=== PATIENT | male | born 1950 | race Caucasian/White ===

== ENCOUNTER → 2020-05-09 15:04 | Outpatient (BNVA) | payer MEDICARE, SELFPAY | PROVIDERS: Visit Provider Nurse Practitioner Family | DX: Z00.00 Encounter for general adult medical examination without abnormal findings (principal); E11.9 Type 2 diabetes mellitus without complications | CPT/HCPCS: 81000 ==

== ENCOUNTER 2021-04-03 12:36 | Outpatient (CLI) | payer MEDICARE, OTHER, SELFPAY ==
--- NOTE | 2021-04-03 12:42 | XR_ITS ---
WS: [id number] Right hip, 2 views, 04/03/2021 Clinical Data: M25.551 - Pain in right hip Comparison: None. Findings: No fractures or dislocations are seen. The hip joint is intact. The soft tissues are not remarkable. The adjacent acetabulum shows a vertical line which is posterior to the femoral head, probably a technology solutions architect robson finding. There are calcifications adjacent to the greater tuberosity. There is a prominent right acetabular lip. The right SI joint and pubic symphysis are unremarkable. XR/XR hip RT 2-3V wo/w pel* [id number] Impression: 1. Prominent acetabular lip. 2. Synovial calcifications adjacent to greater tuberosity Tonnis classification: grade 1: sclerosis of femoral head and acetabulum or sli ght joint space narrowing or slight lipping at joint margins
== END 2021-04-03 12:37 | disposition home or self-care (01) ==
LOC: RAD 12:41
PROVIDERS: PCP Nurse Practitioner Family; Visit Provider Nurse Practitioner Family
DX: M25.551 Pain in right hip (principal); E11.9 Type 2 diabetes mellitus without complications; M25.50 Pain in unspecified joint; I10 Essential (primary) hypertension
CPT/HCPCS: 73502; 80053; 80061; 83036; 83721; 86038; 86140; 86431

== ENCOUNTER → 2021-05-12 13:26 | Outpatient (BNVA) | payer MEDICARE, OTHER, SELFPAY | PROVIDERS: PCP Nurse Practitioner Family; Visit Provider Nurse Practitioner Family | DX: M79.606 Pain in leg, unspecified (principal); E78.5 Hyperlipidemia, unspecified | CPT/HCPCS: 80076; 82550 ==

== ENCOUNTER → 2021-06-26 10:24 | Outpatient (BNVA) | payer MEDICARE, OTHER, SELFPAY | PROVIDERS: PCP Nurse Practitioner Family; Visit Provider Internal Medicine | DX: R76.8 Other specified abnormal immunological findings in serum (principal); M25.50 Pain in unspecified joint; Z79.899 Other long term (current) drug therapy; M16.11 Unilateral primary osteoarthritis, right hip; Z11.59 Encounter for screening for other viral diseases; Z11.1 Encounter for screening for respiratory tuberculosis; E11.65 Type 2 diabetes mellitus with hyperglycemia; Z79.84 Long term (current) use of oral hypoglycemic drugs | CPT/HCPCS: 36415; 80053; 85025; 85651; 86200; 86480; 86704; 86803; 87340; 99204 ==

== ENCOUNTER 2021-06-27 10:42 | Outpatient (CLI) | payer MEDICARE, OTHER, SELFPAY ==
--- NOTE | 2021-06-27 10:50 | XR_ITS ---
WS: [id number] XR hand RT 2V [id number] REASON FOR EXAM: R76.8 - Other specified abnormal immunological findings i... FINDINGS: IP joint arthropathy in the fingers and thumb. Characterized by joint space narrowing, subchondral sc lerosis and cystic change, small marginal osteophytes. There are some soft tissue calcifications most notably near the PIP joints of the second and third and fifth fingers. Possibly these are ligamentou s. Arthropathy with the same characterization is seen in the MP joint and carpal metacarpal joint of the thumb. XR/XR hand RT 2V [id number] IMPRESSION: Arthropathy in the right hand most likely osteoarthritis. With the findings in the left hand and the soft tissue calcifications again calcium pyrophosphate de position disease could be considered.
--- NOTE | 2021-06-27 10:50 | XR_ITS ---
WS: [id number] XR foot LT 2V [id number] REASON FOR EXAM: M25.50 - Pain in unspecified joint FINDINGS: The DIP arthropathy characterized by joint space narrowing, subchondral sclerosis and cystic change, and small marginal osteophytes. No focal bone abnormality within the left forefoot. Vascular calcification usually associated with ch ronic renal disease or diabetes. The bony and joint structures of the mid and hindfoot demonstrate no significant abnormality. Small e nthesophytes at the insertion of the Achilles tendon and plantar ligament on the calcaneus. Vascular calcification in the mid and hindfoot. XR/XR foot LT 2V [id number] IMPRESSION: Mild to moderate osteoarthritis in the left forefoot. Vascular calcifications as above.
--- NOTE | 2021-06-27 10:50 | XR_ITS ---
WS: [id number] XR hand LT 2V [id number] REASON FOR EXAM: R76.8 - Other specified abnormal immunological findings i... FINDINGS: IP joint arthropathy in the thumb and fingers. Characterized by moderate joint space narrowing, subch ondral sclerosis and cystic change, and small marginal osteophytes. Similar arthropathy in the MP and carpal metacarpal joint of the thumb. Similar arthropathy is seen in the MP joints of the second and third fingers. No focal bone lesion. No soft tissue calcification. XR/XR hand LT 2V [id number] IMPRESSION: The findings are compatible with an osteoarthritis. Due to the involvement of t he second and third MP joints, calcium pyrophosphate deposition disease would b e a consideration.
--- NOTE | 2021-06-27 10:50 | XR_ITS ---
WS: [id number] XR foot RT 2V [id number] REASON FOR EXAM: M25.50 - Pain in unspecified joint FINDINGS: DIP arthropathy characterized by joint space narrowing, subchondral sclerosis and cystic change, and small marginal osteophytes. Arthropathy of similar character involving the tarsal metatarsal joint of the great toe. No focal bone abnormality within the forefoot. Bony and joint structures of the right midfoot and hindfoot demonstrate no significant abnormality. E nthesophyte at the Achilles tendon insertion on the calcaneus. XR/XR foot RT 2V [id number] IMPRESSION: Osteoarthritis in the right forefoot as above.
== END 2021-06-27 10:43 | disposition home or self-care (01) ==
PROVIDERS: PCP Nurse Practitioner Family; Visit Provider Internal Medicine
DX: R76.8 Other specified abnormal immunological findings in serum (principal); M25.50 Pain in unspecified joint
CPT/HCPCS: 73120; 73620

== ENCOUNTER → 2021-07-17 11:51 | Outpatient (BNVA) | payer MEDICARE, OTHER, SELFPAY | PROVIDERS: PCP Nurse Practitioner Family; Visit Provider Nurse Practitioner Family | DX: E11.65 Type 2 diabetes mellitus with hyperglycemia (principal) | CPT/HCPCS: 36416; 82962 ==

== ENCOUNTER → 2021-08-18 09:00 | Outpatient (BNVA) | payer MEDICARE, OTHER, SELFPAY | PROVIDERS: PCP Nurse Practitioner Family; Visit Provider Nurse Practitioner Family | DX: E11.65 Type 2 diabetes mellitus with hyperglycemia (principal); I10 Essential (primary) hypertension | CPT/HCPCS: 80053; 80061; 82043; 83036; 83721 ==

== ENCOUNTER → 2021-09-03 09:50 | Outpatient (BNVA) | payer MEDICARE, OTHER, SELFPAY | PROVIDERS: PCP Nurse Practitioner Family; Visit Provider Internal Medicine | DX: E11.40 Type 2 diabetes mellitus with diabetic neuropathy, unspecified (principal); E11.65 Type 2 diabetes mellitus with hyperglycemia; E78.5 Hyperlipidemia, unspecified; Z79.84 Long term (current) use of oral hypoglycemic drugs | CPT/HCPCS: 99204 ==

== ENCOUNTER → 2021-10-27 09:43 | Outpatient (BNVA) | payer MEDICARE, OTHER, SELFPAY | PROVIDERS: PCP Nurse Practitioner Family; Visit Provider Internal Medicine | DX: R76.8 Other specified abnormal immunological findings in serum (principal); Z79.899 Other long term (current) drug therapy; E11.40 Type 2 diabetes mellitus with diabetic neuropathy, unspecified; E11.65 Type 2 diabetes mellitus with hyperglycemia; I10 Essential (primary) hypertension | CPT/HCPCS: 80053; 85025; 85651; 86140 ==

== ENCOUNTER → 2021-10-29 10:18 | Outpatient (BNVA) | payer MEDICARE, OTHER, SELFPAY | PROVIDERS: PCP Nurse Practitioner Family; Visit Provider Internal Medicine | DX: R76.8 Other specified abnormal immunological findings in serum (principal); M25.559 Pain in unspecified hip | CPT/HCPCS: 99214 ==

== ENCOUNTER 2021-11-11 20:43 | Inpatient (IN) | payer MEDICARE, OTHER, SELFPAY ==
[2021-11-11] VITALS (8 sets, daily range): BP systolic 129–178; BP diastolic 81–113; PULSE 109–126; RESP 13–18; TEMP 34.3; O2SAT 97–100; BMI 34.8
--- NOTE | 2021-11-11 20:45 | ECG_ITS ---
[facility] Test Date: 2021-11-11 Pat Name: Adam Garnica Department: Room: Gender: Male Clinical Aide: : 1950 Requested By: Sarah Adams Order Number: [id number] Evette MD: Audrey Salgado M.D. Measurements Intervals [place] Rate: 116 P: 14 MT: 155 QRS: 67 QRSD: 129 T: -5 QT: 352 QTc: 490 Interpretive Statements SINUS TACHYCARDIA WITH FREQUENT VENTRICULAR PREMATURE COMPLEXES SEPTAL MYOCARDIAL INFARCTION , OF INDETERMINATE AGE [40+ ms Q WAVE IN V1/V2] MODERATE T-WAVE ABNORMALITY, CONSIDER INFERIOR ISCHEMIA [-0.1+ mV T-WAVE IN II/aVF] No previous ECG available for comparison Electronically Signed On 11-12-2021 7:18:20 CONVEYOR LINE BATTERY CHARGER by Audrey Salgado M.D. [id number]
--- NOTE | 2021-11-11 20:45 | XRR_ITS ---
PROCEDURE INFORMATION: Exam: XR Chest Exam date and time: 11/11/2021 8:45 PM Age: 70 years old Clinical indication: Device placement; Ett placement (vent status); Additional info: Arrest TECHNIQUE: Imaging protocol: XR of the chest. Views: 1 view. COMPARISON: No relevant prior studies available. FINDINGS: Tubes, catheters and devices: There is an endotracheal tube which is 5.5 cm above the jacinda. Lungs: Unremarkable. No consolidation. Pleural spaces: Unremarkable. No pleural effusion. No pneumothorax. Heart/Mediastinum: Unremarkable. No cardiomegaly. Bones/joints: Unremarkable. XR/XR chest 1V portable [id number] IMPRESSION: 1. Unremarkable endotracheal tube position. 2. No focal acute pulmonary disease.
[2021-11-11 20:53] LABS: Basophils # 0.1 10^3/uL (0.0-0.1); Basophils % 0.3 %; Eosinophils # 0.2 10^3/uL (0.0-0.8); Eosinophils % 1.1 %; Hematocrit 40.9 % (42.0-52.0); Hemoglobin 12.8 g/dL (11.7-16.6); Lymphocytes # 6.3 10^3/uL (0.8-4.8); Lymphocytes % 37.2 %; Mean Corpuscular HGB Conc 31.3 g/dL (30.0-36.0); Mean Corpuscular Hemoglobin 28.4 pg (28.0-34.0); Mean Corpuscular Volume 90.7 fl (80-94); Neutrophils % 54.8 %; Nucleated Red Blood Cells % 0 %; Platelet Count 183 10^3/cmm (130-400); Red Blood Count 4.51 10^6/uL (4.1-5.3); Red Cell Distribution Width 13.7 % (12.1-15.1)
[2021-11-11 21:10] LABS: INR 1.11 (0.8-1.2)
[2021-11-11 21:13] LABS: Troponin(5th) Baseline 106 ng/L (0-15)
--- NOTE | 2021-11-11 21:13 | W.ED.GENADLT ---
HPI - General Adult General: Chief complaint: Cardiac Arrest/CPR Stated complaint: unresponsive Time Seen by Provider: 11/11/21 20:45 Source: patient and EMS Mode of arrival: EMS Limitations: no limitations History of Present Illness: 70-year-old male who is here with EMS post arrest. Roughly 8:00 family witnessed seem to go down and started CPR immediately. Family states that he did not have any complaints today had been having chest pain but at 8:00 just slumped over and started CPR immediately EMS states that he did have V. fib and V. tach they shocked him 4 separate times give him amiodarone and epinephrine he is currently has ROSC. They did RSI him given vecuronium so he is paralyzed currently blood pressures in the 160s heart rate 117 Review of Systems General: Reports: ROS unobtainable due to mental status PFSH ED PFSH: Medical History Cataract fragments in both eyes following surgery Diabetes mellitus Hypertension Surgical History H/O hernia repair Family History Mother Diabetes Rheumatoid arthritis Father CAD (coronary artery disease) Diabetes Social History Smoking and tobacco status: never smoked Alcohol intake: never History of recent travel: No Physical Exam Const: COMMON NORMALS: negative for patient oriented x3 and negative for alert GENERAL APPEARANCE: ill appearing ORIENTATION/CONSCIOUSNESS: not oriented to person, not oriented to place and not oriented to time OTHER: unresponsive, intubated HENMT: COMMON NORMALS: normocephalic HEAD & SCALP: normocephalic Eye: GENERAL EYE: appearance normal, both eyes and all related structures Neck/C-Spine: COMMON NORMALS: supple Lymph: LYMPHATIC: no lymphadenopathy noted Chest: COMMONS NORMALS: normal inspection of the chest and normal palpation of entire chest wall Resp: OTHER: Good breath sounds bilaterally ET tube in place Cardio: COMMON NORMALS: regular rate, regular rhythm, S1 normal heart sound present and S2 normal heart sound present RATE: regular rate RHYTHM: regular rhythm HEART SOUNDS: S1 normal heart sound present and S2 normal heart sound present GI: COMMON NORMALS: Normal to inspection, nondistended, normoactive bowel sounds present Back/Pelvis: COMMON NORMALS: thoracic and lumbar spine normal to inspection Extremity: COMMON NORMALS: normal to inspection Neuro: COMMON NORMALS: negative for patient oriented x3 SENSORIUM/ORIENTATION: No alert, No oriented to person, No oriented to place and No oriented to time Psych: COMMON NORMALS: negative for mental status grossly normal Skin: COMMON NORMALS: no rashes or lesions noted GENERAL SKIN EXAM: no rashes or lesions noted Procedures Central Line Placement Right IJ: Time Out Performed: Yes Patient Placed on Monitor/Pulse Ox: Yes MD Prep: mask, gown and gloves Central Line Prep: Chlorhexidine scrub Ultrasound Used for Placement: Yes Central Line Lumen Inserted: triple Post Procedure: sutured in place, good blood return, all ports aspirated, flushed, capped and sterile dressing applied Post Procedure X-Ray: tip of catheter in good position Patient Tolerated Procedure: well Course Vital Signs: Vital signs: Vital Signs Temperature 93.8 F L 11/11/21 21:12 Pulse Rate 116 H 11/11/21 21:12 Respiratory Rate 15 11/11/21 21:27 Blood Pressure 171/96 11/11/21 21:12 Pulse Oximetry 97 11/11/21 21:12 [facility] - General Adult Medical Decision Making Patient presents here with a cardiac arrest. Patient here started to move and he had to be placed on propofol. His blood pressures here have been stable central line was placed for access. Initial EKG showed no STEMI I have speaking to grapple yarder operator Dr. Granados who is aware of patient being post V. fib V. tach arrest and is going to see him in the morning will admit to ICU at this time. Lab Data : 11/11/21 20:45 11/11/21 20:45 Radiology Impressions Chest X-Ray 11/11/21 20:45 IMPRESSION: 1. Unremarkable endotracheal tube position. 2. No focal acute pulmonary disease. Head CT 11/11/21 21:23 IMPRESSION: Negative for acute intracranial abnormality. Laboratory Results WBC 17.0 10^3/uL (4.0-10.0) H 11/11/21 20:45 RBC 4.51 10^6/uL (4.1-5.3) 11/11/21 20:45 Hgb 12.8 g/dL (11.7-16.6) 11/11/21 20:45 Hct 40.9 % (42.0-52.0) L 11/11/21 20:45 MCV 90.7 fl (80-94) 11/11/21 20:45 MCH 28.4 pg (28.0-34.0) 11/11/21 20:45 MCHC 31.3 g/dL (30.0-36.0) 11/11/21 20:45 RDW 13.7 % (12.1-15.1) 11/11/21 20:45 Plt Count 183 10^3/cmm (130-400) 11/11/21 20:45 MPV 10.0 fL (7.4-10.4) 11/11/21 20:45 Neut % (Auto) 54.8 % 11/11/21 20:45 Lymph % (Auto) 37.2 % 11/11/21 20:45 [place] % (Auto) 6.0 % 11/11/21 20:45 Eos % (Auto) 1.1 % 11/11/21 20:45 Baso % (Auto) 0.3 % 11/11/21 20:45 Neut # (Auto) 9.30 10^3/uL (1.8-7.7) H 11/11/21 20:45 Lymph # (Auto) 6.3 10^3/uL (0.8-4.8) H 11/11/21 20:45 [place] # (Auto) 1.0 10^3/uL (0.2-0.9) H 11/11/21 20:45 Eos # (Auto) 0.2 10^3/uL (0.0-0.8) 11/11/21 20:45 Baso # (Auto) 0.1 10^3/uL (0.0-0.1) 11/11/21 20:45 Nucleated RBC % (auto) 0 % 11/11/21: Nucleated RBCs # 0.0 /100WBC 11/11/21 20:45 PT 14.70 SECONDS (12.1-14.9) 11/11/21 20:45 INR 1.11 (0.8-1.2) 11/11/21 20:45 Specimen Type Arterial 11/11/21 21:09 Sample Site Radial, right 11/11/21 21:09 ABG pH 7.20 (7.35-7.45) L 11/11/21 21:09 ABG pCO2 55.8 mmHg (35-45) H 11/11/21 21:09 ABG pO2 322.0 mmHg (80.0-100.0) H 11/11/21 21:09 ABG HCO3 21.9 mmol/L (22-26) L 11/11/21 21:09 ABG Base Excess -6.7 mmol/L (-2.0-2.0) L 11/11/21 21:09 Boo Test Pos 11/11/21 21:09 Hematocrit 41.8 % (42-52) L 11/11/21 21:09 O2 Delivery Device Vent 11/11/21 21:09 FiO2 80.0 % 11/11/21 21:09 PEEP 8.0 cmH20 11/11/21 21:09 Outside Solar Sales Consultant ID Hensa 11/11/21 21:09 Sodium 142 mmol/L (136-145) 11/11/21 20:45 Potassium 3.0 mmol/L (3.5-5.1) L 11/11/21 20:45 Chloride 98 mmol/L (98-107) 11/11/21 20:45 Carbon Dioxide 20 mmol/L (22-29) L 11/11/21 20:45 Anion Gap 27.0 (5-19) H 11/11/21 20:45 BUN 23 mg/dL (8-23) 11/11/21 20:45 Creatinine 1.2 mg/dL (0.7-1.2) 11/11/21 20:45 GFR Calculation 60.0 mL/min (90-130) L 11/11/21 20:45 Glucose 382 mg/dL (65-115) H 11/11/21 20:45 Calculated Osmolality 313 mOsm/kg (285-295) H 11/11/21 20:45 Lactate 8.0 mmol/L (0.5-2.2) H* 11/11/21 20:45 Calcium 8.8 mg/dL (8.5-10.5) 11/11/21 20:45 Magnesium 2.7 mg/dL (1.7-2.3) H 11/11/21 20:45 Total Bilirubin 0.4 mg/dL (0.15-1.2) 11/11/21 20:45 AST 156 U/L (0-40) H 11/11/21 20:45 ALT 123 U/L (0-41) H 11/11/21 20:45 Alkaline Phosphatase 77 IU/L (40-130) 11/11/21 20:45 Troponin T Baseline 106 ng/L (0-15) H* 11/11/21 20:45 NT-Pro-B Natriuret Pep 486 pg/mL (0-125) H 11/11/21 20:45 Total Protein 6.1 g/dL (6.6-8.7) L 11/11/21 20:45 Albumin 4.0 g/dL (3.5-5.2) 11/11/21 20:45 Globulin 2.1 g/dL (1.3-4.6) 11/11/21 20:45 EKG Data EKG 1: I personally reviewed and interpreted this EKG as follows: EKG interpretation date: 11/11/21 EKG interpretation time: 20:46 Interpretation: sinus tach hr [address] or t wave abnormalities qrs 126 qtc 423 Computer generated interpretation: Chest X-Ray 11/11/21 20:45 IMPRESSION: 1. Unremarkable endotracheal tube position. 2. No focal acute pulmonary disease. Head CT 11/11/21 21:23 IMPRESSION: Negative for acute intracranial abnormality. Critical Care Time Critical Care Time: Critical Care Time: Yes Total Critical Care Time: 45 Attestation: The high probability of a clinically significant, sudden or life threatening deterioration of the patient's cv system(s) required my full and direct attention, intervention and personal management. The critical care time is as shown. This time is in addition to time spent performing any reported procedures but includes the following: [x] Data and vital sign review and interpretation [x] Patient assessment, examination and intervention [x] Documentation [x] Medication orders and management Discharge Plan Discharge Patient Disposition: Admitted As Inpatient Admit Provider: Priyanka Landa Clinical Impression: Cardiac arrest Condition: Stable Coding Level of Care Code ED Golf Course Patroller for Chg Fwd Exam Comprehensive
[2021-11-11 21:17] LABS: ABG PCO2 55.8 mmHg (35-45); Arterial Blood Gas Hematocrit 41.8 % (42-52); Base Excess ABG -6.7 mmol/L (-2.0-2.0); Blood Gas Allen Test Pos; Blood Gas Sample Site Radial, right; Blood Gas Sample Type Arterial; HCO3 ABG 21.9 mmol/L (22-26); Oxygen Device VENT
[2021-11-11 21:20] LABS: Alanine Aminotransferase 123 U/L (0-41); Alkaline Phosphatase 77 IU/L (40-130); Blood Urea Nitrogen 23 mg/dL (8-23); Calcium 8.8 mg/dL (8.5-10.5); Carbon Dioxide 20 mmol/L (22-29); Chloride 98 mmol/L (98-107); Globulin 2.1 g/dL (1.3-4.6); Glucose 382 mg/dL (65-115); NT Pro B Type Natriuretic Pept 486 pg/mL (0-125); Osmolality Calculated 313 mOsm/kg (285-295); Sodium 142 mmol/L (136-145); Total Bilirubin 0.4 mg/dL (0.15-1.2); Total Protein 6.1 g/dL (6.6-8.7)
[2021-11-11 21:21] LABS: Aspartate Amino Transferase 156 U/L (0-40)
--- NOTE | 2021-11-11 21:23 | CTR_ITS ---
PROCEDURE INFORMATION: Exam: CT Head Without Contrast Exam date and time: 11/11/2021 9:23 PM Age: 70 years old Clinical indication: Altered mental status/memory loss; Patient HX: Patient cpr in progress upon er arrival. Intubated. Unresponsive. Patient not fully sedated. Fighting et tube. Multiple attempts made. Best scan submitted. ; Additional info: AMS TECHNIQUE: Imaging protocol: Computed tomography of the head without contrast. Radiation optimization: All CT scans at this facility use at least one of these dose optimization techniques: automated exposure control; mA and/or kV adjustment per patient size (includes targeted exams where dose is matched to clinical indication); or iterative reconstruction. COMPARISON: No relevant prior studies available. RADIATION DOSE METRICS: Total DLP (mGy-cm): 2721.6 FINDINGS: Tubes, catheters and devices: Partial visualization of endotracheal tube and orogastric tube. Brain: Unremarkable. No hemorrhage. Unremarkable white matter. No mass effect. Cerebral ventricles: No ventriculomegaly. Paranasal sinuses: Visualized sinuses are unremarkable. No fluid levels. Mastoid air cells: Visualized mastoid air cells are well aerated. Bones/joints: Unremarkable. No acute fracture. Soft tissues: Unremarkable. CT/CT head wo con* [id number] IMPRESSION: Negative for acute intracranial abnormality.
[2021-11-11] MEDS: propofol 1,000 MG/100 ML INJ 7 MG (21:30)
[2021-11-11 21:34] LABS: Magnesium 2.7 mg/dL (1.7-2.3)
--- NOTE | 2021-11-11 22:00 | PC.NURSE ---
2035 - Arrived to ER 11 via [facility] with ROSC Report - Witnessed arrest, daughter states pt slumped back in chair. CPR initiated immediately by family. EMS arrived and pt was in asystole x3 rounds of ACLS, PEA x 1 round, and VFib x 3 rounds. En rounte pt received Epi x 5, Bicarb x 2, 150 mg & 300 mg Ami. Pt RSI with iGel, 25 mg Etom and 80 mg Jaime. 18 g OG placed in field. 14 g R & 18 L AC IV access with IO to left leg. 2040 - HR 95 SR B/P 171/96 Propofol started at 15 mcg 2045 - HR 115 ST c PVC B/P 156/103 Spo2 97% Mayes Cath inserted 2047 - Rectal temp 93.8 - reported to physician 2049 - XRay to confirm tube placements 2056 - B/P 133/106 2099 - HR 119 ST c PVC B/P 166/103 Spo2 100%
[2021-11-11] MEDS: vecuronium 10 mg SDV IVP (22:28)
--- NOTE | 2021-11-11 22:45 | ECG_ITS ---
[facility] Test Date: 2021-11-12 Pat Name: Adam Garnica Department: Room: ICU08 Gender: Male Patient Financial Coordinator: : 1950 Requested By: Sarah Adams Order Number: [id number] Reading MD: Shelly Ford M.D. Measurements Intervals [place] Rate: 110 P: [place]: QRS: 57 QRSD: 136 T: 29 QT: 359 QTc: 486 Interpretive Statements Sinus tachycardia INTRAVENTRICULAR CONDUCTION DELAY [130+ ms QRS DURATION] SEPTAL MYOCARDIAL INFARCTION , OF INDETERMINATE AGE [40+ ms Q WAVE IN V1/V2] Nonspecific T wave changes Compared to ECG 11/11/2021 20:54:17 Intraventricular conduction delay now present Sinus tachycardia no longer present Ventricular premature complex(es) no longer present Possible ischemia no longer present Myocardial infarct finding still present Electronically Signed On 11-12-2021 20:09:50 HEAD OPERATOR by Shelly Ford M.D. [id number]
[2021-11-11] MEDS: dexmedetomidine 400 MCG in sodium chloride 0.9% (100 ml) 100 ML IV (22:59)
--- NOTE | 2021-11-11 23:01 | XRR_ITS ---
PROCEDURE INFORMATION: Exam: XR Chest Exam date and time: 11/11/2021 11:01 PM Age: 70 years old Clinical indication: Device placement; Other: Central line TECHNIQUE: Imaging protocol: XR of the chest. Views: 1 view. COMPARISON: CR (CHEST, ) 11/11/2021 8:49 PM FINDINGS: Tubes, catheters and devices: Right neck approach central venous catheter terminates in the mid SVC. Endotracheal tube is present 6.2 cm above jacinda. Lungs: Unremarkable. No consolidation. Pleural spaces: Unremarkable. No pleural effusion. No pneumothorax. Heart/Mediastinum: Unremarkable. No cardiomegaly. Bones/joints: Unremarkable. XR/XR chest 1V portable [id number] IMPRESSION: Satisfactory central venous catheter placement.
[2021-11-11 23:53] LABS: Troponin 5 2HR 229.3 ng/L (0-15); Troponin 5 2HR Delta 123.3 ABS# (0-10)
--- NOTE | 2021-11-11 23:56 | PC.NURSE ---
Pt. medication was changed from Propofol to Presodex due to hypotension. The patient's blood pressure quickly went to hypertension. The patient was changed back to propofol. Pt. had central line started if blood pressure medication is needed.
[2021-11-12] VITALS (64 sets, daily range): BP systolic 84–142; BP diastolic 50–90; PULSE 80–113; RESP 8–27; TEMP 34.8–37.1; O2SAT 91–100
[2021-11-12] MEDS: propofol 1,000 MG/100 ML INJ 27.22 MG IV ×2 (00:18→03:56)
[2021-11-12] MEDS: enoxaparin 100 mg/mL Syringe SUBCUT ×2 (00:30→12:35)
--- NOTE | 2021-11-12 01:08 | USCV_ITS ---
Adam Garnica Age: 70 Gender: M : 1950 Exam Date: 11/12/2021 01:39 Ordering Phys: Priyanka Landa MD Technologist: BRIAN Exam Location: [facility] [place] Indication: Post Cardiac Arrest BP: 89 / 61 HR: 98 Rhythm: Sinus Technical Quality: Adequate MEASUREMENTS (Male / Female) Normal Values 2D ECHO LV Diastolic Diameter PLAX 4.7 cm 4.2 - 5.9 / 3.9 - 5.3 cm LV Systolic Diameter PLAX 3.8 cm IVS Diastolic Thickness 1.3 cm 0.6 - 1.0 / 0.6 - 0.9 cm IVS Systolic Thickness 1.6 cm LVPW Diastolic Thickness 1.4 cm 0.6 - 1.0 / 0.6 - 0.9 cm LVPW Systolic Thickness 1.6 cm LVOT Diameter 2.6 cm LV Ejection Fraction 2D Teich 38.1 % LV Ejection Fraction MOD 2C 44.7 % LV Ejection Fraction 2C AL 43.9 % LA Diameter 2.8 cm LA Width 3.2 cm LA Height 4.1 cm RA Width 2.7 cm RA Height 5.0 cm Aorta at Sinotubular Diameter 2.9 cm M-MODE Aortic Annulus Diameter 3.0 cm LA Ao Ratio MM 1.0 DOPPLER AV Peak Velocity 99.0 cm/s LVOT Peak Velocity 85.0 cm/s AV Area Cont Eq vti 4.2 cm squared AV Area Cont Eq pk 4.7 cm squared MV E' Velocity 6.0 cm/s TR Peak Velocity 168.3 cm/s TR Peak Gradient 11.3 mmHg TR Mean Velocity 119.6 cm/s TR Mean Gradient 6.2 mmHg TR Velocity Time Integral 37.9 cm TV Peak E Velocity 59.0 cm/s Right Atrial Pressure 8.0 mmHg Pulmonary Artery Systolic Pressu 19.3 mmHg PV Peak Velocity 58.0 cm/s RV Acceleration Time 0.1 s RV Ejection Time 0.3 s RV AcT/ET 0.4 FINDINGS Left Ventricle Normal left ventricular size and systolic function, EF 55 %. Mild left ventricular hypertrophy. Regional wall motion abnormalities (see diagram). Right Ventricle Possibly of normal size and ejection fraction Right Atrium Possibly of normal size Left Atrium Normal left atrial size. Mitral Valve Thickened mitral valve. Aortic Valve Thickened aortic valve. Tricuspid Valve No gross abnormalities noted Pulmonic Valve Pulmonic valve not well visualized. Pericardium No pericardial effusion. Aorta Normal aortic annulus size. CONCLUSIONS Normal left ventricular size and systolic function, EF 55 %. Mild left ventricular hypertrophy. Regional wall motion abnormalities (see diagram). Minimally thickened aortic and mitral valves. There is no pericardial effusion. There are no intracardiac masses. Technically difficult study because of the poor ultrasonic window. No previous study is available for comparison. Dr Shelly Ford MD FACC (Electronically Signed) Final Date: 12 November 2021 17:05 S
--- NOTE | 2021-11-12 01:08 | XR_ITS ---
WS: [id number] Exam: XR chest 1V portable [id number] Date/Time of Exam: 11/12/2021 3:55 AM Reason For Exam: tube position, CXR on vent Comparison 11/11/2021. The lungs are fully expanded and clear. An endotracheal tube is in place ending about 4 cm above the jacinda in good position. Right IJ catheter ends at the cavoatrial junction. An enteric tube enters th e stomach but the tip is not visible. Normal cardiomediastinal silhouette for technique. No pleural e ffusion. XR/XR chest 1V portable [id number] IMPRESSION: 1. No acute cardiopulmonary process identified. 2. ET tube and right IJ central line both in good position. Enteric tube enters the stomach but the tip is not included in the [id number].
--- NOTE | 2021-11-12 01:24 | PM.HP ---
Providers/Chief Complaint Admitting Physician: Priyanka Landa MD Primary Care Provider: CAMI Connolly Chief Complaint: unresponsive History of Present Illness Adam Garnica is a 70 year old male brought from home by EMS after having a cardiac arrest at home at ~8Pm. Patient reportedly became unresponsive, CPR was started by family immediately and then taken over by EMS. V fib and V tach was detected by EMS- he was defibrillated 4 times, given amiodarone and epinephrine which resulted in ROSC. He was intubated thereafter, started on fentanyl and precedex thereafter, patient was reportedly awake in the ER thereafter and moving all extremities. Currently sedated with fenatnyl and propofol, comfortable on ventilator. Epinephrine drip was turned off after BP was 211/107, currently BP 140/67mmhg, HR 100/min. EKG shows sinus tachycardia with frequent VPCs. Ct head negative for acute intracranial abnormality. Review of Systems General: Reports: ROS unobtainable due to endotracheal tube and ROS unobtainable due to medical condition Medications/Allergies Home Medications Medication Instructions Recorded Confirmed Last Taken Type metformin 850 mg tablet 850 mg PO TID 05/09/20 10/29/21 Unknown History [place] Cinnamon PO 06/26/21 10/29/21 Unknown History Elderberry complex PO 06/26/21 10/29/21 Unknown History cholecalciferol (vitamin D3) 50 50 mcg PO DAILY 06/26/21 10/29/21 Unknown History mcg (2,000 unit) capsule diclofenac sodium 1 % topical gel 4 g TOPICAL QID #100 g 06/26/21 10/29/21 Unknown Rx (Voltaren Arthritis Pain) digestive enzymes 1 cap PO DAILY 06/26/21 10/29/21 Unknown History ibuprofen 200 mg tablet (Advil) 200 mg PO Q6H PRN 06/26/21 10/29/21 Unknown History joint support PO 06/26/21 10/29/21 Unknown History magnesium 250 mg tablet 250 mg PO DAILY 06/26/21 10/29/21 Unknown History mupirocin calcium 2 % topical cream 1 applic TOPICAL BID PRN 06/26/21 10/29/21 Unknown History omega-3 fatty acids-fish oil 360 1 cap PO DAILY 06/26/21 10/29/21 Unknown History mg-1,200 mg capsule (Fish Oil) oxymetazoline 0.05 % nasal spray 2 spray INTRANASAL Q12H PRN 06/26/21 10/29/21 Unknown History (Afrin (oxymetazoline)) pseudoephedrine HCl 30 mg tablet 30 mg PO Q6H PRN 06/26/21 10/29/21 Unknown History (Sudafed) sertraline 50 mg tablet (Zoloft) 50 mg PO DAILY PRN 06/26/21 10/29/21 Unknown History blood-glucose meter,continuous #1 ea 07/21/21 10/29/21 Unknown Rx empagliflozin 25 mg tablet 25 mg PO DAILY #90 tab 09/03/21 10/29/21 Unknown Rx (Jardiance) pioglitazone 30 mg tablet (Actos) 30 mg PO DAILY #90 tab 09/03/21 10/29/21 Unknown Rx fluorouracil 5 % topical cream 1 applic TOPICAL BID 14 Days #40 g 09/22/21 10/29/21 Unknown Rx (Efudex) blood sugar diagnostic #50 ea 09/29/21 10/29/21 Unknown Rx blood sugar diagnostic (Blood #50 ea 09/29/21 10/29/21 Unknown Rx Glucose Test) blood sugar diagnostic (OneTouch #100 ea 10/10/21 10/29/21 Unknown Rx Ultra Test) dulaglutide 4.5 mg/0.5 mL See Rx Instructions .ROUTE 10/10/21 10/29/21 Unknown Rx subcutaneous pen injector .COMPLEX #2 ml (Trulicity) hydroxychloroquine 200 mg tablet 200 mg PO BID #60 tab 10/16/21 10/29/21 Unknown Rx amlodipine 10 mg tablet See Rx Instructions .ROUTE 10/23/21 10/29/21 Unknown Rx .COMPLEX #90 tablet gemfibrozil 600 mg tablet See Rx Instructions .ROUTE 11/04/21 Unknown Rx .COMPLEX #60 tab losartan 100 mg tablet 100 mg PO DAILY #90 tab 11/07/21 Unknown Rx Allergies Allergy/AdvReac Type Severity Reaction Status Date / Time No Known Allergies Allergy Verified 10/29/21 10:55 PFSH Acute PFSH: Medical History Cataract fragments in both eyes following surgery Diabetes mellitus Hypertension Surgical History H/O hernia repair Family History Mother Diabetes Rheumatoid arthritis Father CAD (coronary artery disease) Diabetes Social History Smoking and tobacco status: never smoked Alcohol intake: never History of recent travel: No Vitals/I&O/Wt Last Vital Signs Temp 93.8 F L 11/11/21 21:12 Pulse 122 H 11/11/21 23:23 Resp 18 11/11/21 23:54 BP 178/103 11/11/21 23:23 Pulse Ox 99 11/11/21 23:54 11/11/21 11/11/21 11/12/21 14:59 22:59 06:59 Intake Total 10.383 / 10.383 13.397 / 23.780 Balance 10.383 / 10.383 13.397 / 23.780 Weight last 48 hrs Weight 113.398 kg Physical Exam Narrative: GEN: intubated, sedated CVS: S1S2 N, tachycardia RS: CTA B/L all areas Abd: Soft, nt/nd , bs+ 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 Chest X-Ray 11/11/21 23:01 IMPRESSION: Satisfactory central venous catheter placement. Laboratory Results WBC 17.0 10^3/uL (4.0-10.0) H 11/11/21 20:45 RBC 4.51 10^6/uL (4.1-5.3) 11/11/21 20:45 Hgb 12.8 g/dL (11.7-16.6) 11/11/21 20:45 Hct 40.9 % (42.0-52.0) L 11/11/21 20:45 MCV 90.7 fl (80-94) 11/11/21 20:45 MCH 28.4 pg (28.0-34.0) 11/11/21 20:45 MCHC 31.3 g/dL (30.0-36.0) 11/11/21 20:45 RDW 13.7 % (12.1-15.1) 11/11/21 20:45 Plt Count 183 10^3/cmm (130-400) 11/11/21 20:45 MPV 10.0 fL (7.4-10.4) 11/11/21 20:45 Neut % (Auto) 54.8 % 11/11/21 20:45 Lymph % (Auto) 37.2 % 11/11/21 20:45 [place] % (Auto) 6.0 % 11/11/21 20:45 Eos % (Auto) 1.1 % 11/11/21 20:45 Baso % (Auto) 0.3 % 11/11/21 20:45 Neut # (Auto) 9.30 10^3/uL (1.8-7.7) H 11/11/21 20:45 Lymph # (Auto) 6.3 10^3/uL (0.8-4.8) H 11/11/21 20:45 [place] # (Auto) 1.0 10^3/uL (0.2-0.9) H 11/11/21 20:45 Eos # (Auto) 0.2 10^3/uL (0.0-0.8) 11/11/21 20:45 Baso # (Auto) 0.1 10^3/uL (0.0-0.1) 11/11/21 20:45 Nucleated RBC % (auto) 0 % 11/11/21:45 Nucleated RBCs # 0.0 /100WBC 11/11/21 20:45 PT 14.70 SECONDS (12.1-14.9) 11/11/21 20:45 INR 1.11 (0.8-1.2) 11/11/21 20:45 Specimen Type Arterial 11/11/21 21:09 Sample Site Radial, right 11/11/21 21:09 ABG pH 7.20 (7.35-7.45) L 11/11/21 21:09 ABG pCO2 55.8 mmHg (35-45) H 11/11/21 21:09 ABG pO2 322.0 mmHg (80.0-100.0) H 11/11/21 21:09 ABG HCO3 21.9 mmol/L (22-26) L 11/11/21 21:09 ABG Base Excess -6.7 mmol/L (-2.0-2.0) L 11/11/21 21:09 Boo Test Pos 11/11/21 21:09 Hematocrit 41.8 % (42-52) L 11/11/21 21:09 O2 Delivery Device Vent 11/11/21 21:09 FiO2 80.0 % 11/11/21 21:09 PEEP 8.0 cmH20 11/11/21 21:09 Economic Specialist ID Hensa 11/11/21 21:09 Sodium 142 mmol/L (136-145) 11/11/21 20:45 Potassium 3.0 mmol/L (3.5-5.1) L 11/11/21 20:45 Chloride 98 mmol/L (98-107) 11/11/21 20:45 Carbon Dioxide 20 mmol/L (22-29) L 11/11/21 20:45 Anion Gap 27.0 (5-19) H 11/11/21 20:45 BUN 23 mg/dL (8-23) 11/11/21 20:45 Creatinine 1.2 mg/dL (0.7-1.2) 11/11/21 20:45 GFR Calculation 60.0 mL/min (90-130) L 11/11/21 20:45 Glucose 382 mg/dL (65-115) H 11/11/21 20:45 Calculated Osmolality 313 mOsm/kg (285-295) H 11/11/21 20:45 Lactate 8.0 mmol/L (0.5-2.2) H* 11/11/21 20:45 Calcium 8.8 mg/dL (8.5-10.5) 11/11/21 20:45 Magnesium 2.7 mg/dL (1.7-2.3) H 11/11/21 20:45 Total Bilirubin 0.4 mg/dL (0.15-1.2) 11/11/21 20:45 AST 156 U/L (0-40) H 11/11/21 20:45 ALT 123 U/L (0-41) H 11/11/21 20:45 Alkaline Phosphatase 77 IU/L (40-130) 11/11/21 20:45 Troponin T Baseline 106 ng/L (0-15) H* 11/11/21 20:45 Troponin T 120 Minute 229.3 ng/L (0-15) H 11/11/21 23:22 Delta Troponin T 123.3 ABS# (0-10) H* 11/11/21 23:22 NT-Pro-B Natriuret Pep 486 pg/mL (0-125) H 11/11/21 20:45 Total Protein 6.1 g/dL (6.6-8.7) L 11/11/21 20:45 Albumin 4.0 g/dL (3.5-5.2) 11/11/21 20:45 Globulin 2.1 g/dL (1.3-4.6) 11/11/21 20:45 Micro: Microbiology 11/11/21 21:22 Blood Culture - Preliminary Blood SPECIMEN COLLECTED 11/11/21 21:00 Blood Culture - Preliminary Blood SPECIMEN COLLECTED ABG Interpretation 1: 11/11/21 21:09 ABG pH 7.20 L ABG pCO2 55.8 H ABG pO2 322.0 H ABG HCO3 21.9 L ABG Base Excess -6.7 L A&P Assessment and plan (1) Cardiac arrest: s/p cardiac arrest with CPR en route V fib/Vtach reported to be rhythm at arrest Currently in sinus rhythm with frequent VPCs Troponins elevated with significant 2 and 6 hr deltas, may be related to primary cardiac event/AMI vs CPR. Hypokalemia on labs with K 3.0, repleted with po and iv supplementation started on lovenox 1mg/kg q12h Given ASA 325, start 81mg po daily, start atorvastatin 40mg po daily Continue losartan at home dosing Start metoprolol 25mg po BID Echocardiogram Cardiology consulted from ER CT head negative for acute intracranial abnormalities Currently intubated, earlier patient noted to be moving all extremities in ER, opening eyes when sedation was weaned down ABG, CXR in am Status: Acute (2) Hyperlipemia: Status: Acute (3) Diabetes mellitus: Hold OHAs, start insulin sliding scale Status: Acute Qualifiers: Diabetes mellitus type: type 2 Diabetes mellitus retirement insulin use: without retirement use Diabetes mellitus complication status: with hyperglycemia Qualified Code(s): E11.65 - Type 2 diabetes mellitus with hyperglycemia (4) Hypertension: continue home dose of losartan Added metoprolol Status: Acute Attestations Medical Necessity Statement*: >2midnight admission for management of cardiac arrest, post code care Critical Care Time: The high probability of a clinically significant, sudden or life threatening deterioration of the patient's [cardiovascular, respiratory] system(s) required my full and direct attention, intervention and personal management. The critical care time is as shown. 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
[2021-11-12] MEDS: lidocaine 1% 5 ML in potassium chloride premix 100 ML 25 ML IV (01:55)
[2021-11-12] MEDS: potassium chloride oral liq 20 mEq/15 mL UDC 40 MEQ NG-TUBE (01:56)
--- NOTE | 2021-11-12 02:45 | ECG_ITS ---
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 Measurements Intervals [place] Rate: 101 P: 40 MI: 199 QRS: 59 QRSD: 125 T: 55 QT: 365 QTc: 474 Interpretive Statements SINUS TACHYCARDIA SEPTAL MYOCARDIAL INFARCTION , PROBABLY OLD [40+ ms Q WAVE IN V1/V2] Compared to ECG 11/12/2021 00:10:01 Atrial flutter no longer present Intraventricular conduction delay no longer present Myocardial infarct finding still present Electronically Signed On 11-12-2021 20:11:41 DISTRICT OPERATIONS MANAGER by Shelly Ford M.D. [id number]
[2021-11-12 03:02] LABS: Basophils % 0.1 %; Hematocrit 36.8 % (42.0-52.0); Hemoglobin 12.1 g/dL (11.7-16.6); Lymphocytes # 0.6 10^3/uL (0.8-4.8); Lymphocytes % 4.2 %; Mean Corpuscular HGB Conc 32.9 g/dL (30.0-36.0); Mean Corpuscular Hemoglobin 28.5 pg (28.0-34.0); Mean Corpuscular Volume 86.6 fl (80-94); Mean Platelet Volume 9.9 fL (7.4-10.4); Monocytes % 7.2 %; Neutrophils # 12.29 10^3/uL (1.8-7.7); Neutrophils % 88.1 %; Nucleated Red Blood Cells % 0 %; Platelet Count 237 10^3/cmm (130-400); Red Blood Count 4.25 10^6/uL (4.1-5.3); Red Cell Distribution Width 13.5 % (12.1-15.1)
[2021-11-12 03:16] LABS: Estmated Average Glucose 220; Hemoglobin A1C 9.3 % (4.0-6.0)
[2021-11-12 03:24] LABS: Alanine Aminotransferase 133 U/L (0-41); Albumin Level 3.8 g/dL (3.5-5.2); Alkaline Phosphatase 62 IU/L (40-130); Anion Gap 18.5 (5-19); Aspartate Amino Transferase 151 U/L (0-40); Blood Urea Nitrogen 33 mg/dL (8-23); Calcium 8.5 mg/dL (8.5-10.5); Carbon Dioxide 23 mmol/L (22-29); Chloride 103 mmol/L (98-107); Globulin 2.5 g/dL (1.3-4.6); Glomerular Filtration Rate 66.4 mL/min (90-130); Glucose 339 mg/dL (65-115); Lactic Sepsis W/Reflex 1.1 mmol/L (0.5-2.2); Magnesium 2.3 mg/dL (1.7-2.3); Osmolality Calculated 311 mOsm/kg (285-295); Potassium 4.5 mmol/L (3.5-5.1); Sodium 140 mmol/L (136-145); Total Bilirubin 0.3 mg/dL (0.15-1.2); Total Protein 6.3 g/dL (6.6-8.7)
[2021-11-12 03:26] LABS: Chol HDL Ratio 5.82 mg/dL (1.0-5.00); Cholesterol 192 mg/dL (0-200); HDL Cholesterol 33 mg/dL (60-100); Triglycerides 482 mg/dL (0-150)
[2021-11-12 03:39] LABS: Troponin 5 6HR 399.1 ng/L (0-15); Troponin 5 6HR Delta 293.1 ng/L (0-12)
[2021-11-12 04:06] LABS: LDL Cholesterol Direct 99 mg/dL (0-100)
[2021-11-12 04:47] LABS: ABG PH Result 7.31 (7.35-7.45); Arterial Blood Gas Hematocrit 38.6 % (42-52); Base Excess ABG -3.1 mmol/L (-2.0-2.0); Blood Gas Allen Test Pos; Blood Gas Operator Identificat JB; Blood Gas Sample Site Brachial, right; Blood Gas Sample Type Arterial; HCO3 ABG 23.4 mmol/L (22-26); Oxygen Device VENT
--- NOTE | 2021-11-12 06:26 | PC.NURSE ---
Patient brought to ICU 8 by SACK LIFTER. Patient currently has fentanyl and propofol gtt's running (please see mar for details). Patient is on the ventilator at 40% and is tolerating well. Patient placed on VS monitoring and tele. Patient is tachycardic in the 100's and all other vital signs are within normal limits.
[2021-11-12 07:19] LABS: Glucose Point of Care 254 mg/dL (70-110)
[2021-11-12] MEDS: insulin lispro 100 unit/1 mL SUBCUT ×2 (07:22→12:34)
--- NOTE | 2021-11-12 07:39 | P.CONIM_ITS ---
Providers/Reason For Consult Consulting Physician/Specialty*: Cardiovascular medicine Reason for Consult*: Out of hospital cardiac arrest Requesting Physician: Hospitalist Attending Physician: Priyanka Landa MD Primary Care Provider: CAMI Connolly History of Present Illness History of Present Illness Adam Garnica is a 70 year old male without a specific history of heart disease who apparently had an [id number] cardiac arrest last evening around 8:00. He was at home and suddenly collapsed. There was no warning. His family did bystander CPR immediately. EMS was called and according to the notes the initial rhythm was ventricular tachycardia and ventricular fibrillation. He was shocked 4 times and achieved return of spontaneous circulation. During the resuscitation he was given amiodarone and epinephrine. His blood pressure increased after the epinephrine to 211/117. After he was resuscitated he was g iven vecuronium and was intubated. He was brought to the emergency room where his EKG revealed sinus tachycardia with PVCs. This has evolved to reveal sinus tachycardia with nonspecific ST and T wave changes and poor R wave progression from leads V1 through V3. There is no ST segment elevation. In the emergency room his head CT was normal. Overnight in the ICU he has awakened. He is still sedated however on propofol and fentanyl so his mental status is not such that he can be communicated with. He is also still intubated. He remains on an amiodarone drip. He is also on a beta-lupe, full dose Lovenox, propofol, fentanyl, aspirin, and ARB, Norvasc and a statin. As mentioned, he has no history of heart disease. He does have a history of diabetes, hypertension and dyslipidemia. He has not been a smoker. His vital signs are stable at this time. Review of Systems Narrative: Review of systems cannot be determined due to his mental status and intubated status. No family around at this time. Medications/Allergies Home Medications Medication Instructions Recorded Confirmed Last Taken Type metformin 850 mg tablet 850 mg PO TID 05/09/20 10/29/21 Unknown History Elderberry complex PO 06/26/21 10/29/21 Unknown History cholecalciferol (vitamin D3) 50 50 mcg PO DAILY 06/26/21 10/29/21 Unknown History mcg (2,000 unit) capsule diclofenac sodium 1 % topical gel 4 g TOPICAL QID #100 g 06/26/21 10/29/21 Unknown Rx (Voltaren Arthritis Pain) digestive enzymes 1 cap PO DAILY 06/26/21 10/29/21 Unknown History ibuprofen 200 mg tablet (Advil) 200 mg PO Q6H PRN 06/26/21 10/29/21 Unknown Hist ory magnesium 250 mg tablet 250 mg PO DAILY 06/26/21 10/29/21 Unknown History mupirocin calcium 2 % topical cream 1 applic TOPICAL BID PRN 06/26/21 10/29/21 Unknown History omega-3 fatty acids-fish oil 360 1 cap PO DAILY 06/26/21 10/29/21 Unknown History mg-1,200 mg capsule (Fish Oil) oxymetazoline 0.05 % nasal spray 2 spray INTRANASAL Q12H PRN 06/26/21 10/29/21 Unknown History (Afrin (oxymetazoline)) pseudoephedrine HCl 30 mg tablet 30 mg PO Q6H PRN 06/26/21 10/29/21 Unknown History (Sudafed) sertraline 50 mg tablet (Zoloft) 50 mg PO DAILY PRN 06/26/21 10/29/21 Unknown History blood-glucose meter,continuous #1 ea 07/21/21 10/29/21 Unknown Rx empagliflozin 25 mg tablet 25 mg PO DAILY #90 tab 09/03/21 10/29/21 Unknown Rx (Jardiance) pioglitazone 30 mg tablet (Actos) 30 mg PO DAILY #90 tab 09/03/21 10/29/21 Unknown Rx fluorouracil 5 % topical cream 1 applic TOPICAL BID 14 Days #40 g 09/22/21 10/29/21 Unknown Rx (Efudex) blood sugar diagnostic #50 ea 09/29/21 10/29/21 Unknown Rx blood sugar diagnostic (Blood #50 ea 09/29/21 10/29/21 Unknown Rx Glucose Test) blood sugar diagnostic (OneTouch #100 ea 10/10/21 10/29/21 Unknown Rx Ultra Test) dulaglutide 4.5 mg/0.5 mL See Rx Instructions .ROUTE 10/10/21 10/29/21 Unknown Rx subcutaneous pen injector .COMPLEX #2 ml (Trulicity) hydroxychloroquine 200 mg tablet 200 mg PO BID #60 tab 10/16/21 10/29/21 Unknown Rx losartan 100 mg tablet 100 mg PO DAILY #90 tab 11/07/21 Unknown Rx amlodipine 10 mg tablet 10 mg PO DAILY 11/12/21 11/12/21 Unknown History bromfenac 0.07 % eye drops 1 drp OPHTHALMIC (EYE) BEDTIME 11/12/21 11/12/21 Unknown History (Prolensa) cinnamon bark 500 mg capsule 500 mg PO DAILY 11/12/21 11/12/21 Unknown History (Cinnamon) gemfibrozil 600 mg tablet 600 mg PO BID 11/12/21 11/12/21 Unknown History glucosamin 375 mg-chond 300 1 cap PO DAILY 11/12/21 11/12/21 Unknown History mg-collagen 50 mg-hyaluronic acid 2 mg cap Allergies Allergy/AdvReac Type Severity Reaction Status Date / Time No Known Allergies Allergy Verified 11/12/21 07:41 Current Medications Generic Name Dose Route Start Last Admin Trade Name Freq PRN Reason Stop Dose Admin Amlodipine Besylate 10 mg 11/12/21 01:15 11/12/21 01:52 Amlodipine 10 Mg Tablet NG-TUBE Not Given DAILY JC Fentanyl 2,500 mcg/ Sodium 250 mls @ 0 mls/hr 11/11/21 21:00 11/11/21 23:45 Chloride IV 100 mcg/hr .Q0M JC 10 mls/hr Titration Protocol Per Protocol Propofol 1,000 mg in 100 mls @ 0 mls/hr 11/11/21 21:00 11/12/21 05:00 Diprivan IV 30 mcg/kg/min .Q0M JC 20.41 mls/hr Titration Protocol Per Protocol Lidocaine HCl 5 ml/ Potassium 105 mls @ 25 mls/hr 11/12/21 01:30 11/12/21 06:31 Chloride IV 11/12/21 09:29 Infused Q4H JC Infusion Amiodarone HCl 900 mg/ 518 mls @ 0 mls/hr 11/12/21 03:30 11/12/21 03:52 Dextrose/ IV Miscellaneous IV 1 mg/min Supplies .Q0M JC 34.53 mls/hr Administration Protocol Per Protocol Insulin Human Lispro 0 unit 11/12/21 08:00 11/12/21 07:22 Insulin Lispro 100 Unit/1 Ml SUBCUT 10 unit WM&BEDTIME JC Administration Protocol PFSH Acute PFSH: Medical History Cataract fragments in both eyes following surgery Diabetes mellitus Hypertension Surgical History H/O hernia repair Family History Mother Diabetes Rheumatoid arthritis Father CAD (coronary artery disease) Diabetes Social History Smoking and tobacco status: never smoked Alcohol intake: never History of recent travel: No Vitals/I&O/Wt Last Vital Signs Temp 94.6 F L 11/12/21 07:16 Pulse 93 11/12/21 07:16 Resp 14 11/12/21 07:16 BP 104/67 11/12/21 07:16 Pulse Ox 96 11/12/21 07:16 11/11/21 11/12/21 11/12/21 22:59 06:59 14:59 Intake Total 10.383 / 10.383 246.331 / 256.714 Output Total 1700 / 1700 Balance 10.383 / 10.383 -1453.669 / -1443.286 Weight last 48 hrs Weight 235 lb 8 oz Weight 250 lb Physical Exam Narrative: GENERAL: In general he is intubated and sedated. He is moving all 4 extremities HEENT: Exam within normal limits. NECK: Supple without jugular vein distention. The carotid upstroke is normal without bruits. BACK: Exam normal. LUNGS: Clear. HEART: Regular rate and rhythm. ABDOMEN: Benign without organomegaly or tenderness. EXTREMITIES: No edema. NEUROLOGIC: Exam not done SKIN: Unremarkable. Urinary Catheter Management: Mayes: Cath Placed During This Visit: yes Urinary Catheter Date of Insertion: 11/11/21 Urinary Catheter Time of Insertion: 21:05 Data : 11/12/21 02:45 11/12/21 02:45 Micro: Microbiology 11/11/21 21:22 Blood Culture - Preliminary Blood SPECIMEN COLLECTED 11/11/21 21:00 Blood Culture - Preliminary Blood SPECIMEN COLLECTED Other data: CBC is unremarkable. EKG reveals lack of R waves from V1 through V3. No ST segment elevation. Head CT is normal. Glucoses have been above 200. The glomerular filtration rate is 66. AST 151, ALT 133. The delta troponin is 123. The baseline troponin was not done. A&P Assessment and plan (1) Cardiac arrest: Status: Acute (2) Type 2 diabetes, uncontrolled, with neuropathy: Status: Acute (3) Hyperlipemia: Status: Acute (4) Hypertension: Status: Acute (5) Diabetes mellitus: Status: Acute Qualifiers: Diabetes mellitus type: type 2 Diabetes mellitus fdc insulin use: without intermodal owner operator truck driver use Diabetes mellitus complication status: with hyperglycemia Qualified Code(s): E11.65 - Type 2 diabetes mellitus with hyperglycemia (6) Acute non-ST segment elevation myocardial infarction: Status: Acute (7) Elevated transaminase level: Status: Acute Plan Fortunately, CPR was done early as was counter shocking and so his central nervous system appears to have been preserved. He is awakening. He has had a myocardial infarction. Transaminase level elevation is probably related to the LA. Once he is extubated and awake he will need cardiac catheterization. We will do this on elective basis after we have a chance to speak with him. In the meantime supportive care, eventual extubation and continue medications as currently prescribed. 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
--- NOTE | 2021-11-12 07:54 | PC.PHAR ---
Addendum entered by Ashley Edge 11/12/21 07:57: PTS STATES THE PT GLIPIZIDE 10MG BID WAS DCED LAST FILLED 09/23/21 90D/S Original Note: PT UNABLE TO VERIFY MEDICATIONS-PTS STATES THE PT NORMALLY TAKES CARE OF HIS OWN MEDICATIONS BUT STATES SHE KNOWS WHAT HE TAKES PTS VERIFIED PTS MEDICATIONS
[2021-11-12] MEDS: FUROsemide 10 mg/mL SDV 4mL 40 MG IVP (08:36)
[2021-11-12] MEDS: amlodipine 10 mg Tablet NG-TUBE (08:36)
[2021-11-12] MEDS: metoprolol tartrate 25 mg Tablet PO ×2 (08:36→21:52)
[2021-11-12] MEDS: aspirin 81 mg EC Tablet PO (08:36)
[2021-11-12] MEDS: losartan 50 mg Tablet 100 MG PO (08:37)
[2021-11-12] MEDS: propofol 1,000 MG/100 ML INJ 20.41 MG IV (09:05)
--- NOTE | 2021-11-12 10:39 | PC.CHAP ---
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 number of family present.. Relational/Emotional Strength [] Patient feels connected with others/family/visitors/staff [] Distress [] Loneliness/isolation [] Abandonment Spirituality of Patient [] Person of Colleen [] Attends Jewish of their Colleen [] Believes in Prayer [] Reads Bible or Judaism materials [] There are Spiritual issues to be addressed [place] Pen Cartridge Tester Interventions [x] Prayer [] Active listening [] Non-anxious presence [] Spiritual/emotional support [] Crisis/trauma care [] Spiritual counseling [] Bereavement support [] Provided bereavement packet [] Provided Bible/devotional materials [] Provided toy/stuffed animal, coloring book to patient or family member [] Provided Communion [] Anointing/Trout [] Salvation [x] Completed spiritual assessment [] Other: Impact on Illness or Injury [] Angry [] Fearful [] Anxious [] Often cries [] Exhaustion [] Unable to work [] Unable to attend episcopalian [] Unable to walk/stand [] Unable to read [] Unable to drive [] Unable to eat/drink [] Unable to sleep [] Unable to be with family [] Patient intubated [] Other: Summary Time spent with patient
[2021-11-12 11:27] LABS: Glucose Point of Care 211 mg/dL (70-110)
--- NOTE | 2021-11-12 13:42 | PC.NURSE ---
Sedation vacation and extubation Pt weaned off sedation and was completely off at 1300. With the help of nursing and RT pt was extubated and placed on 2L/NC.
[2021-11-12] MEDS: piperacillin-tazobactam 3.375 GM in sodium chloride 0.9% (plus) 50 ML IV ×2 (14:59→21:52)
--- NOTE | 2021-11-12 16:36 | P.PN_ITS ---
Subjective Subjective: Patient was seen this morning currently intubated, mechanical ventilation, family is at bedside, afebrile overnight, normotensive, not on pressors, pupils equal round reactive light, does withdraw from pain, on 30% FiO2, family denies any CAD history, no history of strokes, at bedside tells me that he was sitting on his couch when suddenly he became nonresponsive Patient was reexamined in the afternoon, was taken off sedation, following all responses, following all commands, patient was successfully extubated, on room air, saturating the high 90s, following commands, placed on 2 L, patient will be moved to cardiac stepdown unit Vitals/I&O/Wt Last Vital Signs Temp 94.6 F L 11/12/21 07:16 Pulse 80 11/12/21 14:00 Resp 12 11/12/21 14:00 BP 104/67 11/12/21 14:00 Pulse Ox 98 11/12/21 13:10 11/12/21 11/12/21 11/12/21 06:59 14:59 22:59 Intake Total 246.331 / 256.714 237.076 / 237.076 Output Total 1700 / 1700 Balance -1453.669 / -1443.286 237.076 / 237.076 Weight last 48 hrs Weight 106.821 kg Weight 113.398 kg Physical Exam Const: COMMON NORMALS: no acute distress ORIENTATION/CONSCIOUSNESS: Yes awake, Yes oriented to person and Yes oriented to place Eye: COMMON NORMALS: Equal, round and reactive pupils present PUPIL: Yes Equal, round and reactive pupils present Resp: COMMON NORMALS: normal respiratory effort and clear to auscultation bilaterally AUSCULTATION: clear to auscultation bilaterally Cardio: COMMON NORMALS: regular rate, regular rhythm, S1 normal heart sound present and S2 normal heart sound present RATE: regular rate RHYTHM: regular rhythm HEART SOUNDS: S1 normal heart sound present and S2 normal heart sound present GI: COMMON NORMALS: Normal to inspection, nondistended, normoactive bowel sounds present, Soft to palpation and non-tender PALPATION: Yes Soft to palpation Extremity: COMMON NORMALS: no pedal edema Neuro: SENSORIUM/ORIENTATION: Yes oriented to person and Yes oriented to place Urinary Catheter Management: Mayes: Cath Placed During This Visit: yes Urinary Catheter Date of Insertion: 11/11/21 Urinary Catheter Time of Insertion: 21:05 Data : 11/12/21 02:45 11/12/21 02:45 Micro: Microbiology 11/11/21 21:22 Blood Culture - Preliminary Blood SPECIMEN COLLECTED 11/11/21 21:00 Blood Culture - Preliminary Blood SPECIMEN COLLECTED A&P Assessment and plan (1) Cardiac arrest: s/p cardiac arrest with CPR en route V fib/Vtach reported to be rhythm at arrest Currently in sinus rhythm with frequent VPCs Was placed on amiodarone drip, currently turned off, transition to amiodarone 200 twice daily Troponins elevated with significant 2 and 6 hr deltas, may be related to primary cardiac event/AMI vs CPR. Hypokalemia on labs with K 3.0, repleted with po and iv supplementation started on lovenox 1mg/kg q12h Given ASA 325, start 81mg po daily, start atorvastatin 40mg po daily Continue losartan at home dosing Start metoprolol 25mg po BID Echocardiogram pending Start Zosyn for aspiration coverage Cardiology consulted from ER, plans on cardiac catheterizations in the near future, n.p.o. midnight CT head negative for acute intracranial abnormalities Acute hypoxic respiratory failure secondary to cardiac arrest -Successfully extubated, currently on 2 L -Speech therapy eval -PT OT -Daily dose Lasix Shock liver, continue to monitor liver function Status: Acute (2) Hyperlipemia: Status: Acute (3) Diabetes mellitus: Hold OHAs, start insulin sliding scale Status: Acute Qualifiers: Diabetes mellitus type: type 2 Diabetes mellitus intermediate card tender insulin use: without intermediate card tender use Diabetes mellitus complication status: with hyperglycemia Qualified Code(s): E11.65 - Type 2 diabetes mellitus with hyperglycemia (4) Hypertension: continue home dose of losartan Added metoprolol Status: Acute Attestations Medical Necessity Statement*: Patient requires hospitalization status post cardiac arrest, NSTEMI, shock liver Coding Level of Care Code Acute Soil Conservation Aide for [facility] Diagnoses Cardiac arrest I46.9 Hyperlipemia E78.5 Diabetes mellitus E11.65 Diabetes mellitus type: type 2 Diabetes mellitus intermediate card tender insulin use: without intermediate card tender use Diabetes mellitus complication status: with hyperglycemia Hypertension I10
[2021-11-12 17:20] LABS: Glucose Point of Care 153 mg/dL (70-110)
[2021-11-12] MEDS: amiodarone 200 mg Tablet PO (17:39)
--- NOTE | 2021-11-12 18:13 | PC.NURSE ---
Shift Note Frequent safety and comfort rounds continue. Orders and/or nursing care completed as indicated. Patient monitored for response to intervention and treatment(s). Education provided includes oxygen and amiodorone. Patient and/or outside sales account representative verbalize understanding. Pt is on 2l nc and doing well. Switched from IV to PO amio. Still slightly confused but is becoming more oriented with present situation and answers questions appropriately. Will continue to monitor.
[2021-11-12 21:50] LABS: Glucose Point of Care 159 mg/dL (70-110)
[2021-11-12] MEDS: atorvastatin 40 mg Tablet PO (21:52)
[2021-11-12] MEDS: acetaminophen 325 mg Tablet 650 MG PO (21:53)
[2021-11-13] VITALS (59 sets, daily range): BP systolic 103–152; BP diastolic 47–116; PULSE 80–121; RESP 6–18; TEMP 36.4–37.2; O2SAT 90–97
[2021-11-13] MEDS: enoxaparin 100 mg/mL Syringe SUBCUT (00:43)
[2021-11-13] MEDS: piperacillin-tazobactam 3.375 GM in sodium chloride 0.9% (plus) 50 ML IV ×3 (05:25→22:34)
[2021-11-13] MEDS: acetaminophen 325 mg Tablet 650 MG PO (05:25)
--- NOTE | 2021-11-13 06:21 | P.PN_ITS ---
Subjective Subjective: Adam was extubated yesterday. He is awake and alert this morning. He has no recollection of the event which occurred. His only complaint is soreness of the chest. I explained CPR and defibrillation to him. Vitals/I&O/Wt Last Vital Signs Temp 97.6 F 11/13/21 05:17 Pulse 80 11/13/21 05:17 Resp 12 11/12/21 18:00 BP 111/60 11/13/21 02:00 Pulse Ox 94 11/13/21 02:00 11/12/21 11/12/21 11/13/21 14:59 22:59 06:59 Intake Total 237.076 / 237.076 170 / 407.076 50 / 457.076 Output Total 1800 / 1800 600 / 2400 Balance 237.076 / 237.076 -1630 / -1392.924 -550 / -1942.924 Weight last 48 hrs Weight 221 lb Weight 235 lb 8 oz Weight 250 lb Physical Exam Narrative: GENERAL: HEENT: Exam within normal limits. NECK: Supple without jugular vein distention. The carotid upstroke is normal without bruits. BACK: Exam normal. LUNGS: Clear. HEART: Regular rate and rhythm. ABDOMEN: Benign without organomegaly or tenderness. EXTREMITIES: No edema. NEUROLOGIC: Exam normal. SKIN: Unremarkable. Urinary Catheter Management: Mayes: Cath Placed During This Visit: yes Urinary Catheter Date of Insertion: 11/11/21 Urinary Catheter Time of Insertion: 21:05 Data : 11/12/21 02:45 11/12/21 02:45 Micro: Microbiology 11/11/21 21:22 Blood Culture - Preliminary Blood NEGATIVE TO DATE 11/11/21 21:00 Blood Culture - Preliminary Blood NEGATIVE TO DATE A&P Assessment and plan (1) Elevated transaminase level: Status: Acute (2) Acute non-ST segment elevation myocardial infarction: Status: Acute (3) Cardiac arrest: Status: Acute (4) Type 2 diabetes, uncontrolled, with neuropathy: Status: Acute (5) Hyperlipemia: Status: Acute (6) Hypertension: Status: Acute (7) Diabetes mellitus: Status: Acute Qualifiers: Diabetes mellitus type: type 2 Diabetes mellitus skilled nursing insulin use: without skilled nursing use Diabetes mellitus complication status: with hyperglycemia Qualified Code(s): E11.65 - Type 2 diabetes mellitus with hyperglycemia Plan Patient needs coronary angiography. We will try to schedule this for later this morning. He is not on any anticoagulants at this point. We will hold the Metformin. Attestations Medical Necessity Statement*: Patient is status post an out of hospital cardiac arrest with CPR and defibrillation and intubation. Now extubated. Needs continued hospitalization for further cardiac evaluation. Coding Level of Care Code Established Pt Acute Part Maker for [facility] Patient Type Established History Detailed Exam Detailed Medical Decision Making Moderate Complexity Diagnoses Elevated transaminase level R74.01 Acute non-ST segment elevation myocardial infarction I21.4 Cardiac arrest I46.9 Type 2 diabetes, uncontrolled, with neuropathy E11.40; E11.65 Hyperlipemia E78.5 Hypertension I10 Diabetes mellitus E11.65 Diabetes mellitus type: type 2 Diabetes mellitus intermediate accountant insulin use: without intermediate accountant use Diabetes mellitus complication status: with hyperglycemia Time Spent (min) 30
[2021-11-13 07:17] LABS: Glucose Point of Care 149 mg/dL (70-110)
--- NOTE | 2021-11-13 07:20 | XACV_ITS ---
Exam Room: [facility] Ht: 180 cm Wt: 100 kg BSA: 2.27 m2 Gender: Male : 1950 Any Known Allergies: No known allergies Exam Priority: Routine Procedure(s): Procedure Description: Diagnostic procedure Procedure Description: PCI procedure Procedure Description: Left Heart Catheterization Procedure Description: Left ventriculography Procedure Description: Drug Eluting Coronary Stent Procedure Description: PTCA Procedure Description: Coronary Angiography Diagnostic Cath Status: Elective Diagnostic Findings * Adam is 70 and 3 nights ago had an out of hospital cardiac arrest. Family member, who is a nurse, did bystander CPR. Paramedics were called and the initial rhythm was apparently V. tach and V. fib. He was counter shocked 4 times and achieved return of spontaneous circulation. He was intubated in the field. He was brought to the emergency room, admitted and the following day awakened and was extubated. He is brought for coronary angiography to assess his coronary arteries. He did have a troponin elevation. * Coronary angiography reveals right coronary artery dominance. The left main is normal and bifurcates into the circumflex and LAD. Circumflex is a large vessel, is moderately calcified and gives off a large marginal branch which contains a 50% ostial stenosis. The LAD is heavily calcified proximally and contains a 50% stenosis in the midportion at the takeoff of a large diagonal branch which has a 40% ostial stenosis. Otherwise the LAD is free of disease. The right coronary artery is the dominant vessel and is occluded with a significant thrombus formation distally beyond the acute margin but prior to the bifurcation of the posterior descending artery and posterior left ventricular branches.. PCI Status: Elective PCI LVEF Assessed: Yes PCI Indication: STEMI - Stable (> 12 hrs Sx) Interventional Findings * A wire was placed through the occlusion in the distal vessel with some difficulty. I could not pass a balloon. A guide liner was used to place down the vessel near the lesion. I was then able to place a 2.5 mm balloon followed by a 4.0 mm balloon. This opened the vessel. At the point of occlusion a 4mm stent was placed. Distal to this the 4.0 mm balloon was used to angioplasty a more distal lesion. The end result was excellent with good NENA-3 flow. Decision for PCI with Surgical Consult: No PCI for Multi-vessel Disease: No Conclusions 1. Out of hospital cardiac arrest with occluded distal right coronary artery. Successful opening of the distal right coronary artery with stent placement and angioplasty of a more distal lesion. Recommendations * Medical therapy. Interventional RX Recommendation: PCI w/o planned CABG Diagnostic RX Recommendation: PCI w/o planned CABG Anticoagulation: Heparin Ventriculography Ejection Fraction: 45.0 % Pressures Phase:Rest AO : 80 / 27 ( 43 ) @ 12:28:00 PM 135 / 64 ( 98 ) @ 1:12:00 PM 141 / 59 ( 95 ) @ 1:12:00 PM LV : 134 / -7 / 25 @ 1:11:00 PM 147 / -7 / 27 @ 1:12:00 PM 147 / -7 / 28 @ 1:12:00 PM Valves Phase:DefaultPhase AV : 15.0 @ 3:27:44 PM 15.0 @ 3:27:44 PM AV Mean Gradient: 10.0 @ 3:27:44 PM 10.0 @ 3:27:44 PM Clinical Evaluation EBL: 5mL-10mL Procedural Details Procedure Consent Obtained. Pre-Procedure Time Out. Identified patient by full name and date of as verbalized by the patient/guarantor. Does the consent match the physician's order: Yes. Accurate & Complete Informed Consent: Yes. Inpatient/Outpatient History & Physical on Chart: Yes. If H&P is completed, is and addenduem needed: No; If yes, is the addendum complete: N/A. Visualize and Verify Site with Patient/Guarantor: N/A. Relevant Radiology Images available: N/A. Pre-op teaching completed and patient verbalized understanding. The risks, benefits, and alternatives of sedation and/or procedure were discussed by physician. The patient agrees to continue. Procedure started. [facility] Clinical Fraility Score: 3: Managing Well. Parts Technician Indications: ACS > 24 hours. Chest Pain Symptom Assessment: Atypical Angina. Cardiovascular Instability: No. Correct patient, site and procedure confirmed by cath team. PERRLA. Strong, equal hand design tech bilaterally. Lungs clear x 5 lobes. IV Site on Arrival: 18 gauge in the right forearm. IV Fluids: 0.9% NaCl at KVO. 200 mL infused prior to logging rafter laborer. Pt has IJ central line catheter to right side. Pre Procedural Pulses: right radial was 2+. Oxygen started at 2liters/min via nasal canula. bilateral groins was prepped with chloroprep then draped in the usual sterile fashion. right radial was prepped with chloroprep then draped in the usual sterile fashion. Physician arrived. Equipment: 6F - Radial. Cardiac Cath Pack. ACIST Manifold Kit Model BT 2000. Heparinized Saline (2 units/mL), 1000 mL bag. Physician scrubbed in. Immediate Pre-Procedure Time Out. Correct Patient: Yes; Correct Procedure: Yes; Correct Site: Yes; Correct Patient Position: Yes; Correct Supplies: Yes; Dried Flammable Prep: Yes; Blood Products Available: N/A;. Lidocaine 1% infiltrated to the right radial. Arterial access obtained. A 5 palauan TIG catheter in over wire. Multiple views taken of left coronary artery. Baseline sample Acquired. HR: 94 BPM. Catheter redirected to the RCA. Multiple views taken of right coronary artery. Inventory is CRD 6FR JR 4 GUIDE 100cm. 6 palauan JR 4 guide catheter was inserted over the wire. Inventory is Patent Safaritronic [place] XT .014 190cm Str. Guidewire. [place] guidewire was advanced through the guide catheter to lesion in the distal RCA. AB TREK 4.00X12 RX BALLOON inserted over wire. Unable to advance balloon through lesion. Balloon out. Inflation number : 1 A AB TREK 2.50X12 RX BALLOON was prepped and advanced across the Dist RCA , then inflated to 12 KALEB for 0:21 seconds. Balloon out. Guideliner inserted. Inflation number: 2 The AB TREK 2.50X12 RX BALLOON was reinflated across the Dist RCA, to 12 KALEB for 0:33 seconds. Inflation number: 3 The AB TREK 2.50X12 RX BALLOON was reinflated across the Dist RCA, to 12 KALEB for 0:11 seconds. Inflation number: 4 The AB TREK 2.50X12 RX BALLOON was reinflated across the Dist RCA, to 12 KALEB for 0:18 seconds. Balloon out. Inflation number : 5 A AB TREK 4.00X12 RX BALLOON was prepped and advanced across the Dist RCA , then inflated to 8 KALEB for 0:25 seconds. Inflation number: 6 The AB TREK 4.00X12 RX BALLOON was reinflated across the Dist RCA, to 8 KALEB for 0:23 seconds. Balloon out. Results checked. Inflation Number : 7 A MDT R YESENIA 4.0X12 THEODORE -Lot Number# [id number] exp date 03/31/2024 was prepped and advanced across the Dist RCA. The stent was deployed at 12 KALEB for 0:34 seconds. Results checked. Stent balloon out over wire. Guideliner, wire and guide catheter out. A 5 palauan Angled Pig catheter in over wire. EDP Sample taken: LV 134/-8,25; HR: 85 BPM; SpO2: 99%. LV gram performed in MARRUFO @ 10 mL/second for a total of 30 mL. EDP Sample taken: LV 147/-8,27; HR: 86 BPM; SpO2: 100%. Pullback taken: LV 147/-8,28; AO 135/64(98); Mean: 10mmHg, Peak to Peak: 15mmHg, SEP: 21sec/min; HR: 93 BPM; SpO2: 99%. Catheter out. Physician scrubbed out. A TR Band was successful obtaining hemostatsis at the Right Radial artery insertion site. TR band placed. Hemostasis obtained. Post Procedure: Pulses reassessed and unchanged. PERRLA. Strong, equal hand design tech bilaterally. No VTE prophylaxis required. Medication's Wasted: Lidocaine 1% = 18 mL. Medication's Wasted: Nitro = 49.8 mg. Medication's Wasted: Heparin = 1000 units. Total IV fluids: 90 mL. Contrast type used: Omnipaque 300 mg/mL, 150 mL bottle. PCI Indication: NSTE. Post-op diagnosis: nstemi. Complications: none. Estimated blood loss: 5mL-10mL. Responsiveness - Normal response to verbal stimuli; alert and oriented, PERRLA. Airway - Unaffected, no intervention required; spontaneous ventilation. Circulation: W/N/L, pulses unchanged. Nausea/Vomiting: No. Procedure completed. Patient transferred by wheelchair to 1st floor. Vital chart was stopped. Access Site Site: Right Radial artery Sheath Size: 6 Fr Hemostasis Method: TR Band Hemostasis Success: Successful Procedure Medications Start: 2:17 PM Stop: 2:17 PM Medication: Versed Amount: 1 mg Route: I.V. Start: 2:17 PM Stop: 2:17 PM Medication: Fentanyl Amount: 50 mcg Route: I.V. Start: 2:25 PM Stop: 2:25 PM Medication: Nitrogylcerin Amount: 200 mcg Route: I.A. Start: 2:29 PM Stop: 2:29 PM Medication: Heparin Amount: 5000 units Route: I.V. Start: 2:42 PM Stop: 2:42 PM Medication: Versed Amount: 1 mg Route: I.V. Start: 2:42 PM Stop: 2:42 PM Medication: Fentanyl Amount: 25 mcg Route: I.V. Start: 3:17 PM Stop: 3:17 PM Medication: Plavix Amount: 600 mg Route: P.O. I, the attending physician, have reviewed and verified all procedure medications. Yes, all medications given per verbal order History/Risk Factors Hypertension: Yes Dyslipidemia: Yes Peripheral Arterial Disease (PAD): No Myocardial Infarction (W[place]): No Obesity: No Renal Disease: No Tobacco Use: Never Prior Interventions PCI: No CABG: No Valve Surgery: No Report Signatures Finalized by Dr. Cory Granados MD on 11/13/2021 04:08 PM
[2021-11-13] MEDS: sodium chloride 0.9% 1,000 ML 50 ML IV (08:06)
[2021-11-13] MEDS: insulin lispro 100 unit/1 mL SUBCUT ×3 (08:07→17:31)
[2021-11-13] MEDS: amiodarone 200 mg Tablet PO (08:07)
[2021-11-13] MEDS: cholecalciferol (vitamin D3) 1,000 unit Tablet 2000 UNIT PO (08:08)
[2021-11-13] MEDS: aspirin 81 mg EC Tablet PO (08:08)
[2021-11-13] MEDS: metoprolol tartrate 25 mg Tablet PO ×2 (08:08→20:56)
[2021-11-13] MEDS: diphenhydrAMINE 50 mg Capsule PO (08:18)
[2021-11-13 08:56] LABS: Basophils % 0.1 %; Eosinophils % 0.1 %; Hematocrit 32.8 % (42.0-52.0); Hemoglobin 10.7 g/dL (11.7-16.6); Lymphocytes # 1.3 10^3/uL (0.8-4.8); Lymphocytes % 11.5 %; Mean Corpuscular HGB Conc 32.6 g/dL (30.0-36.0); Mean Corpuscular Hemoglobin 28.8 pg (28.0-34.0); Mean Corpuscular Volume 88.4 fl (80-94); Mean Platelet Volume 9.8 fL (7.4-10.4); Monocytes # 0.7 10^3/uL (0.2-0.9); Monocytes % 6.8 %; Nucleated Red Blood Cells % 0 %; Platelet Count 198 10^3/cmm (130-400); Red Blood Count 3.71 10^6/uL (4.1-5.3); Red Cell Distribution Width 13.8 % (12.1-15.1); White Blood Count 10.9 10^3/uL (4.0-10.0)
[2021-11-13 09:20] LABS: Alanine Aminotransferase 93 U/L (0-41); Albumin Level 3.6 g/dL (3.5-5.2); Alkaline Phosphatase 50 IU/L (40-130); Anion Gap 21.3 (5-19); Aspartate Amino Transferase 58 U/L (0-40); Blood Urea Nitrogen 29 mg/dL (8-23); Calcium 8.3 mg/dL (8.5-10.5); Carbon Dioxide 18 mmol/L (22-29); Chloride 104 mmol/L (98-107); Globulin 1.9 g/dL (1.3-4.6); Glomerular Filtration Rate 66.4 mL/min (90-130); Glucose 165 mg/dL (65-115); Magnesium 2.3 mg/dL (1.7-2.3); Osmolality Calculated 300 mOsm/kg (285-295); Phosphorus 3.7 mg/dL (2.5-4.5); Potassium 3.3 mmol/L (3.5-5.1); Sodium 140 mmol/L (136-145); Total Bilirubin 0.4 mg/dL (0.15-1.2); Total Protein 5.5 g/dL (6.6-8.7)
[2021-11-13 09:22] LABS: Troponin T (5th) Once 128 ng/L (0-15)
[2021-11-13 09:24] LABS: NT Pro B Type Natriuretic Pept 738 pg/mL (0-125)
[2021-11-13] MEDS: ondansetron 2 mg/ML SDV 2 mL 4 MG IVP (09:30)
--- NOTE | 2021-11-13 10:22 | PC.CHAP ---
Pastoral Care Encounter/Spiritual Assessment Type of Contact [] Declined asset administrator visit [] Patient/Family/Request visit [] Outpatient visit [] Follow-up visit [] Physician referral [] Code/Alert [x] Routine visit [] Staff referral [] Actively dying [] Patient sleeping [x] Family support [] [] Out of room [] Palliative care [] [] Receiving care in room [] Pre-surgical visit [] Trauma [] Long length of stay [x] ICU visit [] Other: Relational/Emotional Strength [] Patient feels connected with others/family/visitors/staff [] Distress [] Loneliness/isolation [] Abandonment Spirituality of Patient [x] Person of Colleen [x] Attends Sabianist of their Colleen [] Believes in Prayer [] Reads Bible or Presybeterian materials [] There are Spiritual issues to be addressed Termite Control Service Representative Interventions x[] Prayer [x] Active listening [x] Non-anxious presence [x] Spiritual/emotional support [] Crisis/trauma care [] Spiritual counseling [] Bereavement support [] Provided bereavement packet [] Provided Bible/devotional materials [] Provided toy/stuffed animal, coloring book to patient or family member [] Provided Communion [] Anointing/[place] [] Salvation [x] Completed spiritual assessment [] Other: Impact on Illness or Injury [] Angry [] Fearful [] Anxious [] Often cries [] Exhaustion [] Unable to work [] Unable to attend catholic [] Unable to walk/stand [] Unable to read [] Unable to drive [] Unable to eat/drink [] Unable to sleep [] Unable to be with family [] Patient intubated [] Other: Summary vent removed yesterday.. patient feeling stronger.. praying for quick total recovery Time spent with patient 10 min
--- NOTE | 2021-11-13 11:32 | P.PN_ITS ---
Subjective Subjective: Patient was seen this morning, family at bedside, denies any chest pain, no shortness of breath, he is on room air, afebrile overnight, normotensive denies any headache, no blurry vision, Vitals/I&O/Wt Last Vital Signs Temp 98.9 F 11/13/21 09:00 Pulse 92 11/13/21 10:30 Resp 12 11/12/21 18:00 BP 103/47 11/13/21 10:30 Pulse Ox 97 11/13/21 10:30 11/12/21 11/13/21 11/13/21 22:59 06:59 14:59 Intake Total 170 / 407.076 50 / 457.076 Output Total 1800 / 1800 600 / 2400 Balance -1630 / -1392.924 -550 / -1942.924 Weight last 48 hrs Weight 100.244 kg Weight 106.821 kg Weight 113.398 kg Physical Exam Const: COMMON NORMALS: no acute distress and patient oriented x3 Resp: COMMON NORMALS: normal respiratory effort, No retractions, No use of accessory muscles and clear to auscultation bilaterally AUSCULTATION: clear to auscultation bilaterally Cardio: COMMON NORMALS: regular rate, regular rhythm, S1 normal heart sound present and S2 normal heart sound present RATE: regular rate RHYTHM: regular rhythm HEART SOUNDS: S1 normal heart sound present and S2 normal heart sound present GI: COMMON NORMALS: Normal to inspection, nondistended, normoactive bowel sounds present, Soft to palpation, non-tender and No hepatosplenomegaly present PALPATION: Yes Soft to palpation and Yes No hepatosplenomegaly present Extremity: COMMON NORMALS: no pedal edema Neuro: COMMON NORMALS: patient oriented x3 Psych: COMMON NORMALS: mental status grossly normal Urinary Catheter Management: Mayes: Cath Placed During This Visit: yes Urinary Catheter Date of Insertion: 11/11/21 Urinary Catheter Time of Insertion: 21:05 Data : 11/13/21 08:34 11/13/21 08:34 Micro: Microbiology 11/11/21 21:22 Blood Culture - Preliminary Blood NEGATIVE TO DATE 11/11/21 21:00 Blood Culture - Preliminary Blood NEGATIVE TO DATE A&P Assessment and plan (1) Cardiac arrest: s/p cardiac arrest with CPR en route V fib/Vtach reported to be rhythm at arrest Currently in sinus rhythm with frequent VPCs Was placed on amiodarone drip, currently turned off, transition to amiodarone 200 twice daily Troponins elevated with significant 2 and 6 hr deltas, may be related to primary cardiac event/AMI vs CPR. Hypokalemia we will place on lovenox 1mg/kg q12h Given ASA 325, start 81mg po daily, start atorvastatin 40mg po daily Continue losartan at home dosing Start metoprolol 25mg po BID Echocardiogram ?Normal left ventricular size and systolic function, EF 55 %. ?Mild left ventricular hypertrophy. Regional wall motion ?abnormalities (see diagram). ?Minimally thickened aortic and mitral valves. ?There is no pericardial effusion. ?There are no intracardiac masses. ?Technically difficult study because of the poor ultrasonic ?window. ?No previous study is available for comparison. 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: without prison use Diabetes mellitus complication status: with hyperglycemia Qualified Code(s): E11.65 - Type 2 diabetes mellitus with hyperglycemia (4) Hypertension: continue home dose of losartan Added metoprolol Status: Acute Attestations Medical Necessity Statement*: Patient requires hospitalization for cardiac arrest, underlying coronary gram Coding Level of Care Code Acute Gas Inspector for [facility] Diagnoses Cardiac arrest I46.9 Hyperlipemia E78.5 Diabetes mellitus E11.65 Diabetes mellitus type: type 2 Diabetes mellitus prison insulin use: without buttermilk drier operator use Diabetes mellitus complication status: with hyperglycemia Hypertension I10
[2021-11-13 11:47] LABS: Glucose Point of Care 150 mg/dL (70-110)
[2021-11-13] MEDS: lidocaine 1% 5 ML in potassium chloride premix 100 ML 25 ML IV (12:02)
--- NOTE | 2021-11-13 12:57 | PC.SLP ---
Attempted eval twice. Pt is NPO for labeling specialist. SOFTWARE QA MANAGER will complete at later time.
--- NOTE | 2021-11-13 13:53 | PC.NURSE ---
patient with slab inspector crew at this time and is to go to CSU after procedure. family at bedside
--- NOTE | 2021-11-13 14:09 | PC.OT ---
Hold OT and PT per nursing order. Plan to resume care following day.
[2021-11-13] MEDS: sodium chloride 0.9% 1,000 ML 100 ML IV (16:28)
[2021-11-13 17:03] LABS: Glucose Point of Care 145 mg/dL (70-110)
[2021-11-13 20:52] LABS: Glucose Point of Care 156 mg/dL (70-110)
[2021-11-13] MEDS: atorvastatin 40 mg Tablet PO (20:56)
[2021-11-14] VITALS (29 sets, daily range): BP systolic 100–156; BP diastolic 58–114; PULSE 81–104; RESP 8–26; TEMP 36.6–37.3; O2SAT 92–98
[2021-11-14] MEDS: acetaminophen 325 mg Tablet 650 MG PO ×2 (00:09→08:08)
[2021-11-14 04:47] LABS: Basophils % 0.1 %; Eosinophils # 0.1 10^3/uL (0.0-0.8); Eosinophils % 0.7 %; Hematocrit 31.2 % (42.0-52.0); Hemoglobin 9.8 g/dL (11.7-16.6); Lymphocytes # 1.3 10^3/uL (0.8-4.8); Lymphocytes % 15.3 %; Mean Corpuscular HGB Conc 31.4 g/dL (30.0-36.0); Mean Corpuscular Hemoglobin 28.2 pg (28.0-34.0); Mean Corpuscular Volume 89.7 fl (80-94); Mean Platelet Volume 9.6 fL (7.4-10.4); Monocytes # 0.7 10^3/uL (0.2-0.9); Monocytes % 8.7 %; Neutrophils # 6.28 10^3/uL (1.8-7.7); Neutrophils % 74.8 %; Nucleated Red Blood Cells % 0 %; Platelet Count 180 10^3/cmm (130-400); Red Blood Count 3.48 10^6/uL (4.1-5.3); Red Cell Distribution Width 13.9 % (12.1-15.1); White Blood Count 8.4 10^3/uL (4.0-10.0)
[2021-11-14 04:55] LABS: INR 1.05 (0.8-1.2)
--- NOTE | 2021-11-14 04:56 | PC.NURSE ---
pt rested quietly throughout shift. pt in NSR with frequesnt PVCs. VS otherwise stable. khan patent with adequate UOP. PRN Tylenol given for pain with relief. Hourly rounding done. pt repositioned frequently. all needs met.
[2021-11-14 05:18] LABS: Alanine Aminotransferase 63 U/L (0-41); Albumin Level 3.3 g/dL (3.5-5.2); Alkaline Phosphatase 49 IU/L (40-130); Anion Gap 20.4 (5-19); Aspartate Amino Transferase 34 U/L (0-40); Blood Urea Nitrogen 23 mg/dL (8-23); Calcium 8.3 mg/dL (8.5-10.5); Carbon Dioxide 18 mmol/L (22-29); Chloride 102 mmol/L (98-107); Globulin 2.3 g/dL (1.3-4.6); Glomerular Filtration Rate 95.8 mL/min (90-130); Glucose 163 mg/dL (65-115); Magnesium 2.2 mg/dL (1.7-2.3); NT Pro B Type Natriuretic Pept 833 pg/mL (0-125); Osmolality Calculated 291 mOsm/kg (285-295); Phosphorus 2.2 mg/dL (2.5-4.5); Potassium 3.4 mmol/L (3.5-5.1); Sodium 137 mmol/L (136-145); Total Bilirubin 0.4 mg/dL (0.15-1.2); Total Protein 5.6 g/dL (6.6-8.7)
[2021-11-14] MEDS: piperacillin-tazobactam 3.375 GM in sodium chloride 0.9% (plus) 50 ML IV (05:58)
[2021-11-14 06:12] LABS: Glucose Point of Care 145 mg/dL (70-110)
[2021-11-14] MEDS: cholecalciferol (vitamin D3) 1,000 unit Tablet 2000 UNIT PO (08:03)
[2021-11-14] MEDS: metoprolol tartrate 25 mg Tablet PO ×2 (08:03→20:21)
[2021-11-14] MEDS: aspirin 81 mg EC Tablet PO (08:03)
[2021-11-14] MEDS: clopidogrel 75 mg Tablet PO (08:04)
--- NOTE | 2021-11-14 08:21 | P.PN_ITS ---
Subjective Subjective: Adam underwent coronary angiography yesterday via the right wrist. His distal right coronary artery was closed. It was somewhat difficult to open this vessel. A guide liner had to be used down the vessel to advance a balloon. We subsequently stented the vessel at the point of closure. We ree stablished good flow. No significant flow-limiting lesions in the circumflex or LAD. Mild to moderate inferior hypokinesis by echo. Ejection fraction was 55%. I did not perform a ventriculogram. He would like the Mayes and the CVP line out. Vitals/I&O/Wt Last Vital Signs Temp 98.6 F 11/14/21 07:21 Pulse 90 11/14/21 07:21 Resp 16 11/14/21 07:21 BP 125/69 11/14/21 07:21 Pulse Ox 95 11/14/21 07:21 11/13/21 11/14/21 11/14/21 22:59 06:59 14:59 Intake Total 2758.333 / 2808.333 550 / 3358.333 Output Total 1500 / 1500 500 / 2000 Balance 1258.333 / 1308.333 50 / 1358.333 Weight last 48 hrs Weight 221 lb Physical Exam Narrative: GENERAL: In general he is awake and alert and feels much better today. HEENT: Exam within normal limits. NECK: Supple without jugular vein distention. The carotid upstroke is normal without bruits. BACK: Exam normal. LUNGS: Clear. HEART: Regular rate and rhythm. ABDOMEN: Benign without organomegaly or tenderness. EXTREMITIES: No edema. The right wrist is flat and dry. There is a good strong 3+ pulse. No compromise of the hand or fingers. No swelling, no hematoma. NEUROLOGIC: Exam normal. SKIN: Unremarkable. Urinary Catheter Management: Mayes: Cath Placed During This Visit: yes Urinary Catheter Date of Insertion: 11/11/21 Urinary Catheter Time of Insertion: 21:05 Data : 11/14/21 04:15 11/14/21 04:15 A&P Assessment and plan (1) Elevated transaminase level: Status: Acute (2) Acute non-ST segment elevation myocardial infarction: Status: Acute (3) Cardiac arrest: Status: Acute (4) Type 2 diabetes, uncontrolled, with neuropathy: Status: Acute (5) Hyperlipemia: Status: Acute (6) Hypertension: Status: Acute (7) Diabetes mellitus: Status: Acute Qualifiers: Diabetes mellitus type: type 2 Diabetes mellitus [facility] insulin use: without long term care phlebotomist use Diabetes mellitus complication status: with hyperglycemia Qualified Code(s): E11.65 - Type 2 diabetes mellitus with hyperglycemia (8) CAD (coronary artery disease): Status: Acute (9) S/P coronary artery stent placement: Status: Acute Plan Today we will remove the central line in the Mayes. He should get up and around. We will adjust his medicines appropriately. If everything goes well he should be discharged tomorrow. He will follow-up with our nurse practitioner in about a week and then with one of the it compliance analyst in 6 weeks. In the meantime he should not lift anything more than 5 pounds with the right upper extremity f or two or 3 days. 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 I discussed all that with him today and with his family members. Attestations Medical Necessity Statement*: Needs continued hospitalization for myocardial infarction, out of hospital cardiac arrest. Coding Level of Care Code Established Pt Acute Spud Driller for [facility]g [facility] Patient Type Established History Detailed Exam Detailed Medical Decision Making Moderate Complexity Diagnoses Elevated transaminase level R74.01 Acute non-ST segment elevation myocardial infarction I21.4 Cardiac arrest I46.9 Type 2 diabetes, uncontrolled, with neuropathy E11.40; E11.65 Hyperlipemia E78.5 Hypertension I10 Diabetes mellitus E11.65 Diabetes mellitus type: type 2 Diabetes mellitus long term care phlebotomist insulin use: without long term care phlebotomist use Diabetes mellitus complication status: with hyperglycemia CAD (coronary artery disease) I25.10 S/P coronary artery stent placement Z95.5 Time Spent (min) 30
--- NOTE | 2021-11-14 09:47 | PC.SOCIAL ---
IMM update IMM updated with patient and at bedside. Copy Pg 2 provided. Verbalized an understanding. Initialled, dated, timed, and placed in chart.
--- NOTE | 2021-11-14 10:03 | PC.CHAP ---
Pastoral Care Encounter/Spiritual Assessment Type of Contact [] Declined cardiology manager visit [] Patient/Family/Request visit [] Outpatient visit [] Follow-up visit [] Physician referral [] Code/Alert [x] Routine visit [] Staff referral [] Actively dying [] Patient sleeping [x] Family support [] [] Out of room [] Palliative care [] [x] Receiving care in room [] Pre-surgical visit [] Trauma [] Long length of stay [] ICU visit [x] Other: doctor present... physical therapy also Relational/Emotional Strength [] Patient feels connected with others/family/visitors/staff [] Distress [] Loneliness/isolation [] Abandonment Spirituality of Patient [] Person of Colleen [] Attends Restorationist of their Colleen [] Believes in Prayer [] Reads Bible or Episcopalian materials [] There are Spiritual issues to be addressed Wig Maker Interventions [x] Prayer [x] Active listening [x] Non-anxious presence [x] Spiritual/emotional support [] Crisis/trauma care [] Spiritual counseling [] Bereavement support [] Provided bereavement packet [] Provided Bible/devotional materials [] Provided toy/stuffed animal, coloring book to patient or family member [] Provided Communion [] Anointing/[place] [] Salvation [x] Completed spiritual assessment [] Other: Impact on Illness or Injury [] Angry [] Fearful [] Anxious [] Often cries [] Exhaustion [] Unable to work [] Unable to attend sikh [] Unable to walk/stand [] Unable to read [] Unable to drive [] Unable to eat/drink [] Unable to sleep [] Unable to be with family [] Patient intubated [] Other: Summary Time spent with patient
[2021-11-14] MEDS: pantoprazole DR 40 mg Tablet PO ×2 (10:33→17:16)
[2021-11-14 10:57] LABS: Glucose Point of Care 202 mg/dL (70-110)
--- NOTE | 2021-11-14 11:21 | PM.PN ---
Subjective Medications: Medication Review Details: Patient was seen this morning, no fevers, no chest pain, status post RCA stent placement, has no complaints this morning Vitals/I&O/Wt Last Vital Signs Temp 98.8 F 11/14/21 10:00 Pulse 81 11/14/21 10:00 Resp 15 11/14/21 10:00 BP 134/79 11/14/21 10:00 Pulse Ox 96 11/14/21 10:00 11/13/21 11/14/21 11/14/21 22:59 06:59 14:59 Intake Total 2758.333 / 2808.333 550 / 3358.333 479 / 479 Output Total 1500 / 1500 500 / 2000 700 / 700 Balance 1258.333 / 1308.333 50 / 1358.333 -221 / -221 Weight last 48 hrs Weight 100.244 kg Physical Exam Const: COMMON NORMALS: no acute distress and patient oriented x3 Resp: COMMON NORMALS: normal respiratory effort, No retractions, No use of accessory muscles and clear to auscultation bilaterally AUSCULTATION: clear to auscultation bilaterally Cardio: COMMON NORMALS: regular rate, regular rhythm, S1 normal heart sound present and S2 normal heart sound present RATE: regular rate RHYTHM: regular rhythm HEART SOUNDS: S1 normal heart sound present and S2 normal heart sound present GI: COMMON NORMALS: Normal to inspection, nondistended, normoactive bowel sounds present, Soft to palpation, non-tender and No hepatosplenomegaly present PALPATION: Yes Soft to palpation and Yes No hepatosplenomegaly present Extremity: COMMON NORMALS: no pedal edema Neuro: COMMON NORMALS: patient oriented x3 Urinary Catheter Management: Mayes: Cath Placed During This Visit: yes Urinary Catheter Date of Insertion: 11/11/21 Urinary Catheter Time of Insertion: 21:05 Data : 11/14/21 04:15 11/14/21 04:15 A&P Assessment and plan (1) Cardiac arrest: s/p cardiac arrest with CPR en route V fib/Vtach reported to be rhythm at arrest Currently in sinus rhythm with frequent VPCs Was placed on amiodarone drip, currently turned off, transition to amiodarone 200 twice daily Troponins elevated with significant 2 and 6 hr deltas, may be related to primary cardiac event/AMI vs CPR. Status post RCA stenting start 81mg po daily, start atorvastatin 40mg po daily, Plavix 75 mg daily Continue losartan at home dosing Start metoprolol 25mg po BID Echocardiogram ?Normal left ventricular size and systolic function, EF 55 %. ?Mild left ventricular hypertrophy. Regional wall motion ?abnormalities (see diagram). ?Minimally thickened aortic and mitral valves. ?There is no pericardial effusion. ?There are no intracardiac masses. ?Technically difficult study because of the poor ultrasonic ?window. ?No previous study is available for comparison. Stop Zosyn Cardiology on consult PT OT CT head negative for acute intracranial abnormalities Acute hypoxic respiratory failure secondary to cardiac arrest -Successfully extubated, currently on room air -Speech therapy eval -PT OT -Daily dose Lasix as needed Shock liver, continue to monitor liver function Hemoglobin 9.8, monitor hemoglobin, monitor for bloody black stools Status: Acute (2) Hyperlipemia: Status: Acute (3) Diabetes mellitus: Hold OHAs, start insulin sliding scale Status: Acute Qualifiers: Diabetes mellitus type: type 2 Diabetes mellitus residential insulin use: without long filler cigar roller machine use Diabetes mellitus complication status: with hyperglycemia Qualified Code(s): E11.65 - Type 2 diabetes mellitus with hyperglycemia (4) Hypertension: continue home dose of losartan Added metoprolol Status: Acute Attestations Medical Necessity Statement*: Patient requires hospitalization for cardiac arrest status post RCA stenting Coding Level of Care Code Acute Wrapper Rewinder for [facility] Diagnoses Cardiac arrest I46.9 Hyperlipemia E78.5 Diabetes mellitus E11.65 Diabetes mellitus type: type 2 Diabetes mellitus residential insulin use: without residential use Diabetes mellitus complication status: with hyperglycemia Hypertension I10
[2021-11-14] MEDS: insulin lispro 100 unit/1 mL SUBCUT ×3 (11:27→20:13)
[2021-11-14 11:58] LABS: Ferritin 275 ng/mL (30-400); Iron 41 ug/dL (59-158); Percent Saturation 14.1 % (20-50); Total Iron Binding Capacity 289 mcg/dl; Unsaturated Iron Binding 248 ug/dL (112-347)
[2021-11-14 16:49] LABS: Glucose Point of Care 197 mg/dL (70-110)
[2021-11-14] MEDS: docusate sodium 100 mg Capsule PO (17:16)
[2021-11-14] MEDS: atorvastatin 40 mg Tablet PO (20:21)
[2021-11-14 20:32] LABS: Glucose Point of Care 231 mg/dL (70-110)
[2021-11-15] VITALS (13 sets, daily range): BP systolic 138–161; BP diastolic 72–93; PULSE 84–110; RESP 0–18; TEMP 36.6–36.9; O2SAT 96–98; BMI 30.8
[2021-11-15] MEDS: temazepam 15 mg Capsule PO (01:23)
[2021-11-15 03:50] LABS: Basophils % 0.1 %; Eosinophils # 0.2 10^3/uL (0.0-0.8); Eosinophils % 2.5 %; Hematocrit 30.8 % (42.0-52.0); Hemoglobin 9.9 g/dL (11.7-16.6); Lymphocytes # 1.3 10^3/uL (0.8-4.8); Mean Corpuscular HGB Conc 32.1 g/dL (30.0-36.0); Mean Corpuscular Hemoglobin 28.4 pg (28.0-34.0); Mean Corpuscular Volume 88.5 fl (80-94); Mean Platelet Volume 9.7 fL (7.4-10.4); Monocytes # 0.7 10^3/uL (0.2-0.9); Monocytes % 9.8 %; Neutrophils # 4.93 10^3/uL (1.8-7.7); Neutrophils % 69.3 %; Nucleated Red Blood Cells % 0 %; Platelet Count 197 10^3/cmm (130-400); Red Blood Count 3.48 10^6/uL (4.1-5.3); Red Cell Distribution Width 13.6 % (12.1-15.1); White Blood Count 7.1 10^3/uL (4.0-10.0)
[2021-11-15 04:07] LABS: INR 1.04 (0.8-1.2)
[2021-11-15 04:29] LABS: Alanine Aminotransferase 51 U/L (0-41); Albumin Level 3.7 g/dL (3.5-5.2); Alkaline Phosphatase 54 IU/L (40-130); Anion Gap 18.3 (5-19); Aspartate Amino Transferase 29 U/L (0-40); Blood Urea Nitrogen 17 mg/dL (8-23); C Reactive Protein 33.9 mg/L (0.0-4.9); Calcium 8.7 mg/dL (8.5-10.5); Carbon Dioxide 23 mmol/L (22-29); Chloride 100 mmol/L (98-107); Globulin 2.3 g/dL (1.3-4.6); Glomerular Filtration Rate 95.8 mL/min (90-130); Glucose 145 mg/dL (65-115); Magnesium 2.1 mg/dL (1.7-2.3); NT Pro B Type Natriuretic Pept 1196 pg/mL (0-125); Osmolality Calculated 290 mOsm/kg (285-295); Phosphorus 2.7 mg/dL (2.5-4.5); Potassium 3.3 mmol/L (3.5-5.1); Sodium 138 mmol/L (136-145); Total Bilirubin 0.4 mg/dL (0.15-1.2)
[2021-11-15 07:11] LABS: Glucose Point of Care 137 mg/dL (70-110)
[2021-11-15] MEDS: clopidogrel 75 mg Tablet PO (08:53)
[2021-11-15] MEDS: aspirin 81 mg EC Tablet PO (08:53)
[2021-11-15] MEDS: cholecalciferol (vitamin D3) 1,000 unit Tablet 2000 UNIT PO (08:53)
[2021-11-15] MEDS: acetaminophen 325 mg Tablet 650 MG PO (09:11)
[2021-11-15] MEDS: metoprolol tartrate 25 mg Tablet PO ×2 (09:17→10:22)
--- NOTE | 2021-11-15 09:25 | PM.PN ---
Subjective Subjective: Cardiology coverage Patient status post cardiac arrest, status post cardiac cath followed by PCI of the RCA. He is generally doing okay. He was found to have frequent episodes of nonsustained ventricular tachycardia on the telemetry. He is on metoprolol 25 mg p.o. twice daily. Denies any chest pain or chest tightness. He has some chest wall soreness from the CPR. The vital signs remained stable otherwise. Medications: Medication Review Details: Current Medications Acetaminophen (Acetaminophen 325 Mg Tablet) 650 mg PO Q6H PRN PRN Reason: MILD PAIN Last Admin: 11/15/21 09:11 Dose: 650 mg Documented by: Al Hydrox/Mg Hydrox/Simethicone ([id number]-[id number]-David 30 Ml Udc) 30 ml PO Q15M PRN PRN Reason: INDIGESTION Aspirin (Aspirin 81 Mg Ec Tablet) 81 mg PO DAILY [facility] Last Admin: 11/15/21 08:53 Dose: 81 mg Documented by: Atorvastatin Calcium (Atorvastatin 40 Mg Tablet) 40 mg PO BEDTIME [facility] Last Admin: 11/14/21 20:21 Dose: 40 mg Documented by: Atropine Sulfate (Atropine 1 Mg/Ml Sdv 1 Ml) 0.5 mg IVP PRN PRN PRN Reason: Symptomatic bradycardia Clopidogrel Bisulfate (Clopidogrel 75 Mg Tablet) 75 mg PO DAILY [facility] Last Admin: 11/15/21 08:53 Dose: 75 mg Documented by: Dextrose (Dextrose 50% Syringe 50 Ml) 25 ml IVP ONCE PRN; Protocol PRN Reason: hypoglycemia protocol Docusate Sodium (Docusate Sodium 100 Mg Capsule) 100 mg PO BID [facility] Last Admin: 11/15/21 08:47 Dose: Not Given Documented by: Glucagon (Glucagon 1 Mg/Ml Inj 1 Ml) 1 mg IM ONCE PRN; Protocol PRN Reason: Adult Acute Hypoglycemia Prot. Sodium Chloride (Sodium Chloride 0.9%) 1,000 mls @ 100 mls/hr IV .Q10H [facility] Last Infusion: 11/14/21 15:15 Dose: Infused Documented by: Insulin Human Lispro (Insulin Lispro 100 Unit/1 Ml) 0 unit SUBCUT WM&BEDTIME JC; Protocol Last Admin: 11/15/21 07:53 Dose: Not Given Documented by: Magnesium Hydroxide (Magnesium Hydroxide 30 Ml Udc) 30 ml PO DAILY PRN PRN Reason: CONSTIPATION Metoprolol Tartrate (Metoprolol Tartrate 25 Mg Tablet) 25 mg PO BID@0900,2100 [facility] Last Admin: 11/15/21 09:17 Dose: 25 mg Documented by: Naloxone HCl (Naloxone 0.4 Mg/Ml Sdv) 0.1 mg IVP Q2M PRN PRN Reason: RESPIRATORY RATE < 8/MIN Nitroglycerin (Nitroglycerin 0.4 Mg Sublingual Tablet) 0.4 mg SUBLINGUAL Q5M PRN PRN Reason: CHEST PAIN Non-Formulary Medication (Magnesium) 250 mg PO DAILY [facility] Last Admin: 11/14/21 08:04 Dose: Not Given Documented by: Non-Formulary Medication (Bromfenac [Prolensa]) 1 drop EYE-BOTH BEDTIME [facility] Last Admin: 11/14/21 22:52 Dose: Not Given Documented by: Ondansetron HCl (Ondansetron 2 Mg/Ml Sdv 2 Ml) 4 mg IVP Q8H PRN PRN Reason: NAUSEA AND VOMITING Last Admin: 11/13/21 09:30 Dose: 4 mg Documented by: Pantoprazole Sodium (Pantoprazole Dr 40 Mg Tablet) 40 mg PO BID [facility] Last Admin: 11/14/21 17:16 Dose: 40 mg Documented by: Polyethylene Glycol (Polyethylene Glycol 3350 Pkt 17 Gm) 17 gm PO DAILY [facility] Last Admin: 11/15/21 08:47 Dose: Not Given Documented by: Temazepam (Temazepam 15 Mg Capsule) 15 mg PO BEDTIME PRN PRN Reason: INSOMNIA Last Admin: 11/15/21 01:23 Dose: 15 mg Documented by: Vitamin D (Cholecalciferol (Vitamin D3) 1,000 Unit Tablet) 2,000 unit PO DAILY [facility] Last Admin: 11/15/21 08:53 Dose: 2,000 unit Documented by: Vitals/I&O/Wt Last Vital Signs Temp 98.5 F 11/15/21 08:00 Pulse 110 H 11/15/21 08:00 Resp 17 11/15/21 08:00 BP 149/80 11/15/21 08:00 Pulse Ox 98 11/15/21 08:00 11/14/21 11/15/21 11/15/21 22:59 06:59 14:59 Intake Total 896.667 / 1734.7579 100 / 1834.7579 Output Total 700 / 1400 700 / 2100 Balance 196.667 / 334.7579 -600 / -265.2421 Weight last 48 hrs Weight 221 lb Physical Exam Narrative: GENERAL: The patient is alert and oriented times three. Not in any acute distress. HEENT: No significant pallor, icterus or lymphadenopathy.Oral cavity: There are no mucous membrane lesions. NECK: Trachea appears to be central. No masses noted. No JVD or thyromegaly appreciated. RESPIRATORY: Chest is symmetrical. No intercostals muscle retraction or any accessory muscle activation. Minimal chest wall tenderness. No instability noted. BREASTS: Deferred. HEART: The heart sounds are normal. No S3 or S4. No significant murmurs. No pericardial rub ABDOMEN: No vessel pulsations or distention. No tenderness. No organomegaly appreciated. Bowel sounds are normally heard. : Deferred. RECTAL: Deferred. LYMPHATIC: No lymphadenopathy noted in the neck or groin. EXTREMITIES: No edema or cyanosis. No clubbing. Peripheral pulses are palpable but somewhat weak bilaterally. MUSCULOSKELETAL: No acute joint deformities or swelling SKIN: There are no significant rashes or ecchymosis NEUROPSYCHIATRIC: The patient is alert and oriented x3. Appears to be in a good mood. No tremors or rigidity noted. Urinary Catheter Management: Mayes: Cath Placed During This Visit: yes Urinary Catheter Date of Insertion: 11/11/21 Urinary Catheter Time of Insertion: 21:05 Data : 11/15/21 02:20 11/15/21 02:20 Other Labs: Laboratory Last Values WBC 7.1 10^3/uL (4.0-10.0) 11/15/21 02:20 RBC 3.48 10^6/uL (4.1-5.3) L 11/15/21 02:20 Hgb 9.9 g/dL (11.7-16.6) L 11/15/21 02:20 Hct 30.8 % (42.0-52.0) L 11/15/21 02:20 MCV 88.5 fl (80-94) 11/15/21 02:20 MCH 28.4 pg (28.0-34.0) 11/15/21 02:20 MCHC 32.1 g/dL (30.0-36.0) 11/15/21 02:20 RDW 13.6 % (12.1-15.1) 11/15/21 02:20 Plt Count 197 10^3/cmm (130-400) 11/15/21 02:20 MPV 9.7 fL (7.4-10.4) 11/15/21 02:20 Neut % (Auto) 69.3 % 11/15/21 02:20 Lymph % (Auto) 18.0 % 11/15/21 02:20 [place] % (Auto) 9.8 % 11/15/21 02:20 Eos % (Auto) 2.5 % 11/15/21 02:20 Baso % (Auto) 0.1 % 11/15/21 02:20 Neut # (Auto) 4.93 10^3/uL (1.8-7.7) 11/15/21 02:20 Lymph # (Auto) 1.3 10^3/uL (0.8-4.8) 11/15/21 02:20 [place] # (Auto) 0.7 10^3/uL (0.2-0.9) 11/15/21 02:20 Eos # (Auto) 0.2 10^3/uL (0.0-0.8) 11/15/21 02:20 Baso # (Auto) 0.0 10^3/uL (0.0-0.1) 11/15/21 02:20 Nucleated RBC % (auto) 0 % 11/15/21 02:20 Nucleated RBCs # 0.0 /100WBC 11/15/21 02:20 PT 13.90 SECONDS (12.1-14.9) 11/15/21 02:20 INR 1.04 (0.8-1.2) 11/15/21 02:20 Specimen Type Arterial 11/12/21 04:21 Sample Site Brachial, right 11/12/21 04:21 ABG pH 7.31 (7.35-7.45) L 11/12/21 04:21 ABG pCO2 47.0 mmHg (35-45) H 11/12/21 04:21 ABG pO2 155.0 mmHg (80.0-100.0) H 11/12/21 04:21 ABG HCO3 23.4 mmol/L (22-26) 11/12/21 04:21 ABG Base Excess -3.1 mmol/L (-2.0-2.0) L 11/12/21 04:21 Boo Test Pos 11/12/21 04:21 Hematocrit 38.6 % (42-52) L 11/12/21 04:21 O2 Delivery Device Vent 11/12/21 04:21 FiO2 40.0 % 11/12/21 04:21 Tidal Volume 0.50 11/12/21 04:21 PEEP 8.0 cmH20 11/12/21 04:21 Flue Cleaner ID Jose 11/12/21 04:21 Sodium 138 mmol/L (136-145) 11/15/21 02:20 Potassium 3.3 mmol/L (3.5-5.1) L 11/15/21 02:20 Chloride 100 mmol/L (98-107) 11/15/21 02:20 Carbon Dioxide 23 mmol/L (22-29) 11/15/21 02:20 Anion Gap 18.3 (5-19) 11/15/21 02:20 BUN 17 mg/dL (8-23) 11/15/21 02:20 Creatinine 0.8 mg/dL (0.7-1.2) 11/15/21 02:20 GFR Calculation 95.8 mL/min (90-130) 11/15/21 02:20 Glucose 145 mg/dL (65-115) H 11/15/21 02:20 POC Glucose 137 mg/dL (70-110) H 11/15/21 07:06 Estimat Average Glucose 220 11/12/21 02:45 Hemoglobin A1c 9.3 % (4.0-6.0) H 11/12/21 02:45 Calculated Osmolality 290 mOsm/kg (285-295) 11/15/21 02:20 Lactic Acid 1.1 mmol/L (0.5-2.2) 11/12/21 02:45 Lactate 8.0 mmol/L (0.5-2.2) H* 11/11/21 20:45 Calcium 8.7 mg/dL (8.5-10.5) 11/15/21 02:20 Phosphorus 2.7 mg/dL (2.5-4.5) 11/15/21 02:20 Magnesium 2.1 mg/dL (1.7-2.3) 11/15/21 02:20 Iron 41 ug/dL (59-158) L 11/14/21 04:15 TIBC 289 mcg/dl 11/14/21 04:15 % Saturation 14.1 % (20-50) L 11/14/21 04:15 Unsat Iron Binding 248 ug/dL (112-347) 11/14/21 04:15 Ferritin 275 ng/mL (30-400) 11/14/21 04:15 Total Bilirubin 0.4 mg/dL (0.15-1.2) 11/15/21 02:20 AST 29 U/L (0-40) 11/15/21 02:20 ALT 51 U/L (0-41) H 11/15/21 02:20 Alkaline Phosphatase 54 IU/L (40-130) 11/15/21 02:20 Troponin T Gen 5 ng/L 128 ng/L (0-15) H* 11/13/21 08:34 Troponin T Baseline 106 ng/L (0-15) H* 11/11/21 20:45 Troponin T 120 Minute 229.3 ng/L (0-15) H 11/11/21 23:22 Delta Troponin T 123.3 ABS# (0-10) H* 11/11/21 23:22 Troponin T Hi Sens 6Hr 399.1 ng/L (0-15) H 11/12/21 02:45 Troponin T Hi Sens 6Hr Delta 293.1 ng/L (0-12) H* 11/12/21 02:45 C-Reactive Protein 33.9 mg/L (0.0-4.9) H 11/15/21 02:20 NT-Pro-B Natriuret Pep 1196 pg/mL (0-125) H 11/15/21 02:20 Total Protein 6.0 g/dL (6.6-8.7) L 11/15/21 02:20 Albumin 3.7 g/dL (3.5-5.2) 11/15/21 02:20 Globulin 2.3 g/dL (1.3-4.6) 11/15/21 02:20 Triglycerides 482 mg/dL (0-150) H 11/12/21 02:45 Cholesterol 192 mg/dL (0-200) 11/12/21 02:45 LDL Cholesterol Direct 99 mg/dL (0-100) 11/12/21 02:45 LDL Cholesterol, Calc Not Reportable 11/12/21 02:45 HDL Cholesterol 33 mg/dL (60-100) L 11/12/21 02:45 LDL/HDL Ratio Not Reportable 11/12/21 02:45 Cholesterol/HDL Ratio 5.82 mg/dL (1.0-5.00) H 11/12/21 02:45 Micro: Microbiology 11/14/21 12:10 Occult Blood (FIT) - Final Stool Routine Collection Echo: My impression: Echocardiogram done on 11/12/2021 revealed ?Normal left ventricular size and systolic function, EF 55 %. ?Mild left ventricular hypertrophy. Regional wall motion ?abnormalities (see diagram). ?Minimally thickened aortic and mitral valves. ?There is no pericardial effusion. ?There are no intracardiac masses. ?Technically difficult study because of the poor ultrasonic ?window. ?No previous study is available for comparison. EKG 1: My Interpretation: EKG revealed a sinus tachycardia with rate of 101 bpm. Poor R wave progression. Possible old anteroseptal MS. Otherwise unremarkable. EKG computer-generated impression: Head CT 11/11/21 21:23 IMPRESSION: Negative for acute intracranial abnormality. Chest X-Ray 11/12/21 01:08 IMPRESSION: 1. No acute cardiopulmonary process identified. 2. ET tube and right IJ central line both in good position. Enteric tube enters the stomach but the tip is not included in the [id number]. A&P Assessment and plan (1) 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: Patient status post CPR and DC shock x4, status post endotracheal intubation. Cardiac colorization revealed total occlusion of the distal RCA. Patient underwent PCI of this lesion. Currently seems to be stable. Frequent nonsustained ventricular tachycardia on the monitor. Status: Acute (2) Nonsustained ventricular tachycardia: The dose of the metoprolol may be increased to 50 mg p.o. twice daily. Also may start the patient on Mag-Tab SR 84 mg 2 tablets p.o. daily. Continue on the current medications. Status: Acute (3) Acute non-ST segment elevation myocardial infarction: Patient was found to have a total revision of the distal right coronary artery. Status post PCI. Currently seems to be stable. May continue on the current medications. Normal LV ejection fraction by echocardiogram. Status: Acute (4) Type 2 diabetes, uncontrolled, with neuropathy: Very continue on the current medications. Aggressive management of the diabetes would be appropriate. Status: Acute Plan Patient may ambulate on telemetry. Because of frequent ventricular arrhythmia, it would be appropriate to watch him on telemetry with the higher dose of metoprolol. If he continues to remain stable may go home this afternoon or in the morning. Discussed with Dr. Chow. Attestations Medical Necessity Statement*: Possible discharge home this afternoon or in the morning Coding Level of Care Code Acute Inspector Watch Train for [facility] History Detailed Exam Detailed Medical Decision Making Moderate Complexity Diagnoses Acute non-ST segment elevation myocardial infarction I21.4 Type 2 diabetes, uncontrolled, with neuropathy E11.40; E11.65 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 I46.2 Nonsustained ventricular tachycardia I47.2
[2021-11-15] MEDS: potassium chloride ER 20 mEq Tablet 40 MEQ PO (10:21)
[2021-11-15] MEDS: magnesium lactate 84 mg Tablet PO (12:04)
[2021-11-15] MEDS: pantoprazole DR 40 mg Tablet PO (12:05)
[2021-11-15] MEDS: insulin lispro 100 unit/1 mL SUBCUT (13:25)
--- NOTE | 2021-11-15 13:41 | PM.DCS ---
Discharge Providers Date of Admission: 11/11/21 21:31 Date of Discharge: November 15, 2021 Attending Provider at Admission: Priyanka Landa MD Attending Provider at Discharge: Ephraim Wolfe MD Primary Care Provider: CAMI Connolly Diagnoses at Discharge Discharge Diagnosis (1) 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: Status: Acute (2) Nonsustained ventricular tachycardia: Status: Acute (3) Acute non-ST segment elevation myocardial infarction: Status: Acute (4) Type 2 diabetes, uncontrolled, with neuropathy: Status: Acute Reason for Visit Reason for Visit: unresponsive Hospital Course Hospital Course This is a 70-year-old male with a past medical history of noninsulin-dependent type 2 diabetes mellitus, hypertension, hyperlipidemia, seropositive rheumatoid arthritis, on hydroxychloroquine who presents [facility] status post cardiac arrest patient was admitted to [facility] for cardiac arrest, CPR on route, V. fib V. tach on rhythm, ROSC, Patient was admitted to [facility] for cardiac arrest, intubated, mechanical ventilation, managed in ICU, EKG no acute ST-T wave changes, did have troponin elevation with positive delta troponin, was successfully extubated, underwent coronary angiography status post RCA stenting. Patient was discharged in stable condition, alert oriented x3, following all commands, for his RCA stenting discharged on aspirin, Plavix, statin with close follow-up with cardiology as outpatient. Patient was found to have nonsustained V. tach on telemetry monitoring, discharged on metoprolol 50 twice daily. Hemoglobin between 9 and 10 on discharge, discharged on Protonix 40 twice daily, follow-up with primary care provider as outpatient, with recheck hemoglobin. Patient was advised if he were to have bloody or black stools go to emergency room. For his type 2 diabetes mellitus, A1c 9.9, discharged on insulin sliding scale. Follow-up with cardiology in 1 week, follow-up with primary care provider in 1 week. Physical Exam Const: COMMON NORMALS: no acute distress and patient oriented x3 Resp: COMMON NORMALS: normal respiratory effort, No retractions, No use of accessory muscles and clear to auscultation bilaterally AUSCULTATION: clear to auscultation bilaterally Cardio: COMMON NORMALS: regular rate, regular rhythm, S1 normal heart sound present and S2 normal heart sound present RATE: regular rate RHYTHM: regular rhythm HEART SOUNDS: S1 normal heart sound present and S2 normal heart sound present GI: COMMON NORMALS: Normal to inspection, nondistended, normoactive bowel sounds present, Soft to palpation, non-tender and No hepatosplenomegaly present PALPATION: Yes Soft to palpation and Yes No hepatosplenomegaly present Extremity: COMMON NORMALS: no pedal edema Neuro: COMMON NORMALS: patient oriented x3 Psych: COMMON NORMALS: mental status grossly normal Urinary Catheter Management: Mayes: Cath Placed During This Visit: yes Urinary Catheter Date of Insertion: 11/11/21 Urinary Catheter Time of Insertion: 21:05 Discharge Data Studies Completed and Pending Completed Studies During Hospitalization Category Date Time Status CT head wo con* [id number] Urgent Cat Scan 11/11/21 21:23 Completed 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 echo complete* [id number] Routine Ultrasound 11/12/21 01:08 Completed Pending at discharge Category Date Time Status Blood Culture Stat Lab 11/11/21 21:22 Results C Reactive Protein AM LABS Lab 11/16/21 04:00 Ordered Complete Blood Count w/Auto AM LABS Lab 11/16/21 04:00 Ordered Comprehensive Metabolic Panel AM LABS Lab 11/16/21 04:00 Ordered Magnesium AM LABS Lab 11/16/21 04:00 Ordered NT Pro B Type Natriuretic Pept QAM Lab 11/16/21 06:00 Ordered Phosphorus AM LABS Lab 11/16/21 04:00 Ordered Prothrombin Time INR AM LABS Lab 11/16/21 04:00 Ordered Radiology Impressions Head CT 11/11/21 21:23 IMPRESSION: Negative for acute intracranial abnormality. Chest X-Ray 11/12/21 01:08 IMPRESSION: 1. No acute cardiopulmonary process identified. 2. ET tube and right IJ central line both in good position. Enteric tube enters the stomach but the tip is not included in the [id number]-dy-txbj. Laboratory Results WBC 7.1 10^3/uL (4.0-10.0) 11/15/21 02:20 RBC 3.48 10^6/uL (4.1-5.3) L 11/15/21 02:20 Hgb 9.9 g/dL (11.7-16.6) L 11/15/21 02:20 Hct 30.8 % (42.0-52.0) L 11/15/21 02:20 MCV 88.5 fl (80-94) 11/15/21 02:20 MCH 28.4 pg (28.0-34.0) 11/15/21 02:20 MCHC 32.1 g/dL (30.0-36.0) 11/15/21 02:20 RDW 13.6 % (12.1-15.1) 11/15/21 02:20 Plt Count 197 10^3/cmm (130-400) 11/15/21 02:20 MPV 9.7 fL (7.4-10.4) 11/15/21 02:20 Neut % (Auto) 69.3 % 11/15/21 02:20 Lymph % (Auto) 18.0 % 11/15/21 02:20 Marshall % (Auto) 9.8 % 11/15/21 02:20 Eos % (Auto) 2.5 % 11/15/21 02:20 Baso % (Auto) 0.1 % 11/15/21 02:20 Neut # (Auto) 4.93 10^3/uL (1.8-7.7) 11/15/21 02:20 Lymph # (Auto) 1.3 10^3/uL (0.8-4.8) 11/15/21 02:20 Marshall # (Auto) 0.7 10^3/uL (0.2-0.9) 11/15/21 02:20 Eos # (Auto) 0.2 10^3/uL (0.0-0.8) 11/15/21 02:20 Baso # (Auto) 0.0 10^3/uL (0.0-0.1) 11/15/21 02:20 Nucleated RBC % (auto) 0 % 11/15/21 02:20 Nucleated RBCs # 0.0 /100WBC 11/15/21 02:20 PT 13.90 SECONDS (12.1-14.9) 11/15/21 02:20 INR 1.04 (0.8-1.2) 11/15/21 02:20 Specimen Type Arterial 11/12/21 04:21 Sample Site Brachial, right 11/12/21 04:21 ABG pH 7.31 (7.35-7.45) L 11/12/21 04:21 ABG pCO2 47.0 mmHg (35-45) H 11/12/21 04:21 ABG pO2 155.0 mmHg (80.0-100.0) H 11/12/21 04:21 ABG HCO3 23.4 mmol/L (22-26) 11/12/21 04:21 ABG Base Excess -3.1 mmol/L (-2.0-2.0) L 11/12/21 04:21 Boo Test Pos 11/12/21 04:21 Hematocrit 38.6 % (42-52) L 11/12/21 04:21 O2 Delivery Device Vent 11/12/21 04:21 FiO2 40.0 % 11/12/21 04:21 Tidal Volume 0.50 11/12/21 04:21 PEEP 8.0 cmH20 11/12/21 04:21 Science Center Display Builder ID Jose 11/12/21 04:21 Sodium 138 mmol/L (136-145) 11/15/21 02:20 Potassium 3.3 mmol/L (3.5-5.1) L 11/15/21 02:20 Chloride 100 mmol/L (98-107) 11/15/21 02:20 Carbon Dioxide 23 mmol/L (22-29) 11/15/21 02:20 Anion Gap 18.3 (5-19) 11/15/21 02:20 BUN 17 mg/dL (8-23) 11/15/21 02:20 Creatinine 0.8 mg/dL (0.7-1.2) 11/15/21 02:20 GFR Calculation 95.8 mL/min (90-130) 11/15/21 02:20 Glucose 145 mg/dL (65-115) H 11/15/21 02:20 POC Glucose 137 mg/dL (70-110) H 11/15/21 07:06 Estimat Average Glucose 220 11/12/21 02:45 Hemoglobin A1c 9.3 % (4.0-6.0) H 11/12/21 02:45 Calculated Osmolality 290 mOsm/kg (285-295) 11/15/21 02:20 Lactic Acid 1.1 mmol/L (0.5-2.2) 11/12/21 02:45 Lactate 8.0 mmol/L (0.5-2.2) H* 11/11/21 20:45 Calcium 8.7 mg/dL (8.5-10.5) 11/15/21 02:20 Phosphorus 2.7 mg/dL (2.5-4.5) 11/15/21 02:20 Magnesium 2.1 mg/dL (1.7-2.3) 11/15/21 02:20 Iron 41 ug/dL (59-158) L 11/14/21 04:15 TIBC 289 mcg/dl 11/14/21 04:15 % Saturation 14.1 % (20-50) L 11/14/21 04:15 Unsat Iron Binding 248 ug/dL (112-347) 11/14/21 04:15 Ferritin 275 ng/mL (30-400) 11/14/21 04:15 Total Bilirubin 0.4 mg/dL (0.15-1.2) 11/15/21 02:20 AST 29 U/L (0-40) 11/15/21 02:20 ALT 51 U/L (0-41) H 11/15/21 02:20 Alkaline Phosphatase 54 IU/L (40-130) 11/15/21 02:20 Troponin T Gen 5 ng/L 128 ng/L (0-15) H* 11/13/21 08:34 Troponin T Baseline 106 ng/L (0-15) H* 11/11/21 20:45 Troponin T 120 Minute 229.3 ng/L (0-15) H 11/11/21 23:22 Delta Troponin T 123.3 ABS# (0-10) H* 11/11/21 23:22 Troponin T Hi Sens 6Hr 399.1 ng/L (0-15) H 11/12/21 02:45 Troponin T Hi Sens 6Hr Delta 293.1 ng/L (0-12) H* 11/12/21 02:45 C-Reactive Protein 33.9 mg/L (0.0-4.9) H 11/15/21 02:20 NT-Pro-B Natriuret Pep 1196 pg/mL (0-125) H 11/15/21 02:20 Total Protein 6.0 g/dL (6.6-8.7) L 11/15/21 02:20 Albumin 3.7 g/dL (3.5-5.2) 11/15/21 02:20 Globulin 2.3 g/dL (1.3-4.6) 11/15/21 02:20 Triglycerides 482 mg/dL (0-150) H 11/12/21 02:45 Cholesterol 192 mg/dL (0-200) 11/12/21 02:45 LDL Cholesterol Direct 99 mg/dL (0-100) 11/12/21 02:45 LDL Cholesterol, Calc Not Reportable 11/12/21 02:45 HDL Cholesterol 33 mg/dL (60-100) L 11/12/21 02:45 LDL/HDL Ratio Not Reportable 11/12/21 02:45 Cholesterol/HDL Ratio 5.82 mg/dL (1.0-5.00) H 11/12/21 02:45 Vitals Last Vital Signs Temp 98.5 F 11/15/21 08:00 Pulse 100 11/15/21 12:00 Resp 17 11/15/21 08:00 BP 149/80 11/15/21 08:00 Pulse Ox 98 11/15/21 08:00 Discharge Plan Discharge Patient Disposition: Home Condition: Stable Prescriptions: New atorvastatin 40 mg Tablet 40 mg PO BEDTIME 30 Days Qty: 30 0RF clopidogrel 75 mg Tablet 75 mg PO DAILY 30 Days Qty: 30 0RF nitroglycerin 0.4 mg Tablet, Sublingual 0.4 mg sublingual Q5M PRN (Reason: Chest Pain) 30 Days Qty: 30 0RF polyethylene glycol 3350 17 gram Powder In Packet 17 g PO DAILY PRN (Reason: constipataion) 30 Days 0RF insulin aspart U-100 [Novolog Flexpen U-100 Insulin] 100 unit/mL (3 mL) insulin pen See Rx Instructions .ROUTE .COMPLEX MDD 42 Qty: 15 0RF Rx Instructions: Inject, subcu, 3 times daily, before meals, based on sliding scale aspirin 81 mg Tablet,Delayed Release (Dr/Ec) 81 mg PO DAILY 30 Days Qty: 30 0RF pantoprazole 40 mg Tablet,Delayed Release (Dr/Ec) 40 mg PO BID 30 Days Qty: 60 0RF docusate sodium 100 mg Capsule 100 mg PO BID 30 Days Qty: 60 0RF metoprolol tartrate 50 mg tablet 50 mg PO BID@0900,2100 30 Days Qty: 60 0RF magnesium L-lactate [Magtab] 84 mg Tablet Extended Release 84 mg PO BID 30 Days Qty: 60 0RF Continued metformin 850 mg tablet 850 mg PO TID 0RF mupirocin calcium 2 % cream 1 applic topical BID PRN (Reason: unknown) 0RF oxymetazoline [Afrin (oxymetazoline)] 0.05 % spray,non-aerosol 2 spray intranasal Q12H PRN (Reason: unknown) 0RF cholecalciferol (vitamin D3) 50 mcg (2,000 unit) capsule 50 mcg PO DAILY 0RF digestive enzymes Capsule 1 cap PO DAILY 0RF Rx Instructions: administer with food; swallow whole; do not crush/chew/dissolve/break/cut Elderberry complex 100 mg capsule 1 cap PO DAILY 0RF omega-3 fatty acids-fish oil [Fish Oil] 360-1,200 mg capsule 1 cap PO DAILY 0RF sertraline [Zoloft] 50 mg tablet 50 mg PO DAILY PRN (Reason: unknown) 0RF diclofenac sodium [Voltaren Arthritis Pain] 1 % gel 4 g topical QID Qty: 100 1RF Rx Instructions: apply to single knee, ankle, foot; for foot includes sole/toes/top of foot Jardiance 25 mg tablet 25 mg PO DAILY Qty: 90 3RF (DME) blood-glucose meter,continuous Misc See Rx Instructions .Route Qty: 1 0RF Rx Instructions: As directed (DME) Blood Glucose Test Strip See Rx Instructions .Route Qty: 50 2RF Rx Instructions: bid (DME) blood sugar diagnostic Strip See Rx Instructions .Route Qty: 50 2RF Rx Instructions: bid Trulicity 4.5 mg/0.5 mL pen injector See Rx Instructions .ROUTE .COMPLEX Qty: 2 2RF Dose Instruction: INJECT CONTENTS OF ONE SYRINGE UNDER THE SKIN ONCE WEEKLY Rx Instructions: INJECT CONTENTS OF ONE SYRINGE UNDER THE SKIN ONCE WEEKLY (ON SAT) (DME) OneTouch Ultra Test Strip See Rx Instructions .Route Qty: 100 0RF Rx Instructions: As directed hydroxychloroquine 200 mg tablet 200 mg PO BID Qty: 60 2RF cinnamon bark [Cinnamon] 500 mg Capsule 500 mg PO DAILY 0RF aadnbxsp-rluk-szyrps-hyalur ac [Joint Support] [id number] mg Capsule 1 cap PO DAILY 0RF Prolensa 0.07 % drops 1 drp ophthalmic (eye) BEDTIME 0RF Rx Instructions: BOTH EYES Discontinued fluorouracil [Efudex] 5 % cream 1 applic topical BID 14 Days Qty: 40 1RF Rx Instructions: To one section of skin at a time. Will cause irritation. pseudoephedrine HCl [Sudafed] 30 mg tablet 30 mg PO DAILY 0RF magnesium 250 mg tablet 250 mg PO DAILY 0RF ibuprofen [Advil] 200 mg tablet 400 mg PO Q6H PRN (Reason: Pain) 0RF pioglitazone [Actos] 30 mg tablet 30 mg PO DAILY Qty: 90 3RF losartan 100 mg tablet 100 mg PO DAILY Qty: 90 0RF amlodipine 10 mg tablet 10 mg PO DAILY 0RF gemfibrozil 600 mg tablet 600 mg PO BID 0RF Discharge Orders: Discharge Order (Routine); Ordered 11/15/21 Ordered By: Ephraim Wolfe Other Ambulatory Orders: DME: Taz (Order) Location: None Selected Ordered By: Ephraim Wolfe Referrals: Cory Granados MD [Physician] - 4-7 days Liz Valencia FNP [Primary Care Provider] - Charlotte Vazquez FNP [Nurse Practitioner] - 1 week Discharge Diet: Cardiac Discharge Activity: Increase activity as tolerated Patient Instructions: Metoprolol (By mouth), Clopidogrel (By mouth), Coronary Intravascular Stent Placement (DC), Opioid Safety, Post Angiogram Home Care Instructions Activity Restrictions/Additional Instructions: Per doctor Granados discussion with the pt and his family members, 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 Discharge Attestations Time Spent in Discharge Care*: less than 30 min Quality Metrics Clinical Quality Measures [ No reported AMI, CVA or VTE this stay] Coding Level of Care Code Acute Chg FW DC note Diagnoses 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 I46.2 Nonsustained ventricular tachycardia I47.2 Acute non-ST segment elevation myocardial infarction I21.4 Type 2 diabetes, uncontrolled, with neuropathy E11.40; E11.65
--- NOTE | 2021-11-15 15:56 | PC.NURSE ---
Discharge Note Patient discharged to home via private vehicle accompanied by . Discharge instructions reviewed with patient and/or passenger representative. Mobile pharmacy medications and/or prescriptions provided. Called meds to [facility] pharmacy in [place]. Educated pt and on pt new meds actions,side effects, dosing, timing and duration. Hold med and discontinued meds discuss and the reasons why. pt and verbalizes understanding. Discuss the continued meds too. Belongings/home medications returned.
== END 2021-11-15 15:54 | disposition home or self-care (01) | DRG 246 ==
LOC: ER 21:19 → ICU 22:45 → CSU 11-13 13:55
PROVIDERS: Internal Medicine Cardiovascular Disease; Admitting Provider Student in an Organized Health Care Education/Training Program; Emergency Provider Emergency Medicine; PCP Nurse Practitioner Family; Visit Provider Family Medicine
PROC: 027034Z Dilation of Coronary Artery, One Artery with Drug-eluting Intraluminal Device, Percutaneous Approach (ICD-10-PCS; principal; 2021-11-13 10:00)
PROC: 027034Z Dilation of Coronary Artery, One Artery with Drug-eluting Intraluminal Device, Percutaneous Approach (ICD-10-PCS; 2021-11-13 10:00)
DX: I46.9 Cardiac arrest, cause unspecified (principal); I21.4 Non-ST elevation (NSTEMI) myocardial infarction; J96.01 Acute respiratory failure with hypoxia; K72.00 Acute and subacute hepatic failure without coma; E11.65 Type 2 diabetes mellitus with hyperglycemia; E11.42 Type 2 diabetes mellitus with diabetic polyneuropathy; I10 Essential (primary) hypertension; E87.6 Hypokalemia; I25.10 Atherosclerotic heart disease of native coronary artery without angina pectoris; I47.2 Ventricular tachycardia; Z79.899 Other long term (current) drug therapy; Z79.84 Long term (current) use of oral hypoglycemic drugs; M05.9 Rheumatoid arthritis with rheumatoid factor, unspecified; E78.5 Hyperlipidemia, unspecified
CPT/HCPCS: 36415; 36416; 36556; 36592; 36600; 51702; 70450; 71045; 80053; 80061; 82274; 82728; 82803; 82962; 83036; 83540; 83550; 83605; 83721; 83735; 83880; 84100; 84484; 85025; 85610; 86140; 87040; 92523; 92610; 93005; 93306; 93452; 93458; 94002; 94003; 94664; 94799; 96365; 96366; 96367; 96372; 97110; 97116; 97161; 97165; 99291; 99292; C1725; C1751; C1769; C1874; C1887; C1894; C9600; J0282; J1644; J1650; J1815; J1940; J2250; J2405; J2543; J2704; J3010; J3480; J3490; J7030; J7050; J7060; Q0163; Q9967

== ENCOUNTER → 2021-11-18 09:08 | Outpatient (BNVA) | payer MEDICARE, OTHER, SELFPAY | PROVIDERS: PCP Nurse Practitioner Family; Visit Provider Internal Medicine | DX: E11.40 Type 2 diabetes mellitus with diabetic neuropathy, unspecified (principal); E11.65 Type 2 diabetes mellitus with hyperglycemia; E78.5 Hyperlipidemia, unspecified; Z79.4 Long term (current) use of insulin; Z79.84 Long term (current) use of oral hypoglycemic drugs | CPT/HCPCS: 99214 ==

== ENCOUNTER → 2021-11-24 09:07 | Outpatient (BNVA) | payer MEDICARE, OTHER, SELFPAY | PROVIDERS: PCP Nurse Practitioner Family; Visit Provider Nurse Practitioner Family | DX: I25.10 Atherosclerotic heart disease of native coronary artery without angina pectoris (principal); Z09 Encounter for follow-up examination after completed treatment for conditions other than malignant neoplasm; I10 Essential (primary) hypertension | CPT/HCPCS: 80048; 99214 ==

== ENCOUNTER → 2021-12-25 11:52 | Outpatient (BNVA) | payer MEDICARE, OTHER, SELFPAY | PROVIDERS: PCP Nurse Practitioner Family; Visit Provider Nurse Practitioner Family | DX: D64.9 Anemia, unspecified (principal) | CPT/HCPCS: 85025 ==

== ENCOUNTER → 2021-12-31 09:59 | Outpatient (BNVA) | payer MEDICARE, OTHER, SELFPAY | PROVIDERS: PCP Nurse Practitioner Family; Visit Provider Internal Medicine | DX: E11.40 Type 2 diabetes mellitus with diabetic neuropathy, unspecified (principal); E11.65 Type 2 diabetes mellitus with hyperglycemia; E78.5 Hyperlipidemia, unspecified; I25.2 Old myocardial infarction; Z79.84 Long term (current) use of oral hypoglycemic drugs; I77.9 Disorder of arteries and arterioles, unspecified; I47.2 Ventricular tachycardia; N18.2 Chronic kidney disease, stage 2 (mild); I25.10 Atherosclerotic heart disease of native coronary artery without angina pectoris; I65.29 Occlusion and stenosis of unspecified carotid artery; I46.2 Cardiac arrest due to underlying cardiac condition | CPT/HCPCS: 99214 ==

== ENCOUNTER → 2022-01-06 09:46 | Outpatient (BNVA) | payer MEDICARE, OTHER, SELFPAY | PROVIDERS: PCP Nurse Practitioner Family; Visit Provider Internal Medicine Cardiovascular Disease | DX: I47.2 Ventricular tachycardia (principal); I49.3 Ventricular premature depolarization | CPT/HCPCS: 93229 ==

== ENCOUNTER → 2022-01-22 08:36 | Outpatient (BNVA) | payer MEDICARE, OTHER, SELFPAY | PROVIDERS: PCP Nurse Practitioner Family; Visit Provider Internal Medicine | DX: R76.8 Other specified abnormal immunological findings in serum (principal); Z79.899 Other long term (current) drug therapy; I46.2 Cardiac arrest due to underlying cardiac condition | CPT/HCPCS: 80053; 85025; 85651; 86140 ==

== ENCOUNTER 2022-01-27 11:38 | Outpatient (CLI) | payer MEDICARE, OTHER, SELFPAY ==
--- NOTE | 2022-01-27 12:00 | USCV_ITS ---
Adam Garnica Age: 71 Gender: M : 1950 Exam Date: 01/27/2022 11:53 Ordering Phys: Shelly Ford MD ([email or web address]) Technologist: CYRUS Exam Location: [facility] [place] Indication: Carotid Bruit Risk Factors: Previous Vascular Surgery: Right Brachial BP: / Left Brachial BP: / Right Left Velocity (cm/s) Spectral Plaque Velocity (cm/s) Spectral Plaque Syst/Diast Broadening Syst/Diast Broadening 66.40/ 7.90 Prox CCA 88.20 / 12.10 88.90/ 12.80 Mid CCA 63.40 / 11.90 55.00/ 8.40 Distal CCA 58.80 / 11.20 53.80/ 16.20 Prox ICA 50.90 / 15.70 51.50/ 17.60 Mid ICA 52.90 / 15.00 44.70/ 15.30 Distal ICA 55.00 / 16.90 54.10 ECA 59.80 0.61 ICA/CCA 0.87 Antegrade Vertebral Antegrade 24.60/ 5.20 cm/s 22.10/ 3.90 cm/s Tri Subclavian Tri 96.30 56.60 FINDINGS Minimal plaques at the bifurcation and proximal internal carotid arteries bilaterally. Intimal thickening in the common carotid arteries bilaterally Antegrade flow in the vertebral arteries bilaterally Normal Doppler flow velocities in the external carotid, vertebral and subclavian arteries bilaterally CONCLUSIONS Minimal plaques at the bifurcation and proximal internal carotid arteries bilaterally suggesting less than 50% stenosis. No significant stenosis in the external carotid, subclavian and vertebral arteries bilaterally, based on the above findings Dr Shelly Ford MD [facility] (Electronically Signed) Final Date: 27 Jan 2022 16:35 S
== END 2022-01-27 11:39 | disposition home or self-care (01) ==
LOC: RAD 11:42
PROVIDERS: PCP Nurse Practitioner Family; Visit Provider Internal Medicine Cardiovascular Disease
DX: I77.9 Disorder of arteries and arterioles, unspecified (principal); I65.23 Occlusion and stenosis of bilateral carotid arteries
CPT/HCPCS: 93880

== ENCOUNTER → 2022-01-29 12:28 | Outpatient (BNVA) | payer MEDICARE, OTHER, SELFPAY | PROVIDERS: PCP Nurse Practitioner Family; Visit Provider Internal Medicine | DX: M05.9 Rheumatoid arthritis with rheumatoid factor, unspecified (principal); I25.10 Atherosclerotic heart disease of native coronary artery without angina pectoris; Z79.899 Other long term (current) drug therapy | CPT/HCPCS: 99214 ==

== ENCOUNTER → 2022-02-27 08:02 | Outpatient (BNVA) | payer MEDICARE, OTHER, SELFPAY | PROVIDERS: PCP Nurse Practitioner Family; Visit Provider Nurse Practitioner Family | DX: E11.65 Type 2 diabetes mellitus with hyperglycemia (principal) | CPT/HCPCS: 80061; 83036 ==

== ENCOUNTER → 2022-04-09 10:26 | Outpatient (BNVA) | payer MEDICARE, OTHER, SELFPAY | PROVIDERS: PCP Nurse Practitioner Family; Visit Provider Internal Medicine | DX: E11.40 Type 2 diabetes mellitus with diabetic neuropathy, unspecified (principal); E11.65 Type 2 diabetes mellitus with hyperglycemia; E78.5 Hyperlipidemia, unspecified; M05.9 Rheumatoid arthritis with rheumatoid factor, unspecified; D64.9 Anemia, unspecified; I10 Essential (primary) hypertension; Z95.5 Presence of coronary angioplasty implant and graft; Z79.84 Long term (current) use of oral hypoglycemic drugs | CPT/HCPCS: 99214 ==

== ENCOUNTER → 2022-05-01 14:51 | Outpatient (BNVA) | payer MEDICARE, OTHER, SELFPAY | PROVIDERS: PCP Nurse Practitioner Family; Visit Provider Podiatrist Foot & Ankle Surgery | DX: E11.40 Type 2 diabetes mellitus with diabetic neuropathy, unspecified (principal); E11.65 Type 2 diabetes mellitus with hyperglycemia; L60.3 Nail dystrophy; Z79.84 Long term (current) use of oral hypoglycemic drugs | CPT/HCPCS: 99203; 99204 ==

== ENCOUNTER → 2022-05-26 08:01 | Outpatient (BNVA) | payer MEDICARE, OTHER, SELFPAY | PROVIDERS: PCP Nurse Practitioner Family; Visit Provider Internal Medicine | DX: I25.10 Atherosclerotic heart disease of native coronary artery without angina pectoris (principal); M05.9 Rheumatoid arthritis with rheumatoid factor, unspecified; Z79.899 Other long term (current) drug therapy | CPT/HCPCS: 80053; 85025; 85651; 86140 ==

== ENCOUNTER → 2022-06-09 08:44 | Outpatient (BNVA) | payer MEDICARE, OTHER, SELFPAY | PROVIDERS: PCP Nurse Practitioner Family; Visit Provider Internal Medicine | DX: M05.9 Rheumatoid arthritis with rheumatoid factor, unspecified (principal); I25.10 Atherosclerotic heart disease of native coronary artery without angina pectoris | CPT/HCPCS: 99213; 99214 ==

== ENCOUNTER → 2022-06-25 14:07 | Outpatient (BNVA) | payer MEDICARE, OTHER, SELFPAY | PROVIDERS: PCP Nurse Practitioner Family; Visit Provider Internal Medicine Cardiovascular Disease | DX: I25.10 Atherosclerotic heart disease of native coronary artery without angina pectoris (principal); I47.29 Other ventricular tachycardia; E11.40 Type 2 diabetes mellitus with diabetic neuropathy, unspecified; E78.5 Hyperlipidemia, unspecified; I12.9 Hypertensive chronic kidney disease with stage 1 through stage 4 chronic kidney disease, or unspecified chronic kidney disease; N18.2 Chronic kidney disease, stage 2 (mild); E11.22 Type 2 diabetes mellitus with diabetic chronic kidney disease; Z79.84 Long term (current) use of oral hypoglycemic drugs; Z87.891 Personal history of nicotine dependence; Z95.1 Presence of aortocoronary bypass graft; E11.65 Type 2 diabetes mellitus with hyperglycemia | CPT/HCPCS: 99214 ==

== ENCOUNTER 2022-07-01 23:03 | Emergency (ER) | payer MEDICARE, OTHER, SELFPAY ==
[2022-07-01 23:10] VITALS: PULSE 76; RESP 16; O2SAT 96; BMI 30.5
--- NOTE | 2022-07-01 23:20 | W.ED.GENADLT ---
HPI - General Adult General: Chief complaint: General Medical Stated complaint: High BP Time Seen by Provider: 07/01/22 23:20 History of Present Illness: Mr. Baker is a 71-year-old gentleman with significant past medical history of cardiac arrest, CAD, CKD, diabetes, hypertension, hyperlipidemia who presents to the emergency department due to concern of high blood pressure. He has noticed over the past week that his blood pressures been increasing though is largely asymptomatic with this. 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 Noted blood pressures in the 180s this evening and decided to come in for further evaluation. No other changes in health. No other specific changes in health, exacerbating, or alleviating factors identified. Onset (ago): day(s) Severity: moderate Relieving factors: none Exacerbating factors: none Associated symptoms: Reports other; Deny chest pain or headache(s) Review of Systems General: Reports: 10 or more systems reviewed and unremarkable except in HPI and below Card: Denies: chest pain Neuro: Denies: headache(s) PFSH ED PFSH: Medical History Cataract fragments in both eyes following surgery Diabetes mellitus Hypertension Seropositive rheumatoid arthritis Surgical History H/O hernia repair S/P coronary artery stent placement distal RCA 11/13/2021 Family History Mother Diabetes Rheumatoid arthritis Dementia Father CAD (coronary artery disease) enlarged heart Diabetes Cancer Dementia Denies family history of Clotting disorder Chronic kidney disease (CKD) Suicide Anesthesia complication Bleeding disorder Lung disease Stroke Social History Smoking and tobacco status: former smoker Alcohol intake: never History of recent travel: No Physical Exam Const: COMMON NORMALS: alert GENERAL APPEARANCE: cooperative and well developed HENMT: COMMON NORMALS: normocephalic and atraumatic HEAD & SCALP: normocephalic and atraumatic THROAT: posterior oropharynx normal Eye: COMMON NORMALS: conjunctivae normal CONJUNCTIVA: Yes conjunctivae normal SCLERA: sclerae normal Neck/C-Spine: COMMON NORMALS: supple GENERAL: Yes trachea midline Resp: COMMON NORMALS: normal respiratory effort and clear to auscultation bilaterally EFFORT & INSPECTION: Yes able to speak in complete sentences AUSCULTATION: clear to auscultation bilaterally Cardio: COMMON NORMALS: regular rate and regular rhythm RATE: regular rate RHYTHM: regular rhythm GI: COMMON NORMALS: Soft to palpation PALPATION: Yes Soft to palpation and No Tenderness to palpation present (GI) Extremity: GENERAL: Yes normal exam except as noted and No edema Neuro: COMMON NORMALS: moves all extremities SENSORIUM/ORIENTATION: Yes alert and No Orientation impaired Psych: COMMON NORMALS: mental status grossly normal and Normal thought process present THOUGHT PROCESS: Normal thought process present Course Vital Signs: Vital signs: Vital Signs Pulse Rate 73 07/02/22 02:07 Respiratory Rate 18 07/02/22 02:07 Blood Pressure 155/81 07/02/22 02:07 Pulse Oximetry 97 07/02/22 02:07 Oxygen Delivery Me thod 07/02/22 02:07 MDM - General Adult Medical Decision Making 71-year-old male presenting with hypertension. Essentially no associated symptoms. Upon clarification of clinical history this may be secondary to medication error. EKG reviewed and there is no evidence of STEMI. Patient has no evidence of endorgan dysfunction on physical exam, laboratory studies, or EKG. After discussion patient is comfortable with outpatient follow-up and close cardiology follow-up. Strict return precautions given. Medical Records I reviewed the patient's medical records. Lab Data I reviewed the patient's lab results. : 07/01/22 23:50 07/01/22 23:50 Laboratory Results WBC 4.6 10^3/uL (4.0-10.0) 07/01/22 23:50 RBC 4.60 10^6/uL (4.1-5.3) 07/01/22 23:50 Hgb 13.8 g/dL (11.7-16.6) 07/01/22 23:50 Hct 40.3 % (42.0-52.0) L 07/01/22 23:50 MCV 87.6 fl (80-94) 07/01/22 23:50 MCH 30.0 pg (28.0-34.0) 07/01/22 23:50 MCHC 34.2 g/dL (30.0-36.0) 07/01/22 23:50 RDW 13.2 % (12.1-15.1) 07/01/22 23:50 Plt Count 170 10^3/cmm (130-400) 07/01/22 23:50 MPV 9.8 fL (7.4-10.4) 07/01/22 23:50 Neut % (Auto) 50.0 % 07/01/22 23:50 Lymph % (Auto) 36.4 % 07/01/22 23:50 Sebastian % (Auto) 11.0 % 07/01/22 23:50 Eos % (Auto) 2.0 % 07/01/22 23:50 Baso % (Auto) 0.4 % 07/01/22 23:50 Neut # (Auto) 2.28 10^3/uL (1.8-7.7) 07/01/22 23:50 Lymph # (Auto) 1.7 10^3/uL (0.8-4.8) 07/01/22 23:50 Sebastian # (Auto) 0.5 10^3/uL (0.2-0.9) 07/01/22 23:50 Eos # (Auto) 0.1 10^3/uL (0.0-0.8) 07/01/22 23:50 Baso # (Auto) 0.0 10^3/uL (0.0-0.1) 07/01/22 23:50 Nucleated RBC % (auto) 0 % 07/01/22 23:50 Nucleated RBCs # 0.0 /100WBC 07/01/22 23:50 Sodium 136 mmol/L (136-145) 07/01/22 23:50 Potassium 3.7 mmol/L (3.5-5.1) 07/01/22 23:50 Chloride 100 mmol/L (98-107) 07/01/22 23:50 Carbon Dioxide 25 mmol/L (22-29) 07/01/22 23:50 Anion Gap 14.7 (5-19) 07/01/22 23:50 BUN 12 mg/dL (8-23) 07/01/22 23:50 Creatinine 0.6 mg/dL (0.7-1.2) L 07/01/22 23:50 GFR Calculation 133.2 mL/min (90-130) H 07/01/22 23:50 Glucose 216 mg/dL (65-115) H 07/01/22 23:50 Calculated Osmolality 288 mOsm/kg (285-295) 07/01/22 23:50 Calcium 8.9 mg/dL (8.5-10.5) 07/01/22 23:50 Total Bilirubin 0.4 mg/dL (0.15-1.2) 07/01/22 23:50 AST 17 U/L (0-40) 07/01/22 23:50 ALT 18 U/L (0-41) 07/01/22 23:50 Alkaline Phosphatase 79 U/L (40-130) 07/01/22 23:50 Troponin T Baseline 26 ng/L (0-15) H 07/01/22 23:50 Troponin T 120 Minute 25.74 ng/L (0-15) H 07/02/22 01:50 Delta Troponin T -0.26 ABS# (0-10) L 07/02/22 01:50 NT-Pro-B Natriuret Pep 85 pg/mL (0-125) 07/01/22 23:50 Total Protein 6.3 g/dL (6.6-8.7) L 07/01/22 23:50 Albumin 3.9 g/dL (3.5-5.2) 07/01/22 23:50 Globulin 2.4 g/dL (1.3-4.6) 07/01/22 23:50 Discharge Plan Discharge Patient Disposition: Home Clinical Impression: Hypertension Condition: Stable Prescriptions: No Action metformin 500 mg tablet extended release 24 hr 1,000 mg PO BID Qty: 360 3RF Rx Instructions: Take two tablets by mouth twice a day. oxymetazoline [Afrin (oxymetazoline)] 0.05 % spray,non-aerosol 2 spray intranasal Q12H PRN (Reason: unknown) cholecalciferol (vitamin D3) 50 mcg (2,000 unit) capsule 50 mcg PO DAILY digestive enzymes Capsule 1 cap PO DAILY Rx Instructions: administer with food; swallow whole; do not crush/chew/dissolve/break/cut omega-3 fatty acids-fish oil [Fish Oil] 360-1,200 mg capsule 1 cap PO DAILY Elderberry complex 100 mg capsule 1 cap PO DAILY PRN Jardiance 25 mg tablet 25 mg PO DAILY Qty: 90 3RF tramadol 50 mg tablet 50 mg PO TID PRN (Reason: pain) Qty: 30 0RF acarbose 100 mg tablet 100 mg PO TID Qty: 270 3RF Rx Instructions: Take one tablet by mouth with meals. sulfasalazine 500 mg tablet 0.5 g PO BID Rx Instructions: give with food (meal/snack) pantoprazole 40 mg tablet,delayed release (DR/EC) 40 mg PO BID 30 Days Qty: 180 1RF (DME) blood-glucose meter,continuous Misc See Rx Instructions .Route Qty: 1 0RF Rx Instructions: As directed (DME) Blood Glucose Test Strip See Rx Instructions .Route Qty: 50 2RF Rx Instructions: bid (DME) blood sugar diagnostic Strip See Rx Instructions .Route Qty: 50 2RF Rx Instructions: bid (DME) OneTouch Ultra Test Strip See Rx Instructions .Route Qty: 100 0RF Rx Instructions: As directed aspirin 81 mg tablet,delayed release (DR/EC) 81 mg PO DAILY Qty: 100 3RF clopidogrel 75 mg tablet 75 mg PO DAILY Qty: 90 3RF Magtab 84 mg tablet extended release 84 mg PO BID Qty: 180 3RF metoprolol tartrate 50 mg tablet 50 mg PO BID@0900,2100 Qty: 180 3RF atorvastatin 40 mg tablet 40 mg PO BEDTIME Qty: 90 3RF Ozempic 0.25 mg or 0.5 mg(2 mg/1.5 mL) pen injector 0.5 mg SUBCUT .weekly Qty: 6 3RF Rx Instructions: Inject 0.5 mg subcut once a week. furosemide 20 mg tablet 20 mg PO DAILY PRN (Reason: edema) Qty: 90 0RF valsartan 160 mg tablet 160 mg PO DAILY Qty: 90 3RF Rx Instructions: *Dose increased cinnamon bark [Cinnamon] 500 mg Capsule 500 mg PO DAILY wyceyaze-lqrv-qujksl-hyalur ac [id number] mg Capsule 1 cap PO DAILY Discharge Orders: Discharge ED (Routine); Ordered 07/02/22 Ordered By: Kaiden Lauren Referrals: Liz Valencia, [employer]AZINE GRINDER LOADER [Primary Care Provider] - Discharge Diet: Usual diet Discharge Activity: Increase activity as tolerated Patient Instructions: Hypertension (ED) Activity Restrictions/Additional Instructions: Thank you for visiting the emergency department. You were seen evaluated for elevated blood pressure. Please continue your previously increased dosage and keep track of your blood pressure. Please follow-up with cardiology and your primary care provider. Return to the emergency department for headaches, shortness of breath, chest pain or anything else that you are concerned about a feel needs emergency department evaluation. Coding Level of Care Code ED Inventory Audit Clerk for Macy Soria
--- NOTE | 2022-07-01 23:29 | ECG_ITS ---
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 Measurements Intervals [place] Rate: 70 P: 21 VA: 203 QRS: 4 QRSD: 125 T: 35 QT: 389 QTc: 420 Interpretive Statements SINUS RHYTHM MODERATE INTRAVENTRICULAR CONDUCTION DELAY [110+ ms QRS DURATION] Compared to ECG 11/12/2021 04:14:50 Intraventricular conduction delay now present Sinus tachycardia no longer present Myocardial infarct finding no longer present Electronically Signed On 07-02-2022 12:51:31 CDT by Audrey Salgado M.D. [id number]
[2022-07-01 23:47] VITALS: BP 157/86; PULSE 70; RESP 18; O2SAT 94
[2022-07-01 23:59] LABS: Basophils % 0.4 %; Eosinophils # 0.1 10^3/uL (0.0-0.8); Hematocrit 40.3 % (42.0-52.0); Hemoglobin 13.8 g/dL (11.7-16.6); Lymphocytes # 1.7 10^3/uL (0.8-4.8); Lymphocytes % 36.4 %; Mean Corpuscular HGB Conc 34.2 g/dL (30.0-36.0); Mean Corpuscular Volume 87.6 fl (80-94); Mean Platelet Volume 9.8 fL (7.4-10.4); Monocytes # 0.5 10^3/uL (0.2-0.9); Neutrophils # 2.28 10^3/uL (1.8-7.7); Nucleated Red Blood Cells % 0 %; Platelet Count 170 10^3/cmm (130-400); Red Cell Distribution Width 13.2 % (12.1-15.1); White Blood Count 4.6 10^3/uL (4.0-10.0)
[2022-07-02 00:20] LABS: Troponin(5th) Baseline 26 ng/L (0-15)
[2022-07-02 00:28] LABS: Alanine Aminotransferase 18 U/L (0-41); Albumin Level 3.9 g/dL (3.5-5.2); Alkaline Phosphatase 79 U/L (40-130); Anion Gap 14.7 (5-19); Aspartate Amino Transferase 17 U/L (0-40); Blood Urea Nitrogen 12 mg/dL (8-23); Calcium 8.9 mg/dL (8.5-10.5); Carbon Dioxide 25 mmol/L (22-29); Chloride 100 mmol/L (98-107); Globulin 2.4 g/dL (1.3-4.6); Glomerular Filtration Rate 133.2 mL/min (90-130); Glucose 216 mg/dL (65-115); NT Pro B Type Natriuretic Pept 85 pg/mL (0-125); Osmolality Calculated 288 mOsm/kg (285-295); Potassium 3.7 mmol/L (3.5-5.1); Sodium 136 mmol/L (136-145); Total Bilirubin 0.4 mg/dL (0.15-1.2); Total Protein 6.3 g/dL (6.6-8.7)
[2022-07-02 00:31] LABS: Creatinine Clr Calc Pharmacy 106.1949
[2022-07-02 00:55] VITALS: BP 164/77; RESP 16; O2SAT 96
--- NOTE | 2022-07-02 01:47 | ECG_ITS ---
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 Measurements Intervals [place] Rate: 71 P: 23 SC: 212 QRS: -10 QRSD: 109 T: 37 QT: 392 QTc: 427 Interpretive Statements SINUS RHYTHM WITH FIRST DEGREE AV BLOCK Compared to ECG 07/01/2022 23:52:30 First degree AV block now present Intraventricular conduction delay no longer present Electronically Signed On 07-02-2022 12:58:11 CDT by Audrey Salgado M.D. [id number]
[2022-07-02 02:07] VITALS: BP 155/81; PULSE 73; RESP 18; O2SAT 97
[2022-07-02 02:23] LABS: Troponin 5 2HR 25.74 ng/L (0-15)
[2022-07-02 02:25] LABS: Troponin 5 2HR Delta -0.26 ABS# (0-10)
== END 2022-07-02 02:55 | disposition home or self-care (01) ==
PROVIDERS: Emergency Provider Emergency Medicine; PCP Nurse Practitioner Family
DX: I10 Essential (primary) hypertension (principal); Z79.02 Long term (current) use of antithrombotics/antiplatelets; Z79.82 Long term (current) use of aspirin; E11.9 Type 2 diabetes mellitus without complications; Z87.891 Personal history of nicotine dependence
CPT/HCPCS: 80053; 83880; 84484; 85025; 93005; 99284

== ENCOUNTER → 2022-07-09 10:02 | Outpatient (BNVA) | payer MEDICARE, OTHER, SELFPAY | PROVIDERS: PCP Nurse Practitioner Family; Visit Provider Internal Medicine | DX: E11.65 Type 2 diabetes mellitus with hyperglycemia (principal); E11.40 Type 2 diabetes mellitus with diabetic neuropathy, unspecified; E78.5 Hyperlipidemia, unspecified; Z87.891 Personal history of nicotine dependence; Z79.84 Long term (current) use of oral hypoglycemic drugs | CPT/HCPCS: 99214 ==

== ENCOUNTER 2022-08-26 08:41 | Outpatient (CLI) | payer MEDICARE, OTHER, SELFPAY ==
--- NOTE | 2022-08-26 09:02 | ECG_ITS ---
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 Interpretive Statements NAME OF STUDY: LEXISCAN SESTAMIBI STRESS TEST INDICATION: [ASHD/DOT PHYSICAL, ] Procedure: At the baseline, the blood pressure was 173/91 mmHg with a heart rate of 68 bpm. The electrocardiogram showed normal sinus rhythm, normal axis with normal ST and T's. The Lexiscan was infused over a period of 20 seconds. A total of 0.4 mg of Lexiscan was infused. The stress phase was continued for a total of 5 minutes. Heart rate was at the end of stress phase was 82 bpm and a blood pressure of 152/74 mmHg. The EKG at the peak infusion revealed normal sinus rhythm with no significant ST-T wave changes. Sestamibi was injected 20 seconds after the Lexiscan infusion. Blood pressure at the end of recovery phase was 150/77 mmHg with a heart rate of 84 bpm. Conclusion: 1. Normal EKG response to Lexiscan infusion 2. No Lexiscan induced chest pain or cardiac arrhythmia. 3. Normal blood pressure and heart rate response. 4. Sestamibi/sestamibi perfusion scan pending; see separate report. Electronically Signed On 09-13-2022 13:22:48 ROTOR BALANCER by Peter Sr M.D. [id number]
--- NOTE | 2022-08-26 09:03 | NMCV_ITS ---
NM jesus perf SPECT r/s* [id number] Adam Garnica Age: 71 Gender: M : 1950 Exam Date: 08/26/2022 09:53 Ordering Phys: Shelly Ford MD ([email or web address]) Technologist: SIMBA Leonard Exam Location: [facility] Indications: CORONARY ANGIOPLASTY STATUS STRESS TEST Please see separate stress test report in [facility] for full findings IMAGE PROTOCOL Rest/Stress 1 Lexiscan Day Radiopharmaceutical Dose (mCi) Administration Site Administered by Rest: Tc-99m 10.5 IV SIMBA Moura Sestamibi Stress:Tc-99m 32.6 IV SIMBA Moura Sestamibi Rest: 26-Aug-2022 60 Discovery 630 Stress: 26-Aug-2022 30 Discovery 630 0.4mg Lexiscan. Images obtained in supine and prone position. SPECT RESULTS Technical Quality: Excellent Raw Data Analysis: Normal Image Corrections: No attenuation or motion correction applied Summed Stress Score: 11 Summed Rest Score: 16 Summed Difference Score: 2 PERFUSION FINDINGS There is large in size, partially reversible perfusion defect noted in the inferior and inferolateral addison. This is consistent with large sized prior infarct with moderate sized area of anais-infarct ischemia in the left circumflex and RCA arteries. FUNCTIONAL RESULTS (calculated via Gated SPECT) Stress Image LV EF (%): 64 Stress EDV (mL):152 TID: 0.95 Stress ESV (mL):55 FUNCTIONAL FINDINGS: There is normal left ventricular systolic function. IMPRESSIONS 1. Abnormal myocardial perfusion imaging with large sized prior infarcts noted in the RCA and Left circumflex artery territories with significant area of anais-infarct ischemia 2. LV systolic function is normal Peter Sr MD (Electronically Signed) Final Date: 26 August 2022 15:28 S
[2022-08-26 09:04] VITALS: BMI 30.6
[2022-08-26] MEDS: regadenoson 0.4 Mg/5 ml Syringe IVP (10:34)
[2022-08-26 11:06] VITALS: BP 150/77; PULSE 84
== END 2022-08-26 08:42 | disposition home or self-care (01) ==
LOC: CDL 08:44
PROVIDERS: PCP Nurse Practitioner Family; Visit Provider Internal Medicine Cardiovascular Disease
DX: I25.10 Atherosclerotic heart disease of native coronary artery without angina pectoris (principal); Z98.61 Coronary angioplasty status
CPT/HCPCS: 36415; 78452; 93017; 96374; A9500; J2785

== ENCOUNTER → 2022-10-09 08:04 | Outpatient (BNVA) | payer MEDICARE, OTHER, SELFPAY | PROVIDERS: PCP Nurse Practitioner Family; Visit Provider Internal Medicine | DX: I10 Essential (primary) hypertension (principal); E11.65 Type 2 diabetes mellitus with hyperglycemia; E11.40 Type 2 diabetes mellitus with diabetic neuropathy, unspecified; E78.5 Hyperlipidemia, unspecified | CPT/HCPCS: 80053; 80061; 82043; 83036; 83721; 85025; 85651; 86140 ==

== ENCOUNTER → 2022-10-13 10:50 | Outpatient (BNVA) | payer MEDICARE, OTHER, SELFPAY | PROVIDERS: PCP Nurse Practitioner Family; Visit Provider Internal Medicine | DX: M05.9 Rheumatoid arthritis with rheumatoid factor, unspecified (principal); I25.10 Atherosclerotic heart disease of native coronary artery without angina pectoris | CPT/HCPCS: 99213 ==

== ENCOUNTER → 2022-10-27 09:52 | Outpatient (BNVA) | payer MEDICARE, OTHER, SELFPAY | PROVIDERS: PCP Nurse Practitioner Family; Visit Provider Podiatrist Foot & Ankle Surgery | DX: E11.8 Type 2 diabetes mellitus with unspecified complications (principal); E11.40 Type 2 diabetes mellitus with diabetic neuropathy, unspecified; E11.65 Type 2 diabetes mellitus with hyperglycemia; L60.3 Nail dystrophy; E11.22 Type 2 diabetes mellitus with diabetic chronic kidney disease; N18.2 Chronic kidney disease, stage 2 (mild); Z79.84 Long term (current) use of oral hypoglycemic drugs | CPT/HCPCS: 99214 ==

== ENCOUNTER → 2022-11-19 12:53 | Outpatient (BNVA) | payer MEDICARE, OTHER, SELFPAY | PROVIDERS: PCP Nurse Practitioner Family; Visit Provider Internal Medicine | DX: E11.40 Type 2 diabetes mellitus with diabetic neuropathy, unspecified (principal); E11.65 Type 2 diabetes mellitus with hyperglycemia; E78.5 Hyperlipidemia, unspecified; Z79.84 Long term (current) use of oral hypoglycemic drugs | CPT/HCPCS: 99214 ==

== ENCOUNTER → 2022-11-25 12:20 | Outpatient (BNVA) | payer MEDICARE, OTHER, SELFPAY | PROVIDERS: PCP Nurse Practitioner Family; Visit Provider Nurse Practitioner Family | DX: R05.9 Cough, unspecified (principal) | CPT/HCPCS: 83880 ==

== ENCOUNTER → 2022-12-31 09:49 | Outpatient (BNVA) | payer MEDICARE, OTHER, SELFPAY | PROVIDERS: PCP Nurse Practitioner Family; Visit Provider Internal Medicine Cardiovascular Disease | DX: I25.10 Atherosclerotic heart disease of native coronary artery without angina pectoris (principal); Z13.6 Encounter for screening for cardiovascular disorders; I46.2 Cardiac arrest due to underlying cardiac condition; E11.40 Type 2 diabetes mellitus with diabetic neuropathy, unspecified; E11.65 Type 2 diabetes mellitus with hyperglycemia; I12.9 Hypertensive chronic kidney disease with stage 1 through stage 4 chronic kidney disease, or unspecified chronic kidney disease; E11.22 Type 2 diabetes mellitus with diabetic chronic kidney disease; N18.2 Chronic kidney disease, stage 2 (mild); Z87.891 Personal history of nicotine dependence; Z79.84 Long term (current) use of oral hypoglycemic drugs; Z79.82 Long term (current) use of aspirin | CPT/HCPCS: 99214 ==

== ENCOUNTER 2023-01-17 18:28 | Emergency (ER) | payer MEDICARE, OTHER, SELFPAY ==
[2023-01-17 18:32] VITALS: BP 184/74; PULSE 105; RESP 20; TEMP 38.7; O2SAT 97
--- NOTE | 2023-01-17 18:44 | W.ED.FEVER ---
HPI - Fever General: Chief Complaint: Fever Stated Complaint: shaking Time Seen by Provider: 01/17/23 18:44 History of Present Illness: 72-year-old male patient comes in today for complaints of cough, congestion, and fever. Patient reports he has had a persistent cough for about 1 year, but fever started this evening. Patient has a history of [place] about 1 year ago. Patient also has a history of hypertension, diabetes, GERD, coronary artery disease. Patient reports starting to feel poorly this evening with chills. It was noted patient had a fever this evening. Associated symptoms: Reports chills and nausea; Deny chest pain, diarrhea or vomiting Review of Systems General: Reports: 10 or more systems reviewed and unremarkable except in HPI and below Const: Reports: fever(s) and chills Eyes: Denies: change in vision ENMT: Denies: throat pain Card: Denies: chest pain Resp: Denies: dyspnea GI: Reports: nausea; Denies: vomiting or diarrhea : Denies: difficulty urinating Skin/Breast: Denies: rash PFSH ED PFSH: Medical History Cataract fragments in both eyes following surgery Diabetes mellitus Hypertension Seropositive rheumatoid arthritis Surgical History H/O hernia repair Hx of cataract extraction S/P coronary artery stent placement distal RCA 11/13/2021 Family History Mother Diabetes Rheumatoid arthritis Dementia Father CAD (coronary artery disease) enlarged heart Diabetes Cancer Dementia Denies family history of Clotting disorder Chronic kidney disease (CKD) Suicide Anesthesia complication Bleeding disorder Lung disease Stroke Social History Smoking and tobacco status: former smoker Alcohol intake: never Substance/Drug Use: never Adopted: No Lives independently: Yes Household members: spouse Housing: House Marital status: Physical Exam Const: COMMON NORMALS: alert HENMT: COMMON NORMALS: normocephalic HEAD & SCALP: normocephalic THROAT: posterior oropharynx abnormal erythema Neck/C-Spine: COMMON NORMALS: full ROM Resp: COMMON NORMALS: normal respiratory effort and clear to auscultation bilaterally AUSCULTATION: clear to auscultation bilaterally Cardio: COMMON NORMALS: regular rate RATE: regular rate GI: COMMON NORMALS: Soft to palpation and non-tender PALPATION: Yes Soft to palpation Back/Pelvis: COMMON NORMALS: thoracic and lumbar spine normal to inspection Extremity: COMMON NORMALS: no pedal edema Neuro: SENSORIUM/ORIENTATION: Yes alert Skin: COMMON NORMALS: no rashes or lesions noted and turgor normal GENERAL SKIN EXAM: no rashes or lesions noted and turgor normal Course Vital Signs: Vital signs: Vital Signs Temperature 101.7 F H 01/17/23 18:32 Pulse Rate 109 H 01/17/23 19:13 Respiratory Rate 16 01/17/23 19:13 Blood Pressure 175/85 01/17/23 19:13 Pulse Oximetry 90 01/17/23 19:13 Oxygen Delivery Me thod Room Air 01/17/23 18:32 MDM - Fever Medical Decision Making 72-year-old male patient comes in today with complaints of cough and fever starting this evening. Patient appears mildly unwell but not toxic. Lungs are clear to auscultation. Patient does have some nasal drainage and postnasal drip. Patient moves all extremities well. Skin is warm and dry. Vital signs are normal except for elevation and temperature of 101.7 and a pulse of 105. Differential diagnosis includes upper respiratory infection, pneumonia, urinary tract infection. Patient appears nontoxic. Lungs are decreased in the bases bilaterally. Laboratory values were unremarkable except for some elevation in blood glucose of 250, and a CRP of 65. Chest x-ray noted a infiltrate versus atelectasis in the left lower lobe. COVID and influenza test were negative. Believe patient probably has a pneumonia community-acquired. We will start patient on Levaquin due to his comorbidities 750 mg daily for 7 days. Patient was given first dose in the ER. Patient had no signs of severe distress and was stable to be released home with need for follow-up or return to the ER for worsening symptoms. Lab Data 01/17/23 18:59 01/17/23 18:59 Radiology Impressions Chest X-Ray 01/17/23 18:45 IMPRESSION: Left lower lobe atelectasis versus minimal infiltrate. Laboratory Results WBC 9.3 10^3/uL (4.0-10.0) 01/17/23 18:59 RBC 5.26 10^6/uL (4.1-5.3) 01/17/23 18:59 Hgb 15.3 g/dL (11.7-16.6) 01/17/23 18:59 Hct 46.9 % (42.0-52.0) 01/17/23 18:59 MCV 89.2 fl (80-94) 01/17/23 18:59 MCH 29.1 pg (28.0-34.0) 01/17/23 18:59 MCHC 32.6 g/dL (30.0-36.0) 01/17/23 18:59 RDW 13.5 % (12.1-15.1) 01/17/23 18:59 Plt Count 185 10^3/cmm (130-400) 01/17/23 18:59 MPV 9.7 fL (7.4-10.4) 01/17/23 18:59 Neut % (Auto) 77.9 % 01/17/23 18:59 Lymph % (Auto) 11.7 % 01/17/23 18:59 [place] % (Auto) 8.8 % 01/17/23 18:59 Eos % (Auto) 1.1 % 01/17/23 18:59 Baso % (Auto) 0.2 % 01/17/23 18:59 Neut # (Auto) 7.22 10^3/uL (1.8-7.7) 01/17/23 18:59 Lymph # (Auto) 1.1 10^3/uL (0.8-4.8) 01/17/23 18:59 [place] # (Auto) 0.8 10^3/uL (0.2-0.9) 01/17/23 18:59 Eos # (Auto) 0.1 10^3/uL (0.0-0.8) 01/17/23 18:59 Baso # (Auto) 0.0 10^3/uL (0.0-0.1) 01/17/23 18:59 Nucleated RBC % (auto) 0 % 01/17/23 18:59 Nucleated RBCs # 0.0 /100WBC 01/17/23 18:59 Sodium 139 mmol/L (136-145) 01/17/23 18:59 Potassium 3.8 mmol/L (3.5-5.1) 01/17/23 18:59 Chloride 99 mmol/L (98-107) 01/17/23 18:59 Carbon Dioxide 26 mmol/L (22-29) 01/17/23 18:59 Anion Gap 17.8 (5-19) 01/17/23 18:59 BUN 17 mg/dL (8-23) 01/17/23 18:59 Creatinine 0.8 mg/dL (0.7-1.2) 01/17/23 18:59 GFR Calculation Not Reportable 01/17/23 18:59 Glucose 250 mg/dL (65-115) H 01/17/23 18:59 Calculated Osmolality 298 mOsm/kg (285-295) H 01/17/23 18:59 Calcium 9.1 mg/dL (8.5-10.5) 01/17/23 18:59 Total Bilirubin 0.4 mg/dL (0.15-1.2) 01/17/23 18:59 AST 17 U/L (0-40) 01/17/23 18:59 ALT 16 U/L (0-41) 01/17/23 18:59 Alkaline Phosphatase 77 U/L (40-130) 01/17/23 18:59 C-Reactive Protein 63.2 mg/L (0.0-4.9) H 01/17/23 18:59 Total Protein 7.1 g/dL (6.6-8.7) 01/17/23 18:59 Albumin 4.2 g/dL (3.5-5.2) 01/17/23 18:59 Globulin 2.9 g/dL (1.3-4.6) 01/17/23 18:59 Urine Color Yellow (Yellow) 01/17/23 19:20 Urine Appearance Clear (CLEAR) 01/17/23 19:20 Urine pH 5 (5-7) 01/17/23 19:20 Ur Specific [place] 1.010 (1.005-1.030) 01/17/23 19:20 Urine Protein 2+ (Negative) H 01/17/23 19:20 Urine Glucose (UA) 4+ (Normal) H 01/17/23 19:20 Urine Ketones 1+ (Negative) H 01/17/23 19:20 Urine Blood 2+ (Negative) H 01/17/23 19:20 Urine Nitrate Negative (Negative) 01/17/23 19:20 Urine Bilirubin Neg (Negative) 01/17/23 19:20 Urine Urobilinogen Norm mg/dL (Negative) 01/17/23 19:20 Ur Leukocyte Esterase Negative (Negative) 01/17/23 19:20 Urine RBC None /hpf (0-2) 01/17/23 19:20 Urine WBC None /hpf (0-5) 01/17/23 19:20 Ur Squamous Epith Cells None /hpf (0-5) 01/17/23 19:20 Amorphous Sediment Not Reportable 01/17/23 19:20 Urine Bacteria None /hpf (NONE) 01/17/23 19:20 Influenza Type A Ag negative (Negative) 01/17/23 19:18 Influenza Type B Ag negative (Negative) 01/17/23 19:18 SARS-CoV-2 Ag (Rapid) negative (Negative) 01/17/23 19:18 Discharge Plan Discharge Patient Disposition: Home Clinical Impression: Community acquired bilateral lower lobe pneumonia Condition: Stable Prescriptions: New levofloxacin 750 mg tablet 750 mg PO DAILY Qty: 6 0RF No Action cholecalciferol (vitamin D3) 50 mcg (2,000 unit) capsule 50 mcg PO DAILY digestive enzymes Capsule 1 cap PO DAILY Rx Instructions: administer with food; swallow whole; do not crush/chew/dissolve/break/cut omega-3 fatty acids-fish oil [Fish Oil] 360-1,200 mg capsule 1 cap PO DAILY Elderberry complex 100 mg capsule 1 cap PO DAILY PRN acarbose 100 mg tablet 100 mg PO TID Qty: 270 3RF Rx Instructions: Take one tablet by mouth with meals. sulfasalazine 500 mg tablet 0.5 g PO BID Qty: 60 3RF Rx Instructions: give with food (meal/snack) (DME) nebulizer See Rx Instructions .Route .MEDSUPPLY Qty: 1 0RF Rx Instructions: As directed ketorolac 0.5 % drops 1 drp ophthalmic (eye) QID prednisolone acetate 1 % drops,suspension 1 drp ophthalmic (eye) QID levofloxacin 500 mg tablet 500 mg PO DAILY fluticasone propionate 50 mcg/actuation spray,suspension 1 spray intranasal DAILY Rx Instructions: administer into each nostril amlodipine 5 mg tablet 5 mg PO DAILY Qty: 30 5RF atorvastatin 20 mg tablet 20 mg PO DAILY Qty: 90 0RF albuterol sulfate 0.63 mg/3 mL solution for nebulization 0.63 mg inhalation Q6H Qty: 90 0RF (DME) blood-glucose meter,continuous Misc See Rx Instructions .Route Qty: 1 0RF Rx Instructions: As directed (DME) Blood Glucose Test Strip See Rx Instructions .Route Qty: 50 2RF Rx Instructions: bid furosemide 20 mg tablet 20 mg PO DAILY PRN (Reason: edema) Qty: 90 0RF valsartan 160 mg tablet 160 mg PO DAILY Qty: 90 3RF Rx Instructions: *Dose increased Jardiance 25 mg tablet 25 mg PO DAILY Qty: 90 3RF pantoprazole 40 mg tablet,delayed release (DR/EC) 40 mg PO BID 30 Days Qty: 180 1RF metformin 500 mg tablet extended release 24 hr 1,000 mg PO BID Qty: 360 1RF Rx Instructions: Take two tablets by mouth twice a day. (DME) OneTouch Ultra Test Strip See Rx Instructions .Route Qty: 100 0RF Rx Instructions: test 3 times daily before meals albuterol sulfate 0.63 mg/3 mL solution for nebulization See Rx Instructions .ROUTE .COMPLEX Qty: 1080 0RF Dose Instruction: USE 1 VIAL VIA NEBULIZER EVERY 6 HOURS Rx Instructions: USE 1 VIAL VIA NEBULIZER EVERY 6 HOURS metoprolol tartrate 50 mg tablet 50 mg PO BID@0900,2100 Qty: 180 3RF clopidogrel 75 mg tablet 75 mg PO DAILY Qty: 90 3RF Magtab 84 mg tablet extended release 84 mg PO BID Qty: 180 3RF aspirin 81 mg tablet,delayed release (DR/EC) 81 mg PO DAILY Qty: 100 3RF (DME) OneTouch Ultra Test Strip See Rx Instructions .ROUTE .COMPLEX Qty: 100 0RF Dose Instruction: CHECK BLOOD SUGAR TWICE DAILY Rx Instructions: CHECK BLOOD SUGAR TWICE DAILY Mounjaro 2.5 mg/0.5 mL pen injector 2.5 mg SUBCUT Q7D 30 Days Qty: 2.5 0RF Rx Instructions: 2.5 mg weekly for one month Mounjaro 5 mg/0.5 mL pen injector 5 mg SUBCUT Q7D 30 Days Qty: 2.5 0RF Rx Instructions: 5 mg weekly for one month Mounjaro 7.5 mg/0.5 mL pen injector 7.5 mg SUBCUT Q7D 30 Days Qty: 2.5 1RF Rx Instructions: 7.5 mg weekly and continue cinnamon bark [Cinnamon] 500 mg Capsule 500 mg PO DAILY [id number]-[id number] ac [id number] mg Capsule 1 cap PO DAILY Discharge Orders: Discharge ED (Routine); Ordered 01/17/23 Ordered By: Rickie Ley Referrals: Liz Valencia FNP [Primary Care Provider] - Discharge Diet: Usual diet Discharge Activity: Increase activity as tolerated Patient Instructions: Pneumonia (ED) Activity Restrictions/Additional Instructions: Use acetaminophen for pain and fever. Take levofloxacin 750 mg daily for total of 7 doses. Drink plenty of water with medication. Follow-up with primary care in 2 to 3 days for recheck. Return to emergency department for worsening symptoms such as inability to hold fluids down, severe chest pain, or increased shortness of breath. 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
--- NOTE | 2023-01-17 18:45 | XRR_ITS ---
PROCEDURE INFORMATION: Exam: XR Chest Exam date and time: 01/17/2023 6:51 PM Age: 72 years old Clinical indication: Fever TECHNIQUE: Imaging protocol: Radiologic exam of the chest. Views: 1 view. COMPARISON: CR XR chest 1V portable [id number] 11/12/2021 4:01 AM FINDINGS: Lungs: Left lower lobe atelectasis versus minimal infiltrate. Pleural spaces: Unremarkable. No pleural effusion. No pneumothorax. Heart/Mediastinum: Unremarkable. No cardiomegaly. Bones/joints: Unremarkable. XR/XR chest 1V portable [id number] IMPRESSION: Left lower lobe atelectasis versus minimal infiltrate.
[2023-01-17 19:13] VITALS: BP 175/85; PULSE 109; RESP 16; O2SAT 90
[2023-01-17] MEDS: acetaminophen 500 mg Tablet 1000 MG PO (19:14)
[2023-01-17 19:19] LABS: Basophils % 0.2 %; Eosinophils # 0.1 10^3/uL (0.0-0.8); Eosinophils % 1.1 %; Hematocrit 46.9 % (42.0-52.0); Hemoglobin 15.3 g/dL (11.7-16.6); Lymphocytes # 1.1 10^3/uL (0.8-4.8); Lymphocytes % 11.7 %; Mean Corpuscular HGB Conc 32.6 g/dL (30.0-36.0); Mean Corpuscular Hemoglobin 29.1 pg (28.0-34.0); Mean Corpuscular Volume 89.2 fl (80-94); Mean Platelet Volume 9.7 fL (7.4-10.4); Monocytes # 0.8 10^3/uL (0.2-0.9); Monocytes % 8.8 %; Neutrophils # 7.22 10^3/uL (1.8-7.7); Neutrophils % 77.9 %; Nucleated Red Blood Cells % 0 %; Platelet Count 185 10^3/cmm (130-400); Red Blood Count 5.26 10^6/uL (4.1-5.3); Red Cell Distribution Width 13.5 % (12.1-15.1); White Blood Count 9.3 10^3/uL (4.0-10.0)
[2023-01-17 19:31] LABS: Alanine Aminotransferase 16 U/L (0-41); Albumin Level 4.2 g/dL (3.5-5.2); Alkaline Phosphatase 77 U/L (40-130); Anion Gap 17.8 (5-19); Aspartate Amino Transferase 17 U/L (0-40); Blood Urea Nitrogen 17 mg/dL (8-23); C Reactive Protein 63.2 mg/L (0.0-4.9); Calcium 9.1 mg/dL (8.5-10.5); Carbon Dioxide 26 mmol/L (22-29); Chloride 99 mmol/L (98-107); Globulin 2.9 g/dL (1.3-4.6); Glucose 250 mg/dL (65-115); Osmolality Calculated 298 mOsm/kg (285-295); Potassium 3.8 mmol/L (3.5-5.1); Sodium 139 mmol/L (136-145); Total Bilirubin 0.4 mg/dL (0.15-1.2); Total Protein 7.1 g/dL (6.6-8.7)
[2023-01-17 19:49] LABS: SARS Covid-2 Antigen negative (Negative)
[2023-01-17 19:50] LABS: Influenza A by IFA negative (Negative); Influenza B by IFA negative (Negative)
[2023-01-17 19:58] LABS: Add Urine Microscopic? YES; Bilirubin Urine Neg (Negative); Glucose Urine UA 4+ (Normal); Ketones Urine 1+ (Negative); Leukocyte Esterase Urine Negative (Negative); Nitrate Urine Negative (Negative); Protein Urine 2+ (Negative); Urine Appearance Clear (CLEAR); Urine Color Yellow (Yellow); Urobilinogen Urine Norm (Negative); pH Urine 5 (5-7)
[2023-01-17 20:00] LABS: Blood Urine 2+ (Negative)
[2023-01-17 20:13] VITALS: BP 163/82; PULSE 112; RESP 16; TEMP 39; O2SAT 91
[2023-01-17] MEDS: levoFLOXacin 750 mg Tablet PO (20:13)
[2023-01-17 20:32] VITALS: BP 161/85; PULSE 118; RESP 16; O2SAT 91
== END 2023-01-17 20:48 | disposition home or self-care (01) ==
PROVIDERS: Emergency Provider Nurse Practitioner Family; PCP Nurse Practitioner Family
DX: J18.8 Other pneumonia, unspecified organism (principal); Z79.82 Long term (current) use of aspirin; Z79.02 Long term (current) use of antithrombotics/antiplatelets; Z79.84 Long term (current) use of oral hypoglycemic drugs; Z20.822 Contact with and (suspected) exposure to COVID-19; Z87.891 Personal history of nicotine dependence; E11.9 Type 2 diabetes mellitus without complications; I10 Essential (primary) hypertension
CPT/HCPCS: 36415; 71045; 80053; 81001; 85025; 86140; 87426; 87804; 99284

== ENCOUNTER 2023-02-23 07:38 | Outpatient (CLI) | payer MEDICARE, OTHER, SELFPAY ==
--- NOTE | 2023-02-23 08:00 | USCV_ITS ---
Adam Garnica Age: 72 Gender: M : 1950 Exam Date: 02/23/2023 07:53 Ordering Phys: Shelly Ford MD ([email or web address]) Technologist: Tabatha Hameed [place]am [place] [facility] [place]: Screening for AAA HISTORY: Screening for AAA Diameter (cm) AP x Transverse x Length Velocity (cm/s) Waveform Prox Aorta: 1.98 x 2.35 x 102.60 Mid Aorta: 1.97 x 2.18 x 91.50 Distal Aorta: 1.90 x 1.23 x 87.30 Right Iliac Prox: 0.97 x 1.24 x 88.70 Left Iliac Prox: 1.17 x 1.45 x 73.50 Stent Prox Landing x x Aneurysmal Sac Max x x Lt Lat Sac Dim Rt Lat Sac Dim Stent Dist Landing x x Right Iliac Stent x x Left Iliac Stent x x Right Renal Art Left Renal Art FINDINGS: CONCLUSIONS No evidence of abdominal aortic or bilateral iliac aneurysm. 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 Phil Krause MD (Electronically Signed) Final Date: 23 February 2023 10:18 S
== END 2023-02-23 07:39 | disposition home or self-care (01) ==
PROVIDERS: PCP Nurse Practitioner Family; Visit Provider Internal Medicine Cardiovascular Disease
DX: Z13.6 Encounter for screening for cardiovascular disorders (principal); I70.0 Atherosclerosis of aorta
CPT/HCPCS: 93978

== ENCOUNTER → 2023-03-09 08:09 | Outpatient (BNVA) | payer MEDICARE, OTHER, SELFPAY | PROVIDERS: PCP Nurse Practitioner Family; Visit Provider Internal Medicine | DX: E11.40 Type 2 diabetes mellitus with diabetic neuropathy, unspecified (principal); E11.65 Type 2 diabetes mellitus with hyperglycemia; E78.5 Hyperlipidemia, unspecified; Z79.84 Long term (current) use of oral hypoglycemic drugs | CPT/HCPCS: 99214 ==

== ENCOUNTER → 2023-04-26 09:00 | Outpatient (BNVA) | payer MEDICARE, OTHER, SELFPAY | PROVIDERS: PCP Nurse Practitioner Family; Visit Provider Nurse Practitioner Family | DX: E11.40 Type 2 diabetes mellitus with diabetic neuropathy, unspecified (principal); E11.65 Type 2 diabetes mellitus with hyperglycemia | CPT/HCPCS: 80053; 80061; 83036; 83721; 85025 ==

== ENCOUNTER → 2023-05-06 08:50 | Outpatient (BNVA) | payer MEDICARE, OTHER, SELFPAY | PROVIDERS: PCP Nurse Practitioner Family; Visit Provider Nurse Practitioner Family | DX: L57.0 Actinic keratosis (principal); D48.5 Neoplasm of uncertain behavior of skin; L81.4 Other melanin hyperpigmentation; L57.8 Other skin changes due to chronic exposure to nonionizing radiation; D22.5 Melanocytic nevi of trunk; Z85.828 Personal history of other malignant neoplasm of skin | CPT/HCPCS: 11102; 11103; 17004; 99213 ==

== ENCOUNTER → 2023-05-18 10:08 | Outpatient (BNVA) | payer MEDICARE, OTHER, SELFPAY | PROVIDERS: PCP Nurse Practitioner Family; Visit Provider Podiatrist Foot & Ankle Surgery | DX: E11.8 Type 2 diabetes mellitus with unspecified complications (principal); E11.40 Type 2 diabetes mellitus with diabetic neuropathy, unspecified; E11.65 Type 2 diabetes mellitus with hyperglycemia; Z79.84 Long term (current) use of oral hypoglycemic drugs | CPT/HCPCS: 99213 ==

== ENCOUNTER → 2023-05-31 08:16 | Outpatient (BNVA) | payer MEDICARE, OTHER, SELFPAY | PROVIDERS: PCP Nurse Practitioner Family; Visit Provider Nurse Practitioner Family | DX: R68.89 Other general symptoms and signs (principal); Z11.52 Encounter for screening for COVID-19 | CPT/HCPCS: 87400; 87426 ==

== ENCOUNTER 2023-06-03 06:25 | Observation (INO) | payer MEDICARE, OTHER, SELFPAY ==
[2023-06-03] VITALS (12 sets, daily range): BP systolic 123–165; BP diastolic 66–86; PULSE 82–115; RESP 16–22; TEMP 36.7–37; O2SAT 88–97; BMI 31.3
--- NOTE | 2023-06-03 06:38 | XRR_ITS ---
PROCEDURE INFORMATION: Exam: XR Chest Exam date and time: 06/03/2023 6:59 AM Age: 72 years old Clinical indication: Cough and shortness of breath; Prior surgery; Surgery date: 6+ months; Surgery type: Stents TECHNIQUE: Imaging protocol: Radiologic exam of the chest. Views: 1 view. COMPARISON: CR (CHEST, ) 01/17/2023 6:51 PM FINDINGS: Lungs: Low lung volumes. No focal consolidation. Pleural spaces: No large pleural effusion. No significant pneumothorax. Heart/Mediastinum: Cardiomediastinal silhouette is stable. Bones/joints: Osseous structures are unchanged. XR/XR chest 1V portable [id number] IMPRESSION: No acute cardiopulmonary findings.
--- NOTE | 2023-06-03 06:41 | CTR_ITS ---
PROCEDURE INFORMATION: Exam: CT Head Without Contrast Exam date and time: 06/03/2023 6:57 AM Age: 72 years old Clinical indication: Weakness, extremity; Additional info: Weakness, SOB TECHNIQUE: Imaging protocol: Computed tomography of the head without contrast. Radiation optimization: All CT scans at this facility use at least one of these dose optimization techniques: automated exposure control; mA and/or kV adjustment per patient size (includes targeted exams where dose is matched to clinical indication); or iterative reconstruction. REPORTING DATA: Count of CT and Cardiac NM exams in prior 12 months: This patient has received [address] and 0 known cardiac nuclear medicine studies in the 12 months prior to the current study. COMPARISON: CT head wo con* [id number] 11/11/2021 10:15 PM RADIATION DOSE METRICS: Total DLP (mGy-cm): 1113.05 FINDINGS: Brain: No acute intracranial hemorrhage. No midline shift. Normal differentiation of chávez-white matter. Cerebral ventricles: Ventricles are normal in caliber. Paranasal sinuses: Paranasal sinuses are clear. Mastoid air cells: The right mastoid air cells are mostly fluid-filled. Bones/joints: No acute osseous findings. Soft tissues: Superficial soft tissues are within normal limits. CT/CT head wo con* [id number] IMPRESSION: 1. Right mastoid effusion. Correlate for potential mastoiditis. 2. No acute intracranial findings.
--- NOTE | 2023-06-03 06:42 | ED_ITS ---
HPI - Fall General: Chief Complaint: Fall Stated Complaint: Weakness,cough,confusion Time Seen by Provider: 06/03/23 06:27 Source: patient Mode of arrival: ambulatory Limitations: no limitations History of Present Illness: 72-year-old male states over the last week he has had cough along with some shor tness of breath he states been having increasing weakness as well. 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 States this morning he felt much worse he states when he got up he was too weak to even walk and fell. He has no focal weakness states he just feels very weak he is also hypoxic here he does not wear oxygen at home he is requiring 2 L states his cough has been pr oductive. Associated symptoms-after fall: Denies abdominal pain, chest pain, headache(s) or neck pain Review of Systems Const: Reports: chills, fatigue and malaise; Denies: fever(s) or body aches Eyes: Denies: blurry vision or eye discomfort ENMT: Denies: throat pain or dental pain Card: Denies: chest pain Resp: Reports: dyspnea and productive cough GI: Denies: abdominal pain, nausea, vomiting or diarrhea : Denies: dysuria Musc: Denies: neck pain or back pain Skin/Breast: Denies: rash Neuro: Denies: headache(s) PFSH ED PFSH: Medical History Cataract fragments in both eyes following surgery Diabetes mellitus Hypertension Seropositive rheumatoid arthritis Surgical History H/O hernia repair Hx of cataract extraction S/P coronary artery stent placement distal RCA 11/13/2021 Family History Mother Diabetes Rheumatoid arthritis Dementia Father CAD (coronary artery disease) enlarged heart Diabetes Cancer Dementia Denies family history of Clotting disorder Chronic kidney disease (CKD) Suicide Anesthesia complication Bleeding disorder Lung disease Stroke Social History Smoking and tobacco status: former smoker Alcohol intake: never Substance/Drug Use: never Adopted: No Lives independently: Yes Household members: spouse Housing: House Marital status: Physical Exam Const: COMMON NORMALS: patient oriented x3 GENERAL APPEARANCE: ill appearing HENMT: COMMON NORMALS: normocephalic and atraumatic HEAD & SCALP: normocephalic and atraumatic Eye: COMMON NORMALS: Equal, round and reactive pupils present and EOMs intact bilaterally PUPIL: Yes Equal, round and reactive pupils present Neck/C-Spine: COMMON NORMALS: full ROM and supple Chest: COMMONS NORMALS: normal inspection of the chest and normal palpation of entire chest wall Resp: COMMON NORMALS: No retractions AUSCULTATION: rales Cardio: COMMON NORMALS: regular rhythm and No murmurs present (Cardio) RATE: tachycardic RHYTHM: regular rhythm GI: COMMON NORMALS: Normal to inspection, nondistended, normoactive bowel sounds present, Soft to palpation, non-tender and no masses PALPATION: Yes Soft to palpation Extremity: COMMON NORMALS: normal to inspection and full ROM Neuro: COMMON NORMALS: patient oriented x3, moves all extremities and no focal motor deficits Psych: COMMON NORMALS: mental status grossly normal, Normal thought process present and cooperative THOUGHT PROCESS: Normal thought process present Skin: COMMON NORMALS: no rashes or lesions noted and no wounds GENERAL SKIN EXAM: no rashes or lesions noted Course Vital Signs: Vital signs: Vital Signs Temperature 98.6 F 06/03/23 06:31 Pulse Rate 109 H 06/03/23 08:01 Respiratory Rate 22 H 06/03/23 08:01 Blood Pressure 131/68 06/03/23 08:01 Pulse Oximetry 95 06/03/23 08:01 Oxygen Delivery Me thod Nasal Cannula 06/03/23 08:01 Oxygen Flow Rate 2 06/03/23 08:01 MDM - Fall Medical Decision Making Patient presents here with cough he does have dyspnea as well along with weakness he had a fall this morning his head CT is normal he has no focal deficits he is hypoxic here requiring oxygen he is likely a right lower lobe pneumonia spoke to hospitalist will admit at this time. Medical Records I reviewed the patient's medical records. Lab Data I reviewed the patient's lab results. 06/03/23 06:47 06/03/23 06:47 Radiology Impressions Chest X-Ray 06/03/23 06:38 IMPRESSION: No acute cardiopulmonary findings. Head CT 06/03/23 06:41 IMPRESSION: 1. Right mastoid effusion. Correlate for potential mastoiditis. 2. No acute intracranial findings. Laboratory Results WBC 9.81 10^3/uL (3.29-11.43) 06/03/23 06:47 RBC 4.72 10^6/uL (3.85-5.65) 06/03/23 06:47 Hgb 13.90 g/dL (11.27-16.99) 06/03/23 06:47 Hct 41.8 % (37-53) 06/03/23 06:47 MCV 88.6 fl (82-101) 06/03/23 06:47 MCH 29.4 pg (27-33) 06/03/23 06:47 MCHC 33.3 g/dL (30-55) 06/03/23 06:47 RDW 12.8 % (12.1-15.1) 06/03/23 06:47 Plt Count 180 10^3/cmm (157-399) 06/03/23 06:47 MPV 9.3 fL (7.4-10.4) 06/03/23 06:47 Neut % (Auto) 83.6 % 06/03/23 06:47 Lymph % (Auto) 5.3 % 06/03/23 06:47 [place] % (Auto) 10.2 % 06/03/23 06:47 Eos % (Auto) 0.6 % 06/03/23 06:47 Baso % (Auto) 0.2 % 06/03/23 06:47 Neut # (Auto) 8.20 10^3/uL (1.8-7.7) H 06/03/23 06:47 Lymph # (Auto) 0.5 10^3/uL (0.8-4.8) L 06/03/23 06:47 [place] # (Auto) 1.0 10^3/uL (0.2-0.9) H 06/03/23 06:47 Eos # (Auto) 0.1 10^3/uL (0.0-0.8) 06/03/23 06:47 Baso # (Auto) 0.0 10^3/uL (0.0-0.1) 06/03/23 06:47 Nucleated RBC % (auto) 0 % 06/03/23 06:47 Nucleated RBCs # 0.0 /100WBC 06/03/23 06:47 PT 12.70 SECONDS (12.1-14.9) 06/03/23 06:47 INR 0.92 (0.8-1.2) 06/03/23 06:47 Sodium 139 mmol/L (136-145) 06/03/23 06:47 Potassium 3.6 mmol/L (3.5-5.1) 06/03/23 06:47 Chloride 99 mmol/L (98-107) 06/03/23 06:47 Carbon Dioxide 23 mmol/L (22-29) 06/03/23 06:47 Anion Gap 20.6 (5-19) H 06/03/23 06:47 BUN 16 mg/dL (8-23) 06/03/23 06:47 Creatinine 0.8 mg/dL (0.7-1.2) 06/03/23 06:47 GFR Calculation Not Reportable 06/03/23 06:47 Glucose 250 mg/dL (65-115) H 06/03/23 06:47 POC Glucose 234 mg/dL (70-110) H 06/03/23 07:42 Calculated Osmolality 298 mOsm/kg (285-295) H 06/03/23 06:47 Calcium 9.2 mg/dL (8.5-10.5) 06/03/23 06:47 Magnesium 1.8 mg/dL (1.7-2.3) 06/03/23 06:47 Total Bilirubin 0.5 mg/dL (0.15-1.2) 06/03/23 06:47 AST 13 U/L (0-40) 06/03/23 06:47 ALT 12 U/L (0-41) 06/03/23 06:47 Alkaline Phosphatase 72 U/L (40-130) 06/03/23 06:47 NT-Pro-B Natriuret Pep 131 pg/mL (0-125) H 06/03/23 06:47 Total Protein 6.9 g/dL (6.6-8.7) 06/03/23 06:47 Albumin 3.9 g/dL (3.5-5.2) 06/03/23 06:47 Globulin 3.0 g/dL (1.3-4.6) 06/03/23 06:47 TSH 1.49 uIU/mL (0.27-4.20) 06/03/23 06:47 Urine Color Yellow (Yellow) 06/03/23 08:02 Urine Appearance Clear (CLEAR) 06/03/23 08:02 Urine pH 5 (5-7) 06/03/23 08:02 Ur Specific [place] 1.010 (1.005-1.030) 06/03/23 08:02 Urine Protein 2+ (Negative) H 06/03/23 08:02 Urine Glucose (UA) 4+ (Normal) H 06/03/23 08:02 Urine Ketones 2+ (Negative) H 06/03/23 08:02 Urine Blood 2+ (Negative) H 06/03/23 08:02 Urine Nitrate Negative (Negative) 06/03/23 08:02 Urine Bilirubin Neg (Negative) 06/03/23 08:02 Urine Urobilinogen Norm mg/dL (Negative) 06/03/23 08:02 Ur Leukocyte Esterase Negative (Negative) 06/03/23 08:02 Urine RBC 0-4 /hpf (0-2) H 06/03/23 08:02 Urine WBC 0-4 /hpf (0-5) H 06/03/23 08:02 Ur Squamous Epith Cells 0-4 /hpf (0-5) H 06/03/23 08:02 Amorphous Sediment Not Reportable 06/03/23 08:02 Urine Bacteria Trace /hpf (NONE) 06/03/23 08:02 Urine Mucus Trace /hpf 06/03/23 08:02 EKG Data EKG 1: I personally reviewed and interpreted this EKG as follows: EKG interpretation date: 06/03/23 EKG interpretation time: 07:11 Interpretation: sinus tach hr [address] or t wave abnormalities qrs 105 qtc 432 Discharge Plan Discharge Patient Disposition: Placed in Observation Admit Provider: Davin Bazan Clinical Impression: Pneumonia, Weakness, Acute respiratory failure with hypoxia Coding Level of Care Code ED Modern Dancer for Macy Soria
[2023-06-03 06:58] LABS: Basophils % 0.2 %; Eosinophils # 0.1 10^3/uL (0.0-0.8); Eosinophils % 0.6 %; Hematocrit 41.8 % (37-53); Lymphocytes # 0.5 10^3/uL (0.8-4.8); Lymphocytes % 5.3 %; Mean Corpuscular HGB Conc 33.3 g/dL (30-55); Mean Corpuscular Hemoglobin 29.4 pg (27-33); Mean Corpuscular Volume 88.6 fl (82-101); Mean Platelet Volume 9.3 fL (7.4-10.4); Monocytes % 10.2 %; Neutrophils % 83.6 %; Nucleated Red Blood Cells % 0 %; Platelet Count 180 10^3/cmm (157-399); Red Blood Count 4.72 10^6/uL (3.85-5.65); Red Cell Distribution Width 12.8 % (12.1-15.1); White Blood Count 9.81 10^3/uL (3.29-11.43)
--- NOTE | 2023-06-03 07:11 | ECG_ITS ---
[facility] Test Date: 2023-06-03 Pat Name: Adam Garnica Department: Room: Gender: Male Quality Rep: : 1950 Requested By: Sarah Adams Order Number: [id number] Evette MD: Cory Granados M.D. Measurements Intervals [place] Rate: 112 P: 40 HI: 190 QRS: 62 QRSD: 105 T: 33 QT: 366 QTc: 501 Interpretive Statements SINUS TACHYCARDIA SEPTAL MYOCARDIAL INFARCTION , PROBABLY OLD [40+ ms Q WAVE IN V1/V2] Compared to ECG 07/02/2022 01:47:56 Myocardial infarct finding now present Sinus rhythm no longer present First degree AV block no longer present Electronically Signed On 06-03-2023 19:24:36 CDT by Cory Granados M.D. [id number]
[2023-06-03 07:24] LABS: INR 0.92 (0.8-1.2)
[2023-06-03 07:41] LABS: Alanine Aminotransferase 12 U/L (0-41); Albumin Level 3.9 g/dL (3.5-5.2); Alkaline Phosphatase 72 U/L (40-130); Anion Gap 20.6 (5-19); Aspartate Amino Transferase 13 U/L (0-40); Blood Urea Nitrogen 16 mg/dL (8-23); Calcium 9.2 mg/dL (8.5-10.5); Carbon Dioxide 23 mmol/L (22-29); Chloride 99 mmol/L (98-107); Glucose 250 mg/dL (65-115); Magnesium 1.8 mg/dL (1.7-2.3); Osmolality Calculated 298 mOsm/kg (285-295); Potassium 3.6 mmol/L (3.5-5.1); Sodium 139 mmol/L (136-145); Total Bilirubin 0.5 mg/dL (0.15-1.2); Total Protein 6.9 g/dL (6.6-8.7)
[2023-06-03 07:45] LABS: NT Pro B Type Natriuretic Pept 131 pg/mL (0-125); Thyroid Stimulating Hormone 1.49 uIU/mL (0.27-4.20)
[2023-06-03 07:46] LABS: Glucose Point of Care 234 mg/dL (70-110)
[2023-06-03] MEDS: azithromycin 500 MG in sodium chloride 0.9% 250 ML 250 MG IV (07:57)
[2023-06-03] MEDS: cefTRIAXone 1,000 MG in sodium chloride 0.9% (plus) 50 ML 100 MG IV (07:58)
[2023-06-03] MEDS: sodium chloride 0.9% 1,000 ML 999 ML IV (07:58)
[2023-06-03 08:39] LABS: Add Urine Culture? No; Add Urine Microscopic? YES; Bacteria Urine TRACE /hpf; Bilirubin Urine Neg (Negative); Blood Urine 2+ (Negative); Glucose Urine UA 4+ (Normal); Ketones Urine 2+ (Negative); Leukocyte Esterase Urine Negative (Negative); Mucus Urine TRACE /hpf; Nitrate Urine Negative (Negative); Protein Urine 2+ (Negative); RBC Urine 0-4 /hpf (0-2); Squamous Epithelial Cell Urine 0-4 /hpf (0-5); Urine Appearance Clear (CLEAR); Urine Color Yellow (Yellow); Urobilinogen Urine Norm (Negative); WBC Urine 0-4 /hpf (0-5); pH Urine 5 (5-7)
--- NOTE | 2023-06-03 08:45 | P.HP_ITS ---
Providers/Chief Complaint Admitting Physician: Davin Bazan MD Primary Care Provider: CAMI Connolly Chief Complaint: Weakness,cough,confusion History of Present Illness Adam Garnica is a 72 year old male presenting to the emergency department with what he terms last several days but I believe to be at least 3-5 of global weakness, cough, shortness of breath in the last 2 days. He denies any fever. He reports his cough is not productive. He has had no chest pain. Some nausea has been present but he has had no vomiting. He reports he has felt rattly i n his chest. He reports a little bit of lower extremity edema, but states that is baseline. He does report he was so weak this morning when getting out of bed, he fell to the side on some totes. He reports no injury to himself, no loss of consciousness, no dizziness. Review of Systems General: Denies: 10 or more systems reviewed and unremarkable except in HPI and below Card: Reports: swelling of feet/ankles; Denies: chest pain GI: Reports: nausea; Denies: abdominal pain, vomiting, hematochezia or melena Medications/Allergies Home Medications Medication Instructions Recorded Confirmed Last Taken Type cholecalciferol (vitamin D3) 50 50 mcg PO DAILY 06/26/21 06/03/23 06/02/23 Histo ry mcg (2,000 unit) capsule digestive enzymes 1 cap PO DAILY 06/26/21 06/03/23 06/02/23 History omega-3 fatty acids-fish oil 360 1 cap PO DAILY 06/26/21 06/03/23 06/02/23 History mg-1,200 mg capsule (Fish Oil) blood-glucose meter,continuous #1 ea 07/21/21 06/03/23 Unknown Rx blood sugar diagnostic (Blood #50 ea 09/29/21 06/03/23 Unknown Rx Glucose Test strips) cinnamon bark 500 mg capsule 500 mg PO DAILY 11/12/21 06/03/23 06/02/23 History (Cinnamon) glucosamin 375 mg-chond 300 1 cap PO DAILY 11/12/21 06/03/23 06/02/23 History mg-collagen 50 mg-hyaluronic acid 2 mg cap empagliflozin 25 mg tablet 25 mg PO DAILY #90 tabs 08/21/22 06/03/23 06/02/23 Rx (Jardiance) sulfasalazine 500 mg tablet 0.5 g PO BID #60 tabs 10/13/22 06/03/23 06/02/23 Rx nebulizer #1 ea 10/28/22 06/03/23 Unknown Rx blood sugar diagnostic (OneTouch #100 ea 11/23/22 06/03/23 Unknown Rx Ultra Test strips) clopidogrel 75 mg tablet 75 mg PO DAILY #90 tabs 11/30/22 06/03/23 06/02/23 Rx metoprolol tartrate 50 mg tablet 50 mg PO BID@0900,2100 #180 tabs 11/30/22 06/03/23 06/02/23 Rx aspirin 81 mg tablet,delayed 81 mg PO DAILY #100 tabs 12/14/22 06/03/23 06/02/23 Rx release magnesium L-lactate 84 mg 84 mg PO BID #180 tabs 12/14/22 06/03/23 06/02/23 Rx tablet,extended release (Magtab) blood sugar diagnostic (OneTouch #100 strips 12/30/22 06/03/23 Unknown Rx Ultra Test strips) fluticasone propionate 50 1 spray intranasal DAILY 12/31/22 06/03/23 06/02/23 History mcg/actuation nasal spray,suspension pantoprazole 40 mg tablet,delayed 40 mg PO BID 30 days #180 tabs 02/22/23 06/03/23 06/02/23 Rx release amlodipine 5 mg tablet 5 mg PO DAILY #30 tabs 03/19/23 06/03/23 06/02/23 Rx valsartan 160 mg tablet 160 mg PO DAILY #90 tabs 05/07/23 06/03/23 06/02/23 Rx liraglutide 0.6 mg/0.1 mL (18 mg/3 See Rx Instructions .Route 05/17/23 06/03/23 06/02/23 Rx mL) subcutaneous pen injector .COMPLEX #18 mL (Victoza 3-Cliff) cephalexin 500 mg capsule 500 mg PO BID 10 days #20 caps 05/31/23 06/03/23 06/02/23 Rx acarbose 100 mg tablet 100 mg PO TIDWM 06/03/23 06/03/23 06/02/23 History albuterol sulfate 0.63 mg/3 mL 0.63 mg inhalation Q6H PRN 06/03/23 06/03/23 Unknown History solution for nebulization Shortness Of Breath atorvastatin 40 mg tablet 40 mg PO DAILY 06/03/23 06/03/23 06/02/23 History fluorouracil 5 % topical cream See Rx Instructions .Route .COMPLEX 06/03/23 06/03/23 Unknown History fluticasone furoate 100 1 inh inhalation BID 06/03/23 06/03/23 Unknown History mcg-vilanterol 25 mcg/dose inhalation powder (Breo Ellipta) metformin 500 mg tablet,extended 1,000 mg PO BID 06/03/23 06/03/23 06/02/23 History release 24 hr Allergies Allergy/AdvReac Type Severity Reaction Status Date / Time No Known Allergies Allergy Verified 06/03/23 06:39 PFSH Acute PFSH: Medical History (Updated 06/03/23 @ 08:58 by Davin Bazan MD) Atherosclerosis of coronary artery of [place] heart without angina pectoris CAD (coronary artery disease) [place] x1 distal RCA 11/13/21 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 Cataract fragments in both eyes following surgery Chronic lung disease Diabetes mellitus GERD (gastroesophageal reflux disease) Hypertension Nonsustained ventricular tachycardia Seropositive rheumatoid arthritis Surgical History H/O hernia repair Hx of cataract extraction S/P coronary artery stent placement distal RCA 11/13/2021 Family History Mother Diabetes Rheumatoid arthritis Dementia Father CAD (coronary artery disease) enlarged heart Diabetes Cancer Dementia Denies family history of Clotting disorder Chronic kidney disease (CKD) Suicide Anesthesia complication Bleeding disorder Lung disease Stroke Social History (Updated 06/03/23 @ 08:49 by Davin Bazan MD) Smoking and tobacco status: never smoked Alcohol intake: never Substance/Drug Use: never Adopted: No Lives independently: Yes Household members: spouse Housing: House Marital status: Vitals/I&O/Wt Last Vital Signs Temp 98.6 F 06/03/23 06:31 Pulse 109 H 06/03/23 08:01 Resp 22 H 06/03/23 08:01 BP 131/68 06/03/23 08:01 Pulse Ox 95 06/03/23 08:01 O2 Del Method Nasal Cannula 06/03/23 08:01 O2 Flow Rate 2 06/03/23 08:01 Weight last 48 hrs Weight 104.78 kg Physical Exam Narrative: General exam is a white male, on 2 L of oxygen to maintain a saturation above 90%. He is slightly tachycardic with a heart rate of around 110. HEENT: Atraumatic and normocephalic. Oropharynx clear Neck is supple no lymphadenopathy or thyromegaly Cardiovascular slightly tachycardic, no murmur Lungs coarse breath sounds bilaterally right greater than left with occasional expiratory wheeze Abdomen is soft positive bowel sounds. No obvious organomegaly exams deferred Extremities no cyanosis clubbing. 1+ edema is noted bilaterally. Skin no rash Neuro no focal deficits. Data 06/03/23 06:47 06/03/23 06:47 Other Labs: LFTs are normal, TSH is normal, magnesium level is normal, calcium and albumin are normal BNP slightly elevated at 131 Urinalysis with 0-4 reds 0-4 whites. 2+ protein. 2+ ketones. Respiratory panel is pending Chest x-ray by my read is concerning for right lower lobe infiltrate. Radiology has read this as no acute findings I reviewed his CT head, no acute findings EKG demonstrates sinus tachycardia, normal axis, small Q waves noted septally per my read. Micro: Microbiology 06/03/23 06:49 Blood Culture - Preliminary Blood SPECIMEN COLLECTED 06/03/23 06:47 Blood Culture - Preliminary Blood SPECIMEN COLLECTED A&P Assessment and plan (1) Pneumonia: Patient presents with cough, weakness, hypoxia. I believe his chest x-ray is abnormal. This is all consistent with an outpatient/community-acquired pneumonia. Sputum culture, await PCR for COVID and other viruses. Rocephin and azithromycin Oxygen as needed, wean as tolerated (2) Chronic lung disease: I have concern patient has chronic lung disease based on his past medicines of Ellipta inhaler and albuterol. He reports he has wheezed in the past. He denies any smoking history but has had exposure to dust and other material in the past. Budesonide twice daily DuoNeb every 6 hours If significant wheezing occurs consider addition of steroids, orally in the form of prednisone (3) Weakness: Weakness is most likely secondary to pneumonia. He does not appear significantly fluid overloaded. BNP is only minorly elevated. Will check a troponin. No acute changes appear on EKG. Check echocardiogram. He does have a past history of heart disease, cardiac arrest, RCA intervention. Last echo was October 2021 with normal EF. Secondary to tachycardia present as well check dimer. This tachycardia could be due to him not having his metoprolol this morning. We will initiate this. He has no chest discomfort. (4) Hypoxia: Wean oxygen as tolerated (5) Type 2 diabetes, uncontrolled, with neuropathy: Initiate sliding scale insulin, consistent carb diet (6) Atherosclerosis of coronary artery of [place] heart without angina pectoris: Continue Plavix, statin, beta-lupe, aspirin Plan Multiple other medical problems as outlined in past medical history Full code Lovenox will be placed for DVT prophylaxis Attestations Medical Necessity Statement*: Will need less than 2 midnight stay for evaluation and treatment of pneumonia requiring minimal oxygen currently. Possible need to extend hospitalization should does not improve quickly. Diagnoses Pneumonia J18.9 Chronic lung disease J98.4 Weakness R53.1 Hypoxia R09.02 Type 2 diabetes, uncontrolled, with neuropathy E11.40; E11.65 Atherosclerosis of coronary artery of [place] heart without angina pectoris I25.10 Time Spent (min) 42
[2023-06-03 09:00] LABS: Adenovirus Not Detected (NOT DETECT); Chlamydia Pneumoniae Not Detected (NOT DETECT); Coronavirus 229E,HKU1,NL63,OC4 Not Detected (NOT DETECT); Human Metapneumovirus Not Detected (NOT DETECT); Human Rhinovirus/Enterovirus Detected (NOT DETECT); Influenza A Not Detected (NOT DETECT); Influenza A H1 Not Detected (NOT DETECT); Influenza A H1-2009 Not Detected (NOT DETECT); Influenza A H3 Not Detected (NOT DETECT); Influenza B Not Detected (NOT DETECT); Mycoplasma Pneumoniae Not Detected (NOT DETECT); Parainfluenza Virus Type 1 Not Detected (NOT DETECT); Parainfluenza Virus Type 2 Not Detected (NOT DETECT); Parainfluenza Virus Type 3 Not Detected (NOT DETECT); Parainfluenza Virus Type 4 Not Detected (NOT DETECT); Respiratory Syncytial Virus A Not Detected (NOT DETECT); Respiratory Syncytial Virus B Not Detected (NOT DETECT); SARS-COV-2 Not Detected (NOT DETECT)
--- NOTE | 2023-06-03 09:01 | USCV_ITS ---
Adam Garnica Age: 72 Gender: M : 1950 Exam Date: 06/03/2023 15:04 Ordering Phys: Davin Bazan MD Technologist: JUMANA Exam Location: [facility] [place] Indication: ELEVATED BNP BP: 134 / 74 HR: 90 Rhythm: Sinus Technical Quality: Adequate MEASUREMENTS (Male / Female) Normal Values 2D ECHO LVOT Diameter 2.0 cm LV Ejection Fraction MOD 2C 55.8 % LV Ejection Fraction 2C AL 55.7 % LA Diameter 3.0 cm LA Width 3.7 cm LA Height 4.5 cm RA Width 3.1 cm RA Height 4.6 cm Aorta at Sinotubular Diameter 2.5 cm IVC Diameter 1.6 cm M-MODE Aortic Annulus Diameter 3.7 cm LA Ao Ratio MM 0.8 MV E Point Septal Separation 0.5 cm DOPPLER AV Peak Velocity 197.8 cm/s LVOT Peak Velocity 105.0 cm/s AV Area Cont Eq vti 1.5 cm squared AV Area Cont Eq pk 1.7 cm squared MV Peak Velocity 113.0 cm/s MV Area PHT 4.1 cm squared Mitral E to A Ratio 1.1 MV E' Velocity 122.0 cm/s TR Peak Velocity 158.4 cm/s TR Peak Gradient 10.0 mmHg TR Mean Velocity 129.7 cm/s TR Mean Gradient 7.0 mmHg TR Velocity Time Integral 36.2 cm TV Peak E Velocity 69.0 cm/s Right Atrial Pressure 3.0 mmHg Pulmonary Artery Systolic Pressu 13.0 mmHg PV Peak Velocity 101.0 cm/s RV Acceleration Time 0.1 s RV Ejection Time 0.2 s RV AcT/ET 0.4 FINDINGS Left Ventricle Normal left ventricular size and systolic function, EF 56%. No regional wall motion abnormalities. Grade I/IV diastolic dysfunction (abnormal relaxation filling pattern), normal to mildly elevated filling pressures. Right Ventricle Possibly of normal size and ejection fraction Right Atrium Normal right atrial size. Left Atrium Normal left atrial size. Mitral Valve Mitral annular calcification. Aortic Valve Thickened aortic valve. Tricuspid Valve Tricuspid valve not well visualized. Pulmonic Valve Pulmonic valve not well visualized. Pericardium No pericardial effusion. Aorta Normal aortic annulus size. IVC Inferior vena cava not visualized. CONCLUSIONS Normal left ventricular size and systolic function, EF 56%. No regional wall motion abnormalities. Grade I/IV diastolic dysfunction (abnormal relaxation filling pattern), normal to mildly elevated filling pressures. Mitral annular calcification. Thickened aortic valve. There is no pericardial effusion. There are no intracardiac masses. Comparison with the previous study is difficult because of the difference in the technical quality. Dr Shelly Ford MD [facility] (Electronically Signed) Final Date: 03 June 2023 17:31 S
[2023-06-03 09:12] LABS: Troponin T (5th) Once 31 ng/L (0-15)
[2023-06-03 09:20] LABS: D Dimer 0.39 ug/mLFEU (0-0.59)
[2023-06-03 10:33] LABS: Troponin T (5th) Once 32 ng/L (0-15)
[2023-06-03] MEDS: enoxaparin 40 mg/0.4 mL Syringe SUBCUT (10:48)
[2023-06-03] MEDS: aspirin 81 mg EC Tablet PO (10:48)
[2023-06-03] MEDS: metoprolol tartrate 50 mg Tablet PO ×2 (10:48→21:36)
[2023-06-03] MEDS: clopidogrel 75 mg Tablet PO (10:48)
[2023-06-03 11:32] LABS: Glucose Point of Care 229 mg/dL (70-110)
[2023-06-03] MEDS: insulin lispro 100 unit/1 mL SUBCUT ×3 (11:41→21:36)
[2023-06-03] MEDS: ipratropium-albuterol 3 mL Neb INHALATION ×2 (14:14→20:27)
[2023-06-03] MEDS: perflutren protein-a microsphr 0.22 mg/mL SDV 3 mL IV (15:37)
[2023-06-03 17:07] LABS: Glucose Point of Care 210 mg/dL (70-110)
[2023-06-03] MEDS: acetaminophen 325 mg Tablet 650 MG PO (17:13)
[2023-06-03] MEDS: sulfaSALAzine 500 mg Tablet PO (17:15)
[2023-06-03] MEDS: magnesium lactate 84 mg Tablet PO (17:15)
[2023-06-03] MEDS: pantoprazole DR 40 mg Tablet PO (17:15)
[2023-06-03] MEDS: budesonide 0.5 mg/2 mL Neb INHALATION (20:27)
[2023-06-03 21:32] LABS: Glucose Point of Care 199 mg/dL (70-110)
[2023-06-04] VITALS (7 sets, daily range): BP systolic 136–164; BP diastolic 76–83; PULSE 63–92; RESP 16–19; TEMP 36.4–37.1; O2SAT 92–97
[2023-06-04] MEDS: ipratropium-albuterol 3 mL Neb INHALATION ×2 (02:37→09:02)
[2023-06-04 05:36] LABS: Basophils % 0.2 %; Eosinophils # 0.2 10^3/uL (0.0-0.8); Eosinophils % 1.7 %; Hematocrit 36.7 % (37-53); Lymphocytes # 1.4 10^3/uL (0.8-4.8); Mean Corpuscular Hemoglobin 29.6 pg (27-33); Mean Corpuscular Volume 89.7 fl (82-101); Mean Platelet Volume 9.2 fL (7.4-10.4); Monocytes # 0.7 10^3/uL (0.2-0.9); Monocytes % 7.4 %; Neutrophils # 7.58 10^3/uL (1.8-7.7); Neutrophils % 76.2 %; Nucleated Red Blood Cells % 0 %; Platelet Count 170 10^3/cmm (157-399); Red Blood Count 4.09 10^6/uL (3.85-5.65); White Blood Count 9.95 10^3/uL (3.29-11.43)
[2023-06-04 05:59] LABS: Anion Gap 14.6 (5-19); Blood Urea Nitrogen 15 mg/dL (8-23); Carbon Dioxide 25 mmol/L (22-29); Chloride 102 mmol/L (98-107); Potassium 3.6 mmol/L (3.5-5.1); Sodium 138 mmol/L (136-145)
[2023-06-04 06:00] LABS: Alanine Aminotransferase 9 U/L (0-41); Albumin Level 3.2 g/dL (3.5-5.2); Alkaline Phosphatase 57 U/L (40-130); Aspartate Amino Transferase 12 U/L (0-40); Calcium 8.6 mg/dL (8.5-10.5); Globulin 2.7 g/dL (1.3-4.6); Glucose 149 mg/dL (65-115); Osmolality Calculated 290 mOsm/kg (285-295); Total Bilirubin 0.4 mg/dL (0.15-1.2); Total Protein 5.9 g/dL (6.6-8.7)
[2023-06-04 06:51] LABS: Glucose Point of Care 147 mg/dL (70-110)
[2023-06-04] MEDS: cefTRIAXone 1,000 MG in sodium chloride 0.9% (plus) 50 ML 100 MG IV (08:02)
[2023-06-04] MEDS: losartan 50 mg Tablet PO (08:03)
[2023-06-04] MEDS: clopidogrel 75 mg Tablet PO (08:03)
[2023-06-04] MEDS: pantoprazole DR 40 mg Tablet PO (08:03)
[2023-06-04] MEDS: sulfaSALAzine 500 mg Tablet PO (08:03)
[2023-06-04] MEDS: insulin lispro 100 unit/1 mL SUBCUT (08:03)
[2023-06-04] MEDS: amlodipine 5 mg Tablet PO (08:03)
[2023-06-04] MEDS: atorvastatin 40 mg Tablet PO (08:03)
[2023-06-04] MEDS: magnesium lactate 84 mg Tablet PO (08:03)
[2023-06-04] MEDS: aspirin 81 mg EC Tablet PO (08:03)
[2023-06-04] MEDS: metoprolol tartrate 50 mg Tablet PO (08:06)
[2023-06-04] MEDS: azithromycin 500 MG in sodium chloride 0.9% 250 ML 250 MG IV (08:40)
[2023-06-04] MEDS: budesonide 0.5 mg/2 mL Neb INHALATION (09:02)
--- NOTE | 2023-06-04 09:22 | P.DS_ITS ---
Discharge Providers Date of Admission: 06/03/23 08:14 Date of Discharge: June 04, 2023 Attending Provider at Admission: Davin Bazan MD Attending Provider at Discharge: Davin Bazan MD Primary Care Provider: CAMI Connolly Diagnoses at Discharge Discharge Diagnosis (1) Pneumonia: Status: Acute (2) Chronic lung disease: Status: Acute (3) Weakness: Status: Acute (4) Hypoxia: Status: Acute (5) Type 2 diabetes, uncontrolled, with neuropathy: Status: Acute (6) Atherosclerosis of coronary artery of platinum heart without angina pectoris: Status: Acute Reason for Visit Reason for Visit: Weakness,cough,confusion Hospital Course Hospital Course Patient is a 72-year-old white male who presented to the hospital with shortness of breath, wheezing and coughing for the last several days to week. He has had no fevers. He denied any hemoptysis. In the emergency department there was radiological evidence for a right lower lobe pneumonia. He was placed on Rocephin, and azithromycin. BNP was slightly elevated. Dimer was negative. During the course of his hospital stay he rapidly improved, and was able to be discharged on June 04. He had weaned down to room air. Ultimately a sputum screening demonstrated enterovirus/rhinovirus in his sputum. An echocardiogram was also performed which was largely normal with the exception of 1/4 diastolic dysfunction. He will be discharged today, on 5 more days of Levaquin for possible superimposed bacterial pneumonia. I believe he may have some chronic lung disease, and this would be good to be evaluated as an outpatient with pulmonary function test once he recovers. I discharged him and his were given an opportunity ask questions, and agreed with the plan. Physical Exam Narrative: General exam no distress Neck is supple Cardiovascular regular rate and rhythm Lungs breath sounds bilaterally but relatively clear. Much of his wheezing had gone away Extremities trace edema Discharge Data Studies Completed and Pending Completed Studies During Hospitalization Category Date Time Status CT head wo con* [id number] Stat Cat Scan 06/03/23 06:41 Completed XR chest 1V portable [id number] Stat Exams 06/03/23 06:38 Completed CV. echo wo/w contrast [id number] Routine Ultrasound 06/03/23 09:01 Completed Pending at discharge Category Date Time Status Blood Culture Stat Lab 06/03/23 06:49 Results Sputum Culture and Gram Stain Routine Lab 06/04/23 05:51 Received Radiology Impressions Chest X-Ray 06/03/23 06:38 IMPRESSION: No acute cardiopulmonary findings. Head CT 06/03/23 06:41 IMPRESSION: 1. Right mastoid effusion. Correlate for potential mastoiditis. 2. No acute intracranial findings. Laboratory Results WBC 9.95 10^3/uL (3.29-11.43) 06/04/23 05:07 RBC 4.09 10^6/uL (3.85-5.65) 06/04/23 05:07 Hgb 12.10 g/dL (11.27-16.99) 06/04/23 05:07 Hct 36.7 % (37-53) L 06/04/23 05:07 MCV 89.7 fl (82-101) 06/04/23 05:07 MCH 29.6 pg (27-33) 06/04/23 05:07 MCHC 33.0 g/dL (30-55) 06/04/23 05:07 RDW 13.0 % (12.1-15.1) 06/04/23 05:07 Plt Count 170 10^3/cmm (157-399) 06/04/23 05:07 MPV 9.2 fL (7.4-10.4) 06/04/23 05:07 Neut % (Auto) 76.2 % 06/04/23 05:07 Lymph % (Auto) 14.0 % 06/04/23 05:07 [place] % (Auto) 7.4 % 06/04/23 05:07 Eos % (Auto) 1.7 % 06/04/23 05:07 Baso % (Auto) 0.2 % 06/04/23 05:07 Neut # (Auto) 7.58 10^3/uL (1.8-7.7) 06/04/23 05:07 Lymph # (Auto) 1.4 10^3/uL (0.8-4.8) 06/04/23 05:07 [place] # (Auto) 0.7 10^3/uL (0.2-0.9) 06/04/23 05:07 Eos # (Auto) 0.2 10^3/uL (0.0-0.8) 06/04/23 05:07 Baso # (Auto) 0.0 10^3/uL (0.0-0.1) 06/04/23 05:07 Nucleated RBC % (auto) 0 % 06/04/23 05:07 Nucleated RBCs # 0.0 /100WBC 06/04/23 05:07 PT 12.70 SECONDS (12.1-14.9) 06/03/23 06:47 INR 0.92 (0.8-1.2) 06/03/23 06:47 D-Dimer 0.39 ug/mLFEU (0-0.59) 06/03/23 06:47 Sodium 138 mmol/L (136-145) 06/04/23 05:07 Potassium 3.6 mmol/L (3.5-5.1) 06/04/23 05:07 Chloride 102 mmol/L (98-107) 06/04/23 05:07 Carbon Dioxide 25 mmol/L (22-29) 06/04/23 05:07 Anion Gap 14.6 (5-19) 06/04/23 05:07 BUN 15 mg/dL (8-23) 06/04/23 05:07 Creatinine 0.7 mg/dL (0.7-1.2) 06/04/23 05:07 GFR Calculation Not Reportable 06/04/23 05:07 Glucose 149 mg/dL (65-115) H 06/04/23 05:07 POC Glucose 147 mg/dL (70-110) H 06/04/23 06:41 Calculated Osmolality 290 mOsm/kg (285-295) 06/04/23 05:07 Calcium 8.6 mg/dL (8.5-10.5) 06/04/23 05:07 Magnesium 2.0 mg/dL (1.7-2.3) 06/04/23 05:07 Total Bilirubin 0.4 mg/dL (0.15-1.2) 06/04/23 05:07 AST 12 U/L (0-40) 06/04/23 05:07 ALT 9 U/L (0-41) 06/04/23 05:07 Alkaline Phosphatase 57 U/L (40-130) 06/04/23 05:07 Troponin T Gen 5 ng/L 32 ng/L (0-15) H 06/03/23 10:10 NT-Pro-B Natriuret Pep 131 pg/mL (0-125) H 06/03/23 06:47 Total Protein 5.9 g/dL (6.6-8.7) L 06/04/23 05:07 Albumin 3.2 g/dL (3.5-5.2) L 06/04/23 05:07 Globulin 2.7 g/dL (1.3-4.6) 06/04/23 05:07 TSH 1.49 uIU/mL (0.27-4.20) 06/03/23 06:47 Urine Color Yellow (Yellow) 06/03/23 08:02 Urine Appearance Clear (CLEAR) 06/03/23 08:02 Urine pH 5 (5-7) 06/03/23 08:02 Ur Specific [place] 1.010 (1.005-1.030) 06/03/23 08:02 Urine Protein 2+ (Negative) H 06/03/23 08:02 Urine Glucose (UA) 4+ (Normal) H 06/03/23 08:02 Urine Ketones 2+ (Negative) H 06/03/23 08:02 Urine Blood 2+ (Negative) H 06/03/23 08:02 Urine Nitrate Negative (Negative) 06/03/23 08:02 Urine Bilirubin Neg (Negative) 06/03/23 08:02 Urine Urobilinogen Norm mg/dL (Negative) 06/03/23 08:02 Ur Leukocyte Esterase Negative (Negative) 06/03/23 08:02 Urine RBC 0-4 /hpf (0-2) H 06/03/23 08:02 Urine WBC 0-4 /hpf (0-5) H 06/03/23 08:02 Ur Squamous Epith Cells 0-4 /hpf (0-5) H 06/03/23 08:02 Amorphous Sediment Not Reportable 06/03/23 08:02 Urine Bacteria Trace /hpf (NONE) 06/03/23 08:02 Urine Mucus Trace /hpf 06/03/23 08:02 Nasal Influ A H1 2008 PCR Not detected (NOT DETECT) 06/03/23 06:43 Adenovirus (PCR) Not detected (NOT DETECT) 06/03/23 06:43 C. pneumoniae DNA (PCR) Not detected (NOT DETECT) 06/03/23 06:43 Coronavirus 229E (PCR) Not detected (NOT DETECT) 06/03/23 06:43 Human Metapneumovir PCR Not detected (NOT DETECT) 06/03/23 06:43 Influenza A (H1) PCR Not detected (NOT DETECT) 06/03/23 06:43 Influenza A (H3) PCR Not detected (NOT DETECT) 06/03/23 06:43 Influenza Type A (PCR) Not detected (NOT DETECT) 06/03/23 06:43 Influenza Type B (PCR) Not detected (NOT DETECT) 06/03/23 06:43 M. pneumoniae (PCR) Not detected (NOT DETECT) 06/03/23 06:43 Parainfluenza 1 (PCR) Not detected (NOT DETECT) 06/03/23 06:43 Parainfluenza 2 (PCR) Not detected (NOT DETECT) 06/03/23 06:43 Parainfluenza 3 (PCR) Not detected (NOT DETECT) 06/03/23 06:43 Parainfluenza 4 (PCR) Not detected (NOT DETECT) 06/03/23 06:43 RSV Type A (PCR) Not detected (NOT DETECT) 06/03/23 06:43 RSV Type B (PCR) Not detected (NOT DETECT) 06/03/23 06:43 Entero/Rhino (PCR) Detected (NOT DETECT) A 06/03/23 06:43 SARS-CoV-2 (PCR) Not detected (NOT DETECT) 06/03/23 06:43 Vitals Last Vital Signs Temp 97.6 F 06/04/23 08:15 Pulse 92 06/04/23 09:00 Resp 16 06/04/23 09:00 BP 136/76 06/04/23 08:15 Pulse Ox 92 06/04/23 09:00 O2 Del Method Room Air 06/04/23 09:00 O2 Flow Rate 1 06/04/23 02:37 Discharge Plan Discharge Patient Disposition: Home Condition: Stable Prescriptions: New levofloxacin 750 mg tablet 750 mg PO DAILY 5 Days Qty: 5 0RF Continued cholecalciferol (vitamin D3) 50 mcg (2,000 unit) capsule 50 mcg PO DAILY digestive enzymes Capsule 1 cap PO DAILY Rx Instructions: administer with food; swallow whole; do not crush/chew/dissolve/break/cut omega-3 fatty acids-fish oil [Fish Oil] 360-1,200 mg capsule 1 cap PO DAILY sulfasalazine 500 mg tablet 0.5 g PO BID Qty: 60 3RF Rx Instructions: give with food (meal/snack) (DME) nebulizer See Rx Instructions .Route .MEDSUPPLY Qty: 1 0RF Rx Instructions: As directed fluticasone propionate 50 mcg/actuation spray,suspension 1 spray intranasal DAILY Rx Instructions: administer into each nostril (DME) blood-glucose meter,continuous Misc See Rx Instructions .Route Qty: 1 0RF Rx Instructions: As directed (DME) Blood Glucose Test Strip See Rx Instructions .Route Qty: 50 2RF Rx Instructions: bid Jardiance 25 mg tablet 25 mg PO DAILY Qty: 90 3RF (DME) OneTouch Ultra Test Strip See Rx Instructions .Route Qty: 100 0RF Rx Instructions: test 3 times daily before meals metoprolol tartrate 50 mg tablet 50 mg PO BID@0900,2100 Qty: 180 3RF clopidogrel 75 mg tablet 75 mg PO DAILY Qty: 90 3RF Magtab 84 mg tablet extended release 84 mg PO BID Qty: 180 3RF aspirin 81 mg tablet,delayed release (DR/EC) 81 mg PO DAILY Qty: 100 3RF (DME) OneTouch Ultra Test Strip See Rx Instructions .ROUTE .COMPLEX Qty: 100 0RF Dose Instruction: CHECK BLOOD SUGAR TWICE DAILY Rx Instructions: CHECK BLOOD SUGAR TWICE DAILY pantoprazole 40 mg tablet,delayed release (DR/EC) 40 mg PO BID 30 Days Qty: 180 1RF amlodipine 5 mg tablet 5 mg PO DAILY Qty: 30 5RF valsartan 160 mg tablet 160 mg PO DAILY Qty: 90 3RF Rx Instructions: *Dose increased Victoza 3-Cliff 0.6 mg/0.1 mL (18 mg/3 mL) pen injector See Rx Instructions .ROUTE .COMPLEX Qty: 18 0RF Dose Instruction: INJECT 0.6 mg SUBCUTANEOUSLY ONCE DAILY for 7 days; then INJECT 1.2 mg SUBCUTANEOUSLY DAILY for 7 days; then INJECT 1.8 mg DAILY and continue Rx Instructions: INJECT 0.6 mg SUBCUTANEOUSLY ONCE DAILY for 7 days; then INJECT 1.2 mg SUBCUTANEOUSLY DAILY for 7 days; then INJECT 1.8 mg DAILY and continue cinnamon bark [Cinnamon] 500 mg Capsule 500 mg PO DAILY [id number]-hyalur ac [id number] mg Capsule 1 cap PO DAILY fluorouracil 5 % cream See Rx Instructions .ROUTE .COMPLEX Rx Instructions: Apply a small amount directly to the nasal tip and affected area twice daily Wednesday through Wednesday for 3 weeks. Breo Ellipta 100-25 mcg/dose blister with device 1 inh INHALATION BID atorvastatin 40 mg tablet 40 mg PO DAILY albuterol sulfate 0.63 mg/3 mL solution for nebulization 0.63 mg inhalation Q6H PRN (Reason: Shortness Of Breath) acarbose 100 mg tablet 100 mg PO TIDWM metformin 500 mg tablet extended release 24 hr 1,000 mg PO BID Discontinued cephalexin 500 mg capsule 500 mg PO BID 10 Days Qty: 20 0RF Discharge Orders: Discharge Order (Routine); Ordered 06/04/23 Ordered By: Davin Bazan Referrals: Liz Valencia FNP [Primary Care Provider] - 4-7 days Discharge Diet: Cardiac and Diabetic Discharge Activity: Increase activity as tolerated Patient Instructions: Opioid Safety Activity Restrictions/Additional Instructions: Take all medicine as prescribed Follow-up with primary care 3 to 5 days Consider pulmonary function tests regarding history of wheezing as an outpatient. Discharge Attestations Time Spent in Discharge Care*: greater than 30 min Quality Metrics Clinical Quality Measures [ No reported AMI, CVA or VTE this stay] Coding Level of Care Code 92889 Total time (in minutes) for Discharge: 35 Diagnoses Pneumonia J18.9 Chronic lung disease J98.4 Weakness R53.1 Hypoxia R09.02 Type 2 diabetes, uncontrolled, with neuropathy E11.40; E11.65 Atherosclerosis of coronary artery of platinum heart without angina pectoris I25.10
[2023-06-04] MEDS: acetaminophen 325 mg Tablet 650 MG PO (10:14)
--- NOTE | 2023-06-04 10:30 | PC.CHAP ---
Pastoral Care Encounter/Spiritual Assessment Type of Contact [] Declined tree marker visit [] Patient/Family/Request visit [] Outpatient visit [] Follow-up visit [] Physician referral [] Code/Alert [] Routine visit [] Staff referral [] Actively dying [] Patient sleeping [] Family support [] [] Out of room [] Palliative care [] [] Receiving care in room [] Pre-surgical visit [] Trauma [] Long length of stay [] ICU visit [] Other:No visit. Contact precautions Relational/Emotional Strength [] Patient feels connected with others/family/visitors/staff [] Distress [] Loneliness/isolation [] Abandonment Spirituality of Patient [] Person of [place]leen [] Attends [facility] of their [place] [] Believes in Prayer [] Reads Bible or Christian materials [] There are Spiritual issues to be addressed Scientific Editor Interventions [] Prayer [] Active listening [] Non-anxious presence [] Spiritual/emotional support [] Crisis/trauma care [] Spiritual counseling [] Bereavement support [] Provided bereavement packet [] Provided Bible/devotional materials [] Provided toy/stuffed animal, coloring book to patient or family member [] Provided Communion [] Anointing/[place] [] Salvation [] Completed spiritual assessment [] Other: Impact on Illness or Injury [] Angry [] Fearful [] Anxious [] Often cries [] Exhaustion [] Unable to work [] Unable to attend voodoo [] Unable to walk/stand [] Unable to read [] Unable to drive [] Unable to eat/drink [] Unable to sleep [] Unable to be with family [] Patient intubated [] Other: Summary Time spent with patient
== END 2023-06-04 10:57 | disposition home or self-care (01) ==
LOC: ER 06:44 → MEDSURG 08:28
PROVIDERS: Admitting Provider Internal Medicine; Emergency Provider Emergency Medicine; PCP Nurse Practitioner Family; Visit Provider Internal Medicine
DX: J18.9 Pneumonia, unspecified organism (principal); J98.4 Other disorders of lung; R53.1 Weakness; R09.02 Hypoxemia; E11.40 Type 2 diabetes mellitus with diabetic neuropathy, unspecified; E11.65 Type 2 diabetes mellitus with hyperglycemia; I25.10 Atherosclerotic heart disease of native coronary artery without angina pectoris; I34.81 Nonrheumatic mitral (valve) annulus calcification; I35.8 Other nonrheumatic aortic valve disorders; I10 Essential (primary) hypertension; Z87.891 Personal history of nicotine dependence
CPT/HCPCS: 36415; 36416; 70450; 71045; 80053; 81001; 82962; 83735; 83880; 84443; 84484; 85025; 85378; 85610; 87040; 87070; 87205; 87486; 87581; 87633; 93005; 94640; 96365; 96367; 96372; 99285; C8929; G0378; J0456; J0696; J1650; J1815; J7030; J7050; J7626; Q9956

== ENCOUNTER → 2023-06-10 10:57 | Outpatient (BNVA) | payer MEDICARE, OTHER, SELFPAY | PROVIDERS: PCP Nurse Practitioner Family; Visit Provider Internal Medicine | DX: E11.65 Type 2 diabetes mellitus with hyperglycemia (principal); E78.5 Hyperlipidemia, unspecified; E11.40 Type 2 diabetes mellitus with diabetic neuropathy, unspecified; Z79.84 Long term (current) use of oral hypoglycemic drugs | CPT/HCPCS: 99214 ==

== ENCOUNTER 2023-06-21 12:12 | Outpatient (RCR) | payer MEDICARE, OTHER, SELFPAY ==
--- NOTE | 2023-06-21 12:23 | XR_ITS ---
WS: [id number] EXAMINATION: XR chest 2V* [id number] REASON FOR EXAM: J18.9 - Pneumonia, unspecified organism COMPARISON: 06/03/2023 ORDER DATE: 06/21/2023 12:52 PM FINDINGS: There may be some residual scarring and/or minor atelectasis in the lateral right lower lobe just cau maria d to the minor fissure and in both lung bases. On the lateral projection a small opacity blunting t he cardiophrenic angle anteriorly could represent a small right middle lobe infiltrate. The cardiac a nd mediastinal outlines are unremarkable. There are no significant pleural effusions . No significant abnormalities are noted in the spine or remainder of the bony thorax. IMPRESSION: RECOMMEND FOLLOW-UP IMAGING CLINICALLY INDICATED FOR EARLY RIGHT MIDDLE LOBE INFILTRATE. PRIOR [place] IN THE LATERAL RIGHT LUNG BASE IS ALMOST CLEARED. NEW ATELECTASIS IN THE LUNG BASES.
[2023-06-21 12:28] LABS: Basophils % 0.3 %; Eosinophils # 0.1 10^3/uL (0.0-0.8); Eosinophils % 0.6 %; Lymphocytes # 0.5 10^3/uL (0.8-4.8); Lymphocytes % 5.6 %; Mean Corpuscular HGB Conc 33.3 g/dL (30-55); Mean Corpuscular Hemoglobin 29.7 pg (27-33); Mean Corpuscular Volume 89.2 fl (82-101); Mean Platelet Volume 9.2 fL (7.4-10.4); Monocytes # 0.7 10^3/uL (0.2-0.9); Monocytes % 9.3 %; Neutrophils # 6.71 10^3/uL (1.8-7.7); Neutrophils % 83.9 %; Nucleated Red Blood Cells % 0 %; Platelet Count 213 10^3/cmm (157-399); Red Blood Count 4.82 10^6/uL (3.85-5.65); Red Cell Distribution Width 13.5 % (12.1-15.1); White Blood Count 7.99 10^3/uL (3.29-11.43)
== END 2023-07-20 23:59 | disposition home or self-care (01) ==
LOC: LAB 12:12
PROVIDERS: PCP Nurse Practitioner Family; Visit Provider Nurse Practitioner Family
DX: R53.83 Other fatigue (principal); J18.9 Pneumonia, unspecified organism
CPT/HCPCS: 36415; 71046; 85025

== ENCOUNTER → 2023-07-06 09:28 | Outpatient (BNVA) | payer MEDICARE, OTHER, SELFPAY | PROVIDERS: PCP Nurse Practitioner Family; Visit Provider Nurse Practitioner Family | DX: L57.0 Actinic keratosis (principal); L81.4 Other melanin hyperpigmentation; L57.8 Other skin changes due to chronic exposure to nonionizing radiation; D22.5 Melanocytic nevi of trunk; Z85.828 Personal history of other malignant neoplasm of skin | CPT/HCPCS: 17000; 99214 ==

== ENCOUNTER → 2023-07-15 14:14 | Outpatient (BNVA) | payer MEDICARE, OTHER, SELFPAY | PROVIDERS: PCP Nurse Practitioner Family; Visit Provider Nurse Practitioner Family | DX: I25.10 Atherosclerotic heart disease of native coronary artery without angina pectoris (principal); R60.0 Localized edema; I10 Essential (primary) hypertension | CPT/HCPCS: 36415; 80048; 83880; 93005; 99214 ==

== ENCOUNTER → 2023-08-03 11:05 | Outpatient (BNVA) | payer MEDICARE, OTHER, SELFPAY | PROVIDERS: PCP Nurse Practitioner Family; Visit Provider Nurse Practitioner Family | DX: E11.65 Type 2 diabetes mellitus with hyperglycemia (principal) | CPT/HCPCS: 83036 ==

== ENCOUNTER 2023-08-10 11:39 | Outpatient (CLI) | payer MEDICARE, OTHER, SELFPAY ==
--- NOTE | 2023-08-10 11:44 | XRR_ITS ---
PROCEDURE INFORMATION: Exam: XR Chest Exam date and time: 08/10/2023 11:50 AM Age: 72 years old Clinical indication: Condition or disease; Lung condition and disease; Pneumonia; Additional info: J18.9 - pneumonia, unspecified organism TECHNIQUE: Imaging protocol: Radiologic exam of the chest. Views: 2 views. COMPARISON: CR XR chest 2V* [id number] 06/21/2023 12:53 PM FINDINGS: Lungs: Unremarkable. No consolidation. Pleural spaces: Unremarkable. No pleural effusion. No pneumothorax. Heart/Mediastinum: Unremarkable. No cardiomegaly. Bones/joints: Mild scoliosis with mild and moderate multilevel thoracic spondylosis. XR/XR chest 2V* [id number] IMPRESSION: No acute disease.
== END 2023-08-10 11:40 | disposition home or self-care (01) ==
PROVIDERS: PCP Nurse Practitioner Family; Visit Provider Nurse Practitioner Family
DX: J18.9 Pneumonia, unspecified organism (principal)
CPT/HCPCS: 71046

== ENCOUNTER → 2023-09-15 08:37 | Outpatient (BNVA) | payer MEDICARE, OTHER, SELFPAY | PROVIDERS: PCP Nurse Practitioner Family; Visit Provider Internal Medicine | DX: E11.65 Type 2 diabetes mellitus with hyperglycemia (principal); E78.5 Hyperlipidemia, unspecified; E11.40 Type 2 diabetes mellitus with diabetic neuropathy, unspecified | CPT/HCPCS: 80053; 80061; 82043; 83036 ==

== ENCOUNTER → 2023-10-01 09:56 | Outpatient (BNVA) | payer MEDICARE, OTHER, SELFPAY | PROVIDERS: PCP Nurse Practitioner Family; Visit Provider Internal Medicine | DX: E11.65 Type 2 diabetes mellitus with hyperglycemia (principal); E78.5 Hyperlipidemia, unspecified; Z79.84 Long term (current) use of oral hypoglycemic drugs; Z79.4 Long term (current) use of insulin | CPT/HCPCS: 99214 ==

== ENCOUNTER → 2023-11-02 09:02 | Outpatient (BNVA) | payer MEDICARE, OTHER, SELFPAY | PROVIDERS: PCP Nurse Practitioner Family; Visit Provider Podiatrist Foot & Ankle Surgery | DX: E11.40 Type 2 diabetes mellitus with diabetic neuropathy, unspecified (principal); E11.65 Type 2 diabetes mellitus with hyperglycemia; Z79.4 Long term (current) use of insulin; Z79.84 Long term (current) use of oral hypoglycemic drugs | CPT/HCPCS: 99213 ==

== ENCOUNTER → 2023-11-08 08:47 | Outpatient (BNVA) | payer MEDICARE, OTHER, SELFPAY | PROVIDERS: PCP Nurse Practitioner Family; Visit Provider Nurse Practitioner Family | DX: L57.0 Actinic keratosis (principal); Z85.828 Personal history of other malignant neoplasm of skin; D22.5 Melanocytic nevi of trunk; S60.922A Unspecified superficial injury of left hand, initial encounter; X58.XXXA Exposure to other specified factors, initial encounter | CPT/HCPCS: 17000; 99213 ==

== ENCOUNTER 2023-11-09 13:08 | Emergency (ER) | payer MEDICARE, OTHER, SELFPAY ==
[2023-11-09 13:26] VITALS: BP 147/74; PULSE 93; RESP 16; TEMP 36.4; O2SAT 97; BMI 32.4
--- NOTE | 2023-11-09 13:46 | CT_ITS ---
WS: [id number] CT ABDOMEN PELVIS TECHNIQUE: Contrast-enhanced CT of the abdomen and pelvis with coronal and sagittal reformatted image s. CLINICAL INFORMATION: GI bleed COMPARISON: None. DLP: 1074.[address] scans at [facility] use at least one of these dose optimization techniques: automated e xposure control; mA and/or kV adjustment per patient size (includes targeted exams where dose is matc hed to clinical indication); or iterative reconstruction. FINDINGS: Mild diffuse fatty infiltration of the liver. Portal vein and splenic vein are patent. Normal spleen. Normal GE junction. Subsegmental atelectasis in the lung bases. Mild fluid distention of the gallbla dder which is otherwise normal in appearance. Atrophic pancreas. Normal caliber abdominal aorta. Adre nal glands are normal. Normal renal parenchymal enhancement. No hydronephrosis. Bilateral renal cysts . Exophytic enhancing solid appearing renal lesion suspicious for neoplasm measuring 2.8 x 2.5 cm. Th is is exophytic from the posterior lower pole RIGHT kidney. No hydronephrosis in either kidney. Marked urinary distention of the bladder. Enlarged prostate measuring 4.9 cm. Sigmoid diverticulosis. No evidence of acute diverticulitis. Moderate diffuse edema involving the anal sphincter. Mild trans verse colon constipation and RIGHT colonic constipation. Normal appendix in the RIGHT lower quadrant. Advanced spondylitic changes lumbar spine. Disc osteophyte protrusions in the lumbar spine with mult ilevel central canal stenosis moderate to severe at L3-L4 L4-L5. IMPRESSION: 1. Heterogeneously enhancing solid-appearing RIGHT posterior lower pole renal mass suspicious for ne oplasm measuring 2.8 x 2.5 cm. Recommend urology consultation. 2. Multiple bilateral simple renal cysts. No hydronephrosis in either kidney. 3. Sigmoid diverticulosis. No evidence of acute diverticulitis. 4. Partially visualized diffuse edema involving the distal rectum and anal sphincter 5. Urinary distention of the bladder. 6. Mild prostate enlargement measuring 4.9 cm. Commend correlation PSA. 7. No other acute findings.
--- NOTE | 2023-11-09 13:55 | W.ED.GIBLEED ---
HPI - GI Bleed General: Chief complaint: GI Bleed Stated complaint: sent by dr rectal bleeding Time Seen by Provider: 11/09/23 13:45 Source: patient Mode of arrival: ambulatory History of Present Illness: 72-year-old male presents to the emergency room with complaint of rectal bleeding for the last 4 days. Has been wearing depends bleeding has been intermittent he has protruding hemorrhoids have been very irritated as well. He thinks he had a colonoscopy within the last year but his says likely not. MD complaint: blood streaked stool Onset (ago): day(s) (4) Pain Consistency: intermittent Severity: mild Relieving factors: none Exacerbating factors: bowel movement Associated symptoms: Denies abdominal pain, chills, easy bruising, epistaxis, fever(s), headache(s), malaise, nausea, other bleeding, poor appetite, rash, syncope, vomiting or weakness Review of Systems Const: Denies: fever(s), chills or malaise ENMT: Denies: epistaxis Card: Denies: syncope Resp: Denies: dyspnea GI: Denies: abdominal pain, nausea or vomiting : Denies: dysuria, urinary frequency or urinary urgency Musc: Denies: neck pain or back pain Skin/Breast: Denies: rash Neuro: Denies: headache(s) Anirudh/Lymph: Denies: easy bruising PFSH ED PFSH: Medical History Chronic lung disease GERD (gastroesophageal reflux disease) Seropositive rheumatoid arthritis 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 Atherosclerosis of coronary artery of [place] heart without angina pectoris Nonsustained ventricular tachycardia CAD (coronary artery disease) [place] x1 distal RCA 11/13/21 Cataract fragments in both eyes following surgery Hypertension Diabetes mellitus Surgical History Hx of cataract extraction S/P coronary artery stent placement distal RCA 11/13/2021 H/O hernia repair Family History Mother Diabetes Rheumatoid arthritis Dementia Father CAD (coronary artery disease) enlarged heart Diabetes Cancer Dementia Denies family history of Clotting disorder Chronic kidney disease (CKD) Suicide Anesthesia complication Bleeding disorder Lung disease Stroke Social History Smoking and tobacco/nicotine status: never used tobacco/nicotine Alcohol intake: never Substance/Drug Use: never Adopted: No Lives independently: Yes Household members: spouse Housing: House Marital status: Physical Exam Const: GENERAL APPEARANCE: cooperative and comfortable ORIENTATION/CONSCIOUSNESS: Yes awake, Yes oriented to person, Yes oriented to place and Yes oriented to time HENMT: COMMON NORMALS: normocephalic, atraumatic and hearing grossly normal bilaterally HEAD & SCALP: normocephalic and atraumatic Resp: COMMON NORMALS: normal respiratory effort, No retractions, No use of accessory muscles and clear to auscultation bilaterally AUSCULTATION: clear to auscultation bilaterally Cardio: COMMON NORMALS: regular rate, regular rhythm and No murmurs present (Cardio) RATE: regular rate RHYTHM: regular rhythm GI: COMMON NORMALS: Soft to palpation and No hepatosplenomegaly present AUSCULTATION: Yes normoactive bowel sounds PALPATION: Yes Soft to palpation, No Tenderness to palpation present (GI), No Guarding due to palpation present (GI) and Yes No hepatosplenomegaly present OTHER: Protruding hemorrhoids moderately inflamed no active bleeding at the time. Large hemorrhoid at the 6 o'clock position other smaller externalized hemorrhoids noted Extremity: COMMON NORMALS: normal to inspection, capillary refill normal, no clubbing, cyanosis or edema, no calf tenderness and no pedal edema Neuro: SENSORIUM/ORIENTATION: Yes oriented to person, Yes oriented to place and Yes oriented to time Skin: COMMON NORMALS: no rashes or lesions noted GENERAL SKIN EXAM: no rashes or lesions noted Course Vital Signs: Vital signs: Vital Signs Temperature 97.5 F L 11/09/23 13:26 Pulse Rate 93 11/09/23 13:26 Respiratory Rate 16 11/09/23 13:26 Blood Pressure 147/74 11/09/23 13:26 Pulse Oximetry 97 11/09/23 13:26 Oxygen Delivery Me thod Room Air 11/09/23 13:26 MDM - GI Bleed Medical Decision Making On exam patient has prominent irritated hemorrhoids. He later told me 3 years ago he had a small colon polyp removed at a colonoscopy and Cony advised him of a follow-up in 5 years. Hemoglobin today is stable is not actively bleeding at this time will give me his Anusol HC refer to general surgery where they can discuss definitive treatment for the hemorrhoids as well as reviewed the previous colonoscopy and see if they feel a repeat is warranted. Incidental finding of a right renal mass that requires urologic workup case management to arrange for follow-up with urology return if has further problems Differential Diagnosis Likely hemorrhoids Medical Records I reviewed the patient's medical records. Lab Data I reviewed the patient's lab results. 11/09/23 13:52 11/09/23 13:52 Laboratory Results WBC 5.83 10^3/uL (3.29-11.43) 11/09/23 13:52 RBC 4.81 10^6/uL (3.85-5.65) 11/09/23 13:52 Hgb 14.10 g/dL (11.27-16.99) 11/09/23 13:52 Hct 42.9 % (37-53) 11/09/23 13:52 MCV 89.2 fl (82-101) 11/09/23 13:52 MCH 29.3 pg (27-33) 11/09/23 13:52 MCHC 32.9 g/dL (30-55) 11/09/23 13:52 RDW 13.0 % (12.1-15.1) 11/09/23 13:52 Plt Count 201 10^3/cmm (157-399) 11/09/23 13:52 MPV 9.6 fL (7.4-10.4) 11/09/23 13:52 Neut % (Auto) 67.7 % 11/09/23 13:52 Lymph % (Auto) 22.0 % 11/09/23 13:52 [place] % (Auto) 8.2 % 11/09/23 13:52 Eos % (Auto) 1.5 % 11/09/23 13:52 Baso % (Auto) 0.3 % 11/09/23 13:52 Neut # (Auto) 3.94 10^3/uL (1.8-7.7) 11/09/23 13:52 Lymph # (Auto) 1.3 10^3/uL (0.8-4.8) 11/09/23 13:52 [place] # (Auto) 0.5 10^3/uL (0.2-0.9) 11/09/23 13:52 Eos # (Auto) 0.1 10^3/uL (0.0-0.8) 11/09/23 13:52 Baso # (Auto) 0.0 10^3/uL (0.0-0.1) 11/09/23 13:52 Nucleated RBC % (auto) 0 % 11/09/23 13:52 Nucleated RBCs # 0.0 /100WBC 11/09/23 13:52 PT 11.80 SECONDS (12.1-14.9) L 11/09/23 13:52 INR 0.85 (0.8-1.2) 11/09/23 13:52 APTT 24.2 SECONDS (23.9-36.7) 11/09/23 13:52 Sodium 136 mmol/L (136-145) 11/09/23 13:52 Potassium 4.3 mmol/L (3.5-5.1) 11/09/23 13:52 Chloride 101 mmol/L (98-107) 11/09/23 13:52 Carbon Dioxide 23 mmol/L (22-29) 11/09/23 13:52 Anion Gap 16.3 (5-19) 11/09/23 13:52 BUN 21 mg/dL (8-23) 11/09/23 13:52 Creatinine 1.0 mg/dL (0.7-1.2) 11/09/23 13:52 GFR Calculation Not Reportable 11/09/23 13:52 Glucose 321 mg/dL (65-115) H 11/09/23 13:52 Calculated Osmolality 297 mOsm/kg (285-295) H 11/09/23 13:52 Calcium 8.8 mg/dL (8.5-10.5) 11/09/23 13:52 Total Bilirubin 0.3 mg/dL (0.15-1.2) 11/09/23 13:52 AST 15 U/L (0-40) 11/09/23 13:52 ALT 12 U/L (0-41) 11/09/23 13:52 Alkaline Phosphatase 80 U/L (40-130) 11/09/23 13:52 Total Protein 6.3 g/dL (6.6-8.7) L 11/09/23 13:52 Albumin 3.7 g/dL (3.5-5.2) 11/09/23 13:52 Globulin 2.6 g/dL (1.3-4.6) 11/09/23 13:52 All radiology interpretation(s) finalized by discharge Discharge Plan Discharge Patient Disposition: Home Clinical Impression: Bright red rectal bleeding, Hemorrhoids, Mass of left kidney Condition: Stable Prescriptions: New Anusol-HC 2.5 % cream with perineal applicator 1 applic ME Q8H PRN (Reason: hemorrhoids) 21 Days Qty: 30 1RF No Action cholecalciferol (vitamin D3) 50 mcg (2,000 unit) capsule 50 mcg PO DAILY digestive enzymes Capsule 1 cap PO DAILY Rx Instructions: administer with food; swallow whole; do not crush/chew/dissolve/break/cut omega-3 fatty acids-fish oil [Fish Oil] 360-1,200 mg capsule 1 cap PO DAILY (DME) nebulizer See Rx Instructions .Route .MEDSUPPLY Qty: 1 0RF Rx Instructions: As directed metoprolol succinate 50 mg tablet extended release 24 hr 50 mg PO BEDTIME Qty: 90 1RF insulin glargine [Lantus Solostar U-100 Insulin] 100 unit/mL (3 mL) insulin pen 20 unit SUBCUT QAM Qty: 15 0RF Rx Instructions: 10 units daily max 20U a day fluticasone propion-salmeterol [Advair Diskus] 250-50 mcg/dose blister with device 1 inh inhalation BID Qty: 60 2RF Rx Instructions: Please fill on 340B pantoprazole 40 mg tablet,delayed release (DR/EC) 40 mg PO BID 30 Days Qty: 180 0RF fluticasone propionate 50 mcg/actuation spray,suspension 1 spray intranasal DAILY Rx Instructions: administer into each nostril Jardiance 25 mg tablet 25 mg PO DAILY Qty: 90 3RF (DME) blood-glucose meter,continuous Misc See Rx Instructions .Route Qty: 1 0RF Rx Instructions: As directed (DME) Blood Glucose Test Strip See Rx Instructions .Route Qty: 50 2RF Rx Instructions: bid (DME) OneTouch Ultra Test Strip See Rx Instructions .Route Qty: 100 0RF Rx Instructions: test 3 times daily before meals aspirin 81 mg tablet,delayed release (DR/EC) 81 mg PO DAILY Qty: 100 3RF amlodipine 5 mg tablet 5 mg PO DAILY Qty: 30 5RF valsartan 160 mg tablet 160 mg PO DAILY Qty: 90 3RF Rx Instructions: *Dose increased levofloxacin 500 mg tablet 500 mg PO DAILY 7 Days Qty: 7 0RF (DME) OneTouch Ultra Test Strip See Rx Instructions .ROUTE .COMPLEX Qty: 100 0RF Dose Instruction: CHECK BLOOD SUGAR TWICE DAILY Rx Instructions: CHECK BLOOD SUGAR TWICE DAILY furosemide 40 mg tablet 40 mg PO DAILY Qty: 30 1RF Rx Instructions: Take for 5 days in a row, then as needed acarbose 100 mg tablet 100 mg PO TID Qty: 270 0RF atorvastatin 40 mg tablet See Rx Instructions .ROUTE .COMPLEX Qty: 90 0RF Dose Instruction: TAKE 1 TABLET BY MOUTH DAILY Rx Instructions: TAKE 1 TABLET BY MOUTH DAILY metformin 500 mg tablet extended release 24 hr 1,000 mg PO BID Qty: 200 0RF sulfasalazine 500 mg tablet 500 mg PO BID Qty: 60 3RF Rx Instructions: give with food (meal/snack) Magtab 84 mg tablet extended release See Rx Instructions .ROUTE .COMPLEX Qty: 180 0RF Dose Instruction: TAKE 1 TABLET BY MOUTH TWICE DAILY Rx Instructions: TAKE 1 TABLET BY MOUTH TWICE DAILY clopidogrel 75 mg tablet 75 mg PO DAILY Qty: 90 0RF cinnamon bark [Cinnamon] 500 mg Capsule 500 mg PO DAILY ibmyvwgn-ngbk-bvbgjd-hyalur ac [id number] mg Capsule 1 cap PO DAILY fluorouracil 5 % cream See Rx Instructions .ROUTE .COMPLEX Rx Instructions: Apply a small amount directly to the nasal tip and affected area twice daily Wednesday through Wednesday for 3 weeks. Breo Ellipta 100-25 mcg/dose blister with device 1 inh INHALATION BID albuterol sulfate 0.63 mg/3 mL solution for nebulization 0.63 mg inhalation Q6H PRN (Reason: Shortness Of Breath) Discharge Orders: Discharge ED (Routine); Ordered 11/09/23 Ordered By: Andre Bush Referrals: Liz Valencia FNP [Primary Care Provider] - Discharge Diet: Usual diet Discharge Activity: Increase activity as tolerated Patient Instructions: Opioid Safety, Pain Management Activity Restrictions/Additional Instructions: Thank you for choosing [facility] for your healthcare needs today. Please realize this is an emergency room and that we are providing you with a medical screening exam and this may not be complete and all inclusive of all the testing and or work up that you may need to determine your ailment or severity of your illness. It is very important that you follow up as instructed or that you return to the Emergency Department should you have concerns or if your condition changes or worsens in any way. You are seen today for rectal bleeding. This is likely due to hemorrhoids. Will refer you to general surgery for definitive care for these in the meantime recommend you use the Anusol HC that was prescribed apply 3-4 times daily. Incidental finding on the CT of your abdomen was that of a right renal mass which requires further evaluation will refer you to urology for this. Coding Level of Care Code ED Circular Knife Cutter Machine for Macy Soria
[2023-11-09 13:59] LABS: Basophils % 0.3 %; Eosinophils # 0.1 10^3/uL (0.0-0.8); Eosinophils % 1.5 %; Hematocrit 42.9 % (37-53); Lymphocytes # 1.3 10^3/uL (0.8-4.8); Mean Corpuscular HGB Conc 32.9 g/dL (30-55); Mean Corpuscular Hemoglobin 29.3 pg (27-33); Mean Corpuscular Volume 89.2 fl (82-101); Mean Platelet Volume 9.6 fL (7.4-10.4); Monocytes # 0.5 10^3/uL (0.2-0.9); Monocytes % 8.2 %; Neutrophils # 3.94 10^3/uL (1.8-7.7); Neutrophils % 67.7 %; Nucleated Red Blood Cells % 0 %; Platelet Count 201 10^3/cmm (157-399); Red Blood Count 4.81 10^6/uL (3.85-5.65); White Blood Count 5.83 10^3/uL (3.29-11.43)
[2023-11-09 14:11] LABS: INR 0.85 (0.8-1.2)
[2023-11-09 14:12] LABS: Partial Thromboplastin Time 24.2 SECONDS (23.9-36.7)
[2023-11-09 14:16] LABS: Alanine Aminotransferase 12 U/L (0-41); Albumin Level 3.7 g/dL (3.5-5.2); Alkaline Phosphatase 80 U/L (40-130); Anion Gap 16.3 (5-19); Aspartate Amino Transferase 15 U/L (0-40); Blood Urea Nitrogen 21 mg/dL (8-23); Calcium 8.8 mg/dL (8.5-10.5); Carbon Dioxide 23 mmol/L (22-29); Chloride 101 mmol/L (98-107); Globulin 2.6 g/dL (1.3-4.6); Glucose 321 mg/dL (65-115); Osmolality Calculated 297 mOsm/kg (285-295); Potassium 4.3 mmol/L (3.5-5.1); Sodium 136 mmol/L (136-145); Total Bilirubin 0.3 mg/dL (0.15-1.2); Total Protein 6.3 g/dL (6.6-8.7)
[2023-11-09] MEDS: iohexol 350 mg/mL 500 mL Btl (per mL) IV (14:32)
--- NOTE | 2023-11-09 18:11 | DCPLANNER ---
Referral for Urology sent to [facility] per patient's request- faxed to [phone].
--- NOTE | 2023-11-11 09:42 | DCPLANNER ---
Message was sent to general surgery on 11/11/23 at 0942. Clinic to contact patient for appt.
== END 2023-11-09 17:08 | disposition home or self-care (01) ==
PROVIDERS: Emergency Provider Family Medicine; PCP Nurse Practitioner Family
DX: K62.5 Hemorrhage of anus and rectum (principal); K64.9 Unspecified hemorrhoids; N28.89 Other specified disorders of kidney and ureter; Z79.82 Long term (current) use of aspirin; Z79.02 Long term (current) use of antithrombotics/antiplatelets; Z79.4 Long term (current) use of insulin; I25.10 Atherosclerotic heart disease of native coronary artery without angina pectoris; I10 Essential (primary) hypertension; E11.9 Type 2 diabetes mellitus without complications
CPT/HCPCS: 74177; 80053; 85025; 85610; 85730; 99285; Q9967

== ENCOUNTER → 2023-12-06 09:08 | Outpatient (BNVA) | payer MEDICARE, OTHER, SELFPAY | PROVIDERS: PCP Nurse Practitioner Family; Visit Provider Internal Medicine | DX: E11.65 Type 2 diabetes mellitus with hyperglycemia (principal); E78.5 Hyperlipidemia, unspecified | CPT/HCPCS: 99214 ==

== ENCOUNTER → 2024-01-03 09:21 | Outpatient (BNVA) | payer MEDICARE, OTHER, SELFPAY | PROVIDERS: PCP Nurse Practitioner Family; Visit Provider Internal Medicine | DX: E11.65 Type 2 diabetes mellitus with hyperglycemia (principal); E78.5 Hyperlipidemia, unspecified | CPT/HCPCS: 80053; 80061; 82043; 83036 ==

== ENCOUNTER → 2024-01-04 10:40 | Outpatient (BNVA) | payer MEDICARE, OTHER, SELFPAY | PROVIDERS: PCP Nurse Practitioner Family; Visit Provider Internal Medicine | DX: E11.65 Type 2 diabetes mellitus with hyperglycemia (principal); E78.5 Hyperlipidemia, unspecified; Z79.4 Long term (current) use of insulin; Z79.84 Long term (current) use of oral hypoglycemic drugs | CPT/HCPCS: 99214 ==

== ENCOUNTER → 2024-01-24 11:29 | Outpatient (BNVA) | payer MEDICARE, OTHER, SELFPAY | PROVIDERS: PCP Nurse Practitioner Family; Visit Provider Nurse Practitioner Family | DX: I10 Essential (primary) hypertension (principal); R60.9 Edema, unspecified | CPT/HCPCS: 83880 ==

== ENCOUNTER 2024-02-24 08:57 | Outpatient (CLI) | payer MEDICARE, OTHER, SELFPAY ==
--- NOTE | 2024-02-24 09:15 | USCV_ITS ---
Adam Garnica Age: 73 Gender: M : 1950 Exam Date: 02/24/2024 09:11 Ordering Phys: Liz Valencia Technologist: JOHN Exam Location: [facility] – [place] Indication: Atherosclerosis. Swelling Risk Factors: Previous Vascular Surgery: RIGHT LEFT BP: 147.0 / 73.00 BP: 147.0/ 78.00 0 0 Waveform Velocity (cm/s) Velocity (cm/s) Waveform Triphasic 84.9 Iliac Prox 71.3 Triphasic Triphasic 83.8 Iliac Mid 67.6 Triphasic Triphasic 81.4 Iliac Distal 74.0 Triphasic Triphasic 87.0 ACIDIZER WATER WELL 85.0 Triphasic Triphasic 84.0 SFA Prox 102.0 Triphasic Triphasic 98.0 SFA Mid 93.0 Triphasic Triphasic SFA Dist Triphasic 79.0 115.0 Triphasic 57.0 POP 67.0 Triphasic Triphasic 87.0 SAMPLE WASHER 78.0 Triphasic Triphasic 49.0 DPA 25.0 Triphasic 1.1 SHILOH 1.1 FINDINGS Minimal intimal thickening in the iliac and femoral arteries bilaterally. No unstable plaques or lesions noted. Normal arterial Doppler waveforms and velocities Resting SHILOH 1.1 on the right and 1.1 on the left CONCLUSIONS 1. Normal resting ABIs bilaterally suggesting no significant arterial obstruction 2. Normal artery Doppler waveforms and velocities bilaterally Dr Shelly Ford MD [facility] (Electronically Signed) Final Date: 24 February 2024 12:22 S
== END 2024-02-24 08:58 | disposition home or self-care (01) ==
LOC: RAD 08:57
PROVIDERS: PCP Nurse Practitioner Family; Visit Provider Nurse Practitioner Family
DX: I25.10 Atherosclerotic heart disease of native coronary artery without angina pectoris (principal)
CPT/HCPCS: 93925

== ENCOUNTER → 2024-03-15 10:34 | Outpatient (BNVA) | payer MEDICARE, OTHER, SELFPAY | PROVIDERS: PCP Nurse Practitioner Family; Visit Provider Internal Medicine Cardiovascular Disease | DX: I25.10 Atherosclerotic heart disease of native coronary artery without angina pectoris (principal); I10 Essential (primary) hypertension; E78.2 Mixed hyperlipidemia; M79.89 Other specified soft tissue disorders; Z72.0 Tobacco use | CPT/HCPCS: 99214 ==

== ENCOUNTER → 2024-04-04 15:09 | Outpatient (BNVA) | payer MEDICARE, OTHER, SELFPAY | PROVIDERS: PCP Nurse Practitioner Family; Visit Provider Nurse Practitioner Family | DX: R06.00 Dyspnea, unspecified (principal) | CPT/HCPCS: 83880 ==

== ENCOUNTER 2024-04-07 13:11 | Outpatient (CLI) | payer MEDICARE, OTHER, SELFPAY ==
--- NOTE | 2024-04-07 13:21 | XRR_ITS ---
PROCEDURE INFORMATION: Exam: XR Chest Exam date and time: 04/07/2024 1:24 PM Age: 73 years old Clinical indication: Dyspnea; Prior surgery; Surgery date: 6+ months; Surgery type: Cardiac stent x 1yr ago; Additional info: R06.00 - dyspnea, unspecified TECHNIQUE: Imaging protocol: Radiologic exam of the chest. Views: 2 views. COMPARISON: CR XR chest 2V* [id number] 08/10/2023 11:50 AM FINDINGS: Lungs: No focal consolidation. Pleural spaces: No evidence of pneumothorax. No evidence of pleural effusion. Heart/Mediastinum: Cardiomediastinal silhouette is within normal limits. Bones/joints: No evidence of acute osseous abnormality. XR/XR chest 2V* [id number] IMPRESSION: 1. No acute cardiopulmonary abnormality.
== END 2024-04-07 13:12 | disposition home or self-care (01) ==
LOC: RAD 13:13
PROVIDERS: PCP Nurse Practitioner Family; Visit Provider Nurse Practitioner Family
DX: R06.00 Dyspnea, unspecified (principal); Z95.5 Presence of coronary angioplasty implant and graft
CPT/HCPCS: 71046

== ENCOUNTER → 2024-04-11 08:48 | Outpatient (BNVA) | payer MEDICARE, OTHER, SELFPAY | PROVIDERS: PCP Nurse Practitioner Family; Visit Provider Internal Medicine | DX: E11.65 Type 2 diabetes mellitus with hyperglycemia (principal); E78.5 Hyperlipidemia, unspecified | CPT/HCPCS: 80053; 80061; 82043; 83036 ==

== ENCOUNTER → 2024-04-18 11:18 | Outpatient (BNVA) | payer MEDICARE, OTHER, SELFPAY | PROVIDERS: PCP Nurse Practitioner Family; Visit Provider Internal Medicine | DX: E11.65 Type 2 diabetes mellitus with hyperglycemia (principal); E11.40 Type 2 diabetes mellitus with diabetic neuropathy, unspecified; E78.2 Mixed hyperlipidemia; Z79.4 Long term (current) use of insulin | CPT/HCPCS: 99214 ==

== ENCOUNTER → 2024-04-25 09:24 | Outpatient (BNVA) | payer MEDICARE, OTHER, SELFPAY | PROVIDERS: PCP Nurse Practitioner Family; Visit Provider Podiatrist Foot & Ankle Surgery | DX: E11.40 Type 2 diabetes mellitus with diabetic neuropathy, unspecified (principal); E11.65 Type 2 diabetes mellitus with hyperglycemia; L60.3 Nail dystrophy; Z79.4 Long term (current) use of insulin | CPT/HCPCS: 99213 ==

== ENCOUNTER → 2024-05-08 09:29 | Outpatient (BNVA) | payer MEDICARE, OTHER, SELFPAY | PROVIDERS: PCP Nurse Practitioner Family; Visit Provider Nurse Practitioner Family | DX: L57.0 Actinic keratosis (principal); D22.5 Melanocytic nevi of trunk; L82.1 Other seborrheic keratosis; L81.4 Other melanin hyperpigmentation; L57.8 Other skin changes due to chronic exposure to nonionizing radiation; Z85.828 Personal history of other malignant neoplasm of skin | CPT/HCPCS: 17004; 99214 ==

== ENCOUNTER → 2024-05-09 09:18 | Outpatient (BNVA) | payer MEDICARE, OTHER, SELFPAY | PROVIDERS: PCP Nurse Practitioner Family; Visit Provider Nurse Practitioner Family | DX: I25.10 Atherosclerotic heart disease of native coronary artery without angina pectoris (principal); I11.0 Hypertensive heart disease with heart failure; I50.9 Heart failure, unspecified | CPT/HCPCS: 99214 ==

== ENCOUNTER → 2024-08-02 10:59 | Outpatient (BNVA) | payer MEDICARE, OTHER, SELFPAY | PROVIDERS: PCP Nurse Practitioner Family; Visit Provider Nurse Practitioner Family | DX: E11.40 Type 2 diabetes mellitus with diabetic neuropathy, unspecified (principal); E11.65 Type 2 diabetes mellitus with hyperglycemia | CPT/HCPCS: 82962 ==

== ENCOUNTER 2024-08-07 16:10 | Outpatient (CLI) | payer MEDICARE, OTHER, SELFPAY ==
--- NOTE | 2024-08-07 16:24 | XR_ITS ---
WS: [id number] Exam: XR chest 2V* [id number] Date/Time of Exam: 08/07/2024 4:24 PM Reason For Exam: R05.9 - Cough, unspecified Comparison 04/07/2024. There is infiltrate and atelectasis in the RIGHT lower lobe. Cardiomediastinal silhouette is unremark able. No pneumothorax. Spondylosis of the thoracic spine. DJD of the RIGHT shoulder. XR/XR chest 2V* [id number] IMPRESSION: 1. RIGHT lower lobe infiltrate and atelectasis likely indicating pneumonia.
[2024-08-07 17:38] LABS: Basophils % 0.3 %; Eosinophils # 0.3 10^3/uL (0.0-0.8); Eosinophils % 4.3 %; Hematocrit 36.8 % (37-53); Lymphocytes # 1.5 10^3/uL (0.8-4.8); Lymphocytes % 25.1 %; Mean Corpuscular HGB Conc 30.4 g/dL (30-55); Mean Corpuscular Hemoglobin 25.2 pg (27-33); Mean Corpuscular Volume 82.7 fl (82-101); Mean Platelet Volume 9.8 fL (7.4-10.4); Monocytes % 16.2 %; Neutrophils # 3.15 10^3/uL (1.8-7.7); Neutrophils % 53.9 %; Nucleated Red Blood Cells % 0 %; Platelet Count 208 10^3/cmm (157-399); Red Blood Count 4.45 10^6/uL (3.85-5.65); Red Cell Distribution Width 15.5 % (12.1-15.1); White Blood Count 5.85 10^3/uL (3.29-11.43)
[2024-08-07 17:52] LABS: Alanine Aminotransferase 23 U/L (0-41); Albumin Level 3.5 g/dL (3.5-5.2); Alkaline Phosphatase 94 U/L (40-130); Anion Gap 13.9 (5-19); Aspartate Amino Transferase 37 U/L (0-40); Blood Urea Nitrogen 24 mg/dL (8-23); Calcium 8.5 mg/dL (8.5-10.5); Carbon Dioxide 29 mmol/L (22-29); Chloride 101 mmol/L (98-107); Chol HDL Ratio 3.29 mg/dL (1.0-5.00); Cholesterol 92 mg/dL (0-200); Globulin 2.9 g/dL (1.3-4.6); Glucose 107 mg/dL (65-115); HDL Cholesterol 28 mg/dL (60-100); LDL Cholesterol Calculated 38 mg/dL (50-129); LDL HDL Ratio 1.36 RATIO (0.00-3.22); Osmolality Calculated 295 mOsm/kg (285-295); Potassium 3.9 mmol/L (3.5-5.1); Sodium 140 mmol/L (136-145); Total Bilirubin 0.4 mg/dL (0.15-1.2); Total Protein 6.4 g/dL (6.6-8.7); Triglycerides 132 mg/dL (0-150)
[2024-08-07 17:58] LABS: Creatinine Urine, Random 71 mg/dL (39-259)
[2024-08-07 18:11] LABS: Microalbum Creatinine Ratio Ur 1211 mg/dL (0-20); Microalbumin Random Urine 86 ug/dL (0-20)
[2024-08-07 19:29] LABS: Estmated Average Glucose 174; Hemoglobin A1C 7.7 % (4.0-6.0)
== END 2024-08-07 16:11 | disposition home or self-care (01) ==
LOC: RAD 16:12
PROVIDERS: PCP Nurse Practitioner Family; Visit Provider Internal Medicine
DX: R05.9 Cough, unspecified (principal); E11.65 Type 2 diabetes mellitus with hyperglycemia; E11.40 Type 2 diabetes mellitus with diabetic neuropathy, unspecified; R91.8 Other nonspecific abnormal finding of lung field
CPT/HCPCS: 36415; 71046; 80053; 80061; 82044; 83036; 85025

== ENCOUNTER → 2024-08-14 10:24 | Outpatient (BNVA) | payer MEDICARE, OTHER, SELFPAY | PROVIDERS: PCP Nurse Practitioner Family; Visit Provider Nurse Practitioner Family | DX: I10 Essential (primary) hypertension; I50.9 Heart failure, unspecified | CPT/HCPCS: 80053; 83880 ==

== ENCOUNTER → 2024-08-15 08:58 | Outpatient (BNVA) | payer MEDICARE, OTHER, SELFPAY | PROVIDERS: PCP Nurse Practitioner Family; Visit Provider Internal Medicine | DX: E11.65 Type 2 diabetes mellitus with hyperglycemia (principal); E78.2 Mixed hyperlipidemia; Z79.4 Long term (current) use of insulin | CPT/HCPCS: 99214 ==

== ENCOUNTER 2024-08-25 07:16 | Outpatient (CLI) | payer MEDICARE, OTHER, SELFPAY ==
--- NOTE | 2024-08-25 07:45 | USCV_ITS ---
Adam Garnica Age: 73 Gender: M : 1950 Exam Date: 08/25/2024 08:01 Ordering Phys: Charlotte Vazquez Technologist: Aaron Benitez Exam Location: [facility] [place] Indication: LLE edema BP: 120 / 70 HR: 75 Rhythm: Sinus Technical Quality: Adequate MEASUREMENTS (Male / Female) Normal Values 2D ECHO LV Diastolic Diameter PLAX 4.8 cm 4.2 - 5.9 / 3.9 - 5.3 cm IVS Diastolic Thickness 1.3 cm 0.6 - 1.0 / 0.6 - 0.9 cm IVS Systolic Thickness 1.6 cm LVPW Diastolic Thickness 1.6 cm 0.6 - 1.0 / 0.6 - 0.9 cm LVPW Systolic Thickness 2.1 cm LVOT Diameter 2.1 cm LV Ejection Fraction 2D Teich 58.5 % LV Ejection Fraction MOD 4C 66.2 % LV Ejection Fraction MOD 2C 73.6 % LV Ejection Fraction 2C AL 73.0 % LA Diameter 4.0 cm RA Systolic Volume 4C AL 2002.4 ml RA Systolic Volume 4C MOD 57.3 ml LA Sys Volume AL 76.7 cm cubed LA Sys Volume Index AL 30.9 cm cubed/m squared Aorta at Sinotubular Diameter 2.8 cm IVC Diameter 1.7 cm M-MODE LA Ao Ratio MM 1.2 AV Cusp Separation MM 1.6 cm DOPPLER AV Peak Velocity 176.0 cm/s LVOT Peak Velocity 80.0 cm/s AV Area Cont Eq vti 1.7 cm squared AV Area Cont Eq pk 1.5 cm squared MV Peak Velocity 111.0 cm/s MV Area PHT 5.0 cm squared Mitral E to A Ratio 2.8 TV Peak Velocity 236.3 cm/s TR Peak Velocity 264.0 cm/s TR Peak Gradient 27.9 mmHg TR Mean Velocity 246.0 cm/s TR Mean Gradient 28.6 mmHg TR Velocity Time Integral 102.5 cm PV Peak Velocity 72.0 cm/s RV Ejection Time 0.3 s FINDINGS Left Ventricle Normal LV size and ejection fraction of 66%.mild left ventricular hypertrophy. Hypokinetic basal inferior wall segment.Grade III/IV diastolic dysfunction (restrictive filling pattern), severely elevated filling pressures. Right Ventricle The right ventricle is normal in size and function. Right Atrium The right atrium is normal in size. Left Atrium Mildly increased left atrial size. Mitral Valve No gross abnormalities noted Aortic Valve Thickened aortic valve. Tricuspid Valve Trace tricuspid valve regurgitation. Pulmonic Valve Trace pulmonary valve regurgitation. Pericardium Normal pericardium without effusion. Aorta Normal ascending aorta dimension. IVC Normal inferior vena cava. CONCLUSIONS Normal LV size and ejection fraction of 66%.mild left ventricular hypertrophy. Hypokinetic basal inferior wall segment.Grade III/IV diastolic dysfunction (restrictive filling pattern), severely elevated filling pressures. Mildly increased left atrial size. Features of aortic valve sclerosis trace tricuspid valve regurgitation. Trace pulmonary valve regurgitation. There is no pericardial effusion. There are no intracardiac masses. Compared to the study from 06/03/2023, there is some worsening of the diastolic dysfunction Dr Shelly Ford MD [facility] (Electronically Signed) Final Date: 25 August 2024 16:08 S
== END 2024-08-25 07:17 | disposition home or self-care (01) ==
PROVIDERS: PCP Nurse Practitioner Family; Visit Provider Nurse Practitioner Family
DX: I50.30 Unspecified diastolic (congestive) heart failure (principal); I35.0 Nonrheumatic aortic (valve) stenosis
CPT/HCPCS: 93306

== ENCOUNTER 2024-09-19 08:16 | Outpatient (RCR) | payer MEDICARE, OTHER, SELFPAY | END 2024-09-19 23:59 | disposition home or self-care (01) | LOC: SST 08:16 | PROVIDERS: PCP Nurse Practitioner Family; Visit Provider Internal Medicine Pulmonary Disease | DX: R13.12 Dysphagia, oropharyngeal phase (principal) | CPT/HCPCS: 92610 ==

== ENCOUNTER 2024-09-20 06:30 | Outpatient (RCR) | payer MEDICARE, OTHER, SELFPAY | END 2024-10-20 23:59 | disposition home or self-care (01) | LOC: SST 06:30 | PROVIDERS: PCP Nurse Practitioner Family; Visit Provider Internal Medicine Pulmonary Disease | DX: R13.12 Dysphagia, oropharyngeal phase (principal) | CPT/HCPCS: 92526 ==

== ENCOUNTER → 2024-10-18 09:14 | Outpatient (BNVA) | payer MEDICARE, OTHER, SELFPAY | PROVIDERS: PCP Nurse Practitioner Family; Visit Provider Nurse Practitioner Family | DX: I25.10 Atherosclerotic heart disease of native coronary artery without angina pectoris (principal); I11.0 Hypertensive heart disease with heart failure; I50.9 Heart failure, unspecified | CPT/HCPCS: 36415; 80048; 83880; 85025; 99214 ==

== ENCOUNTER 2024-10-21 06:00 | Outpatient (RCR) | payer MEDICARE, OTHER, SELFPAY | END 2024-11-17 23:59 | disposition home or self-care (01) | LOC: SST 06:00 | PROVIDERS: PCP Nurse Practitioner Family; Visit Provider Internal Medicine Pulmonary Disease | DX: R13.12 Dysphagia, oropharyngeal phase (principal) | CPT/HCPCS: 92526 ==

== ENCOUNTER 2024-10-28 13:58 | Emergency (ER) | payer MEDICARE, OTHER, SELFPAY ==
[2024-10-28] VITALS (7 sets, daily range): BP systolic 108–152; BP diastolic 74–93; PULSE 84–95; RESP 13–28; TEMP 36.8; O2SAT 90–97; BMI 35.2
--- NOTE | 2024-10-28 14:07 | ECG_ITS ---
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1950 Requested By: Andre Cole Order Number: [id number] Reading MD: ANTONETTE VASQUEZ Measurements Intervals [place] Rate: 96 P: 0 AR: 0 QRS: 151 QRSD: 97 T: 0 QT: 362 QTc: 459 Interpretive Statements ATRIAL FIBRILLATION INCOMPLETE RIGHT BUNDLE BRANCH BLOCK [90+ ms QRS DURATION, TERMINAL R IN V1/V2, 40+ ms S IN I/aVL/V4/V5/V6] POSSIBLE RIGHT VENTRICULAR HYPERTROPHY [SOME/ALL OF: PROMINENT R IN V1, LATE TRANSITION, RAD, GONZALO, SSS] SEPTAL MYOCARDIAL INFARCTION , PROBABLY OLD [40+ ms Q WAVE IN V1/V2] Compared to ECG 07/15/2023 14:24:42 Incomplete right bundle-branch block now present Myocardial infarct finding now present Sinus rhythm no longer present Electronically Signed On 10-29-2024 20:57:41 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
--- NOTE | 2024-10-28 14:29 | XRR_ITS ---
PROCEDURE INFORMATION: Exam: XR Chest Exam date and time: 10/28/2024 2:36 PM Age: 73 years old Clinical indication: Cough; Additional info: Cough; Weakness; Congestion; Hypotension. TECHNIQUE: Imaging protocol: Radiologic exam of the chest. Views: 1 view. COMPARISON: CR XR chest 2V* [id number] 08/07/2024 4:31 PM FINDINGS: Lungs: No focal consolidation. Pleural spaces: No evidence of pneumothorax. No evidence of pleural effusion. Heart/Mediastinum: Cardiomediastinal silhouette is within normal limits. Bones/joints: No evidence of acute osseous abnormality. XR/XR chest 1V portable [id number] IMPRESSION: 1. No acute cardiopulmonary abnormality.
--- NOTE | 2024-10-28 14:32 | PC.NURSE ---
pt b/p 1409/93 sitting, after standing 138/86
--- NOTE | 2024-10-28 14:34 | W.ED.GENADLT ---
HPI - General Adult General: Chief complaint: General Medical Stated complaint: low bp Time Seen by Provider: 10/28/24 14:24 History of Present Illness: 73-year-old male presents with just generalized malaise not feeling well family reports he has been sick with a virus for about a week. Little bit dizzy, has a cough. He reports that his blood pressure was reading low at home and they were concerned so they brought him in for further evaluation. Associated symptoms: Reports dyspnea and malaise; Deny chest pain, nausea or vomiting Related Data Home Medications ?Medication ?Instructions ?Recorded ?Confirmed tamsulosin 0.4 mg capsule (Flomax) 0.4 mg PO DAILY 12/06/23 10/28/24 insulin glargine 100 unit/mL (3 80 unit SUBCUT QAM 08/02/24 10/28/24 mL) subcutaneous pen (Lantus Solostar U-100 Insulin) acarbose 100 mg tablet 100 mg PO TID 10/28/24 10/28/24 albuterol sulfate 0.63 mg/3 mL 0.63 mg inhalation Q6H 10/28/24 10/28/24 solution for nebulization aspirin 81 mg tablet,delayed 81 mg PO DAILY 10/28/24 10/28/24 release atorvastatin 40 mg tablet 40 mg PO DAILY 10/28/24 10/28/24 clopidogrel 75 mg tablet 75 mg PO DAILY 10/28/24 10/28/24 magnesium L-lactate 84 mg 84 mg PO BID 10/28/24 10/28/24 tablet,extended release (Magtab) pantoprazole 40 mg tablet,delayed 40 mg PO BID 10/28/24 10/28/24 release sulfasalazine 500 mg tablet 500 mg PO BID 10/28/24 10/28/24 Previous Rx's ?Medication ?Instructions ?Recorded valsartan 320 mg tablet 320 mg PO DAILY #90 tabs 03/15/24 carvedilol 12.5 mg tablet 25 mg (2 x 12.5 mg) PO BID #180 07/25/24 tabs furosemide 40 mg tablet (Lasix) 40 mg PO BID #180 tabs 10/18/24 potassium chloride 10 mEq 20 meq (2 x 10 mEq) PO BID with 10/18/24 tablet,extended release (Klor-Con) extra Lasix #180 tabs Allergies Allergy/AdvReac Type Severity Reaction Status Date / Time No Known Allergies Allergy Verified 10/18/24 09:18 Review of Systems Const: Reports: chills, fatigue and malaise Card: Denies: chest pain Resp: Reports: dyspnea and non-productive cough GI: Denies: abdominal pain, nausea or vomiting Neuro: Reports: dizziness [facility] ED PFSH: Medical History Chronic lung disease GERD (gastroesophageal reflux disease) Seropositive rheumatoid arthritis 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 Atherosclerosis of coronary artery of [place] heart without angina pectoris Nonsustained ventricular tachycardia CAD (coronary artery disease) [place]ORE x1 distal RCA 11/13/21 Cataract fragments in both eyes following surgery Hypertension Diabetes mellitus Surgical History Hx of cataract extraction S/P coronary artery stent placement distal RCA 11/13/2021 H/O hernia repair Family History Mother Diabetes Rheumatoid arthritis Dementia Father CAD (coronary artery disease) enlarged heart Diabetes Cancer Dementia Denies family history of Clotting disorder Chronic kidney disease (CKD) Suicide Anesthesia complication Bleeding disorder Lung disease Stroke Social History Smoking and tobacco/nicotine status: never used tobacco/nicotine Alcohol intake: never Substance/Drug Use: never Adopted: No Lives independently: Yes Household members: spouse Housing: House Marital status: Physical Exam Const: GENERAL APPEARANCE: cooperative and other (Not feeling well) Resp: COMMON NORMALS: normal respiratory effort, No use of accessory muscles and clear to auscultation bilaterally AUSCULTATION: clear to auscultation bilaterally Cardio: COMMON NORMALS: regular rate RATE: regular rate RHYTHM: abnormal rhythm GI: COMMON NORMALS: Soft to palpation and non-tender PALPATION: Yes Soft to palpation Psych: COMMON NORMALS: mental status grossly normal, Normal thought process present and cooperative THOUGHT PROCESS: Normal thought process present Skin: COMMON NORMALS: no rashes or lesions noted GENERAL SKIN EXAM: no rashes or lesions noted Course Vital Signs: Vital signs: Vital Signs Temperature 98.2 F 10/28/24 13:59 Pulse Rate 92 10/28/24 17:52 Respiratory Rate 17 10/28/24 17:00 Blood Pressure 152/90 10/28/24 17:52 Pulse Oximetry 95 10/28/24 17:52 Oxygen Delivery Me thod Room Air 10/28/24 13:59 MDM - General Adult Medical Decision Making Patient's diagnostic studies were ordered reviewed and interpreted by me. Patient initial troponin was 65 and repeat troponin was obtained that shows no significant change. Patient otherwise has no significant findings. He had a negative chest x-ray. Patient denied any chest pain. Patient did have some atrial fibs noted on his EKG but was rate controlled. Patient symptoms are very consistent with a viral syndrome. We discussed admission versus outpatient. At this time patient would prefer to try to go home and will return with any concerns. Patient was stable and discharged home. Lab Data 10/28/24 14:45 10/28/24 14:45 Radiology Impressions Chest X-Ray 10/28/24 14:29 IMPRESSION: 1. No acute cardiopulmonary abnormality. Laboratory Results WBC 4.80 10^3/uL (3.29-11.43) 10/28/24 14:45 RBC 4.72 10^6/uL (3.85-5.65) 10/28/24 14:45 Hgb 12.10 g/dL (11.27-16.99) 10/28/24 14:45 Hct 38.4 % (37-53) 10/28/24 14:45 MCV 81.4 fl (82-101) L 10/28/24 14:45 MCH 25.6 pg (27-33) L 10/28/24 14:45 MCHC 31.5 g/dL (30-55) 10/28/24 14:45 RDW 16.9 % (12.1-15.1) H 10/28/24 14:45 Plt Count 156 10^3/cmm (157-399) L 10/28/24 14:45 MPV 9.8 fL (7.4-10.4) 10/28/24 14:45 Neut % (Auto) 52.9 % 10/28/24 14:45 Lymph % (Auto) 32.7 % 10/28/24 14:45 Miner % (Auto) 12.5 % 10/28/24 14:45 Eos % (Auto) 1.7 % 10/28/24 14:45 Baso % (Auto) 0.2 % 10/28/24 14:45 Neut # (Auto) 2.54 10^3/uL (1.8-7.7) 10/28/24 14:45 Lymph # (Auto) 1.6 10^3/uL (0.8-4.8) 10/28/24 14:45 Miner # (Auto) 0.6 10^3/uL (0.2-0.9) 10/28/24 14:45 Eos # (Auto) 0.1 10^3/uL (0.0-0.8) 10/28/24 14:45 Baso # (Auto) 0.0 10^3/uL (0.0-0.1) 10/28/24 14:45 Nucleated RBC % (auto) 0 % 10/28/24 14:45 Nucleated RBCs # 0.0 /100WBC 10/28/24 14:45 Sodium 139 mmol/L (136-145) 10/28/24 14:45 Potassium 4.3 mmol/L (3.5-5.1) 10/28/24 14:45 Chloride 101 mmol/L (98-107) 10/28/24 14:45 Carbon Dioxide 29 mmol/L (22-29) 10/28/24 14:45 Anion Gap 13.3 (5-19) 10/28/24 14:45 BUN 25 mg/dL (8-23) H 10/28/24 14:45 Creatinine 1.2 mg/dL (0.7-1.2) 10/28/24 14:45 GFR Calculation Not Reportable 10/28/24 14:45 Glucose 115 mg/dL (65-115) 10/28/24 14:45 Calculated Osmolality 293 mOsm/kg (285-295) 10/28/24 14:45 Calcium 8.0 mg/dL (8.5-10.5) L 10/28/24 14:45 Magnesium 1.9 mg/dL (1.7-2.3) 10/28/24 14:45 Total Bilirubin 0.5 mg/dL (0.15-1.2) 10/28/24 14:45 AST 42 U/L (0-40) H 10/28/24 14:45 ALT 30 U/L (0-41) 10/28/24 14:45 Alkaline Phosphatase 106 U/L (40-130) 10/28/24 14:45 Troponin T Baseline 67 ng/L (0-15) H 10/28/24 14:45 Troponin T 120 Minute 60.44 ng/L (0-15) H 10/28/24 16:42 Delta Troponin T -6.56 ABS# (0-10) L 10/28/24 16:42 Total Protein 5.5 g/dL (6.6-8.7) L 10/28/24 14:45 Albumin 3.4 g/dL (3.5-5.2) L 10/28/24 14:45 Globulin 2.1 g/dL (1.3-4.6) 10/28/24 14:45 Urine Color Yellow (Yellow) 10/28/24 15:49 Urine Appearance Clear (CLEAR) 10/28/24 15:49 Urine pH 6.5 (5-7) 10/28/24 15:49 Ur Specific [place] 1.011 (1.005-1.030) 10/28/24 15:49 Urine Protein 3+ (Negative) A 10/28/24 15:49 Urine Glucose (UA) Negative (Normal) 10/28/24 15:49 Urine Ketones Negative (Negative) 10/28/24 15:49 Urine Blood Negative (Negative) 10/28/24 15:49 Urine Nitrate Negative (Negative) 10/28/24 15:49 Urine Bilirubin Negative (Negative) 10/28/24 15:49 Urine Urobilinogen 0.2 mg/dL (Negative) 10/28/24 15:49 Ur Leukocyte Esterase Negative (Negative) 10/28/24 15:49 Urine RBC 0-2 /hpf (0-2) 10/28/24 15:49 Urine WBC 0-5 /hpf (0-5) 10/28/24 15:49 Ur Squamous Epith Cells 0-5 /hpf (0-5) 10/28/24 15:49 Amorphous Sediment Not Reportable 10/28/24 15:49 Urine Bacteria None seen /hpf (NONE) 10/28/24 15:49 Hyaline Casts 2.05 /lpf 10/28/24 15:49 Coronavirus (PCR) Negative (Negative) 10/28/24 14:42 Influenza A (PCR) Negative (Negative) 10/28/24 14:42 Influenza Type B (PCR) Negative (Negative) 10/28/24 14:42 RSV (PCR) Negative (Negative) 10/28/24 14:42 All radiology interpretation(s) finalized by discharge Discharge Plan Discharge Patient Disposition: Home Clinical Impression: Viral syndrome Condition: Stable Prescriptions: No Action valsartan 320 mg tablet 320 mg PO DAILY Qty: 90 3RF tamsulosin [Flomax] 0.4 mg capsule 0.4 mg PO DAILY furosemide [Lasix] 40 mg tablet 40 mg PO BID Qty: 180 3RF insulin glargine [Lantus Solostar U-100 Insulin] 100 unit/mL (3 mL) insulin pen 80 unit SUBCUT QAM carvedilol 12.5 mg tablet 25 mg PO BID Qty: 180 3RF Rx Instructions: must administer with a meal/food potassium chloride [Klor-Con 10] 10 mEq tablet extended release 20 meq PO BID Qty: 180 3RF atorvastatin 40 mg tablet 40 mg PO DAILY Rx Instructions: TAKE 1 TABLET BY MOUTH DAILY albuterol sulfate 0.63 mg/3 mL solution for nebulization 0.63 mg inhalation Q6H Rx Instructions: INHALE 3ML EVERY 6 HOURS clopidogrel 75 mg tablet 75 mg PO DAILY Rx Instructions: TAKE 1 TABLET BY MOUTH DAILY aspirin 81 mg tablet,delayed release (DR/EC) 81 mg PO DAILY Rx Instructions: TAKE 1 TABLET BY MOUTH DAILY acarbose 100 mg tablet 100 mg PO TID Rx Instructions: TAKE 1 TABLET BY MOUTH THREE TIMES DAILY sulfasalazine 500 mg tablet 500 mg PO BID Rx Instructions: TAKE 1 TABLET BY MOUTH TWICE DAILY WITH FOOD pantoprazole 40 mg tablet,delayed release (DR/EC) 40 mg PO BID Rx Instructions: TAKE 1 TABLET BY MOUTH TWICE DAILY magnesium L-lactate [Magtab] 84 mg tablet extended release 84 mg PO BID Rx Instructions: TAKE 1 TABLET BY MOUTH TWICE DAILY Discharge Orders: Discharge ED (Routine); Ordered 10/28/24 Ordered By: Josue Gamez Referrals: Liz Valencia FNP [Primary Care Provider] - Discharge Diet: Usual diet Discharge Activity: Increase activity as tolerated Patient Instructions: Dizziness (ED), Opioid Safety, Pain Management, Viral Syndrome - Adult Activity Restrictions/Additional Instructions: Please be sure you are drinking plenty of fluids. Return to the ER with any concerns. Please follow-up with your primary care provider Wednesday or Wednesday next week. Tylenol or ibuprofen as needed for discomfort. Print Language: Bangladeshi Coding Level of Care Code ED Regulatory Internship for Macy Soria
[2024-10-28] MEDS: sodium chloride 0.9% 500 ML IV (14:44)
[2024-10-28 15:06] LABS: Basophils % 0.2 %; Eosinophils # 0.1 10^3/uL (0.0-0.8); Eosinophils % 1.7 %; Hematocrit 38.4 % (37-53); Lymphocytes # 1.6 10^3/uL (0.8-4.8); Lymphocytes % 32.7 %; Mean Corpuscular HGB Conc 31.5 g/dL (30-55); Mean Corpuscular Hemoglobin 25.6 pg (27-33); Mean Corpuscular Volume 81.4 fl (82-101); Mean Platelet Volume 9.8 fL (7.4-10.4); Monocytes # 0.6 10^3/uL (0.2-0.9); Monocytes % 12.5 %; Neutrophils # 2.54 10^3/uL (1.8-7.7); Neutrophils % 52.9 %; Nucleated Red Blood Cells % 0 %; Platelet Count 156 10^3/cmm (157-399); Red Blood Count 4.72 10^6/uL (3.85-5.65); Red Cell Distribution Width 16.9 % (12.1-15.1)
[2024-10-28 15:25] LABS: Alanine Aminotransferase 30 U/L (0-41); Albumin Level 3.4 g/dL (3.5-5.2); Alkaline Phosphatase 106 U/L (40-130); Anion Gap 13.3 (5-19); Aspartate Amino Transferase 42 U/L (0-40); Blood Urea Nitrogen 25 mg/dL (8-23); Carbon Dioxide 29 mmol/L (22-29); Chloride 101 mmol/L (98-107); Creatinine Clr Calc Pharmacy 73.7718; Globulin 2.1 g/dL (1.3-4.6); Glucose 115 mg/dL (65-115); Magnesium 1.9 mg/dL (1.7-2.3); Osmolality Calculated 293 mOsm/kg (285-295); Potassium 4.3 mmol/L (3.5-5.1); Sodium 139 mmol/L (136-145); Total Bilirubin 0.5 mg/dL (0.15-1.2); Total Protein 5.5 g/dL (6.6-8.7); Troponin(5th) Baseline 67 ng/L (0-15)
[2024-10-28 15:43] LABS: Covid PCR NEGATIVE (Negative); Influenza A NEGATIVE (Negative); Influenza B NEGATIVE (Negative); Respiratory Syncytial Virus Ce NEGATIVE (Negative)
[2024-10-28 16:25] LABS: Bilirubin Urine Negative (Negative); Blood Urine Negative (Negative); Glucose Urine UA Negative (Normal); Ketones Urine Negative (Negative); Leukocyte Esterase Urine Negative (Negative); Nitrate Urine Negative (Negative); Protein Urine 3+ (Negative); Specific Gravity, Urine 1.011 (1.005-1.030); Urine Appearance Clear (CLEAR); Urine Color Yellow (Yellow); Urobilinogen Urine 0.2 mg/dL (Negative); pH Urine 6.5 (5-7)
[2024-10-28 16:27] LABS: Add Urine Microscopic? YES; Bacteria Urine None Seen /hpf; Hyaline Casts Urine 2.05 /lpf; RBC Urine 0-2 /hpf (0-2); Squamous Epithelial Cell Urine 0-5 /hpf (0-5); WBC Urine 0-5 /hpf (0-5)
[2024-10-28 17:04] LABS: Troponin 5 2HR 60.44 ng/L (0-15)
[2024-10-28 17:07] LABS: Troponin 5 2HR Delta -6.56 ABS# (0-10)
== END 2024-10-28 17:54 | disposition home or self-care (01) ==
PROVIDERS: Emergency Provider Student in an Organized Health Care Education/Training Program; PCP Nurse Practitioner Family
DX: B34.9 Viral infection, unspecified (principal); Z79.02 Long term (current) use of antithrombotics/antiplatelets; Z79.82 Long term (current) use of aspirin; Z11.52 Encounter for screening for COVID-19; I25.10 Atherosclerotic heart disease of native coronary artery without angina pectoris; E11.9 Type 2 diabetes mellitus without complications; I10 Essential (primary) hypertension
CPT/HCPCS: 36415; 71045; 80053; 81001; 83735; 84484; 85025; 87637; 93005; 96360; 99285; J7040

== ENCOUNTER → 2024-10-31 09:29 | Outpatient (BNVA) | payer MEDICARE, OTHER, SELFPAY | PROVIDERS: PCP Nurse Practitioner Family; Visit Provider Podiatrist Foot & Ankle Surgery | DX: E11.8 Type 2 diabetes mellitus with unspecified complications (principal); E11.40 Type 2 diabetes mellitus with diabetic neuropathy, unspecified; E11.65 Type 2 diabetes mellitus with hyperglycemia; Z79.4 Long term (current) use of insulin | CPT/HCPCS: 99213 ==

== ENCOUNTER 2024-11-18 06:00 | Outpatient (RCR) | payer MEDICARE, OTHER, SELFPAY | END 2024-12-18 23:59 | disposition home or self-care (01) | LOC: SST 06:00 | PROVIDERS: PCP Nurse Practitioner Family; Visit Provider Internal Medicine Pulmonary Disease | DX: R13.12 Dysphagia, oropharyngeal phase (principal) | CPT/HCPCS: 92526 ==

== ENCOUNTER → 2024-12-12 14:19 | Outpatient (BNVA) | payer MEDICARE, OTHER, SELFPAY | PROVIDERS: PCP Nurse Practitioner Family; Visit Provider Nurse Practitioner Family | DX: D22.5 Melanocytic nevi of trunk (principal); L82.1 Other seborrheic keratosis; L81.4 Other melanin hyperpigmentation; L57.8 Other skin changes due to chronic exposure to nonionizing radiation; Z08 Encounter for follow-up examination after completed treatment for malignant neoplasm; Z85.828 Personal history of other malignant neoplasm of skin; D48.5 Neoplasm of uncertain behavior of skin; L57.0 Actinic keratosis | CPT/HCPCS: 11104; 17000; 99213 ==

== ENCOUNTER 2024-12-13 10:24 | Outpatient (CLI) | payer MEDICARE, OTHER, SELFPAY ==
--- NOTE | 2024-12-13 11:00 | FL_ITS ---
WS: [id number] Exam: FL barium swallow modifd 08922 Date/Time of Exam: 12/13/2024 11:07 AM Reason For Exam: R13.10 - Dysphagia, unspecified Fluoroscopy time: 3min [id number] minutes # of spot films: 0 Modified barium swallow test was performed in conjunction with the speech therapy service. Oral pharyngeal phase of swallowing was normal. There was mild extrinsic compression along the posterior cervical esophagus secondary to large anterior osteophytes that project from C2-3 and C4-5. The patient tolerated all consistencies of barium mixture foodstuffs without aspiration or penetration. Th e patient ingested a barium tablet without difficulty. FL/FL barium swallow modifd [id number] IMPRESSION: 1. No aspiration or penetration noted. 2. There appears to be some mild posterior extrinsic compression of the cervica l esophagus secondary to large anterior osteophytes that involve C2-3 and C4-5.
== END 2024-12-13 10:25 | disposition home or self-care (01) ==
LOC: RAD 10:25
PROVIDERS: PCP Nurse Practitioner Family; Visit Provider Nurse Practitioner Family
DX: R13.10 Dysphagia, unspecified (principal); K22.2 Esophageal obstruction; M25.78 Osteophyte, vertebrae
CPT/HCPCS: 74230; 92611

== ENCOUNTER 2024-12-19 13:58 | Outpatient (CLI) | payer MEDICARE, OTHER, SELFPAY ==
--- NOTE | 2024-12-19 14:01 | XRR_ITS ---
PROCEDURE INFORMATION: Exam: XR Cervical Spine Exam date and time: 12/19/2024 2:13 PM Age: 74 years old Clinical indication: Neck pain; Prior surgery; Surgery date: 6+ months; Surgery type: Esophageal stretch; Bone spurs affecting esophagus; Additional info: M50.30 - other cervical disc degeneration, unspecified ce. . . TECHNIQUE: Imaging protocol: Radiologic exam of the cervical spine. Views: 2 or 3 views. COMPARISON: RF FL barium swallow modifd [id number] 12/13/2024 9:55 AM FINDINGS: Bones/joints: No definite fractures are seen. Alignment of the cervical spine appears anatomic. Degenerative disc disease of moderate degree at C6-C7 and milder degree at C5-C6. Prominent anterior spondylosis deformans from C2-C5. Soft tissues: Unremarkable. XR/XR cervical spine 3V* [id number] IMPRESSION: Degenerative changes of the cervical spine.
== END 2024-12-19 13:59 | disposition home or self-care (01) ==
LOC: RAD 14:00
PROVIDERS: PCP Nurse Practitioner Family; Visit Provider Nurse Practitioner Family
DX: M50.323 Other cervical disc degeneration at C6-C7 level (principal); M50.322 Other cervical disc degeneration at C5-C6 level; M47.892 Other spondylosis, cervical region
CPT/HCPCS: 72040

== ENCOUNTER → 2024-12-22 10:07 | Outpatient (BNVA) | payer MEDICARE, OTHER, SELFPAY | PROVIDERS: PCP Nurse Practitioner Family; Visit Provider Nurse Practitioner Family | DX: D22.4 Melanocytic nevi of scalp and neck (principal) | CPT/HCPCS: 99212 ==

== ENCOUNTER → 2024-12-25 09:41 | Outpatient (BNVA) | payer MEDICARE, OTHER, SELFPAY | PROVIDERS: PCP Nurse Practitioner Family; Visit Provider Internal Medicine Cardiovascular Disease | DX: I25.10 Atherosclerotic heart disease of native coronary artery without angina pectoris (principal); I10 Essential (primary) hypertension; E78.2 Mixed hyperlipidemia; M79.89 Other specified soft tissue disorders; I47.29 Other ventricular tachycardia | CPT/HCPCS: 99214 ==

== ENCOUNTER → 2025-02-07 08:16 | Outpatient (BNVA) | payer MEDICARE, OTHER, SELFPAY | PROVIDERS: PCP Nurse Practitioner Family; Visit Provider Internal Medicine | DX: E11.65 Type 2 diabetes mellitus with hyperglycemia (principal); E78.2 Mixed hyperlipidemia | CPT/HCPCS: 80053; 80061; 82043; 83036 ==

== ENCOUNTER → 2025-02-13 09:03 | Outpatient (BNVA) | payer MEDICARE, OTHER, SELFPAY | PROVIDERS: PCP Nurse Practitioner Family; Visit Provider Internal Medicine | DX: E11.65 Type 2 diabetes mellitus with hyperglycemia (principal); E78.2 Mixed hyperlipidemia | CPT/HCPCS: 99214 ==

== ENCOUNTER → 2025-02-27 14:30 | Outpatient (BNVA) | payer MEDICARE, OTHER, SELFPAY | PROVIDERS: PCP Nurse Practitioner Family; Visit Provider Nurse Practitioner Family | DX: I10 Essential (primary) hypertension (principal) | CPT/HCPCS: 80048 ==

== ENCOUNTER → 2025-03-01 12:59 | Outpatient (BNVA) | payer MEDICARE, OTHER, SELFPAY | PROVIDERS: PCP Nurse Practitioner Family; Visit Provider Nurse Practitioner Family | DX: D22.4 Melanocytic nevi of scalp and neck (principal); D22.5 Melanocytic nevi of trunk; L82.1 Other seborrheic keratosis; L81.4 Other melanin hyperpigmentation; L57.8 Other skin changes due to chronic exposure to nonionizing radiation; L85.8 Other specified epidermal thickening; Z08 Encounter for follow-up examination after completed treatment for malignant neoplasm; Z85.828 Personal history of other malignant neoplasm of skin; L82.0 Inflamed seborrheic keratosis; L53.8 Other specified erythematous conditions; R20.8 Other disturbances of skin sensation; L29.89 Other pruritus; L57.0 Actinic keratosis | CPT/HCPCS: 17000; 17110; 99214 ==

== ENCOUNTER → 2025-04-19 13:41 | Outpatient (BNVA) | payer MEDICARE, OTHER, SELFPAY | PROVIDERS: PCP Nurse Practitioner Family; Visit Provider Nurse Practitioner Family | DX: I48.91 Unspecified atrial fibrillation (principal); Z79.01 Long term (current) use of anticoagulants; Z79.82 Long term (current) use of aspirin; I25.10 Atherosclerotic heart disease of native coronary artery without angina pectoris; R00.0 Tachycardia, unspecified; I10 Essential (primary) hypertension; E78.5 Hyperlipidemia, unspecified; M79.89 Other specified soft tissue disorders; Z95.5 Presence of coronary angioplasty implant and graft; Z09 Encounter for follow-up examination after completed treatment for conditions other than malignant neoplasm | CPT/HCPCS: 36415; 80053; 80061; 82044; 83036; 84443; 85025; 93005; 99214 ==

== ENCOUNTER 2025-04-27 09:26 | Outpatient (CLI) | payer MEDICARE, OTHER, SELFPAY ==
--- NOTE | 2025-04-27 | ECG_ITS ---
[employer] Test Date: 2025-04-27 Pat Name: Adam Garnica Department: Room: Gender: Male Client Specialist: : 1950 Requested By: Christiana Roger Order Number: [id number] Alas MD: Shelly Ford M.D. Interpretive Statements Lung unchanged pre/post procedure; Intraprocedure shortess of breath; Symptoms resoled by discharge PROCEDURE: At the baseline, the EKG revealed normal sinus rhythm with some nonspecific IVCD.. The baseline heart was 83 bpm with a blood pressue of 170/100 mm of Hg Lexiscan was infused over a period of 20 seconds. A total of 0.4 milligrams of Lexiscan was infused. The stress phase was continued for a total of 5 minutes. Heart rate at the end of the stress phase was 101 bpm with a blood pressure 179/87 mm of Hg. The EKG at the peak infusion revealed no significant changes. Sestamibi was injected 20 seconds after the Lexiscan infusion. Heart rate at the end of the recovery phase was 94 bpm with a blood pressure of 177/89 mm of Hg. CONCLUSION: 1. No significant EKG changes with the LexiScan infusion 2. No LexiScan induced chest pain or cardiac arrhythmia 3. Normal blood pressure and heart rate response 4. Sestamibi/sestamibi perfusion scan pending; see separate report. Electronically Signed On 05-01-2025 09:29:01 CDT by Shelly Ford M.D. [email or web address] [id number]
[2025-04-27 09:48] VITALS: BMI 34.4
--- NOTE | 2025-04-27 09:50 | NMCV_ITS ---
NM jesus perf SPECT r/s* [id number] Adam Garnica Age: 74 Gender: M : 1950 Exam Date: 04/27/2025 10:18 Ordering Phys: Christiana Roger NP Technologist: SIMBA Lim Exam Location: [facility] Indications: cp STRESS TEST Please see separate stress test report in [facility] for full findings IMAGE PROTOCOL Rest/Stress 1 Lexiscan Day Radiopharmaceutical Dose (mCi) Administration Site Administered by Rest: Tc-99m 10.6 IV SIMBA Moura Sestamibi Stress:Tc-99m 32.4 IV SIMBA Moura Sestamibi Rest: 27-Apr-2025 60 Discovery 630 Stress: 27-Apr-2025 30 Discovery 630 0.4mg Lexiscan. Images obtained in supine and prone position. SPECT RESULTS Technical Quality: Good Raw Data Analysis: Normal Image Corrections: No attenuation or motion correction applied Summed Stress Score: 13 Summed Rest Score: 14 Summed Difference Score: 1 PERFUSION FINDINGS Moderate area of moderate to moderately severe decreased tracer uptake involving the inferior, inferolateral and apical regions. A subtle area of reversibility was noted in the apical lateral region FUNCTIONAL RESULTS (calculated via Gated SPECT) Stress Image LV EF (%): 54 Stress EDV (mL):152 TID: 1.07 Stress ESV (mL):70 FUNCTIONAL FINDINGS: Segmental wall motion analysis revealing no gross wall motion abnormalities IMPRESSIONS 1. Myocardial perfusion imaging revealing moderate area of moderate to moderately severe decreased tracer uptake involving the inferior, inferolateral and apical regions with a subtle area of reversibility in the apical lateral region suggestive of extensive myocardial scarring in the distribution of the right coronary artery/circumflex artery with a subtle area of possible anais- infarct ischemia. 2. Normal LV ejection fraction of 54%. 3. LV wall motion analysis revealing no gross wall motion abnormalities. 4. Mildly dilated LV cavity with an end-systolic volume of 70ml. Compared to the study from 08/26/2022, the ischemic burden appears to be less. Dr Shelly Ford MD FAC (Electronically Signed) Final Date: 27 April 2025 12:49 S
[2025-04-27 11:00] VITALS: BP 177/89; PULSE 97
== END 2025-04-27 09:27 | disposition home or self-care (01) ==
LOC: CDL 09:29
PROVIDERS: PCP Nurse Practitioner Family; Visit Provider Nurse Practitioner Family
DX: I48.91 Unspecified atrial fibrillation (principal); R93.1 Abnormal findings on diagnostic imaging of heart and coronary circulation
CPT/HCPCS: 36415; 78452; 93017; 96374; A9500; J2785

== ENCOUNTER 2025-05-01 13:11 | Emergency (ER) | payer MEDICARE, OTHER, SELFPAY ==
--- OUTSIDE RECORDS SUMMARY | 2025-04-23 10:00 | XMS_ITS | Encounter Summary ---
Author Organization [facility] Address [address] [place] [address] Care Team Providers Care Parking Patroller Name Role Phone Unavailable Primary Care Provider Unavailabl e Reason for Visit * Eval and Treat (Routine) - Authorized Specialty Diagnoses / Procedures Referred By Contact Referred To Contact Cardiac Rehabilitation Diagnoses Atherosclerosis of coronary artery of [place] heart with angina pectoris, unspecified vessel or lesion type Liz Valencia, CAMI [address] [place] [address] Phone: tel:[phone] fax: [facility] [place] [address] [address] Phone: tel: Referral ID Status Reason Start Date Expiration Date Visits Requested Visits Authorized [id number] Authorized Performing Department to Schedule 09/21/2024 09/21/[phone] Encounter Details Date Type Department Care Team (Latest Contact Info) Description 04/23/2025 10:00 AM CDT - 04/23/2025 11:59 PM CDT Hospital Encounter [facility] Cardiac Rehabilitation [facility] [address] [facility] [address] [place] [address] Liz Valencia, ASIAN STUDIES PROFESSOR [address] [place] [phone] Discharge Disposition: Home or Self Care Social History Tobacco Use Types Packs/Day Years Used Date Smoking Tobacco: Never Smokeless Tobacco: Never Alcohol Use Standard Drinks/Week Comments No 0 (1 standard drink = 0.6 oz pur e alcohol) Sex and Gender Information Value Date Recorded Sex Assigned at Not on file 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 apixaban (ELIQUIS) 5 mg tablet Take 1 Tablet (5 mg) by mouth 2 times daily. 60 Tablet 04/16/2025 5 dilTIAZem (CARDIZEM CD, CARTIA XT) 120 mg Controlled Delivery 24 hour capsule Take 1 Capsule (120 mg) by mouth daily. 30 Capsule 04/16/2025 5 tamsulosin (FLOMAX) 0.4 mg capsule TAKE 1 CAPSULE(0.4 MG) BY MOUTH DAILY 90 Capsule 1 02/07/2025 potassium CHLORIDE (KLOR-CON) 10 mEq Extended Release tablet Take 2 Tablets by mouth 2 times daily. 11/28/2024 vit C-E-zinc op-ydmy-ynn-zeax (ICaps AREDS2) 250 mg-200 unit -12.5 mg-1 mg Capsule Daily, Refill(s) 0 08/29/2024 acetaminophen (TYLENOL ARTHRITIS ORAL) Take by mouth. ALBUTEROL INHALATION loratadine 10 mg Capsule acarbose (PRECOSE) 100 mg tablet Take 100 mg by mouth 3 times daily with meals. aspirin (ECOTRIN EC) 81 mg Tablet, Delayed Release (E.C.) Take 81 mg by mouth daily. atorvastatin (LIPITOR) 40 mg tablet Take 40 mg by mouth daily. Cholecalciferol, Vitamin D3, 50 mcg (2,000 unit) Capsule Take by mouth. fluticasone propion-salmeter oL (ADVAIR DISKUS,WIXELA INHUB) 250-50 mcg/dose disk inhaler Take 1 Puff by inhalation 2 times daily. hydrocortisone (HYTONE) 2.5 % Cream Apply to affected area 2 times daily. insulin glargine (LANTUS) 100 unit/mL injection Inject 80 Units by subcutaneous injection one time only. sulfaSALAzine (AZULFIDINE) 500 mg tablet Take 500 mg by mouth 2 times daily. valsartan (DIOVAN) 160 mg tablet Take 160 mg by mouth daily. Takes at noon Cinnamon Bark 500 mg Capsule Take by mouth. empagliflozin (JARDIANCE) 25 mg tablet Take by mouth daily in the morning. furosemide (LASIX) 20 mg tablet Take 40 mg by mouth 2 times daily. glucosamine HCl/chondroitin oropeza (GLUCOSAMINE-CHO NDROITIN ORAL) Take by mouth. magnesium L-lactate (MAGTAB) 84 mg Tablet Sustained Release Take 84 mg by mouth 2 times daily. Fish Oil-[place]-3 Fatty Acids 360-1,200 mg Capsule Take 1 Capsule by mouth. nitroglycerin (NITROSTAT) 0.4 mg Tablet, Sublingual DISSOLVE 1 TABLET UNDER THE TONGUE EVERY 5 MINUTES NEEDED FOR CHEST PAIN 11/15/2021 pantoprazole (PROTONIX) 40 mg Tablet, Delayed Release (E.C.) Take 40 mg by mouth 2 times daily. 12/11/2021 mupirocin calcium (BACTROBAN) 2 % Cream Apply to affected area 2 times daily. 15 Gram 1 12/12/2020 lancets One Touch; use to check sugars once daily; Dx codeE11.9. 100 Each 3 04/19/2017 OTHER One touch ultra lite dx:code E11.9 check blood sugar one time daily. 1 Kit 0 04/19/2017 documented as of this encounter Plan of Treatment Upcoming Encounters Date Type Department Care Team (Late st Contact Info) Description 05/04/2025 10:00 AM CDT Appointment [facility] [place] [address] [facility] [address] [place] [address] Liz Valencia, ASIAN STUDIES PROFESSOR [address] [place] [facility] [place] [address] 05/07/2025 10:00 AM CDT Appointment [facility] Cardiac Rehabilitation Services [place] [address] [facility] [address] [place] [address] Liz Valencia, ASIAN STUDIES PROFESSOR [address] [place] [facility] [place] [address] 05/09/2025 10:00 AM CDT Appointment [facility] [place] [address] [facility] [address] [place] [address] Liz Valencia, ASIAN STUDIES PROFESSOR [address] [place] [facility] [place] [address] 05/11/2025 10:00 AM CDT Appointment [facility] [place] [address] [facility] [address] [place] [address] Liz Valencia, ASIAN STUDIES PROFESSOR [address] [place] [facility] [place] [address] 05/14/2025 10:00 AM CDT Appointment [facility] [place] [address] [facility] [address] [place] [address] Liz Valencia, ASIAN STUDIES PROFESSOR [address] [place] [facility] [place] [address] 05/16/2025 10:00 AM CDT Appointment [facility] [place] [address] [facility] [address] [place] [address] Liz Valencia, ASIAN STUDIES PROFESSOR [address] [place] [facility] [place] [address] 05/18/2025 10:00 AM CDT Appointment [facility] [place] [facility] Card[facility] [place] [address] [facility] [address] [place] [address] Liz Valencia, ASIAN STUDIES PROFESSOR [address] [place] [address] 12/11/2025 1:15 PM CDT Office Visit [facility] Urology [place] [address] [address] Jez Mendoza MD [address] [place] [address] 04/17/2026 1:45 PM CDT Appointment [facility] [address] [facility] [address] [place] [address] Geo Garcia MD [address] [place] [address] documented as of this encounter Visit Diagnoses Not on filedocumented in this encounter Additional Health Concerns Assessment Noted Time PHQ-9 Depression Total Score: 3 05/13/20 20 9:05 AM CDT documented as of this encounter
--- OUTSIDE RECORDS SUMMARY | 2025-04-25 09:34 | XMS_ITS | Encounter Summary ---
Author Organization [facility] Address [address] [place] [address] Care Team Providers Care Medical Lead Name Role Phone Unavailable Primary Care Provider Unavailabl e Reason for Visit * Eval and Treat (Routine) - Authorized Specialty Diagnoses / Procedures Referred By Contact Referred To Contact Cardiac Rehabilitation Diagnoses Atherosclerosis of coronary artery of [place] heart with angina pectoris, unspecified vessel or lesion type Liz Valencia, CAMI [address] [place] [address] Phone: tel:[phone] fax:[phone] [facility] Cardiac Rehabilitation Services [place] [address] [address] Phone: tel: Referral ID Status Reason Start Date Expiration Date Visits Requested Visits Authorized [id number] Authorized Performing Department to Schedule 09/21/2024 09/21/[phone] Encounter Details Date Type Department Care Team (Latest Contact Info) Description 04/25/2025 9:34 AM CDT - 04/25/2025 11:59 PM CDT Hospital Encounter [facility] Cardiac Rehabilitation [facility] [address] [facility] [address] [place] [address] Liz Valencia, MERCERIZING RANGE FEEDER [address] [place] [phone] Discharge Disposition: Home or Self Care Social History Tobacco Use Types Packs/Day Years Used Date Smoking Tobacco: Never Smokeless Tobacco: Never Alcohol Use Standard Drinks/Week Comments No 0 (1 standard drink = 0.6 oz pur e alcohol) Sex and Gender Information Value Date Recorded Sex Assigned at Not on file Legal Sex Male 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 11/28/2024 vit C-E-zinc dh-lvyy-nqz-zeax (ICaps AREDS2) 250 mg-200 unit -12.5 mg-1 [...] mg by mouth 2 times daily. Fish Oil-[place]-3 Fatty Acids 360-1,200 mg Capsule Take 1 [...] AM CDT Appointment [facility] [place] [address] [facility] [address] [place] [address] Liz Valencia, MERC[employer]IZING RANGE FEEDER [address] [facility], [place] [address] 05/07/2025 10:00 AM CDT Appointment [facility] Card[facility] Rehabilitation Services [place] [address] [facility] [address] [place] [address] Liz Valencia, MERCERIZING RANGE FEEDER [address] [facility], [place] [address] 05/09/2025 10:00 AM CDT Appointment [facility] [place] [address] [facility] [address] [place] [address] Liz Valencia, MERCERIZING RANGE FEEDER [address] [facility], [place] [address] 05/11/2025 10:00 AM CDT Appointment [facility] [place] [address] [facility] [address] [place] [address] Liz Valencia, MERCERIZING RANGE FEEDER [address] [facility], [place] [address] 05/14/2025 10:00 AM CDT Appointment [facility] Cardiac Rehabilitation Services [place] [address] [facility] [address] [place] [address] Liz Valencia, MERCERIZING RANGE FEEDER [address] [facility], [place] [address] 05/16/2025 10:00 AM CDT Appointment [facility] [place] [address] [facility] [address] [place] [address] Liz Valencia, MERCERIZING RANGE FEEDER [address] [facility], [place] [address] 05/18/2025 10:00 AM CDT Appointment [facility] Card[facility] [place] [address] [facility] [address] [place] [address] Liz Valencia, MERCERIZING RANGE FEEDER [address] [place] [address] 12/11/2025 1:15 PM CDT Office Visit [facility] Urology [place] [address] [address] Jez Mendoza MD [address] [place] [address] 04/17/2026 1:45 PM CDT Appointment [facility] [address] [facility] [address] [place] [address] Geo Garcia MD [address] [place] [address] documented as of this encounter Visit Diagnoses Not on filedocumented in this encounter Additional Health Concerns Assessment Noted Time PHQ-9 Depression Total Score: 3 05/13/20 20 9:05 AM CDT documented as of this encounter
--- NOTE | 2025-05-01 13:17 | ECG_ITS ---
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 Measurements Intervals [place] Rate: 105 P: 0 MN: 0 QRS: 37 QRSD: 101 T: 37 QT: 313 QTc: 415 Interpretive Statements ATRIAL FIBRILLATION WITH RAPID VENTRICULAR RESPONSE INDETERMINATE AXIS SEPTAL MYOCARDIAL INFARCTION , OF INDETERMINATE AGE [40+ ms Q WAVE IN V1/V2] Compared to ECG 04/19/2025 13:48:24 Myocardial infarct finding now present Sinus rhythm no longer present Electronically Signed On 05-02-2025 21:39:43 CDT by Julián Velasquez M.D. [id number] [id number]
[2025-05-01 13:19] VITALS: BP 128/66; PULSE 103; RESP 16; TEMP 37; O2SAT 96
--- NOTE | 2025-05-01 13:28 | W.ED.ARRPALP ---
HPI - Arrhythmia/Palpitations General: Chief Complaint: Arrhythmia/Palpitations Stated Complaint: high heart rate Time Seen by Provider: 05/01/25 13:14 Source: patient Mode of arrival: ambulatory Limitations: no limitations History of Present Illness: 74-year-old male has a history of A-fib states he is recently diagnosed he is on Eliquis along with Cardizem states that for last 3 days he has been having some palpitations states his heart rates been getting up to the 120s states he has felt a little weird but denies any pain denies any shortness of breath denies any vomiting or diarrhea. Associated symptoms: Deny nausea or vomiting Related Data Home Medications ?Medication ?Instructions ?Recorded ?Confirmed tamsulosin 0.4 mg capsule (Flomax) 0.4 mg PO DAILY 12/06/23 04/19/25 insulin glargine 100 unit/mL (3 80 unit SUBCUT QAM 08/02/24 04/19/25 mL) subcutaneous pen (Lantus Solostar U-100 Insulin) albuterol sulfate 0.63 mg/3 mL 0.63 mg inhalation Q6H 10/28/24 04/19/25 solution for nebulization aspirin 81 mg tablet,delayed 81 mg PO DAILY 10/28/24 04/19/25 release magnesium L-lactate 84 mg 84 mg PO BID 10/28/24 04/19/25 tablet,extended release (Magtab) Previous Rx's ?Medication ?Instructions ?Recorded furosemide 40 mg tablet (Lasix) 40 mg PO BID #180 tabs 10/18/24 furosemide 20 mg tablet See Rx Instructions .Route 02/14/25 .COMPLEX #90 tabs pantoprazole 40 mg tablet,delayed See Rx Instructions .Route 03/05/25 release .COMPLEX #180 tabs sulfasalazine 500 mg tablet 500 mg PO BID #180 tabs 03/05/25 valsartan 320 mg tablet 320 mg PO DAILY #90 tabs 03/09/25 atorvastatin 40 mg tablet See Rx Instructions .Route 04/16/25 .COMPLEX #90 tabs apixaban 5 mg tablet (Eliquis) 5 mg PO BID #120 tabs 04/19/25 diltiazem HCl 120 mg 120 mg PO DAILY #90 caps 04/19/25 capsule,extended release 24 hr, controlled (DILT-XR) dulaglutide 3 mg/0.5 mL 3 mg (0.5 mL) SUBCUT Q7D 1 month 04/20/25 subcutaneous pen injector #2 mL acarbose 100 mg tablet 100 mg PO TID 30 days #90 tabs 04/23/25 acarbose 100 mg tablet See Rx Instructions .Route 04/23/25 .COMPLEX #270 tabs potassium chloride 10 mEq 20 meq (2 x 10 mEq) PO BID with 04/23/25 tablet,extended release (Klor-Con) extra Lasix #180 tabs hydralazine 10 mg tablet 10 mg PO TID #90 tabs 04/30/25 diltiazem HCl 240 mg 240 mg PO DAILY #30 caps 05/01/25 capsule,extended release 24 hr (Cardizem CD) Allergies Allergy/AdvReac Type Severity Reaction Status Date / Time amlodipine AdvReac Mild Unknown Verified 05/01/25 13:23 Review of Systems Const: Denies: fever(s), chills, body aches or change in appetite ENMT: Denies: throat pain or dental pain Card: Reports: irregular heart rhythm; Denies: chest pain Resp: Denies: dyspnea GI: Denies: abdominal pain, nausea, vomiting or diarrhea : Denies: dysuria Musc: Denies: neck pain or back pain Skin/Breast: Denies: rash Neuro: Denies: headache(s) PFSH ED PFSH: Medical History Chronic lung disease GERD (gastroesophageal reflux disease) Seropositive rheumatoid arthritis 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 Atherosclerosis of coronary artery of [place] heart without angina pectoris Nonsustained ventricular tachycardia CAD (coronary artery disease) [place] x1 distal RCA 11/13/21 Cataract fragments in both eyes following surgery Hypertension Diabetes mellitus Surgical History Hx of cataract extraction S/P coronary artery stent placement distal RCA 11/13/2021 H/O hernia repair Family History Mother Diabetes Rheumatoid arthritis Dementia Father CAD (coronary artery disease) enlarged heart Diabetes Cancer Dementia Denies family history of Clotting disorder Chronic kidney disease (CKD) Suicide Anesthesia complication Bleeding disorder Lung disease Stroke Social History Smoking and tobacco/nicotine status: never used tobacco/nicotine Alcohol intake: never Substance/Drug Use: never Adopted: No Lives independently: Yes Household members: spouse Housing: House Marital status: Physical Exam Const: COMMON NORMALS: no acute distress, patient oriented x3 and healthy appearing HENMT: COMMON NORMALS: normocephalic and atraumatic HEAD & SCALP: normocephalic and atraumatic Eye: COMMON NORMALS: conjunctivae normal CONJUNCTIVA: Yes conjunctivae normal Neck/C-Spine: COMMON NORMALS: full ROM and supple Chest: COMMONS NORMALS: normal inspection of the chest Resp: COMMON NORMALS: normal respiratory effort, No retractions, No use of accessory muscles and clear to auscultation bilaterally AUSCULTATION: clear to auscultation bilaterally Cardio: COMMON NORMALS: No murmurs present (Cardio) RATE: tachycardic RHYTHM: abnormal rhythm irregularly irregular Extremity: COMMON NORMALS: normal to inspection and full ROM Neuro: COMMON NORMALS: patient oriented x3, moves all extremities and no focal motor deficits Psych: COMMON NORMALS: mental status grossly normal, Normal thought process present and cooperative THOUGHT PROCESS: Normal thought process present Skin: COMMON NORMALS: no rashes or lesions noted and no wounds GENERAL SKIN EXAM: no rashes or lesions noted Course Vital Signs: Vital signs: Vital Signs Temperature 98.6 F 05/01/25 13:19 Pulse Rate 97 05/01/25 13:47 Respiratory Rate 19 H 05/01/25 13:47 Blood Pressure 142/86 05/01/25 13:47 Pulse Oximetry 97 05/01/25 13:47 Oxygen Delivery Me thod Room Air 05/01/25 13:19 MDM - Arrhythmia/Palpitations Medical Decision Making Patient presents here with A-fib his heart rate is improved here blood works normal 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 Medical Records I reviewed the patient's medical records. Lab Data I reviewed the patient's lab results. 05/01/25 13:40 05/01/25 13:40 Radiology Impressions Chest X-Ray 05/01/25 13:29 IMPRESSION: No acute findings. Laboratory Results WBC 4.77 10^3/uL (3.29-11.43) 05/01/25 13:40 RBC 4.72 10^6/uL (3.85-5.65) 05/01/25 13:40 Hgb 12.90 g/dL (11.27-16.99) 05/01/25 13:40 Hct 39.0 % (37-53) 05/01/25 13:40 MCV 82.6 fl (82-101) 05/01/25 13:40 MCH 27.3 pg (27-33) 05/01/25 13:40 MCHC 33.1 g/dL (30-55) 05/01/25 13:40 RDW 15.2 % (12.1-15.1) H 05/01/25 13:40 Plt Count 114 10^3/cmm (157-399) L 05/01/25 13:40 MPV 10.0 fL (7.4-10.4) 05/01/25 13:40 Neut % (Auto) 48.7 % 05/01/25 13:40 Lymph % (Auto) 34.2 % 05/01/25 13:40 [place] % (Auto) 15.7 % 05/01/25 13:40 Eos % (Auto) 0.6 % 05/01/25 13:40 Baso % (Auto) 0.4 % 05/01/25 13:40 Neut # (Auto) 2.32 10^3/uL (1.8-7.7) 05/01/25 13:40 Lymph # (Auto) 1.6 10^3/uL (0.8-4.8) 05/01/25 13:40 [place] # (Auto) 0.8 10^3/uL (0.2-0.9) 05/01/25 13:40 Eos # (Auto) 0.0 10^3/uL (0.0-0.8) 05/01/25 13:40 Baso # (Auto) 0.0 10^3/uL (0.0-0.1) 05/01/25 13:40 Nucleated RBC % (auto) 0 % 05/01/25 13:40 Nucleated RBCs # 0.0 /100WBC 05/01/25 13:40 PT 14.20 SECONDS (12.1-14.9) 05/01/25 13:40 INR 1.03 (0.8-1.2) 05/01/25 13:40 Sodium 134 mmol/L (136-145) L 05/01/25 13:40 Potassium 4.7 mmol/L (3.5-5.1) 05/01/25 13:40 Chloride 99 mmol/L (98-107) 05/01/25 13:40 Carbon Dioxide 27 mmol/L (22-29) 05/01/25 13:40 Anion Gap 12.7 (5-19) 05/01/25 13:40 BUN 25 mg/dL (8-23) H 05/01/25 13:40 Creatinine 1.3 mg/dL (0.7-1.2) H 05/01/25 13:40 GFR Calculation Not Reportable 05/01/25 13:40 Glucose 173 mg/dL (65-115) H 05/01/25 13:40 Calculated Osmolality 287 mOsm/kg (285-295) 05/01/25 13:40 Calcium 8.8 mg/dL (8.5-10.5) 05/01/25 13:40 Total Bilirubin 0.5 mg/dL (0.15-1.2) 05/01/25 13:40 AST 46 U/L (0-40) H 05/01/25 13:40 ALT 47 U/L (0-41) H 05/01/25 13:40 Alkaline Phosphatase 136 U/L (40-130) H 05/01/25 13:40 Total Protein 6.6 g/dL (6.6-8.7) 05/01/25 13:40 Albumin 3.6 g/dL (3.5-5.2) 05/01/25 13:40 Globulin 3.0 g/dL (1.3-4.6) 05/01/25 13:40 All radiology interpretation(s) finalized by discharge EKG Data EKG 1: I personally reviewed and interpreted this EKG as follows: EKG interpretation date: 05/01/25 EKG interpretation time: 13:17 Interpretation: afib with rvr hr [address] elevation qrs 101 qtc 374 Other EKG comments: Chest X-Ray 05/01/25 13:29 IMPRESSION: No acute findings. Discharge Plan Discharge Patient Disposition: Home Clinical Impression: Atrial fibrillation Condition: Stable Prescriptions: New diltiazem HCl [Cardizem CD] 240 mg capsule,extended release 24hr 240 mg PO DAILY Qty: 30 0RF No Action tamsulosin [Flomax] 0.4 mg capsule 0.4 mg PO DAILY furosemide [Lasix] 40 mg tablet 40 mg PO BID Qty: 180 3RF insulin glargine [Lantus Solostar U-100 Insulin] 100 unit/mL (3 mL) insulin pen 80 unit SUBCUT QAM Eliquis 5 mg tablet 5 mg PO BID Qty: 120 0RF diltiazem HCl [DILT-XR] 120 mg capsule,ext.rel 24h degradable 120 mg PO DAILY Qty: 90 0RF furosemide 20 mg tablet See Rx Instructions .ROUTE .COMPLEX Qty: 90 0RF Dose Instruction: TAKE 1 TABLET BY MOUTH DAILY NEEDED FOR SWELLING Rx Instructions: TAKE 1 TABLET BY MOUTH DAILY NEEDED FOR SWELLING sulfasalazine 500 mg tablet 500 mg PO BID Qty: 180 0RF Rx Instructions: give with food (meal/snack) pantoprazole 40 mg tablet,delayed release (DR/EC) See Rx Instructions .ROUTE .COMPLEX Qty: 180 0RF Dose Instruction: TAKE 1 TABLET BY MOUTH TWICE DAILY Rx Instructions: TAKE 1 TABLET BY MOUTH TWICE DAILY valsartan 320 mg tablet 320 mg PO DAILY Qty: 90 3RF atorvastatin 40 mg tablet See Rx Instructions .ROUTE .COMPLEX Qty: 90 0RF Dose Instruction: TAKE 1 TABLET BY MOUTH DAILY Rx Instructions: TAKE 1 TABLET BY MOUTH DAILY dulaglutide 3 mg/0.5 mL pen injector 3 mg SUBCUT Q7D 30 Days Qty: 2 0RF acarbose 100 mg tablet 100 mg PO TID 30 Days Qty: 90 3RF acarbose 100 mg tablet See Rx Instructions .ROUTE .COMPLEX Qty: 270 0RF Dose Instruction: TAKE 1 TABLET BY MOUTH THREE TIMES DAILY Rx Instructions: TAKE 1 TABLET BY MOUTH THREE TIMES DAILY potassium chloride [Klor-Con 10] 10 mEq tablet extended release 20 meq PO BID Qty: 180 3RF hydralazine 10 mg tablet 10 mg PO TID Qty: 90 1RF albuterol sulfate 0.63 mg/3 mL solution for nebulization 0.63 mg inhalation Q6H Rx Instructions: INHALE 3ML EVERY 6 HOURS aspirin 81 mg tablet,delayed release (DR/EC) 81 mg PO DAILY Rx Instructions: TAKE 1 TABLET BY MOUTH DAILY magnesium L-lactate [Magtab] 84 mg tablet extended release 84 mg PO BID Rx Instructions: TAKE 1 TABLET BY MOUTH TWICE DAILY Discharge Orders: Discharge ED (Routine); Ordered 05/01/25 Ordered By: Sarah Adams Referrals: Liz Valencia FNP [Primary Care Provider, Family Practice] - 4-7 days Discharge Diet: Advance as tolerated Discharge Activity: Resume usual activity Patient Instructions: A-fib (Atrial Fibrillation) (ED) Print Language: Taiwanese Coding Level of Care Code ED Director Global Development for Macy Soria
--- NOTE | 2025-05-01 13:29 | XRR_ITS ---
PROCEDURE INFORMATION: Exam: XR Chest Exam date and time: 05/01/2025 1:42 PM Age: 74 years old Clinical indication: Other: HTN; Prior surgery; Surgery date: 6+ months; Surgery type: Stint TECHNIQUE: Imaging protocol: Radiologic exam of the chest. Views: 1 view. COMPARISON: CR XR chest 1V [id number] 04/16/2025 12:02 PM FINDINGS: Lungs: Unremarkable. No consolidation. Pleural spaces: Unremarkable. No pleural effusion. No pneumothorax. Heart/Mediastinum: Unremarkable. No cardiomegaly. Bones/joints: Unremarkable. XR/XR chest 1V portable [id number] IMPRESSION: No acute findings.
[2025-05-01] MEDS: dilTIAZem 5 mg/mL SDV 5 mL 10 MG IVP (13:45)
[2025-05-01 13:47] VITALS: BP 142/86; PULSE 97; RESP 19; O2SAT 97
[2025-05-01 13:51] LABS: Hematocrit 39.0 % (37-53); Hemoglobin 12.90 g/dL (11.27-16.99); Mean Corpuscular HGB Conc 33.1 g/dL (30-55); Mean Corpuscular Hemoglobin 27.3 pg (27-33); Mean Corpuscular Volume 82.6 fl (82-101); Nucleated Red Blood Cells % 0 %; Platelet Count 114 10^3/cmm (157-399); Red Blood Count 4.72 10^6/uL (3.85-5.65); White Blood Count 4.77 10^3/uL (3.29-11.43)
[2025-05-01 14:02] LABS: INR 1.03 (0.8-1.2); Prothrombin Time 14.20 SECONDS (12.1-14.9)
[2025-05-01 14:07] LABS: Alanine Aminotransferase 47 U/L (0-41); Albumin Level 3.6 g/dL (3.5-5.2); Alkaline Phosphatase 136 U/L (40-130); Anion Gap 12.7 (5-19); Aspartate Amino Transferase 46 U/L (0-40); Blood Urea Nitrogen 25 mg/dL (8-23); Calcium 8.8 mg/dL (8.5-10.5); Carbon Dioxide 27 mmol/L (22-29); Chloride 99 mmol/L (98-107); Creatinine Clr Calc Pharmacy 66.3163; Globulin 3.0 g/dL (1.3-4.6); Glucose 173 mg/dL (65-115); Osmolality Calculated 287 mOsm/kg (285-295); Potassium 4.7 mmol/L (3.5-5.1); Sodium 134 mmol/L (136-145); Total Protein 6.6 g/dL (6.6-8.7)
[2025-05-01 14:11] LABS: Slide Review Slide Review Perform
[2025-05-01 15:03] VITALS: BP 126/79; PULSE 92; O2SAT 98
--- OUTSIDE RECORDS SUMMARY | 2025-05-02 16:20 | XMS_ITS | Encounter Summary ---
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 Gender Identity Not on file Sexual Orientation Not on file documented as of this encounter Plan of Treatment Not on file documented as of this encounter Procedures Procedure Name Priority Date/Time Associated Diagnosis Comments MICROALBUMIN, RANDOM URINE Routine 07/05/2008 7:46 AM CDT TESTOSTERONE, TOTAL Routine 07/05/2008 7 :46 AM CDT documented in this encounter Results * TESTOSTERONE (07/05/2008 7:46 AM CDT) TESTOSTERONE See Sep Report [facility] Blood specimen (specimen) 07/05/2008 7:46 AM CDT 07/06/2008 9:58 AM CDT us Chris Benitez DO CHEMISTRY ORDERABLES Final Resu lt INTERFACE SYSTEM Refer to clinic/hospital department [facility] CLIA# [id number] [address] [place] [address] * MICROALBUMIN, RANDOM URINE (07/05/2008 7:46 AM CDT) MICROALBUMIN URINE See Sep Report [facility] Urine specimen (specimen) 07/05/2008 7:46 AM CDT 07/06/2008 9:58 AM CDT Chris Benitez DO URINE ORDERABLES Final Result Performing Organization Address [facility] de Phone Number INTERFACE SYSTEM Refer to clinic/hospital department [facility] CLIA# [id number] [address] [place] [address] documented in this encounter Visit Diagnoses Not on filedocumented in this encounter Care Teams Retirement Plan Specialist Relationship Specialty Start Date End Date Adeline Mcbride MD [address] [id number] PCP - General Family Practice 12/31/16 documented as of this encounter
--- OUTSIDE RECORDS SUMMARY | 2025-05-02 16:20 | XMS_ITS | Clinical Summary ---
Author Organization [facility] Address [address] [place] [address] Care Team Providers Care Can Handler Name Role Phone Unavailable Primary Care Provider Unavailabl e Allergies No known active allergies Medications mupirocin calcium (BACTROBAN) 2 % Cream Apply to affected area 2 times daily. 15 Gram 1 1 Active lancets One Touch; use to check sugars once daily; Dx codeE11.9. 100 Each 3 7 Active OTHER One touch ultra lite dx:code E11.9 check blood sugar one time daily. 1 Kit 0 7 Active Cinnamon Bark 500 mg Capsule Take by mouth. Active empagliflozin (JARDIANCE) 25 mg tablet Take by mouth daily in the morning. Active furosemide (LASIX) 20 mg tablet Take 40 mg by mouth 2 times daily. Active glucosamine HCl/chondroitin oropeza (GLUCOSAMINE-CH ONDROITIN ORAL) Take by mouth. Active magnesium L-lactate (MAGTAB) 84 mg Tablet Sustained Release Take 84 mg by mouth 2 times daily. Active Fish Oil-[place]-3 Fatty Acids 360-1,200 mg Capsule Take 1 Capsule by mouth. Active nitroglycerin (NITROSTAT) 0.4 mg Tablet, Sublingual DISSOLVE 1 TABLET UNDER THE TONGUE EVERY 5 MINUTES NEEDED FOR CHEST PAIN 2 Active pantoprazole (PROTONIX) 40 mg Tablet, Delayed Release (E.C.) Take 40 mg by mouth 2 times daily. 2 Active acarbose (PRECOSE) 100 mg tablet Take 100 mg by mouth 3 times daily with meals. Active aspirin (ECOTRIN EC) 81 mg Tablet, Delayed Release (E.C.) Take 81 mg by mouth daily. Active atorvastatin (LIPITOR) 40 mg tablet Take 40 mg by mouth daily. Active Cholecalciferol , Vitamin D3, 50 mcg (2,000 unit) Capsule Take by mouth. A ctive fluticasone propion-salmete roL (ADVAIR DISKUS,WIXELA INHUB) 250-50 mcg/dose disk inhaler Take 1 Puff by inhalation 2 times daily. Active hydrocortisone (HYTONE) 2.5 % Cream Apply to affected area 2 times daily. Active insulin glargine (LANTUS) 100 unit/mL injection Inject 80 Units by subcutaneous injection one time only. Active sulfaSALAzine (AZULFIDINE) 500 mg tablet Take 500 mg by mouth 2 times daily. Active valsartan (DIOVAN) 160 mg tablet Take 160 mg by mouth daily. Takes at noon Active potassium CHLORIDE (KLOR-CON) 10 mEq Extended Release tablet Take 2 Tablets by mouth 2 times daily. 5 Active vit C-E-zinc ng-kxvu-wym-patsy x (ICaps AREDS2) 250 mg-200 unit -12.5 mg-1 mg Capsule Daily, Refill(s) 0 4 Active acetaminophen (TYLENOL ARTHRITIS ORAL) Take by mouth. Active ALBUTEROL INHALATION Active loratadine 10 mg Capsule Active tamsulosin (FLOMAX) 0.4 mg capsule TAKE 1 CAPSULE(0.4 MG) BY MOUTH DAILY 90 Capsule 1 5 Active hydrALAZINE (APRESOLINE) 25 mg tablet Take 25 mg by mouth 3 times daily. Active apixaban (ELIQUIS) 5 mg tablet Take 1 Tablet (5 mg) by mouth 2 times daily. 60 Tablet 5 05/16/20 25 Active dilTIAZem (CARDIZEM CD, CARTIA XT) 120 mg Controlled Delivery 24 hour capsule Take 1 Capsule (120 mg) by mouth daily. 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, without long-term current use of insulin 11/11/2016 12/06/2017 Diabetes mellitus type II, uncontrolled 09/03/2013 11/11/2016 Hypertension 05/20/2011 11/11/2016 Contusion, wrist 09/11/2009 11/30/2010 Laceration 09/11/2009 11/30/2010 Wrist pain 09/11/2009 11/30/2010 Type II or unspecified type diabetes mellitus without mention of complication, not stated as uncontrolled 02/25/2014 Overview (01/15/2021): A1C: 9.3 (05/01); 10.0 (03/01); 10.1 (11/29); 9.7 (08/30) Encounters Date Type Department Care Team Description 04/25/2025 9:34 AM CDT - 04/25/2025 11:59 PM CDT Hospital Encounter [facility] Cardiac Rehabilitation [place] [address] [facility] [address] [place] [address] Liz Valencia FNP Discharge Disposition: Home or Self Care 04/23/2025 10:00 AM CDT - 04/23/2025 11:59 PM CDT Hospital Encounter [facility] Cardiac Rehabilitation [facility] [address] [facility] [address] [place] [address] Liz Valencia FNP Discharge Disposition: Home or Self Care 04/20/2025 10:00 AM CDT - 04/20/2025 11:59 PM CDT Hospital Encounter [facility] Cardiac Rehabilitation [facility] [address] [facility] [address] [place] [address] Liz Valencia FNP Discharge Disposition: Home or Self Care 04/20/2025 Results Follow-Up [facility] Interventional Radiology [address] [place] [phone] Geo Garcia MD MRI ABDOMEN W WO CONTRAST 04/19/2025 9:51 AM CDT - 04/19/2025 11:59 PM CDT Hospital Encounter [facility] Mobile MRI [place] [address] [facility] [address] [place] [address] Geo Garcia MD Discharge Disposition: Home or Self Care 04/17/2025 External Device Data STL ABSTRACTION Provider, Abstract 04/17/2025 External Device Data STL ABSTRACTION Provider, Abstract 04/17/2025 External Device Data STL ABSTRACTION Provider, Abstract 04/16/2025 11:32 AM CDT - 04/16/2025 7:40 PM CDT Emergency [facility] Emergency Medicine [address] [facility] [address] [place] [address] Chip Perry MD Paroxysmal atrial fibrillation (CMS/HCC) (Primary Dx) Discharge Disposition: Home or Self Care 04/16/2025 10:00 AM CDT - 04/16/2025 11:59 PM CDT Hospital Encounter [facility] Cardiac Rehabilitation [facility] [address] [facility] [address] [place] [address] Liz Valencia FNP Discharge Disposition: Home or Self Care 04/13/2025 10:00 AM CDT - 04/13/2025 11:59 PM CDT Hospital Encounter [facility] Cardiac Rehabilitation [facility] [address] [facility] [address] [place] [address] Liz Valencia FNP Discharge Disposition: Home or Self Care 04/11/2025 10:00 AM CDT - 04/11/2025 11:59 PM CDT Hospital Encounter [facility] Cardiac Rehabilitation [facility] [address] [facility] [address] [place] [address] Liz Valencia, ASSET COORDINATOR Discharge Disposition: Home or Self Care 04/09/2025 10:00 AM CDT - 04/09/2025 11:59 PM CDT Hospital Encounter [facility] Cardiac Rehabilitation [facility] [address] [facility] [address] [place] [address] Liz Valencia, ASSET COORDINATOR Discharge Disposition: Home or Self Care 04/06/2025 10:00 AM CDT - 04/06/2025 11:59 PM CDT Hospital Encounter [facility] Cardiac Rehabilitation [facility] [address] [facility] [address] [place] [address] Liz Valencia, CAMI Discharge Disposition: Home or Self Care 04/04/2025 10:00 AM CDT - 04/04/2025 11:59 PM CDT Hospital Encounter [facility] Cardiac [facility] [address] [facility] [address] [place] [address] Liz Valencia, ASSET COORDINATOR Discharge Disposition: Home or Self Care 04/04/2025 External Device Data STL ABSTRACTION Provider, Abstract 04/03/2025 External Device Data STL ABSTRACTION Provider, Abstract 04/02/2025 10:00 AM CDT - 04/02/2025 11:59 PM CDT Hospital Encounter [facility] Cardiac [facility] [address] [facility] [address] [place] [address] Liz Valencia, ASSET COORDINATOR Discharge Disposition: Home or Self Care 03/30/2025 10:00 AM CDT - 03/30/2025 11:59 PM CDT Hospital Encounter [facility] Cardiac Rehabilitation [facility] [address] [facility] [address] [place] [address] Liz Valencia, ASSET COORDINATOR Discharge Disposition: Home or Self Care 03/28/2025 10:00 AM CDT - 03/28/2025 11:59 PM CDT Hospital Encounter [facility] Cardiac Rehabilitation [facility] [address] [facility] [address] [place] [address] Liz Valencia FNP Discharge Disposition: Home or Self Care 03/26/2025 10:00 AM CDT - 03/26/2025 11:59 PM CDT Hospital Encounter [facility] Cardiac [facility] [address] [facility] [address] [place] [address] Liz Valencia, ASSET COORDINATOR Discharge Disposition: Home or Self Care 03/21/2025 10:00 AM CDT - 03/21/2025 11:59 PM CDT Hospital Encounter [facility] Cardiac [facility] [address] [facility] [address] [place] [address] Liz Valencia, ASSET COORDINATOR Discharge Disposition: Home or Self Care 03/09/2025 10:00 AM CDT - 03/09/2025 11:59 PM CDT Hospital Encounter [facility] Cardiac [facility] [address] [phone] Lzi Valencia, ASSET COORDINATOR Discharge Disposition: Home or Self Care 03/07/2025 10:00 AM CDT - 03/07/2025 11:59 PM CDT Hospital Encounter [facility] Cardiac [facility] [address] [phone] Liz Valencia, CAMI Discharge Disposition: Home or Self Care 03/06/2025 External Device Data STL ABSTRACTION Provider, Abstract 03/05/2025 10:00 AM CDT - 03/05/2025 11:59 PM CDT Hospital Encounter [facility] Cardiac [facility] [address] [address] Liz Valencia FNP Discharge Disposition: Home or Self Care 03/02/2025 10:00 AM CDT - 03/02/2025 11:59 PM CDT Hospital Encounter [facility] Cardiac [address] [phone] Liz Valencia, ASSET COORDINATOR Discharge Disposition: Home or Self Care 02/28/2025 10:00 AM CDT - 02/28/2025 11:59 PM CDT Hospital Encounter [facility] Cardiac [address] [address] Liz Valencia, CAMI Discharge Disposition: Home or Self Care 02/26/2025 10:00 AM CDT - 02/26/2025 11:59 PM CDT Hospital Encounter [facility] Cardiac Rehabilitation [facility] [address] [facility] [address] [place] [address] Liz Valencia, ASSET COORDINATOR Discharge Disposition: Home or Self Care 02/16/2025 10:00 AM CDT - 02/16/2025 11:59 PM CDT Hospital Encounter [facility] Cardiac Rehabilitation [facility] [address] [facility] [address] [place] [address] Liz Valencia FNP Discharge Disposition: Home or Self Care 02/14/2025 10:00 AM CDT - 02/14/2025 11:59 PM CDT Hospital Encounter [facility] Cardiac [address] [address] Liz Valencia FNP Discharge Disposition: Home or Self Care 02/09/2025 9:46 AM CDT - 02/09/2025 11:59 PM CDT Hospital Encounter [facility] Cardiac [address] [address] Liz Valencia FNP Discharge Disposition: Home or Self Care 02/08/2025 External Device Data STL ABSTRACTION Provider, Abstract 02/07/2025 10:00 AM CDT - 02/07/2025 11:59 PM CDT Hospital Encounter [facility] Cardiac Rehabilitation [address] [address] Liz Valencia FNP Discharge Disposition: Home or Self Care 02/07/2025 Refill [facility] Urology- [place] [address]tr[address], 3rd [place] [address] Jez Mendoza MD 02/05/2025 10:00 AM CDT - 02/05/2025 11:59 PM CDT Hospital Encounter [facility] Cardiac Rehabilitation [facility] [address] [facility] [address] [place] [address] Liz Valencia, CAMI Discharge Disposition: Home or Self Care 02/02/2025 10:00 AM CDT - 02/02/2025 11:59 PM CDT Hospital Encounter [facility] Cardiac Rehabilitation [facility] [address] [place] [address] Liz Valencia, CAMI Discharge Disposition: Home or Self Care 01/31/2025 10:00 AM CDT - 01/31/2025 11:59 PM CDT Hospital Encounter [facility] Cardiac Rehabilitation [facility] [address] [facility] [address] [place] [address] Liz Valencia, CAMI Discharge Disposition: Home or Self Care from Last 3 Months Immunizations Immunization Administration Dates Next Due (ADACEL/BOOSTRIX)(10 YR UP) TDAP VACCINE, 0.5ML, IM 12/12/2020 (PFIZER)(12 YR UP) COVID-19 VACCINE - EMERGENCY USE AUTHORIZATION, MRNA, [id number](PF) 30 MCG/0.3 ML IM SUSP 05/05/2021,04/14/2021 (TDVAX)(7 YRS UP) TETANUS AN D DIPHTHERIA TOXOIDS, ADSORBED (2 LF OF TETANUS TOXOID AND 2 LF OF DIPHTHERIA TOXOID), 0.5ML (PF), IM 09/11/2009,06/05/2002 Influenza Seasonal Unspecified Formulation IM ,10/08/2012 Influenza Vaccine High Dose 65+ Yrs IM 9 Influenza Vaccine Split 3+ Yrs IM 08/29/2013 Skin Test TB 06/16/2010 Family History Medical History Relation Name Comments Healthy Brother 1 Healthy Brother 2 Cancer Father Eh Garnica Skin cancer Diabetes Father Eh Garnica Heart Disease Father Eh Garnica Healthy Maternal Grandfather Diabetes Maternal Grandmother Janice Page Diabetes Mother Ihsan Garnica Other Mother Ihsan Garnica RA Colon Cancer Other 1 p aunt x 2 Diabetes Other 1 p aunt x 2 Colon Cancer Other 2 p uncle x 2 Heart Disease Paternal Grandfather Robi Garnica Other Paternal Grandmother glucoma Breast Cancer Neg Hx Relation Name Status Comments Brother 1 Brother 2 Father Eh Mohinder Nahun Maternal Grandfather Maternal Grandmother Janice Page Mother Ihsan Garnica Other 1 p aunt x 2 Alive Other 2 p uncle x 2 Alive Paternal Grandfather Robi Garnica Paternal Grandmother Social History Tobacco Use Types Packs/Day Years Used Date Smoking Tobacco: Never Smokeless Tobacco: Never Tobacco Cessation:Counseling Given: No Alcohol Use Standard Drinks/Week Comments No 0 (1 standard drink = 0.6 oz pur e alcohol) Sex and Gender Information Value Date Recorded Sex Assigned at Not on file 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 Gender Identity Not on file Sexual Orientation Not on file Last Filed Vital Signs Vital Sign Reading Time Taken Comments Blood Pressure 169/91 04/25/2025 9:00 AM CDT Pulse 85 04/25/2025 9:00 AM CDT Temperature 36.3 C (97.3 F) 04/16/2025 7:30 PM CDT Respiratory Rate 18 04/25/2025 9:00 AM CDT Oxygen Saturation 99% 04/25/2025 9:00 AM CDT Inhaled Oxygen Concentration - - Weight 119.7 kg (264 lb) 04/16/2025 11:28 AM CDT Height 182.9 cm (6') 04/16/2025 11:28 AM CDT Body Mass Index 35.8 04/16/2025 11:28 AM CDT Plan of Treatment Upcoming Encounters Date Type Department Care Team (Late st Contact Info) Description 05/04/2025 10:00 AM CDT Appointment [facility] Cardiac Rehabilitation [facility] [address] [phone] Liz Valencia FNP [address] [place] [address] 05/07/2025 10:00 AM CDT Appointment [facility] Cardiac Rehabilitation [facility] [address] [facility] [address] [place] [phone] Liz Valencia, CAMI [address] [place] [address] 05/09/2025 10:00 AM CDT Appointment [facility] Cardiac Rehabilitation Services [place] [address] [facility] [address] [place] [address] Liz Valencia, ASSET COORDINATOR [address] [place] [address] 05/11/2025 10:00 AM CDT Appointment [facility] Cardiac Rehabilitation Services [place] [address] [place] [address] Liz Valencia, ASSET COORDINATOR [address] [place] [address] 05/14/2025 10:00 AM CDT Appointment [facility] Cardiac Rehabilitation Services [place] [address] [place] [address] Liz Valencia, ASSET COORDINATOR [address] [place] [address] 05/16/2025 10:00 AM CDT Appointment [facility] Cardiac Rehabilitation [facility] [address] [place] [phone] Liz Valencia, ASSET COORDINATOR [address] [place] [address] 05/18/2025 10:00 AM CDT Appointment [facility] Cardiac Rehabilitation [facility] [address] [place] [address] Liz Valencia, ASSET COORDINATOR [address] [place] [address] 12/11/2025 1:15 PM CDT Office Visit [address] [place] [phone] Jez Mendoza MD [address] [place] [address] 04/17/2026 1:45 PM CDT Appointment [facility] [address] [place] [phone] Geo Garcia MD [address] [place] [address] Health Maintenance Due Date Last Done Comments PNEUMOCOCCAL VACCINE 50+ YEA RS (1 of 2 - PCV) 11/20/1970 Traditional Medicare (ACO) A nnual Wellness Visit 11/20/1970 FIT-DNA Q 3 years 11/20/1996 FIT/FOBT Q 1 year 11/20/1996 Flex Sig/CT Colonography Q 5 years 11/20/1996 ZOSTER VACCINE (1 of 2) 11/20/2001 RSV VACCINE (60+ or ) (1 - Risk 60-74 years 1-dose series) 2011 DIABETES MICROALBUMIN ANNUAL SCREEN 05/14/2021 05/14/2020, 04/20/2019 DIABETES ANNUAL FOOT EXAM 12/12/2021 12/12/2020, 08/2019 LDL CHOLESTEROL ANNUAL 12/12/2021 , 05/14/2020, 08/31/2019, Additional history exists DIABETES HBA1C Q 6 MONTHS 02/01/20242022, 04/03/2021, 12/12/2020, Additional history exists DIABETES ANNUAL RETINAL EXAM 04/29/202406/2023, 12/24/2022, 05/26/2022, Additional history exists COVID-19 Vaccine (3 - 2023-2 5 season) 2024 05/05/2021, 04/14/2021 INFLUENZA VACCINE (#1) 2025 , 08/31/2019, 09/05/2018, Additional history exists DTAP/TDAP/TD VACCINES (2 - T d or Tdap) 12/12/2030 12/12/2020, 09/11/2009, 06/05/2002 COLORECTAL SCREENING 03/06/2031 03/06/2021 Colorectal Cancer Screening 03/06/2031 Procedures Procedure Name Priority Date/Time Associated Diagnosis Comments MRI ABDOMEN W WO CONTRAST Routine 04/19/2025 10:57 AM CDT S/P cryoablation of mass of kidney Renal mass, right TELEMETRY REPORT 04/17/2025 9:55 AM CDT POC GLUCOSE Stat 04/16/2025 4:59 PM CDT EKG 12-LEAD Stat 04/16/2025 3:14 PM CDT TROPONIN 2 HR, 5TH GEN Timed Study 04/16/2025 1:50 PM CDT EKG 12-LEAD Stat 04/16/2025 1:03 PM CDT XR CHEST PA OR AP 1 VW Stat 04/16/2025 12:10 PM CDT PTT Stat 04/16/2025 11:51 AM CDT PROTIME-INR Stat 04/16/2025 11:51 AM CDT EXTRA TUBE (BLUE) Stat 04/16/2025 11: 51 AM CDT TSH Stat 04/16/2025 11:51 AM CDT MAGNESIUM LEVEL Stat 04/16/2025 11:51 AM CDT BRAIN NATRIURETIC PEPTIDE, BNP OR PROBNP Stat 04/16/2025 11:51 AM CDT EXTRA TUBE Stat 04/16/2025 11:51 AM CDT COMPREHENSIVE METABOLIC PANEL Stat 04/16/2025 11:51 AM CDT CBC WITH DIFFERENTIAL Stat 04/16/2025 11:51 AM CDT TROPONIN BASELINE, 5TH GEN Stat 04/16/2025 11:51 AM CDT PULSE OXIMETRY, CONTINUOUS Stat 04/16/2025 11:47 AM CDT OXYGEN VIA DEVICE TO KEEP O2 SAT ABOVE Stat 04/16/2025 11:47 AM CDT POC GLUCOSE Stat 04/16/2025 11:45 AM CDT EKG 12-LEAD Stat 04/16/2025 11:18 AM CDT LDL CHOLESTEROL, DIRECT Routine 12/12/2020 10:16 AM CDT HEMOGLOBIN A1C Routine 12/12/2020 10:16 AM CDT MICROALBUMIN/CREATINI NE RATIO, RANDOM UR Routine 05/14/2020 8:27 AM CDT DIABETES EYE EXAM 07/06/2016 12:00 AM CDT from Last 3 Months or Most Recently Relevant to Health Maintenance Results * MRI ABDOMEN W WO CONTRAST (04/19/2025 10:57 AM CDT) Anatomical Region Laterality Modality Abdomen Magnetic Resonan ce 04/19/2025 10:5 7 AM CDT Impressions 04/19/2025 11:22 AM CDT IMPRESSION: Please see below. Exam: MRI ABDOMEN W WO CONTRAST Date/Time of Exam: 04/19/2025 10:57 AM Reason For Exam: See Diagnosis. Diagnosis: S/P cryoablation of mass of kidney; Renal mass, right. Technique: Abdomen imaged with sequences obtained in several planes pre and post administration of intravenous MultiHance, 20 mL. Findings: Comparison to abdomen CT of 11/29/2024. Interval cryoablation of posterior exophytic right renal lesion. Ablation zone currently occupied with hemorrhage with no strong MRI evidence for residual tumor. Other Bosniak one and two bilateral renal cysts. No hydronephrosis. No retroperitoneal lymphadenopathy. No ascites. Liver unremarkable. Dilated gallbladder. Biliary tree within normal limits. Spleen unremarkable. 5 mm cyst of anterior margin of body of pancreas. No dilatation of main pancreatic duct. Adrenals within normal limits. IMPRESSION: 1. Interval cryoablation of right renal lesion without strong MRI evidence for residual tumor. No evidence for metastatic disease. 2. Other Bosniak one and two bilateral renal cysts. Incidental small pancreatic cyst. Narrative Procedure Note Pieter Mccormick MD - 04/19/2025 IMPRESSION: Please see below. Exam: MRI ABDOMEN W WO CONTRAST Date/Time of Exam: 04/19/2025 10:57 AM Reason For Exam: See Diagnosis. Diagnosis: S/P cryoablation of mass of kidney; Renal mass, right. Technique: Abdomen imaged with sequences obtained in several planes pre and post administration of intravenous MultiHance, 20 mL. Findings: Comparison to abdomen CT of 11/29/2024. Interval cryoablation of posterior exophytic right renal lesion. Ablation zone currently occupied with hemorrhage with no strong MRI evidence for residual tumor. Other Bosniak one and two bilateral renal cysts. No hydronephrosis. No retroperitoneal lymphadenopathy. No ascites. Liver unremarkable. Dilated gallbladder. Biliary tree within normal limits. Spleen unremarkable. 5 mm cyst of anterior margin of body of pancreas. No dilatation of main pancreatic duct. Adrenals within normal limits. IMPRESSION: 1. Interval cryoablation of right renal lesion without strong MRI evidence for residual tumor. No evidence for metastatic disease. 2. Other Bosniak one and two bilateral renal cysts. Incidental small pancreatic cyst. us Geo Garcia MD MR ORDERABLES Final Result * TELEMETRY REPORT (04/17/2025 9:55 AM CDT) us Provider Scanning ECG ORDERABLES Final Result * POC GLUCOSE (04/16/2025 4:59 PM CDT) Only the most recent of2 resultswithin the time period is included. GLUCOSE POC 84 74 - 99 mg/dL 04/16/2025 4:59 PM CDT [facility] SPECIMEN SOURCE, GLUCOSE POC Whole Blood 04/16/2025 4:59 PM CDT [facility] Blood, whole 04/16/2025 4:59 PM CDT 04/16/2025 5:06 PM CDT us Chip Perry MD POINT OF CARE TESTING Final Res ult [facility] CLIA # [id number] [address] [place] [id number] * EKG 12 lead (04/16/2025 3:14 PM CDT) Only the most recent of3 resultswithin the time period is included. Narrative Chip Perry MD - 04/16/2025 3:14 PM CDT Chip Perry MD 04/19/2025 2:11 PM EKG 12 lead Date/Time: 04/16/2025 3:14 PM Performed by: Chip Perry MD Authorized by: Chip Perry MD ECG interpreted by ED Physician in the absence of a insurance solicitor: yes Rate: ECG rate: 90 ECG rate assessment: age appropriate Rhythm: Rhythm Origin: sinus Ectopy: Ectopy occurance: occasional Ectopy origin: PAC Blocks: AV: 1st QRSTT: QRSTT changes: No Chip Perry MD ECG ORDERABLES Final Result * (ABNORMAL) TROPONIN 2 HR, 5TH GEN (04/16/2025 1:50 PM CDT) TROPONIN T, 2 HR 5TH GEN 56(H) <=15 ng/L 04/16/2025 2:23 PM CDT [facility] DELTA 2HR TROPONIN T -3 See Interp. 04/16/2025 2:23 PM CDT [facility] Blood BLOOD SPECIMEN / Unknown Venipuncture / Unknown 04/16/2025 1:50 PM CDT 04/16/2025 1:58 PM CDT Narrative [facility] - 04/16/2025 2:23 PM CDT Troponin elevated. Delta not changing. us Laura DYERP CHEMISTRY ORDERABLES Final Result [facility] CLIA # [id number] [address] [place] [id number] * XR CHEST PA OR AP 1 VW (04/16/2025 12:10 PM CDT) Anatomical Region Laterality Modality Chest Computed Radiogr aphy 04/16/2025 12:1 0 PM CDT Impressions 04/16/2025 12:25 PM CDT IMPRESSION: No acute pulmonary process. Narrative 04/16/2025 12:25 PM CDT Exam: XR CHEST PA OR AP 1 VW Date/Time of Exam: 04/16/2025 12:10 PM Reason For Exam: Other - Please see comments. Diagnosis: See Reason for Exam. Comparison: 11/07/2024. Findings: The cardiomediastinal structures are within normal limits. No pulmonary consolidation, pleural effusion or pneumothorax is identified. The osseous structures appear grossly intact. Procedure Note Diego Sanderson, DO - 04/16/2025 Exam: XR CHEST PA OR AP 1 VW Date/Time of Exam: 04/16/2025 12:10 PM Reason For Exam: Other - Please see comments. Diagnosis: See Reason for Exam. Comparison: 11/07/2024. Findings: The cardiomediastinal structures are within normal limits. No pulmonary consolidation, pleural effusion or pneumothorax is identified. The osseous structures appear grossly intact. IMPRESSION: No acute pulmonary process. us Laura Real [facility] DIAGNOSTIC IMAGING ORDERABL ES Final Result * EXTRA TUBE (BLUE) (04/16/2025 11:51 AM CDT) Blood Venipuncture / Unknown 04/16/2025 11:51 AM CDT 04/16/2025 11:57 AM CDT Laura Real [facility] HEMATOLOGY ORDERABLES Final Result [facility] CLIA # [id number] [address] [place] [address] * (ABNORMAL) TROPONIN BASELINE, 5TH GEN (04/16/2025 11:51 AM CDT) TROPONIN T, BASELINE 5TH GEN 59(H) <=15 ng/L 04/16/2025 12:29 PM CDT [facility] Blood Venipuncture / Unknown 04/16/2025 11:51 AM CDT 04/16/2025 11:57 AM CDT Narrative [facility] - 04/16/2025 12:29 PM CDT Troponin elevated. Laura Real ASSET COORDINATOR CHEMISTRY ORDERABLES Final Result [facility] CLIA # [id number] [address] [place] [address]287 * (ABNORMAL) CBC WITH DIFFERENTIAL (04/16/2025 11:51 AM CDT) WBC 5.6 4.2 - 9.1 K/uL 04/16/2025 12:02 PM [facility] RBC 4.87 4.63 - 6.08 M/uL 04/16/2025 12:02 PM [facility] HEMOGLOBIN 13.7 13.7 - 17.5 g/dL 04/16/2025 12:02 PM [facility] HEMATOCRIT 39.5(L) 40.1 - 51.0 % 04/16/2025 12:02 PM [facility] MCV 81.1 79.0 - 92.2 fL 04/16/2025 12:02 PM [facility] MCH 28.1 25.7 - 32.2 pg 04/16/2025 12:02 PM [facility] MCHC 34.7 32.3 - 36.5 g/dL 04/16/2025 12:02 PM [facility] RDW 14.8(H) 11.0 - 14.5 % 04/16/2025 12:02 PM [facility] RDW-STDEV 43.5 36.9 - 56.9 fL 04/16/2025 12:02 PM [facility] PLATELETS 187 130 - 400 K/uL 04/16/2025 12:02 PM [facility] MPV 10.0 10.0 - 14.8 fL 04/16/2025 12:02 PM CDT [facility] NEUTROPHILS 54 34 - 68 % 04/16/2025 12:02 PM [facility] LYMPHOCYTES 31 22 - 53 % 04/16/2025 12:02 PM [facility] MONOCYTES 10 5 - 12 % 04/16/2025 12:02 PM [facility] EOSINOPHILS 4 1 - 7 % 04/16/2025 12:02 PM [facility] BASOPHILS 1 0 - 1 % 04/16/2025 12:02 PM [facility] IMMATURE GRANULOCYTES 0 % 04/16/2025 12:02 PM [facility] NEUTROPHIL ABSOLUTE 3.04 1.78 - 5.38 K/uL 04/16/2025 12:02 PM [facility] LYMPHOCYTE ABSOLUTE 1.74 1.20 - 3.40 K/uL 04/16/2025 12:02 PM [facility] MONOCYTE ABSOLUTE 0.56 0.30 - 0.82 K/uL 04/16/2025 12:02 PM [facility] EOSINOPHIL ABSOLUTE 0.21 0.04 - 0.54 K/uL 04/16/2025 12:02 PM [facility] BASOPHILS ABSOLUTE 0.03 0.01 - 0.08 K/uL 04/16/2025 12:02 PM [facility] IMMATURE GRANULOCYTES ABSOLUTE 0.02 K/uL 04/16/2025 12:02 PM [facility] Blood Venipuncture / Unknown 04/16/2025 11:51 AM CDT 04/16/2025 11:57 AM CDT us Laura Real ASSET COORDINATOR HEMATOLOGY ORDERABLES Final Result [id number] [address] [place] [address] * PTT (04/16/2025 11:51 AM CDT) PTT 26.3 25.1 - 35.4 seconds 04/16/2025 1:06 PM CDT [facility] Blood Venipuncture / Unknown 04/16/2025 11:51 AM CDT 04/16/2025 11:57 AM CDT Chip Perry MD HEMATOLOGY ORDERABLES Final Res ult Performing Organization Address [facility]/ZIP Co de Phone Number [facility] CLIA # [id number] [address] [place] [address] * PROTIME-INR (04/16/2025 11:51 AM CDT) PROTIME 12.7 12.1 - 14.3 Seconds 04/16/2025 1:06 PM CDT [facility] INR 1.0 0.9 - 1.1 04/16/2025 1:06 PM CDT [facility] Blood Venipuncture / Unknown 04/16/2025 11:51 AM CDT 04/16/2025 11:57 AM CDT us Chip Perry MD HEMATOLOGY ORDERABLES Final Res ult Performing Organization Address [facility] Co de Phone Number [facility] CLIA # [id number] [address] [place] [address]336 * TSH (04/16/2025 11:51 AM CDT) TSH 2.37 0.27 - 4.20 uIU/mL 04/16/2025 12:28 PM CDT [facility] Blood Venipuncture / Unknown 04/16/2025 11:51 AM CDT 04/16/2025 11:57 AM CDT Laura Real ASSET COORDINATOR CHEMISTRY ORDERABLES Final Result Performing Organization Address City/[facility] Co de Phone Number [facility] CLIA # [id number] [address] [place] [address]11 * (ABNORMAL) BRAIN NATRIURETIC PEPTIDE, BNP OR PROBNP (04/16/2025 11:51 AM CDT) PROBNP, N TERMINAL 806(H) 0 - 125 pg/mL 04/16/2025 12:28 PM CDT [facility] Comment: INTERPRETIVE COMMENT based on diagnosis: Diagnostic NT pro-BNP cutoffs for Heart Failure in the absence of renal failure is suggested for the following ranges <75 years: <125 pg/mL >=75 years: <450 pg/mL Exclusionary rule out cut-point for Acute Decompensated Heart Failure(ADHF) All ages: <300 pg/mL Diagnostic NT pro-BNP cutoffs for Acute Decompensated Heart Failure(ADHF) in the absence of renal failure is suggested for the following ages <50 years: > 450 pg/mL 50-75 years: > 900 pg/mL >75 years: >1800 pg/mL Blood Venipuncture / Unknown 04/16/2025 11:51 AM CDT 04/16/2025 11:57 AM CDT Laura Bates Farhan [facility] CHEMISTRY ORDERABLES Final Result Performing Organization Address City/[facility]/ZIP Co de Phone Number [facility] CLIA # [id number] [address] [place] [phone] * MAGNESIUM LEVEL (04/16/2025 11:51 AM CDT) MAGNESIUM 1.8 1.6 - 2.4 mg/dL 04/16/2025 12:28 PM CDT [facility] Blood Venipuncture / Unknown 04/16/2025 11:51 AM CDT 04/16/2025 11:57 AM CDT Laura Bates Farhan ASSET COORDINATOR CHEMISTRY ORDERABLES Final Result [facility] CLIA # [id number] [address] [place] [address]6088 * (ABNORMAL) COMPREHENSIVE METABOLIC PANEL (04/16/2025 11:51 AM T) SODIUM 138 136 - 145 mmol/L 04/16/2025 12:28 PM [facility] POTASSIUM 4.4 3.5 - 5.1 mmol/L 04/16/2025 12:28 PM [facility] CHLORIDE 100 98 - 107 mmol/L 04/16/2025 12:28 PM [facility] CO2 27 22 - 29 mmol/L 04/16/2025 12:28 PM [facility] CALCIUM 9.6 8.8 - 10.2 mg/dL 04/16/2025 12:28 PM [facility] BUN 28(H) 8 - 23 mg/dL 04/16/2025 12:28 PM [facility] CREATININE 1.09 0.67 - 1.17 mg/dL 04/16/2025 12:28 PM [facility] Comment:The GFR result is no t clinically significant on patients <18 or >70 years of age. GLUCOSE 144(H) 74 - 99 mg/dL 04/16/2025 12:28 PM [facility] TOTAL PROTEIN 6.5(L) 6.6 - 8.7 g/dL 04/16/2025 12:28 PM [facility] ALBUMIN 4.0 3.5 - 5.2 g/dL 04/16/2025 12:28 PM [facility] BILIRUBIN TOTAL 0.4 0.0 - 1.2 mg/dL 04/16/2025 12:28 PM [facility] ALKALINE PHOSPHATASE 105 40 - 129 U/L 04/16/2025 12:28 PM [facility] AST 37 0 - 50 U/L 04/16/2025 12:28 PM [facility] ALT 35 0 - 50 U/L 04/16/2025 12:28 PM [facility] GFR >60 mL/min/1.7 3 sq meter 04/16/2025 12:28 PM [facility] Comment:eGFR calculated with 2020 CKD-EPI equation. Vegetarian diet, extremely high or low muscle mass, and may affect results. Cystatin C with Glomerular Filtration Rate is a suitable alternative for these patients. ANION GAP 11 5 - 20 mmol/L 04/16/2025 12:28 PM CDT [facility] Blood Venipuncture / Unknown 04/16/2025 11:51 AM CDT 04/16/2025 11:57 AM CDT us Laura DYERP CHEMISTRY ORDERABLES Final Result [facility] CLIA # [id number] [address] [place] [address]8059 * LDL CHOLESTEROL, DIRECT (12/12/2020 10:16 AM CDT) LDL CHOLESTEROL, DIRECT 48 <100 mg/dL 12/12/2020 9:18 PM CDT [facility] Blood Venipuncture / Unknown 12/12/2020 10:16 AM CDT 12/12/2020 8:34 PM CDT Narrative [facility]HU[facility]YA - 12/12/2020 9:18 PM CDT LDL CHOLESTEROL mg/dL LDL <70, OPTIMAL if have Atherosclerotic cardiovascular disease (ASCVD) or intermediate or higher (>7.5%) 10 year risk of ASCVD including most adults with diabetes. LDL <100, Optimal in adult patients with low (<7.5%) 10 year ASCVD risk LDL 100-160, Suboptimal LDL >160, High LDL >190, Very high Based on AHA/NCEP guidelines us King HERNANDEZ CHEMISTRY ORDERABLES Final Re sult [facility] CLIA# [id number] [address] [place] [phone] * (ABNORMAL) HEMOGLOBIN A1C (12/12/2020 10:16 AM CDT) HEMOGLOBIN A1C 10.0(H) See Comment % 12/12/2020 8:59 PM CDT [facility] EST. AVG GLUCOSE, A1C 240 mg/dL 12/12/2020 8:59 PM CDT [facility] Blood Venipuncture / Unknown 12/12/2020 10:16 AM CDT 12/12/2020 8:34 PM CDT [facility] FRIEDMANNN - 12/12/2020 8:59 PM CDT HGB A1C INTERPRETATION NORMAL: <5.7% PRE-DIABETES: 5.7 - 6.4% DIABETES: 6.5% OR GREATER Falsely low A1C measurements can occur when: 1. Anemia and/or hemolytic anemia is present. 2. Hemoglobin variants present. 3. Renal failure. 4. Transfusion of blood product in the last 120 days. We recommend ordering a fructosamine test([id number]) to more accurately assess glycemic status if any of the above conditions are present. King HERNANDEZ CHEMISTRY ORDERABLES Final Re sult [facility] CLIA# [id number] [place] [address] * (ABNORMAL) MICROALBUMIN/CREATININE RATIO, RANDOM UR (05/14/2020 8:27 AM CDT) MICROALBUMIN, URINE 80.0 No Reference Range mg/dL 05/14/2020 10:00 PM CDT [facility] CREATININE, URINE 94.0 40.0 - 278.0 mg/dL 05/14/2020 10:00 PM T [facility] Comment:Reference Range vari es with fluid intake and diet. MICROALBUMIN/ CREAT RATIO, UR 851.1(H) <17.0 mg/g 05/14/2020 10:00 PM CDT [facility] Urine URINE SPECIMEN OBTAINED BY CLEAN CATCH PROCEDURE / Unknown Collection / Unknown 05/14/2020 8:27 AM CDT 05/14/2020 8:04 PM CDT [facility] - 05/14/2020 10:00 PM CDT Condition Microalbumin/Creat ratio Normal Males <17 Normal Females <25 Microalbuminuria Males 17-299 Microalbuminuria Females 25-299 Overt proteinuria >=300 King HERNANDEZ URINE ORDERABLES Final Result [facility] JAVIER# [id number] [address] [place] [address] * DIABETES EYE EXAM (07/06/2016 12:00 AM CDT) Sgf Scanning HEALTH MAINTENANCE Final Result from Last 3 Months or Most Recently Relevant to Health Maintenance Insurance MEDICARE PART A AND B [employer] CO SUPP
--- OUTSIDE RECORDS SUMMARY | 2025-05-02 16:20 | XMS_ITS | Encounter Summary ---
Author Organization [facility] Address [address] [place] [address] Care Team Providers Care Car Racer Name Role Phone Adeline Mcbride MD Primary Care Provider [phone]- [phone] Encounter Details Date Type Department Care Team (Latest Contact Info) Description 07/25/[address] 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
--- OUTSIDE RECORDS SUMMARY | 2025-05-02 16:20 | XMS_ITS | Encounter Summary ---
Author Organization [facility] Address [address] [place] [address] Care Team Providers Care Government Property Inspector Name Role Phone Adeline Mcbride MD Primary Care Provider [phone]- [phone] Encounter Details Date Type Department Care Team (Late st Contact Info) Description 06/08/2007 Outpatient Historical [facility] Imaging Services-[facility] [place]am [address] [place] [phone] Social History Tobacco Use Types Packs/Day Years Used Date Smoking Tobacco: Never Assessed Sex and Gender Information Value Date Recorded Sex Assigned at Not on file Legal Sex Male 4:05 AM FRONT OFFICE 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
--- OUTSIDE RECORDS SUMMARY | 2025-05-02 16:21 | XMS_ITS | Encounter Summary ---
Author Organization [facility] Address [address] [place] [address] Care Team Providers Care Plan Consultant Name Role Phone Adeline Mcbride MD Primary Care Provider [phone]- [phone] Encounter Details Date Type Department Care Team (Latest Contact Info) Description 04/17/2003 Outpatient Historical [facility] Medicine [place] [address] [phone] Chris Benitez DO NO ADDRESS ON FILE DIABETES UNCOMPL ADULT-TYPE II (CMS/HCC) (Primary Dx) Social History Tobacco Use Types Packs/Day Years Used Date Smoking Tobacco: Never Assessed Sex and Gender Information Value Date Recorded Sex Assigned at Not on file Legal Sex Male 4: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
--- OUTSIDE RECORDS SUMMARY | 2025-05-02 16:21 | XMS_ITS | Encounter Summary ---
Author Organization [facility] Address [address] [place] [address] Care Team Providers Care Styrene Dehydration Reactor Operator Name Role Phone Adeline Mcbride MD Primary Care Provider [phone]- [phone] Encounter Details Date Type Department Care Team (Latest Contact Info) Description 06/05/2002 Outpatient Historical [facility] Family Medicine [place] [address] [phone] Chris Benitez DO NO ADDRESS ON FILE OPEN WOUND OF FOOT (Primary Dx) Social History Tobacco Use Types Packs/Day Years Used Date Smoking Tobacco: Never Assessed Sex and Gender Information Value Date Recorded Sex Assigned at Not on file Legal Sex Male 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
--- OUTSIDE RECORDS SUMMARY | 2025-05-02 16:21 | XMS_ITS | Encounter Summary ---
Author Organization [facility] Address [address] [place] [address] Care Team Providers Care Operations Coordinator Name Role Phone Adeline Mcbride MD Primary Care Provider [phone]- [phone] Encounter Details Date Type Department Care Team (Late st Contact Info) Description 12/22/2006 Outpatient Historical [facility] Imaging Services-[facility] Nilam [address] [place] [phone] Social History Tobacco Use Types Packs/Day Years Used Date Smoking Tobacco: Never Assessed Sex and Gender Information Value Date Recorded Sex Assigned at Not on file Legal Sex Male 4:05 AM CHEMIST BIOLOGICAL Gender Identity Not on file Sexual Orientation Not on file documented as of this encounter Plan of Treatment Not on file documented as of this encounter Visit Diagnoses Not on filedocumented in this encounter Care Teams Operations Coordinator Relationship Specialty Start Date End Date Adeline Mcbride MD [address] [facility] [address] [place] [phone] PCP - General Family Practice 12/31/16 documented as of this encounter
--- OUTSIDE RECORDS SUMMARY | 2025-05-02 16:21 | XMS_ITS | Encounter Summary ---
Author Organization [facility] Address [address] [place] [address] Care Team Providers Care High Court Justice Name Role Phone Adeline Mcbride MD Primary Care Provider [phone]- [phone] Encounter Details Date Type Department Care Team (Latest Contact Info) Description 03/07/2001 Outpatient Historical [facility] Family Medicine [place] [address] [phone] Chris Benitez DO NO ADDRESS ON FILE Type II or unspecified type diabetes mellitus without mention of complication, not stated as uncontrolled (Primary Dx) Social History Tobacco Use Types Packs/Day Years Used Date Smoking Tobacco: Never Assessed Sex and Gender Information Value Date Recorded Sex Assigned at Not on file 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
--- OUTSIDE RECORDS SUMMARY | 2025-05-02 16:21 | XMS_ITS | Encounter Summary ---
Author Organization [facility] Address [address] [place] [address] Care Team Providers Care Undercover Agent Name Role Phone Adeline Mcbride MD Primary Care Provider [phone]- [phone] Encounter Details Date Type Department Care Team (Latest Contact Info) Description 05/15/2003 Outpatient Historical [facility] Family Medicine [place] [address] [phone] Chris Benitez DO NO ADDRESS ON FILE MYALGIA AND MYOSITIS NOS (Primary Dx) Social History Tobacco Use Types Packs/Day Years Used Date Smoking Tobacco: Never Assessed Sex and Gender Information Value Date Recorded Sex Assigned at Not on file Legal Sex Male 4:05 AM STORES ASSISTANT Gender Identity Not on file Sexual Orientation Not on file documented as of this encounter Plan of Treatment Not on file documented as of this encounter Visit Diagnoses Diagnosis Myalgia and myositis, unspecified- Primary Mylagia and myositis, unspecified documented in this encounter Care Teams Undercover Agent Relationship Specialty Start Date End Date Adeline Mcbride MD [address] [phone] PCP - General Family Practice 12/31/16 documented as of this encounter
--- OUTSIDE RECORDS SUMMARY | 2025-05-02 16:21 | XMS_ITS | Encounter Summary ---
Author Organization [facility] Address [address] [place] [address] Care Team Providers Care Bat Boy/Girl Name Role Phone Adeline Mcbride MD Primary Care Provider +1- [phone] Encounter Details Date Type Department Care Team (Latest Contact Info) Description 05/03/2000 Outpatient Historical [facility] Family Medicine [place] [address] [phone] Chris Benitez DO NO ADDRESS ON FILE Ingrowing nail (Primary Dx) Social History Tobacco Use Types Packs/Day Years Used Date Smoking Tobacco: Never Assessed Sex and Gender Information Value Date Recorded Sex Assigned at Not on file Legal Sex Male 4:05 AM PATCH SANDER Gender Identity Not on file Sexual Orientation Not on file documented as of this encounter Plan of Treatment Not on file documented as of this encounter Visit Diagnoses Diagnosis Ingrowing nail- Primary documented in this encounter Care Teams Bat Boy/Girl Relationship Specialty Start Date End Date Adeline Mcbride MD [address] [phone] PCP - General Family Practice 12/31/16 documented as of this encounter
--- OUTSIDE RECORDS SUMMARY | 2025-05-02 16:21 | XMS_ITS | Encounter Summary ---
Author Organization [facility] Address [address] [place] [address] Care Team Providers Care Physician/Allergy/Immunology Name Role Phone Adeline Mcbride MD Primary Care Provider +1- [phone] Encounter Details Date Type Department Care Team (Latest Contact Info) Description 01/05/2001 Outpatient Historical [facility] Family Medicine- [address] [place] [phone] Chris Benitez, NO ADDRESS ON FILE Acute sinusitis, unspecified (Primary Dx); Acute pharyngitis Social History Tobacco Use Types Packs/Day Years Used Date Smoking Tobacco: Never Assessed Sex and Gender Information Value Date Recorded Sex Assigned at Not on file Legal Sex Male 4:05 AM IRRIGATOR Gender Identity Not on file Sexual Orientation Not on file documented as of this encounter Plan of Treatment Not on file documented as of this encounter Visit Diagnoses Diagnosis Acute sinusitis, unspecified- Primary Acute pharyngitis documented in this encounter Care Teams Physician/Allergy/Immunology Relationship Specialty Start Date End Date Adeline Mcbride MD [address] [facility] [address] [place] [phone] PCP - General Family Practice 12/31/16 documented as of this encounter
--- OUTSIDE RECORDS SUMMARY | 2025-05-02 16:21 | XMS_ITS | Encounter Summary ---
Author Organization [facility] Address [address] [place] [address] Care Team Providers Care Retail Manager In Training Name Role Phone Adeline Mcbride MD Primary Care Provider +1- [phone] Encounter Details Date Type Department Care Team (Latest Contact Info) Description 11/14/2003 Outpatient Historical [facility] ([facility] Family Medicine [place] [address] [phone] Chris Benitez DO NO ADDRESS ON FILE DIZZINESS AND GIDDINESS (Primary Dx); DIABETES UNCOMPL ADULT-TYPE II ([facility]) Social History Tobacco Use Types Packs/Day Years Used Date Smoking Tobacco: Never Assessed Sex and Gender Information Value Date Recorded Sex Assigned at Not on file Legal Sex Male 4:05 AM GOLF COURSE ARCHITECT Gender Identity Not on file Sexual Orientation Not on file documented as of this encounter Plan of Treatment Not on file documented as of this encounter Visit Diagnoses Diagnosis Dizziness and giddiness- Primary Type II or unspecified type diabetes mellitus without mention of complication, not stated as uncontrolled documented in this encounter Care Teams Retail Manager In Training Relationship Specialty Start Date End Date Adeline Mcbride MD [address] [phone] PCP - General Family Practice 12/31/16 documented as of this encounter
--- OUTSIDE RECORDS SUMMARY | 2025-05-02 16:21 | XMS_ITS | Encounter Summary ---
Author Organization [facility] Address [address] [place] [address] Care Team Providers Care Pearl Digger Name Role Phone Adeline Mcbride MD Primary Care Provider +1- [phone] Encounter Details Date Type Department Care Team (Latest Contact Info) Description 12/24/2003 Outpatient Historical [facility] Family Medicine [place] [address] [phone] Estee Cross NP NO ADDRESS ON FILE ACUTE PHARYNGITIS (Primary Dx); ACUTE SINUSITIS NOS Social History Tobacco Use Types Packs/Day Years Used Date Smoking Tobacco: Never Assessed Sex and Gender Information Value Date Recorded Sex Assigned at Not on file Legal Sex Male 4:05 AM 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
--- OUTSIDE RECORDS SUMMARY | 2025-05-02 16:21 | XMS_ITS | Encounter Summary ---
Author Organization [facility] Address [address] [place] [address] Care Team Providers Care Facing Baster Jumpbasting Name Role Phone Adeline Mcbride MD Primary Care Provider +1- [phone] Encounter Details Date Type Department Care Team (Latest Contact Info) Description 12/24/2006 Outpatient Historical [facility] Family Medicine [place] [address] [phone] Chris Benitez DO NO ADDRESS ON FILE Contusion of Foot (Primary Dx) Social History Tobacco Use Types Packs/Day Years Used Date Smoking Tobacco: Never Assessed Sex and Gender Information Value Date Recorded Sex Assigned at Not on file Legal Sex Male 4:05 AM LADIES SUIT OPERATOR Gender Identity Not on file Sexual Orientation Not on file documented as of this encounter Plan of Treatment Not on file documented as of this encounter Visit Diagnoses Diagnosis Contusion of foot- Primary documented in this encounter Care Teams Facing Baster Jumpbasting Relationship Specialty Start Date End Date Adeline Mcbride MD [address] [phone] PCP - General Family Practice 12/31/16 documented as of this encounter
--- OUTSIDE RECORDS SUMMARY | 2025-05-02 16:21 | XMS_ITS | Encounter Summary ---
Author Organization [facility] Address [address] [place] [address] Care Team Providers Care Neurology Manager Name Role Phone Adeline Mcbride MD Primary Care Provider +1- [phone] Encounter Details Date Type Department Care Team (Latest Contact Info) Description 04/26/2001 Outpatient Historical [facility] Family Medicine [place] [address] [phone] Chris Benitez DO NO ADDRESS ON FILE Type II or unspecified type diabetes mellitus without mention of complication, not stated as uncontrolled (Primary Dx) Social History Tobacco Use Types Packs/Day Years Used Date Smoking Tobacco: Never Assessed Sex and Gender Information Value Date Recorded Sex Assigned at Not on file Legal Sex Male 4:05 AM EVENT MARKETING SPECIALIST Gender Identity Not on file Sexual Orientation Not on file documented as of this encounter Plan of Treatment Not on file documented as of this encounter Visit Diagnoses Diagnosis Type II or unspecified type diabetes mellitus without mention of complication, not stated as uncontrolled- Primary documented in this encounter Care Teams Neurology Manager Relationship Specialty Start Date End Date Adeline Mcbride MD [address] [phone] PCP - General Family Practice 12/31/16 documented as of this encounter
--- OUTSIDE RECORDS SUMMARY | 2025-05-02 16:21 | XMS_ITS | Encounter Summary ---
Author Organization [facility] Address [address] [place] [address] Care Team Providers Care Events Traffic Controller Name Role Phone Adeline Mcbride MD Primary Care Provider +1- [phone] Encounter Details Date Type Department Care Team (Latest Contact Info) Description 08/18/2001 Outpatient Historical [facility] Family Medicine [place] [address] [phone] Opal De León MD NO ADDRESS ON FILE Toxic effect venom (Primary Dx) Social History Tobacco Use Types Packs/Day Years Used Date Smoking Tobacco: Never Assessed Sex and Gender Information Value Date Recorded Sex Assigned at Not on file Legal Sex Male 4:05 AM HEAD ATHLETIC TRAINER/STRENGTH COACH Gender Identity Not on file Sexual Orientation Not on file documented as of this encounter Plan of Treatment Not on file documented as of this encounter Visit Diagnoses Diagnosis Toxic effect venom- Primary Toxic effect of venom documented in this encounter Care Teams Events Traffic Controller Relationship Specialty Start Date End Date Adeline Mcbride MD [address] [phone] PCP - General Family Practice 12/31/16 documented as of this encounter
--- OUTSIDE RECORDS SUMMARY | 2025-05-02 16:21 | XMS_ITS | Encounter Summary ---
Author Organization [facility] Address [address] [place] [address] Care Team Providers Care Bottom Presser Name Role Phone Adeline Mcbride MD Primary Care Provider +1- [phone] Encounter Details Date Type Department Care Team (Latest Contact Info) Description 05/12/2004 Outpatient Historical [facility] Medicine [place] [address] [phone] Estee Cross NP NO ADDRESS ON FILE SHLDR/UPPER ARM INJURY NOS (Primary Dx); FX PHALANX, HAND NOS-CLOSE Social History Tobacco Use Types Packs/Day Years Used Date Smoking Tobacco: Never Assessed Sex and Gender Information Value Date Recorded Sex Assigned at Not on file 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
--- OUTSIDE RECORDS SUMMARY | 2025-05-02 16:21 | XMS_ITS | Encounter Summary ---
Author Organization [facility] Address [address] [place] [address] Care Team Providers Care Unhairing Inspector Name Role Phone Adeline Mcbride MD Primary Care Provider +1- [phone] Encounter Details Date Type Department Care Team (Latest Contact Info) Description 06/07/2007 Outpatient Historical [facility] Family Medicine [place] [address] [phone] Chris Benitez, NO ADDRESS ON FILE Pain in Joint, Lower Leg (Primary Dx) Social History Tobacco Use Types Packs/Day Years Used Date Smoking Tobacco: Never Assessed Sex and Gender Information Value Date Recorded Sex Assigned at Not on file 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
--- OUTSIDE RECORDS SUMMARY | 2025-05-02 16:21 | XMS_ITS | Encounter Summary ---
Author Organization [facility] Address [address] [place] [address] Care Team Providers Care Auto Body Service Mechanic Name Role Phone Adeline Mcbride MD Primary Care Provider +1- [phone] Encounter Details Date Type Department Care Team (Latest Contact Info) Description 02/23/2006 Outpatient Historical [facility] Medicine [place] [address] [phone] Chris Benitez DO NO ADDRESS ON FILE DM w/o Complication Type II (CMS/HCC) (Primary Dx); Actinic Keratosis Social History Tobacco Use Types Packs/Day Years Used Date Smoking Tobacco: Never Assessed Sex and Gender Information Value Date Recorded Sex Assigned at Not on file 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
--- OUTSIDE RECORDS SUMMARY | 2025-05-02 16:21 | XMS_ITS | Encounter Summary ---
Author Organization [facility] Address [address] [place] [address] Care Team Providers Care Brood Station Manager Name Role Phone Adeline Mcbride MD Primary Care Provider Encounter Details Date Type Department Care Team (Latest Contact Info) Description 04/13/2001 [facility] [address] [phone] Kurt Mcdonald MD [address] [facility] [address] [place] [phone] Acute sinusitis, unspecified (Primary Dx) Social History Tobacco Use Types Packs/Day Years Used Date Smoking Tobacco: Never Assessed Sex and Gender Information Value Date Recorded Sex Assigned at Not on file 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
--- OUTSIDE RECORDS SUMMARY | 2025-05-02 16:21 | XMS_ITS | Encounter Summary ---
Author Organization [facility] Address [address] [place] [address] Care Team Providers Care Emissions Testing And Repair Technician Name Role Phone Adeline Mcbride MD Primary Care Provider +1- [phone] Encounter Details Date Type Department Care Team (Latest Contact Info) Description 07/06/2005 Outpatient Historical [facility] Family Medicine [place] [address] [phone] Estee Cross NP NO ADDRESS ON FILE ACUTE SINUSITIS NOS (Primary Dx); ACUTE PHARYNGITIS Social History Tobacco Use Types Packs/Day Years Used Date Smoking Tobacco: Never Assessed Sex and Gender Information Value Date Recorded Sex Assigned at Not on file 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
--- OUTSIDE RECORDS SUMMARY | 2025-05-02 16:21 | XMS_ITS | Encounter Summary ---
Author Organization [facility] Address [address] [place] [address] Care Team Providers Care Metal Furniture Panel Coverer Name Role Phone Adeline Mcbride MD Primary Care Provider +1- [phone] Encounter Details Date Type Department Care Team (Latest Contact Info) Description 01/02/[address] 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
--- OUTSIDE RECORDS SUMMARY | 2025-05-02 16:21 | XMS_ITS | Encounter Summary ---
Author Organization [facility] Address [address] [place] [address] Care Team Providers Care Crosscutter Rolled Glass Name Role Phone Adeline Mcbride MD Primary Care Provider +1- [phone] Encounter Details Date Type Department Care Team (Late st Contact Info) Description 05/29/2003 Outpatient Historical [facility] [address] [place] [address] 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
--- OUTSIDE RECORDS SUMMARY | 2025-05-02 16:21 | XMS_ITS | Encounter Summary ---
Author Organization [facility] Address [address] [place] [address] Care Team Providers Care Professional Bass Fisher Name Role Phone Adeline Mcbride MD Primary Care Provider +1- [phone] Encounter Details Date Type Department Care Team (Latest Contact Info) Description 06/10/2006 Outpatient Historical [facility] Ear, Nose and Throat [address] [place] [address] 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
--- OUTSIDE RECORDS SUMMARY | 2025-05-02 16:21 | XMS_ITS | Encounter Summary ---
Author Organization [facility] Address [address] [place] [address] Care Team Providers Care Residential Caregiver Name Role Phone Adeline Mcbride MD Primary Care Provider +1- [phone] Encounter Details Date Type Department Care Team (Latest Contact Info) Description 02/07/2004 Outpatient Historical [facility] Family Medicine [place] [address] [phone] Opal De León MD NO ADDRESS ON FILE MED EXAM NEC-ADMIN PURP (Primary Dx) Social History Tobacco Use Types Packs/Day Years Used Date Smoking Tobacco: Never Assessed Sex and Gender Information Value Date Recorded Sex Assigned at Not on file 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
--- OUTSIDE RECORDS SUMMARY | 2025-05-02 16:21 | XMS_ITS | Encounter Summary ---
Author Organization [facility] Address [address] [place] [address] Care Team Providers Care Java Sql Developer Name Role Phone Adeline Mcbride MD Primary Care Provider +1- [phone] Encounter Details Date Type Department Care Team (Latest Contact Info) Description 11/10/1999 Outpatient Historical [facility] Family Medicine [place] [address] [phone] Chris Benitez DO NO ADDRESS ON FILE Backache, unspecified (Primary Dx) Social History Tobacco Use Types Packs/Day Years Used Date Smoking Tobacco: Never Assessed Sex and Gender Information Value Date Recorded Sex Assigned at Not on file 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
--- OUTSIDE RECORDS SUMMARY | 2025-05-02 16:21 | XMS_ITS | Encounter Summary ---
Author Organization [facility] Address [address] [place] [address] Care Team Providers Care Employment Manager Name Role Phone Adeline Mcbride MD Primary Care Provider +1- [phone] Encounter Details Date Type Department Care Team (Latest Contact Info) Description 12/20/2006 Outpatient Historical [facility] Family Medicine [place] [address] [phone] Chris Benitez DO NO ADDRESS ON FILE Contusion of Foot (Primary Dx) Social History Tobacco Use Types Packs/Day Years Used Date Smoking Tobacco: Never Assessed Sex and Gender Information Value Date Recorded Sex Assigned at Not on file 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
--- OUTSIDE RECORDS SUMMARY | 2025-05-02 16:21 | XMS_ITS | Encounter Summary ---
Author Organization [facility] Address [address] [place] [address] Care Team Providers Care Wardrobe Specialist Name Role Phone Adeline Mcbride MD Primary Care Provider +1- [phone] Encounter Details Date Type Department Care Team (Latest Contact Info) Description 03/02/2001 Outpatient Historical [facility] Family Medicine [place] [address] [phone] Chris Benitez DO NO ADDRESS ON FILE Type II or unspecified type diabetes mellitus without mention of complication, not stated as uncontrolled (Primary Dx) Social History Tobacco Use Types Packs/Day Years Used Date Smoking Tobacco: Never Assessed Sex and Gender Information Value Date Recorded Sex Assigned at Not on file 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
--- OUTSIDE RECORDS SUMMARY | 2025-05-02 16:21 | XMS_ITS | Encounter Summary ---
Author Organization [facility] Address [address] [place] [address] Care Team Providers Care Cissp Name Role Phone Adeline Mcbride MD Primary Care Provider +1- [phone] Encounter Details Date Type Department Care Team (Latest Contact Info) Description 05/16/2004 Outpatient Historical [facility] Medicine [place] [address] [phone] Chris Benitez DO NO ADDRESS ON FILE Contusion shoulder reg (Primary Dx); DIABETES MELLITUS TYPE II-UNCOMPL (CMS/[facility]) Social History Tobacco Use Types Packs/Day Years Used Date Smoking Tobacco: Never Assessed Sex and Gender Information Value Date Recorded Sex Assigned at Not on file 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
--- OUTSIDE RECORDS SUMMARY | 2025-05-02 16:21 | XMS_ITS | Clinical Summary ---
Author Organization [facility] Address [address] [facility] [place] [address] Care Team Providers Care Linux Solaris Administrator Name Role Phone Adeline Mcbride MD Primary Care Provider Allergies No known active allergies Medications IBUPROFEN PO Take by mouth 1 time daily as needed. Active lancets One Touch; use to check sugars once daily; Dx codeE11.9. 100 Each 3 7 Active OTHER One touch ultra lite dx:code E11.9 check blood sugar one time daily. 1 Kit 7 Active oxymetazoline (AFRIN) 0.05 % [place], Non-Aerosol Administer 2 Sprays in each nostril 2 times daily. Up to 3 days Active sertraline (Zoloft) 50 mg tablet Take 1 Tablet (50 mg) by mouth daily. 90 Tablet 1 0 Active pseudoephedrine (SUDAFED) 30 mg tabletIndicatio ns:Allergic rhinitis, unspecified seasonality, unspecified trigger TAKE 1 TABLET BY MOUTH EVERY 6 HOURS NEEDED FOR CONGESTION 24 Tablet 0 Active blood sugar diagnostic Strip DX:code E11.9 check blood sugar one time daily (One Touch Ultra) 100 Strip 2 0 Active metFORMIN (GLUCOPHAGE) 850 mg tablet TAKE 1 TABLET BY MOUTH THREE TIMES DAILY 270 Tablet 3 0 Active amLODIPine (NORVASC) 10 mg tablet TAKE 1 TABLET(10 MG) BY MOUTH DAILY 90 Tablet 1 1 Active losartan (COZAAR) 100 mg tablet Take 1 Tablet (100 mg) by mouth daily. 90 Tablet 1 1 Active glipiZIDE (GLUCOTROL) 10 mg tablet Take 1 Tablet (10 mg) by mouth 2 times daily with meals. 180 Tablet 1 1 Active mupirocin calcium (Bactroban) 2 % Cream Apply to affected area 2 times daily. 15 Gram 1 1 Active polyethylene glycol 3350 (MIRALAX) 17 gram/dose Powder Dissolve entire bottle in 64 ounces of fluid and drink entire liquid for bowel prep. 238 Gram 1 Active bisacodyL (DULCOLAX) 5 mg Delayed Release tablet Take 2 tablets the night before bowel prep and 2 tablets the morning of bowel prep 4 Tablet 1 Active dulaglutide (Trulicity) 1.5 mg/0.5 mL injection Inject 0.5 mL (1.5 mg) by subcutaneous injection every 7 days. 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, without long-term current use of insulin 11/11/2016 12/06/2017 Diabetes mellitus type II, uncontrolled 09/03/2013 11/11/2016 Hypertension 05/20/2011 11/11/2016 Laceration 09/11/2009 11/30/2010 Contusion, wrist 09/11/2009 11/30/2010 Wrist pain 09/11/2009 11/30/2010 Type II or unspecified type diabetes mellitus without mention of complication, not stated as uncontrolled 02/25/2014 Overview (06/21/2012): A1C: 9.3 (05/01); 10.0 (03/01); 10.1 (11/29); 9.7 (08/30) Immunizations Immunization Administration Dates Next Due (ADACEL/BOOSTRIX)(10 YR UP) TDAP VACCINE, 0.5ML, IM 12/12/2020 (TDVAX)(7 YRS UP) TETANUS AN D DIPHTHERIA TOXOIDS, ADSORBED (2 LF OF TETANUS TOXOID AND 2 LF OF DIPHTHERIA TOXOID), 0.5ML (PF), IM 09/11/2009,06/05/2002 Influenza Seasonal Unspecified Formulation IM ,10/08/2012 Influenza Vaccine High Dose 65+ Yrs IM 9 08/31/2020 Influenza Vaccine Split 3+ Yrs IM 08/29/2013 Skin Test TB 06/16/2010 Family History Medical History Relation Name Comments Healthy Brother 1 Healthy Brother 2 Diabetes Father Heart Disease Father Healthy Maternal Grandfather Diabetes Maternal Grandmother Diabetes Mother Other Mother RA Colon Cancer Other 1 p aunt x 2 Diabetes Other 1 p aunt x 2 Colon Cancer Other 2 p uncle x 2 Heart Disease Paternal Grandfather Other Paternal Grandmother glucoma Breast Cancer Neg Hx Relation Name Status Comments Brother 1 Brother 2 Father Maternal Grandfather Maternal Grandmother Mother Other 1 p aunt x 2 Alive Other 2 p uncle x 2 Alive Paternal Grandfather Paternal Grandmother Social History Tobacco Use Types Packs/Day Years Used Date Smoking Tobacco: Never Smokeless Tobacco: Never Alcohol Use Standard Drinks/Week Comments No 0 (1 standard drink = 0.6 oz pur e alcohol) Education Answer Date Recorded What is the highest level of school you have completed or the highest degree you have received? 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 Gender Identity Not on file Sexual Orientation Not on file Occupation Industry Job Start Date Job End Date Not on file Not on file Not on file Not on file Last Filed Vital Signs Vital Sign Reading Time Taken Comments Blood Pressure 144/85 03/06/2021 1:19 PM CDT Pulse 88 03/06/2021 1:19 PM CDT Temperature 36.9 C (98.4 F) 03/06/2021 1:19 PM CDT Respiratory Rate 16 03/06/2021 1:19 PM CDT Oxygen Saturation 94% 03/06/2021 1:19 PM CDT Inhaled Oxygen Concentration - - Weight 111.6 kg (246 lb) 03/06/2021 12:27 PM CDT Height 182.9 cm (6') 03/06/2021 12:27 PM CDT Body Mass Index 33.36 03/06/2021 12:27 PM CDT Plan of Treatment Health Maintenance Due Date Last Done Comments PNEUMOCOCCAL VACCINE 50+ YEA RS (1 of 2 - PCV) 11/20/1970 ZOSTER VACCINE (1 of 2) 11/20/1970 FIT-DNA Q 3 years 11/20/1996 FIT/FOBT Q 1 year 11/20/1996 Flex Sig/CT Colonography Q 5 years 11/20/1996 RSV VACCINE (60+ or ) (1 - Risk 60-74 years 1-dose series) 2011 DIABETES ANNUAL RETINAL EXAM 03/26/202103/2020, 03/26/2020, 03/26/2020, Additional history exists DIABETES MICROALBUMIN ANNUAL SCREEN 05/14/2021 05/14/2020, 04/20/2019, 05/12/2013, Additional history exists Traditional Medicare (ACO) A nnual Wellness Visit 05/14/2021 05/13/2020 DIABETES HBA1C Q 6 MONTHS 06/14/20212020, 05/14/2020, 05/14/2020, Additional history exists DIABETES ANNUAL FOOT EXAM 12/12/20212020, 12/12/2020, 08/31/2019, Additional history exists LDL CHOLESTEROL ANNUAL 12/12/2021 1, 05/14/2020, 08/31/2019, Additional history exists INFLUENZA VACCINE (#1) 2025 1, 08/31/2019, 09/05/2018, Additional history exists COLORECTAL SCREENING 03/06/2026 03/06/2021, 03/18/20 05 Colorectal Cancer Screening 03/06/2026 DTAP/TDAP/TD VACCINES (2 - T d or Tdap) 12/12/2030 12/12/2020, 09/11/2009, 06/05/2002 Procedures Procedure Name Priority Date/Time Associated Diagnosis Comments LDL CHOLESTEROL, DIRECT Routine 12/12/2020 10:16 AM CDT Type 2 diabetes mellitus with hyperglycemia, without long-term current use of insulin ([facility]) HEMOGLOBIN A1C Routine 12/12/2020 10:16 AM CDT Type 2 diabetes mellitus with hyperglycemia, without long-term current use of insulin ([facility]) MICROALBUMIN/CREATIN INE RATIO, RANDOM UR Routine 05/14/2020 8:27 AM CDT Type 2 diabetes mellitus with hyperglycemia, without long-term current use of insulin ([facility]) DIABETES EYE EXAM Routine 07/06/2016 from Last 3 Months or Most Recently Relevant to Health Maintenance Results * LDL CHOLESTEROL, DIRECT (12/12/2020 10:16 AM CDT) LDL CHOLESTEROL, DIRECT 48 <100 mg/dL 12/12/2020 9:18 PM CDT [facility] Blood Venipuncture / Unknown 12/12/2020 10:16 AM CDT 12/12/2020 8:34 PM CDT Narrative [facility] - 12/12/2020 9:18 PM CDT LDL CHOLESTEROL [...] King HERNANDEZ CHEMISTRY ORDERABLES Final Re sult [facility] CLIA# [id number] [facility] [place] [address] * (ABNORMAL) HEMOGLOBIN A1C (12/12/2020 10:16 AM CDT) HEMOGLOBIN A1C 10.0(H) See Comment % 12/12/2020 8:59 PM CDT [facility] EST. AVG GLUCOSE, A1C 240 mg/dL 12/12/2020 8:59 PM CDT [facility] Blood Venipuncture / Unknown 12/12/2020 10:16 AM CDT 12/12/2020 8:34 PM CDT [facility] - 12/12/2020 8:59 PM CDT HGB A1C INTERPRETATION NORMAL: <5.7% PRE-DIABETES: 5.7 - 6.4% DIABETES: 6.5% OR GREATER Falsely low A1C measurements can occur when: 1. Anemia and/or hemolytic anemia is present. 2. Hemoglobin variants present. 3. Renal failure. 4. Transfusion of blood product in the last 120 days. We recommend ordering a fructosamine test([id number]) to more accurately assess glycemic status if any of the above conditions are present. King HERNANDEZ CHEMISTRY ORDERABLES Final Re sult [facility] CLIA# [id number] [address] [place] [address] * (ABNORMAL) MICROALBUMIN/CREATININE RATIO, RANDOM UR (05/14/2020 8:27 AM CDT) MICROALBUMIN, URINE 80.0 No Reference Range mg/dL 05/14/2020 10:00 PM CDT [facility] CREATININE, URINE 94.0 40.0 - 278.0 mg/dL 05/14/2020 10:00 PM CDT [facility] Comment:Reference Range vari es with fluid intake and diet. MICROALBUMIN/ CREAT RATIO, UR 851.1(H) <17.0 mg/g 05/14/2020 10:00 PM CDT [facility] Urine URINE SPECIMEN OBTAINED BY CLEAN CATCH PROCEDURE / Unknown Collection / Unknown 05/14/2020 8:27 AM CDT 05/14/2020 8:04 PM CDT [facility] - 05/14/2020 10:00 PM CDT Condition Microalbumin/Creat ratio Normal Males <17 Normal Females <25 Microalbuminuria Males 17-299 Microalbuminuria Females 25-299 Overt proteinuria >=300 King HERNANDEZ URINE ORDERABLES Final Result [facility] CLIA# [id number] [place] [address] * DIABETES EYE EXAM (07/06/2016) us Abstract Spg Provider HEALTH MAINTENANCE Final R esult from Last 3 Months or Most Recently Relevant to Health Maintenance Insurance MEDICARE PART A AND B [place] Advance Directives For more information, please contact: [phone] * Full Code (Latest Code Status on File) Date Activated Date Inactivated Comments 03/06/2021 12:01 PM 03/06/2021 3:31 PM Care Teams Linux Solaris Administrator Relationship Specialty Start Date End Date Adeline Mcbride MD [address] [facility] [address] [place] [address] PCP - General Family Practice 12/31/16
--- OUTSIDE RECORDS SUMMARY | 2025-05-02 16:21 | XMS_ITS | Encounter Summary ---
Author Organization [facility] Address [address] [place] [address] Care Team Providers Care Ground Systems Engineer Name Role Phone Adeline Mcbride MD Primary Care Provider [phone]- [phone] Encounter Details Date Type Department Care Team (Latest Contact Info) Description 03/18/2005 Outpatient Historical 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
--- OUTSIDE RECORDS SUMMARY | 2025-05-02 16:21 | XMS_ITS | Encounter Summary ---
Author Organization [facility] Address [address] [place] [address] Care Team Providers Care Prison Guard Supervisor Name Role Phone Adeline Mcbride MD Primary Care Provider Encounter Details Date Type Department Care Team (Latest Contact Info) Description 05/20/2004 Outpatient Historical [facility] [place] [address] [address] [facility] [place] [phone] Chris Benitez, DO NO ADDRESS ON FILE ABNORMAL FIND-MUSCULOSKEL SYS (Primary Dx) Social History Tobacco Use Types Packs/Day Years Used Date Smoking Tobacco: Never Assessed Sex and Gender Information Value Date Recorded Sex Assigned at Not on file 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 [address] [place] [address] PCP - General Family Practice 12/31/16 documented as of this encounter
--- OUTSIDE RECORDS SUMMARY | 2025-05-02 16:21 | XMS_ITS | Encounter Summary ---
Author Organization [facility] Address [address] [place] [address] Care Team Providers Care Animal Services Officer Name Role Phone Adeline Mcbride MD Primary Care Provider Encounter Details Date Type Department Care Team (Latest Contact Info) Description 11/20/[address] 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 Gender Identity Not on file Sexual Orientation Not on file documented as of this encounter Plan of Treatment Not on file documented as of this encounter Visit Diagnoses Diagnosis Acute sinusitis, unspecified- Primary Myalgia and myositis, unspecified Mylagia and myositis, unspecified Type II or unspecified type diabetes mellitus without mention of complication, not stated as uncontrolled documented in this encounter Care Teams Animal Services Officer Relationship Specialty Start Date End Date Adeline Mcbride MD [address] [phone] PCP - General Family Practice 12/31/16 documented as of this encounter
--- OUTSIDE RECORDS SUMMARY | 2025-05-02 16:21 | XMS_ITS | Encounter Summary ---
Author Organization [facility] Address [address] [place] [address] Care Team Providers Care Voice Coach Name Role Phone Adeline Mcbride MD Primary Care Provider [phone]- [phone] Encounter Details Date Type Department Care Team (Latest Contact Info) Description 06/10/2004 Outpatient Historical [facility] Medicine [place] [address] [phone] Chris Benitez DO NO ADDRESS ON FILE SHLDR/UPPER ARM INJURY NOS (Primary Dx) Social History Tobacco Use Types Packs/Day Years Used Date Smoking Tobacco: Never Assessed Sex and Gender Information Value Date Recorded Sex Assigned at Not on file 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
--- OUTSIDE RECORDS SUMMARY | 2025-05-02 16:21 | XMS_ITS | Encounter Summary ---
Author Organization [facility] Address [address] [place] [address] Care Team Providers Care Store Custodian Name Role Phone Adeline Mcbride MD Primary Care Provider [phone]- [phone] Encounter Details Date Type Department Care Team (Latest Contact Info) Description 04/23/2006 Outpatient Historical [facility] Family Medicine- [place] [address] [place] [address] Estee Cross NP NO ADDRESS ON FILE Abdominal Pain, Unspecified Site (Primary Dx) Social History Tobacco Use Types Packs/Day Years Used Date Smoking Tobacco: Never Assessed Sex and Gender Information Value Date Recorded Sex Assigned at Not on file 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
--- OUTSIDE RECORDS SUMMARY | 2025-05-02 16:21 | XMS_ITS | Encounter Summary ---
Author Organization [facility] Address [address] [place] [address] Care Team Providers Care Fishing Rod Assembler Name Role Phone Adeline Mcbride MD Primary Care Provider [phone]- [phone] Encounter Details Date Type Department Care Team (Latest Contact Info) Description 01/17/2002 Outpatient Historical [facility] Family Medicine [address] [address] Chris Benitez DO NO ADDRESS ON FILE CARDIAC DYSRHYTHMIA NOS (Primary Dx); DIABETES UNCOMPL ADULT-TYPE II (CMS/HCC); MYALGIA AND MYOSITIS NOS Social History Tobacco Use Types Packs/Day Years Used Date Smoking Tobacco: Never Assessed Sex and Gender Information Value Date Recorded Sex Assigned at Not on file 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 Gender Identity Not on file Sexual Orientation Not on file documented as of this encounter Plan of Treatment Not on file documented as of this encounter Visit Diagnoses Diagnosis Cardiac dysrhythmia, unspecified- Primary Type II or unspecified type diabetes mellitus without mention of complication, not stated as uncontrolled Myalgia and myositis, unspecified Mylagia and myositis, unspecified documented in this encounter Care Teams Fishing Rod Assembler Relationship Specialty Start Date End Date Adeline Mcbride MD [address] [address] PCP - General Family Practice 12/31/16 documented as of this encounter
--- OUTSIDE RECORDS SUMMARY | 2025-05-02 16:21 | XMS_ITS | Encounter Summary ---
Author Organization [facility] Address [address] [place] [address] Care Team Providers Care Fuels Engineer Name Role Phone Adeline Mcbride MD Primary Care Provider [phone]- [phone] Encounter Details Date Type Department Care Team (Latest Contact Info) Description 03/18/2005 Outpatient Historical [facility] Gastroenterology- [place] [address] [address] Lee Malcolm MD [address] [address] SCREENING MAL NEOP-COLON (Primary Dx) Social History Tobacco Use Types Packs/Day Years Used Date Smoking Tobacco: Never Assessed Sex and Gender Information Value Date Recorded Sex Assigned at Not on file 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
--- OUTSIDE RECORDS SUMMARY | 2025-05-02 16:21 | XMS_ITS | Encounter Summary ---
Author Organization [facility] Address [address] [place] [address] Care Team Providers Care Marshmallow Machine Worker Name Role Phone Adeline Mcbride MD Primary Care Provider +1- [phone] Encounter Details Date Type Department Care Team (Latest Contact Info) Description 05/18/2006 Outpatient Historical [facility] Medicine [place] [address] [phone] Estee Cross NP NO ADDRESS ON FILE Acute Pharyngitis (Primary Dx); Nausea Alone; Abdominal Pain, Epigastric; Adjustment Disorder with Depressed Mood Social History Tobacco Use Types Packs/Day Years Used Date Smoking Tobacco: Never Assessed Sex and Gender Information Value Date Recorded Sex Assigned at Not on file 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
--- OUTSIDE RECORDS SUMMARY | 2025-05-02 16:21 | XMS_ITS | Encounter Summary ---
Author Organization [facility] Address [address] [place] [address] Care Team Providers Care Metal Annealer Name Role Phone Adeline Mcbride MD Primary Care Provider [phone]- [phone] Encounter Details Date Type Department Care Team (Latest Contact Info) Description 03/22/2001 Outpatient Historical [facility] Family Medicine [place] [address] [phone] Chris Benitez DO NO ADDRESS ON FILE Type II or unspecified type diabetes mellitus without mention of complication, not stated as uncontrolled (Primary Dx) Social History Tobacco Use Types Packs/Day Years Used Date Smoking Tobacco: Never Assessed Sex and Gender Information Value Date Recorded Sex Assigned at Not on file 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
--- OUTSIDE RECORDS SUMMARY | 2025-05-02 16:21 | XMS_ITS | Encounter Summary ---
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
--- OUTSIDE RECORDS SUMMARY | 2025-05-02 16:21 | XMS_ITS | Encounter Summary ---
Author Organization [facility] Address [address] [place] [address] Care Team Providers Care Head Of Marketing Name Role Phone Adeline Mcbride MD Primary Care Provider +1- [phone] Encounter Details Date Type Department Care Team (Latest Contact Info) Description 05/23/[address] 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
--- OUTSIDE RECORDS SUMMARY | 2025-05-02 16:21 | XMS_ITS | Encounter Summary ---
Author Organization [facility] Address [address] [place] [address] Care Team Providers Care Retail Assistant Store Manager Name Role Phone Adeline Mcbride MD Primary Care Provider +1- [phone] Encounter Details Date Type Department Care Team (Late st Contact Info) Description 05/20/2004 Outpatient Historical [facility] Imaging Services [place] [place] 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
--- OUTSIDE RECORDS SUMMARY | 2025-05-02 16:21 | XMS_ITS | Encounter Summary ---
Author Organization [facility] Address [address] [place] [address] Care Team Providers Care Car Pick Up Driver Name Role Phone Adeline Mcbride MD Primary Care Provider +1- [phone] Encounter Details Date Type Department Care Team (Latest Contact Info) Description 08/17/2006 Outpatient Historical [facility] Medicine [place] [address] [phone] Chris Benitez DO NO ADDRESS ON FILE DM w/o Complication Type II (CMS/HCC) (Primary Dx); Other and Unspecified Hyperlipidemia Social History Tobacco Use Types Packs/Day Years Used Date Smoking Tobacco: Never Assessed Sex and Gender Information Value Date Recorded Sex Assigned at Not on file 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
--- OUTSIDE RECORDS SUMMARY | 2025-05-02 16:21 | XMS_ITS | Encounter Summary ---
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 Gender Identity Not on file Sexual Orientation Not on file documented as of this encounter Plan of Treatment Not on file documented as of this encounter Procedures Procedure Name Priority Date/Time Associated Diagnosis Comments LDL CHOLESTEROL, DIRECT Routine 03/17/2005 9:50 AM CDT documented in this encounter Results * LDL CHOLESTEROL, DIRECT (03/17/2005 9:50 AM CDT) LDL CHOLESTEROL, DIRECT See Sep Report INTERFACE SYSTEM 03/17/2005 9:50 AM CDT us Chris Benitez DO CHEMISTRY ORDERABLES Final Resu lt INTERFACE SYSTEM Refer to clinic/hospital department documented in this encounter Visit Diagnoses Not on filedocumented in this encounter Care Teams Stitchdowns Toe Former Relationship Specialty Start Date End Date Adeline Mcbride MD [address] [phone] PCP - General Family Practice 12/31/16 documented as of this encounter
--- OUTSIDE RECORDS SUMMARY | 2025-05-02 16:21 | XMS_ITS | Encounter Summary ---
Author Organization [facility] Address [address] [place] [address] Care Team Providers Care Instrumentation Instructor Name Role Phone Adeline Mcbride MD Primary Care Provider +1- [phone] Encounter Details Date Type Department Care Team (Latest Contact Info) Description 04/28/2000 Outpatient Historical [facility] Family Medicine [place] [address] [phone] Chris Benitez DO NO ADDRESS ON FILE Ingrowing nail (Primary Dx) Social History Tobacco Use Types Packs/Day Years Used Date Smoking Tobacco: Never Assessed Sex and Gender Information Value Date Recorded Sex Assigned at Not on file 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
--- OUTSIDE RECORDS SUMMARY | 2025-05-02 16:21 | XMS_ITS | Encounter Summary ---
Author Organization [facility] Address [address] [place] [address] Care Team Providers Care Segmental Paver Installer Name Role Phone Unavailable Primary Care Provider Unavailabl e Encounter Details Date Type Department Care Team (Latest Contact Info) Description 04/20/2025 Results Follow-Up [facility] Interventional Radiology [address] [place] [address] [place] [address] Geo Garcia MD [address] [place] [address] MRI ABDOMEN W WO CONTRAST Social History Tobacco Use Types Packs/Day Years Used Date Smoking Tobacco: Never Smokeless Tobacco: Never Alcohol Use Standard Drinks/Week Comments No 0 (1 standard drink = 0.6 oz pur e alcohol) Sex and Gender Information Value Date Recorded Sex Assigned at Not on file Legal Sex Male 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 No evidence of residual or recurrent disease. Will schedule f/u in1 year. Geo Garcia MD documented in this encounter Plan of Treatment Upcoming Encounters Date Type Department Care Team (Late st Contact Info) Description 05/04/2025 10:00 AM CDT Appointment [facility] Cardiac Rehabilitation [facility] [address] [facility] [address] [place] [phone] Liz Valencia, CONCRETE FLOOR INSTALLER [address] [place] [facility] [place] [address] 05/07/2025 10:00 AM CDT Appointment [facility] Cardiac Rehabilitation [facility] [address] [facility] [address] [place] [address] Liz Valencia, CONCRETE FLOOR INSTALLER [address] [facility] [place] [address] 05/09/2025 10:00 AM CDT Appointment [facility] Cardiac Rehabilitation [facility] [address] [facility] [address] [place] [address] Liz Valencia CONCRETE FLOOR INSTALLER [address] [facility] [place] [address] 05/11/2025 10:00 AM CDT Appointment [facility] Cardiac Rehabilitation [facility] [address] [facility] [address] [place] [address] Liz Valencia CONCRETE FLOOR INSTALLER [address] [facility] [place] [address] 05/14/2025 10:00 AM CDT Appointment [facility] Cardiac Rehabilitation [facility] [address] [facility] [address] [place] [address] Liz Valencia, CONCRETE FLOOR INSTALLER [address] [facility] [place] [address] 05/16/2025 10:00 AM CDT Appointment [facility] Cardiac Rehabilitation [facility] [address] [place] [address] Liz Valencia, CONCRETE FLOOR INSTALLER [address] [facility] [place] [address] 05/18/2025 10:00 AM CDT Appointment [facility] Cardiac Rehabilitation [facility] [address] [place] [address] Liz Valencia, CONCRETE FLOOR INSTALLER [address] [facility] [place] [address] 12/11/2025 1:15 PM CDT Office Visit [address] [place] [phone] Jez Mendoza MD [address] [address] 04/17/2026 1:45 PM CDT Appointment [facility] [address] [place] [address] Geo Garcia MD [address] [place] [address] documented as of this encounter Visit Diagnoses Not on filedocumented in this encounter Additional Health Concerns Assessment Noted Time PHQ-9 Depression Total Score: 3 05/13/20 20 9:05 AM CDT documented as of this encounter
--- OUTSIDE RECORDS SUMMARY | 2025-05-02 16:21 | XMS_ITS | Encounter Summary ---
Author Organization [facility] Address [address] [place] [address] Care Team Providers Care Project Management Advisor Name Role Phone Adeline Mcbride MD Primary Care Provider +1- [phone] Encounter Details Date Type Department Care Team (Late st Contact Info) Description 05/20/2004 Outpatient Historical [facility] Orthopedics- [address] [place] 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
--- OUTSIDE RECORDS SUMMARY | 2025-05-02 16:21 | XMS_ITS | Encounter Summary ---
Author Organization [facility] Address [address] [place] [address] Care Team Providers Care Camp Tender Name Role Phone Adeline Mcbride MD Primary Care Provider +1- [phone] Encounter Details Date Type Department Care Team (Latest Contact Info) Description 08/30/2001 Outpatient Historical [facility] Family Medicine [place] [address] [phone] Chris Benitez DO NO ADDRESS ON FILE DIABETES UNCOMPL ADULT-TYPE II (CMS/HCC) (Primary Dx); ACUTE BRONCHITIS Social History Tobacco Use Types Packs/Day Years Used Date Smoking Tobacco: Never Assessed Sex and Gender Information Value Date Recorded Sex Assigned at Not on file 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
--- OUTSIDE RECORDS SUMMARY | 2025-05-02 16:21 | XMS_ITS | Encounter Summary ---
Author Organization [facility] Address [address] [place] [address] Care Team Providers Care Branch Coordinator Name Role Phone Adeline Mcbride MD Primary Care Provider +1- [phone] Encounter Details Date Type Department Care Team (Latest Contact Info) Description 10/28/1999 Outpatient Historical [facility] Family Medicine [place] [address] [phone] Chris Benitez DO NO ADDRESS ON FILE Acute sinusitis, unspecified (Primary Dx) Social History Tobacco Use Types Packs/Day Years Used Date Smoking Tobacco: Never Assessed Sex and Gender Information Value Date Recorded Sex Assigned at Not on file 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
--- OUTSIDE RECORDS SUMMARY | 2025-05-02 16:21 | XMS_ITS | Encounter Summary ---
Author Organization [facility] Address [address] [place] [address] Care Team Providers Care Bar Pointer Name Role Phone Adeline Mcbride MD Primary Care Provider +1- [phone] Encounter Details Date Type Department Care Team (Latest Contact Info) Description 08/25/2001 Outpatient Historical [facility] Family Medicine [address] [phone] Opal De León MD NO ADDRESS ON FILE ACUTE BRONCHITIS (Primary Dx) Social History Tobacco Use Types Packs/Day Years Used Date Smoking Tobacco: Never Assessed Sex and Gender Information Value Date Recorded Sex Assigned at Not on file 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
--- OUTSIDE RECORDS SUMMARY | 2025-05-02 16:21 | XMS_ITS | Encounter Summary ---
Author Organization [facility] Address [address] [place] [address] Care Team Providers Care Floor Covering Contractor Name Role Phone Adeline Mcbride MD Primary Care Provider +1- [phone] Encounter Details Date Type Department Care Team (Latest Contact Info) Description 05/20/2006 Outpatient Historical [facility] Family Medicine [place] [address] [phone] Estee Cross NP NO ADDRESS ON FILE Acute Sinusitis, Unspecified (Primary Dx); Dizziness and Giddiness; Shortness of Breath Social History Tobacco Use Types Packs/Day Years Used Date Smoking Tobacco: Never Assessed Sex and Gender Information Value Date Recorded Sex Assigned at Not on file 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
--- OUTSIDE RECORDS SUMMARY | 2025-05-02 16:21 | XMS_ITS | Encounter Summary ---
Author Organization [facility] Address [address] [place] [address] Care Team Providers Care Sealant Mixer Name Role Phone Adeline Mcbride MD Primary Care Provider +1- [phone] Encounter Details Date Type Department Care Team (Latest Contact Info) Description 05/13/2006 Outpatient Historical [facility] Family Medicine [place] [address] [phone] Estee Cross NP NO ADDRESS ON FILE Acute Sinusitis, Unspecified (Primary Dx); Dizziness and Giddiness Social History Tobacco Use Types Packs/Day Years Used Date Smoking Tobacco: Never Assessed Sex and Gender Information Value Date Recorded Sex Assigned at Not on file 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
== END 2025-05-01 15:04 | disposition home or self-care (01) ==
PROVIDERS: Emergency Provider Emergency Medicine; PCP Nurse Practitioner Family
DX: I48.91 Unspecified atrial fibrillation (principal); Z79.01 Long term (current) use of anticoagulants; Z79.4 Long term (current) use of insulin; Z79.82 Long term (current) use of aspirin; I25.10 Atherosclerotic heart disease of native coronary artery without angina pectoris; E11.9 Type 2 diabetes mellitus without complications; I10 Essential (primary) hypertension
CPT/HCPCS: 36415; 71045; 80053; 85025; 85610; 93005; 96374; 99285; J3490

== ENCOUNTER → 2025-05-08 09:37 | Outpatient (BNVA) | payer MEDICARE, OTHER, SELFPAY | PROVIDERS: PCP Nurse Practitioner Family; Visit Provider Podiatrist Foot & Ankle Surgery | DX: E11.69 Type 2 diabetes mellitus with other specified complication (principal); Z79.4 Long term (current) use of insulin | CPT/HCPCS: 99213 ==

== ENCOUNTER → 2025-05-09 11:50 | Outpatient (BNVA) | payer MEDICARE, OTHER, SELFPAY | PROVIDERS: PCP Nurse Practitioner Family; Visit Provider Internal Medicine | DX: E11.65 Type 2 diabetes mellitus with hyperglycemia (principal); E11.40 Type 2 diabetes mellitus with diabetic neuropathy, unspecified; E78.2 Mixed hyperlipidemia | CPT/HCPCS: 99214 ==

== ENCOUNTER → 2025-05-10 09:56 | Outpatient (BNVA) | payer MEDICARE, OTHER, SELFPAY | PROVIDERS: PCP Nurse Practitioner Family; Visit Provider Nurse Practitioner Family | DX: I48.91 Unspecified atrial fibrillation (principal); Z79.01 Long term (current) use of anticoagulants; Z79.82 Long term (current) use of aspirin; I25.10 Atherosclerotic heart disease of native coronary artery without angina pectoris; I47.29 Other ventricular tachycardia; I10 Essential (primary) hypertension; E78.5 Hyperlipidemia, unspecified; M79.89 Other specified soft tissue disorders; G47.30 Sleep apnea, unspecified; Z95.5 Presence of coronary angioplasty implant and graft | CPT/HCPCS: 99214 ==

== ENCOUNTER → 2025-06-25 10:00 | Outpatient (BNVA) | payer MEDICARE, OTHER, SELFPAY | PROVIDERS: PCP Nurse Practitioner Family; Visit Provider Internal Medicine Cardiovascular Disease | DX: I25.10 Atherosclerotic heart disease of native coronary artery without angina pectoris (principal); I47.29 Other ventricular tachycardia; I10 Essential (primary) hypertension; E78.5 Hyperlipidemia, unspecified; G47.33 Obstructive sleep apnea (adult) (pediatric); Z99.89 Dependence on other enabling machines and devices; M79.89 Other specified soft tissue disorders; Z95.5 Presence of coronary angioplasty implant and graft | CPT/HCPCS: 99214 ==

== ENCOUNTER → 2025-06-28 11:13 | Outpatient (BNVA) | payer MEDICARE, OTHER, SELFPAY | PROVIDERS: PCP Nurse Practitioner Family; Visit Provider Nurse Practitioner Family | DX: L85.8 Other specified epidermal thickening (principal); L57.8 Other skin changes due to chronic exposure to nonionizing radiation; L81.4 Other melanin hyperpigmentation; L82.1 Other seborrheic keratosis; D18.01 Hemangioma of skin and subcutaneous tissue; Z08 Encounter for follow-up examination after completed treatment for malignant neoplasm; Z85.828 Personal history of other malignant neoplasm of skin; L57.0 Actinic keratosis | CPT/HCPCS: 17000; 99214 ==

== ENCOUNTER → 2025-08-01 07:53 | Outpatient (BNVA) | payer MEDICARE, OTHER, SELFPAY | PROVIDERS: PCP Nurse Practitioner Family; Visit Provider Internal Medicine | DX: E11.40 Type 2 diabetes mellitus with diabetic neuropathy, unspecified (principal); E11.65 Type 2 diabetes mellitus with hyperglycemia | CPT/HCPCS: 80053; 80061; 82043; 83036 ==

== ENCOUNTER → 2025-09-07 11:14 | Outpatient (BNVA) | payer MEDICARE, OTHER, SELFPAY | PROVIDERS: PCP Nurse Practitioner Family; Visit Provider Nurse Practitioner Family | DX: S00.80XA Unspecified superficial injury of other part of head, initial encounter (principal); L57.8 Other skin changes due to chronic exposure to nonionizing radiation; L57.0 Actinic keratosis; X58.XXXA Exposure to other specified factors, initial encounter | CPT/HCPCS: 17000; 99213 ==